=== PATIENT | male | born 1955 | race Caucasian/White ===

== ENCOUNTER 2024-04-05 09:16 | Emergency (ER) | payer MEDICARE, SELFPAY ==
[2024-04-05 09:25] VITALS: BP 134/77; PULSE 62; TEMP 36.7; O2SAT 96; BMI 25.1
[2024-04-05 09:37] VITALS: O2SAT 98
--- NOTE | 2024-04-05 10:01 | ED_ITS ---
HPI HPI - General Adult General Chief complaint: Extremity Injury, Upper Stated complaint: UPPER EXTREMITY PAIN Time Seen by Provider: 04/05/24 09:20 Source: patient and family Mode of arrival: walk-in Limitations: no limitations History of Present Illness HPI narrative: This patient is here with his for evaluation of ongoing pain in his right shoulder. This patient was seen at a different institution on Saturday. History is given by both the patient and his . Saturday morning after waking up he had an event. She says he extended both of his arms in a very stiff and strong presentation and had altered mental status and confusion. He did not have a full-blown seizure. He does not remember the event. He was taken to the hospital by ambulance. 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 He is very stoic. He is right-handed dominant and has never had any problems with the shoulder. Ever since this event he has extreme pain in his right shoulder. The evaluation at the other institution is that he probably had a seizure disorder. He has been referred to a neurologist but has not followed up yet. He has not had any further seizure events since that. He was told that x-rays of his shoulder showed arthritis. He was not given any analgesics. He has been using creams and patches and NSAIDs with no effect. The pain is over the anterior lateral aspect of his deltoid area. He says he cannot elevate his arm without extreme pain. He has no loss of feeling. He has no pain in his elbow forearm has no clumsiness or problem moving his hand on the right side. Related Data Home Medications ?Medication ?Instructions ?Recorded ?Confirmed amlodipine 5 mg tablet mg 04/05/24 carvedilol 6.25 mg tablet mg 04/05/24 olmesartan 20 tab 04/05/24 mg-hydrochlorothiazide 12.5 mg tablet Allergies Allergy/AdvReac Type Severity Reaction Status Date / Time No Known Drug Allergies Allergy Verified 04/05/24 09:29 Opioid HPI Opioid Management Most Recent Opioid Data: Last Pain Scale 10 04/05/24 09:37 Last ED Pain Assessment 04/05/24 09:37 Exam Narrative Exam Narrative: Awake alert pleasant here with his vital signs are stable. He is holding his shoulder close to his torso. We did an [facility] search and he has no narcotic use at all. Examination shows the elbow range of motion to be normal. Forearm muscle use wrist and hand muscles are all completely normal with no weakness of the hand and forearm. Biceps is strong. However any attempt to elevate his shoulder reproduces pain. The shoulder is not dislocated. Sensation to the forearm and hand is normal. Constitutional Vital Signs, click to edit/add: Last Vital Signs Temp 98.0 F 04/05/24 09:25 Pulse 62 04/05/24 09:25 Resp 18 04/05/24 09:25 BP 134/77 04/05/24 09:25 Pulse Ox 98 04/05/24 09:37 O2 Del Method Room Air 04/05/24 09:37 Course Vital Signs Vital signs: Vital Signs Temperature 98.0 F 04/05/24 09:25 Pulse Rate 62 04/05/24 09:25 Respiratory Rate 18 04/05/24 09:25 Blood Pressure 134/77 04/05/24 09:25 Pulse Oximetry 96 04/05/24 09:25 Oxygen Delivery Method Room Air 04/05/24 09:25 Temperature 98.0 F 04/05/24 09:25 Pulse Rate 62 04/05/24 09:25 Respiratory Rate 18 04/05/24 09:25 Blood Pressure 134/77 04/05/24 09:25 Pulse Oximetry 98 04/05/24 09:37 Oxygen Delivery Method Room Air 04/05/24 09:37 Medical Decision Making [facility] Narrative Medical decision making narrative: This patient presents with pain and discomfort after having an apparent seizure in his right shoulder. We will refer him to local orthopedics placed him in a sling. Will put him on a prednisone therapy as well as analgesics for nighttime pain especially. He is not at risk for narcotic abuse. Discharge Plan Discharge Stand Alone Forms: Work/School Release, Portal Instructions Chief Complaint: Extremity Injury, Upper Clinical Impression: Injury of right rotator cuff Patient Disposition: Home, Self-Care Time of Disposition Decision: 10:06 Prescriptions / Home Meds: No Action carvedilol 6.25 mg tablet amlodipine 5 mg tablet olmesartan-hydrochlorothiazide 20-12.5 mg tablet Print Language: Bahraini Additional Instructions: Wear sling for 3 or 4 days. Follow-up with orthopedics/Percocet for nighttime pain. Prednisone for 7 days Referrals: HERVE STEELE [Primary Care Provider] - 1 week
--- NOTE | 2024-04-05 10:21 | CT_ITS ---
[address] [address] Patient Name: FARHAN HUTRADO MRN: [id number] date: 1955 Sex: M Assigned Patient Location: ER Current Patient Location: [facility] Accession/Order Number: [id number] Exam Date: 04/05/2024 10:38 Report Date: 04/05/2024 16:06 At the request of: FARHAN Hernandez JONAMAN Procedure: CT shoulder RT wo con EXAM: CT shoulder RT wo con HISTORY: Trauma COMPARISON: None. TECHNIQUE: Dose reduction techniques were achieved by using automated exposure control and/or adjustment of mA and/or kV according to patient size and/or use of iterative reconstruction technique.CT of the right shoulder without contrast. FINDINGS: Posterior shoulder dislocation. Reverse Hill-Sachs lesion of the humerus. No definitive acute fracture of the glenoid. No right axillary adenopathy. Moderate glenohumeral joint effusion. Pulmonary nodule of the right minor fissure measuring 5 mm. Normal alignment of the right acromioclavicular joint. CT/CT shoulder RT wo con IMPRESSION: 1. Posterior shoulder dislocation. 2. Reverse Hill-Sachs lesion of the humerus. No definitive acute fracture of the glenoid. 3. Moderate glenohumeral joint effusion. 4. Normal alignment of the right acromioclavicular joint. Electronically authenticated by: TANIKA PACHECO Date: 04/05/2024 16:06
[2024-04-05] MEDS: OXYCODONE HCL/ACETAMINOPHEN 5MG/325MG 1 TAB PO (10:42)
== END 2024-04-05 12:05 | disposition home or self-care (01) ==
PROVIDERS: Emergency Provider Emergency Medicine Emergency Medical Services; PCP Family Medicine
DX: S46.001A Unspecified injury of muscle(s) and tendon(s) of the rotator cuff of right shoulder, initial encounter (principal); X58.XXXA Exposure to other specified factors, initial encounter
CPT/HCPCS: 73200; 99284

== ENCOUNTER 2024-05-20 13:43 | Outpatient (RCR) | payer MEDICARE, SELFPAY | END 2024-08-04 15:05 | disposition home or self-care (01) | LOC: PT 13:43 | PROVIDERS: PCP Family Medicine | DX: S43.004D Unspecified dislocation of right shoulder joint, subsequent encounter (principal) | CPT/HCPCS: 97010; 97110; 97112; 97140; 97161 ==

== ENCOUNTER 2024-06-19 11:55 | Outpatient (OUT) | payer MEDICARE, SELFPAY ==
--- NOTE | 2024-06-19 12:15 | XR_ITS ---
The [address] [address] Patient Name: FARHAN HURTADO MRN: [id number] date: 1955 Sex: M Assigned Patient Location: LAB Current Patient Location: Accession/Order Number: [id number] Exam Date: 06/19/2024 12:30 Report Date: 06/23/2024 06:05 At the request of: HERVE STEELE Procedure: XR wrist RT min 3V 3 views of the right wrist INDICATION: Pain COMPARISON: None XR/XR wrist RT min 3V IMPRESSION: No acute fracture or dislocation. Scattered mild degenerative changes. Joint alignment is intact. Scattered vascular calcifications. Electronically authenticated by: LESLIE GATES Date: 06/23/2024 06:05
--- NOTE | 2024-06-19 12:16 | XR_ITS ---
The [address] [address] Patient Name: FARHAN HURTADO MRN: [id number] date: 1955 Sex: M Assigned Patient Location: LAB Current Patient Location: LAB Accession/Order Number: [id number] Exam Date: 06/19/2024 12:30 Report Date: 06/23/2024 14:35 At the request of: HERVE STEELE Procedure: XR hand RT min 3V PROCEDURE: XR hand RT min 3V HISTORY: joint swelling, known right shoulder fracture M25.40 COMPARISON: None. FINDINGS: BONES:Multifocal mild degenerative joint disease, predominantly involving the interphalangeal joints. No fracture, dislocation, or bone lesion. Small ossification lateral to the third metacarpophalangeal joint favoring sequela of remote injury. SOFT TISSUES:No visible soft tissue swelling. EFFUSION:None visible. OTHER: Negative. XR/XR hand RT min 3V IMPRESSION: 1. No acute or specific bone abnormality to account for patient's symptoms. 2. Multifocal mild degenerative changes. Electronically authenticated by: AMAN KUMAR Date: 06/23/2024 14:35
[2024-06-19 12:49] LABS: Basophils Absolute Auto 0.1 10^3/uL (0.0-0.1); Basophils Percent Auto 0.5 % (0.2-2.0); Eosinophils Absolute Auto 0.2 10^3/uL (0.0-0.7); Eosinophils Percent Auto 2.2 % (0.9-7.0); Hematocrit 45.5 % (42.0-54.0); Hemoglobin 15.6 g/dL (14.0-18.0); Immature Granulocytes Abs Auto 0.02 10^3/uL (0.00-0.03); Immature Granulocytes Pct Auto 0.2 % (0.0-0.5); Lymphocytes Absolute Auto 1.4 10^3/uL (1.2-3.8); Lymphocytes Percent Auto 14.7 % (20.5-60.0); Mean Corpuscular HGB Conc 34.3 g/dL (29.9-35.2); Mean Corpuscular Hemoglobin 32.5 pg (25.9-34.0); Mean Corpuscular Volume 94.8 fL (80.0-94.0); Mean Platelet Volume 9.7 fL (9.5-13.5); Monocytes Absolute Auto 1.1 10^3/uL (0.3-0.8); Monocytes Percent Auto 11.8 % (1.7-12.0); Neutrophils Absolute Auto 6.5 10^3/uL (1.4-6.5); Neutrophils Percent Auto 70.6 % (43.0-75.0); Platelet Count 269 10^3/uL (150-450); Red Cell Distribution Width 13.2 % (11.0-15.0); White Blood Count 9.2 10^3/uL (4.0-11.0)
[2024-06-19 12:52] LABS: Alanine Aminotransferase 16 U/L (16-63); Albumin Globulin Ratio 1.1; Albumin Level 3.6 g/dL (3.4-5.0); Alkaline Phosphatase 116 U/L (46-116); Aspartate Amino Transferase 12 U/L (15-37); BUN Creatinine Ratio 11.3; Bilirubin Total 0.4 mg/dL (0.2-1.0); C Reactive Protein <0.50 mg/dL (<=0.50); Calcium 9.6 mg/dL (8.5-10.1); Carbon Dioxide 30.3 mmol/L (21.0-32.0); Chloride 104 mmol/L (98-107); Estimated GFR (African America >60 (>=60 mL/min/1.73m^2); Estimated GFR (Non-African Ame >60 (>=60 mL/min/1.73m^2); Globulin 3.4 g/dL; Glucose 96 mg/dL (74-106); Potassium 4.3 mmol/L (3.5-5.1); Sodium 143 mmol/L (136-145); Uric Acid 5.5 mg/dL (3.5-7.2)
[2024-06-19 12:54] LABS: Erythrocyte Sedimentation Rate 6 mm/hr (<=20)
[2024-06-20 06:10] LABS: Rheumatoid Factor (RF) <10.0 IU/mL (<14.0)
[2024-06-23 09:12] LABS: Antinuclear Antibodies, IFA Positive (.)
== END 2024-06-19 11:56 | disposition home or self-care (01) ==
LOC: LAB 11:58
PROVIDERS: PCP Family Medicine; Visit Provider Family Medicine
DX: S42.91XS Fracture of right shoulder girdle, part unspecified, sequela (principal); M25.40 Effusion, unspecified joint
CPT/HCPCS: 36415; 73110; 73130; 80053; 84550; 85025; 85652; 86038; 86140; 86431

== ENCOUNTER 2024-07-04 04:09 | Emergency (ER) | payer MEDICARE, SELFPAY ==
[2024-07-04] VITALS (10 sets, daily range): BP systolic 130–144; BP diastolic 71–83; PULSE 73–80; TEMP 36.7; O2SAT 88–94
--- OUTSIDE RECORDS SUMMARY | 2024-07-04 04:15 | XMS_ITS | CCD ---
Author Organization [facility] Care Team Providers Care 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 Machine Tender Name Role Phone LALY TALBERT Admitting Unavailable NITISH, LALY Attending Unavailable IVETTE, DR EDGAR Primary Care Unavailable NITISH, LALY Consulting Unavailable NITISH, LALY Attending Unavailable IVETTE, DR EDGAR Primary Care Unavailable MISC, DR WOODARD Admitting Unavailable NITISH, LALY Admitting Unavailable NITISH, LALY Attending Unavailable IVETTE, DR EDGAR Primary Care Unavailable MENDEZ VARGAS Consulting Unavailable NITISH, LALY Consulting Unavailable NASIR, DR GARCIA Admitting Unavailable NASIR, DR GARCIA Attending Unavailable IVETTE, DR EDGAR Primary Care Unavailable JOSÉ, DR AMAN Garcia Consulting Unavailable ARA KINNEY Consulting Unavailable Herve Steele Unavailable Wesleys, Herve Primary Care Provider DO Herve Steele Attending Provider Wesleys, DO Edgar Primary Care Provider Wesleys, DO Edgar Attending Provider MD Elvia Palacios Attending Provider Elvia Palacios Unavailable Ivette, DO Edgar Primary Care Provider MD Elvia Palacios Attending Provider Community, Outreach Attending Provider [phone] DO Herve Steele Attending Provider [phone] Kuns, Herve Primary Care Provider Ivette, DO Edgar Attending Provider [phone] MD Ludmila Merchant Attending Provider Kuns, DO Herve Primary Care Provider [phone] DO Sly Gleason Emergency Provider Kuns, Herve Eddie Primary Care Provider [phone] INDY QUICK Attending Unavailable DAMIÁN BLACKWOOD Admitting Unavailable DAMIÁN BLACKWOOD Attending Unavailable DAMIÁN BLACKWOOD Referring Unavailable KUNS, HERVE R Primary Care Unavailable Kuns, Herve Admitting Unavailable Kuns, Herve Attending Unavailable Kuns, Herve Primary Care Unavailable Kuns, Herve Admitting Unavailable Kuns, Herve Attending Unavailable Kuns, Herve Primary Care Unavailable Kuns, Herve Admitting Unavailable Kuns, Herve Attending Unavailable Kuns, Herve Primary Care Unavailable Kuns, Herve Admitting Unavailable Kuns, Herve Attending Unavailable Kuns, Herve Primary Care Unavailable Asaad, Imad Admitting Unavailable Asaad, Imad Attending Unavailable Kuns, Herve Primary Care Unavailable Sly Gleason Attending Unavailable Sly Gleason Admitting Unavailable Kuns, Herve Primary Care Unavailable Kuns, DO Herve Attending Provider [phone] Generic Provider MD, No Assigned Pcp Primary Car e Provider Unavailable Kuns DO, Herve R Primary Care Provider [phone] DAMIÁN BLACKWOOD Attending Unavailable KUNS, HERVE R Primary Care Unavailable DAMIÁN BLACKWOOD Attending Unavailable GENERIC PROVIDER, NO ASSIGNED PCP Primary Care Unavailable DAMIÁN BLACKWOOD Referring Unavailable GENERIC PROVIDER, NO ASSIGNED PCP Primary Care Unavailable BRIAN NEWSOME Attending Unavailable GENERIC PROVIDER, NO ASSIGNED PCP Primary Care Unavailable BRIAN NEWSOME Referring Unavailable GENERIC PROVIDER, NO ASSIGNED PCP Primary Care Unavailable DAMIÁN BLACKWOOD Referring Unavailable KUNS, HERVE R Primary Care Unavailable HI WOOTEN Referring Unavailable KUNS, HERVE EDDIE Primary Care Unavailable NEME MERCMANDY, AMI Referring Unavailabl e KUNS, HERVE EDDIE Primary Care Unavailable NEME JAYCEE AMI Attending Unavailabl e HO, HI Referring Unavailable KUNS, HERVE EDDIE Primary Care Unavailable MIGUELANGEL WOOTENSON Attending Unavailable FANTASMA SORIANO Referring Unavailable KUNS, HERVE EDDIE Primary Care Unavailable HO HI Referring Unavailable KUNS, HERVE EDDIE Primary Care Unavailable BO, FANTASMA Referring Unavailable FANTASMA SORIANO Attending Unavailable DANIEL ELLISON Attending Unavailable HERVE STEELE Primary Care Unavailable HI WOOTEN Referring Unavailable HERVE STEELE Primary Care Unavailable HI WOOTEN Referring Unavailable HERVE STEELE Primary Care Unavailable Allergies Allergy Classification Reported Allergen(s) Allergy Type Date of Onset Reaction(s) Facility (1 source) Unable to Assess Drug allergy (disorder) [facility] Repository (1 source) ALLERGIES NOT ON FILE; Translations: [ALLERGIES NOT ON FILE] Propensity to adverse reactions (disorder) [facility] [place] Repository Medications Current Medications Medication Drug Class(es) Dates Sig (Normalized) Sig (Original) acetaminophen 500 mg oral tablet (2 sources) Start: 04-10-2024 take 2 tablets by mouth every six hours as needed for pain acetaminophen (Tylenol) 500 mg tablet TAKE 2 TABLETS BY MOUTH EVERY 6 HOURS NEEDED FOR PAIN FOR UP TO 5 DAYS. 04/10/2024 Active amLODIPine 5 mg oral tablet (20 sources) Dihydropyridine Calcium Channel Jamaal Start: 12-26-2023 End: 12-26-2023 amLODIPine (NORVASC) 5 mg tablet once daily. 12/26/2023 Active Start: 09-12-2017 take 1 tablet by michael th every twenty-four hours amLODIPine Besylate 5 MG 1 tablet Orally Once a day Sep, Active Aspirin (20 sources) Platelet Aggregation Inhibitor, Nonsteroidal Anti-inflammatory Drug Start: 12-26-2023 take 1 tablet by mouth once daily aspirin 81 mg capsule Take 1 tablet by mouth once daily. 12/26/2023 Active Start: 12-26-2023 aspirin 81 mg cap 1 tablet. 12/26/2023 Active Start: 12-26-2023 take 1 tablet by michael th once daily Aspirin Active 1 TAB PO Daily December 26, 2023 12:00am FreeTextSi tablet Orally Once a day; Note: Source Status: Taking; Provider: Ivette Edgar ( ) take 1 tablet by michael th every twenty-four hours Aspirin 81 MG 1 tablet Orally Once a day Active betamethasone 0.5 mg/ml / clotrimazole 10 mg/ml topical cream (13 sources) Azole Antifungal, Corticosteroid Start: 01-06-2019 Clotrimazole-Betamethasone 1-0.05 % 1 application Externally Twice a day December, Active carvedilol 6.25 mg oral tablet (20 sources) alpha-Adrenergic Jamaal, beta-Adrenergic Jamaal Start: 12-26-2023 take 1 tablet by mouth twice daily carvedilol (Coreg) 6.25 mg tablet Take 1 tablet (6.25 mg) by mouth 2 times a day. 12/26/2023 Active Start: 12-26-2023 End: 12-26-2023 carvedilol (COREG) 6.25 mg t ablet once daily. 12/26/2023 Active Start: 03-19-2018 take 1 tablet by michael th every twenty-four hours Carvedilol 6.25 MG 1 tablet Orally Once a day Mar, Active diclofenac sodium 75 mg delayed release oral tablet (8 sources) Nonsteroidal Anti-inflammatory Drug Start: 04-28-2024 take 1 tablet by mouth twice daily as needed for pain diclofenac, EC, (VOLTAREN) 75 mg EC tablet Take one tablet by mouth twice a day as needed PRN for pain, with food 30 tablet 04/28/2024 Active hydroCHLOROthiazide 12.5 mg / olmesartan medoxomil 20 mg oral tablet (20 sources) Thiazide Diuretic, Angiotensin 2 Receptor Jamaal Start: 12-26-2023 Olmesartan-hydr oCHLOROthiazide 20-12.5 mg per tablet 1 tablet. 12/26/2023 Active Start: 12-26-2023 End: 12-26-2023 take 1 tablet by mouth once daily olmesartan-hydrochlorothiazide (BENIcar HCT) 20-12.5 mg tablet Take 1 tablet by mouth once daily. 12/26/2023 Active Start: 07-08-2018 take 1 tablet by michael th every twenty-four hours Olmesartan Medoxomil-HCTZ 20-12.5 MG 1 t ablet Orally Once a day Jul, Active levETIRAcetam 500 mg oral tablet (20 sources) Start: 05-27-2024 take 1 tablet by mouth twice daily levETIRAcetam (KEPPRA) 500 mg tablet Take 1 tablet by mouth two times a day. Patient should start on May 27, 2024. 180 tablet 3 05/27/2024 Active Start: 05-27-2024 take 1 tablet by michael th twice daily levETIRAcetam (KEPPRA) 500 mg tablet Take 1 tablet by mouth two times a day. Patient should start on May 27, 2024. 180 tablet 3 05/27/2024 Active Start: 05-27-2024 take 1 tablet by michael th twice daily levETIRAcetam (KEPPRA) 500 mg tablet Take 1 tablet by mouth two times a day. Patient should start on May 27, 2024. 180 tablet 3 05/27/2024 Active Start: 05-27-2024 take 1 tablet by michael th twice daily levETIRAcetam (KEPPRA) 500 mg tablet Take 1 tablet by mouth two times a day. Patient should start on May 27, 2024. 180 tablet 3 05/27/2024 Active Start: 05-27-2024 take 1 tablet by michael th twice daily levETIRAcetam (KEPPRA) 500 mg tablet Take 1 tablet by mouth two times a day. Patient should start on May 27, 2024. 180 tablet 3 05/27/2024 Active Start: 05-27-2024 take 1 tablet by michael th twice daily levETIRAcetam (KEPPRA) 500 mg tablet Take 1 tablet by mouth two times a day. Patient should start on May 27, 2024. 180 tablet 3 05/27/2024 Active Start: 05-27-2024 take 1 tablet by michael th twice daily levETIRAcetam (KEPPRA) 500 mg tablet Take 1 tablet by mouth two times a day. Patient should start on May 27, 2024. 180 tablet 3 05/27/2024 Active Start: 05-27-2024 take 1 tablet by michael th twice daily levETIRAcetam (KEPPRA) 500 mg tablet Take 1 tablet by mouth two times a day. Patient should start on May 27, 2024. 180 tablet 3 05/27/2024 Active Start: 04-27-2024 take 1 tablet by michael th twice daily levETIRAcetam (KEPPRA) 500 mg tablet Take 1 tablet by mouth two times a day. 60 tablet 04/27/2024 Active Start: 04-27-2024 take 1 tablet by michael th once daily levETIRAcetam (Keppra) 500 mg tablet Take 1 tablet (500 mg) by mouth once daily. 04/27/2024 Active mupirocin 0.02 mg/mg topical ointment (3 sources) RNA Synthetase Inhibitor Antibacterial Start: 04-30-2024 End: 05-05-2024 mupirocin (BACTROBAN) 2 % ointment Indications: Preoperative examination two times a day for 5 days. Apply 0.5 inch with cotton swab (Q-tip) to each nostril in the morning and evening for 5 days prior to and including day of surgery. 22 g 04/30/2024 05/05/2024 Active Paxlovid (300/100) 20 x 150 MG & 10 x 100MG (1 source) Start: 04-05-2022 Paxlovid (300/ 100) 20 x 150 MG & 10 x 100MG as directed Orally 04/05/22 test date GFR >60 Apr, Active Completed/Discontinued Medications Medication Drug Class(es) Dates Sig (Normalized) Sig (Original) acetaminophen 325 mg / oxyCODONE hydrochloride 5 mg oral tablet (8 sources) Opioid Agonist Start: 04-05-2024 End: 04-28-2024 take 1 tablet by mouth every six hours oxyCODONE-acetami nophen (PERCOCET) 5-325 mg tablet TAKE 1 TABLET BY MOUTH EVERY 6 HOURS FOR 4 DAYS 04/05/2024 04/28/2024 Discontinued (Course of therapy completed) Ketorolac (12 sources) Nonsteroidal Anti-inflammatory Drug, Cyclooxygenase Inhibitor Start: 06-14-2016 Toradol per 15 mg Jun, 2 cc predniSONE 20 mg oral tablet (8 sources) Start: 04-05-2024 End: 04-28-2024 take 1 tablet by mouth twice daily predniSONE (DELTASONE) 20 mg tablet TAKE 1 TABLET BY MOUTH TWICE A DAY FOR 4 DAYS TAKE 1 TABLET FOR 3 DAYS 04/05/2024 04/28/2024 Discontinued Problems Active Problems Problem Classification Problem Date Documented Da te Episodic/Chronic Administrative/social admission (12 sources) Other specified problems related to psychosocial circumstances; Translations: [Stress] Episodic Conditions associated with dizziness or vertigo (12 sources) Vertigo; Translations: [Dizziness and giddiness] Episodic Diabetes mellitus without complication (20 sources) Hyperglycemia; Translations: [Hyperglycemia, unspecified] 06-21-2024 Episodic Disorders of lipid metabolism (20 sources) Hyperlipidemia; Translations: [Hyperlipidemia, unspecified] Onset: 12-09-2023 Chronic E Codes: Cut/pierceb (1 source) Contact with other powered hand tools and household machinery, initial encounter; Translations: [CONTACT OTH POWER HT AND HH MACH INIT] Onset: 01-04-2021 Episodic E Codes: Fall (1 source) Unspecified fall, initial encounter; Translations: [UNSPECIFIED FALL INITIAL ENCOUNTER] Onset: 01-18-2021 Episodic Epilepsy; convulsions (16 sources) Seizure; Translations: [Unspecified convulsions] Onset: 04-09-2024 04-03-2024 Episodic Essential hypertension (20 sources) Essential (primary) hypertension; Translations: [Hypertensive disorder] Onset: 01-18-2021 Chronic Fracture of upper limb (3 sources) Closed fracture of upper end of humerus; Translations: [Other displaced fracture of upper end of right humerus, initial encounter for closed fracture] 04-09-2024 Episodic Joint disorders and dislocations; trauma-related (20 sources) Posterior dislocation of shoulder joint; Translations: [Posterior subluxation of right humerus, initial encounter] Onset: 04-30-2024 04-09-2024 Episodic Mycoses (12 sources) Onychomycosis; Translations: [Tinea unguium] Episodic Neoplasms of unspecified nature or uncertain behavior (4 sources) Neoplasm of uncertain behavior of skin; Translations: [Neoplasm of uncertain behavior of skin] Episodic Occlusion or stenosis of precerebral arteries (4 sources) Right carotid artery stenosis; Translations: [Occlusion and stenosis of right carotid artery] Onset: 01-02-2024 Chronic Open wounds of extremities (14 sources) Laceration of extensor muscle, fascia and tendon of unspecified finger at forearm level, subsequent encounter; Translations: [Unspecified open wound of unspecified finger without damage to nail, subsequent encounter] Onset: 12-28-2020 Episodic Other acquired deformities (1 source) Other specified acquired deformities of right upper arm; Translations: [Hill Sachs deformity, right] Onset: 04-09-2024 Episodic Other aftercare (1 source) Other technician terminal and repeater (current) drug therapy; Translations: [OTH SPEEDER FRAME TENDER CURRENT DRUG THERAPY] Onset: 01-18-2021 Episodic Other connective tissue disease (1 source) Cramp and spasm Episodic Other disorders of stomach and duodenum (12 sources) Indigestion; Translations: [Functional dyspepsia] Episodic Other fractures (9 sources) Pathological fracture of vertebra; Translations: [Collapsed vertebra, not elsewhere classified, thoracic region, initial encounter for fracture] Episodic Other fractures (1 source) Collapsed vertebra, not elsewhere classified, thoracic region, initial encounter for fracture Episodic Other fractures (6 sources) Fracture of twelfth thoracic vertebra; Translations: [Wedge compression fracture of T11-T12 vertebra, initial encounter for closed fracture] Episodic Other fractures (1 source) Wedge compression fracture of T11-T12 vertebra, initial encounter for closed fracture Episodic Other fractures (1 source) Wedge compression fracture of T11-T12 vertebra, subsequent encounter for fracture with routine healing Episodic Other injuries and conditions due to external causes (1 source) Unspecified injury of other specified muscles, fascia and tendons at wrist and hand level, left hand, initial encounter; Translations: [UNS INJ OTH SPEC M AND T W HND LT H INT] Onset: 01-04-2021 Episodic Other non-traumatic joint disorders (7 sources) Pain in right shoulder; Translations: [Pain in joint, shoulder region] Onset: 04-09-2024 04-09-2024 Episodic Other screening for suspected conditions (not mental disorders or infectious disease) (20 sources) Raised prostate specific antigen; Translations: [Elevated prostate specific antigen [PSA]] Onset: 12-09-2023 Episodic Residual codes; unclassified (2 sources) Pain, unspecified; Translations: [Pain] Onset: 04-24-2024 Episodic Residual codes; unclassified (3 sources) Pain; Translations: [Pain, unspecified] 04-22-2024 Episodic Residual codes; unclassified (1 source) Altered mental status, unspecified; Translations: [Altered mental status, unspecified] Onset: 04-03-2024 Episodic Spondylosis; intervertebral disc disorders; other back problems (12 sources) Low back pain; Translations: [Low back pain] Episodic Superficial injury; contusion (4 sources) Contusion of right shoulder; Translations: [Contusion of right shoulder, initial encounter] 04-03-2024 Episodic Unclassified (1 source) CONTACT W/AND (SUSP) EXPOS COVID-19; Translations: [CONTACT W/AND (SUSP) EXPOS COVID-19] Onset: 01-14-2021 Past or Other Problems Problem Classification Problem Date Documented Da te Episodic/Chronic Diseases of mouth; excluding dental (1 source) Diseases of lips Onset: 01-19-2022 Resolved: 01-19-2022 Episodic Unclassified (2 sources) Lumbar back pain M54.50 Unclassified (1 source) History of COVID-19 Z86.16 Viral infection (12 sources) Disease caused by 2019-nCoV; Translations: [COVID-19] Onset: 04-05-2022 Resolved: 04-05-2022 Results Test Name Value Interpretation Reference Range Facility MR Brain WO contraston 07-01 IMPRESSION: No acute intracranial abnormality. No focal structural abnormality to account for seizures. Symmetric size, signal, and maintained morphology of the bilateral hippocampi. Mild presumed chronic microvascular ischemic changes in the white matter, and generalized volume loss, as detailed. Personal Care Home Administrator: BRITTNEE Transcribe Date/Time: Jul 01 2024 10:25P Dictated by : JT MUNOZ MD This examination was interpreted and the report reviewed and electronically signed by: JT MUNOZ MD on Jul 01 2024 10:33PM [facility] * * *Final Report* * * DATE OF EXAM: Jul 01 2024 5:32PM [facility] 0294 - MRI BRAIN WO IVCON / PROCEDURE REASON: Convulsions, unspecified convulsion type (HCC) * * * * Physician Interpretation * * * * EXAMINATION: MRI BRAIN WO IVCON CLINICAL HISTORY: Convulsions, unspecified convulsion type (HCC) TECHNIQUE: Epilepsy protocol brain MRI without contrast. MQ: [id number] COMPARISON: Brain CT 04/09/2024. RESULT: Acute Change: There is no evidence of restricted diffusion to suggest an acute infarct. Hemorrhage: No evidence of prior parenchymal hemorrhage on the susceptibility weighted images. Mass Lesion/ Mass Effect: No evidence of an intracranial mass or extra-axial fluid collection. No significant mass effect. Chronic Change: Scattered patchy areas of increased T2 and FLAIR signal are present in the supratentorial white matter which is a nonspecific finding but likely represents mild chronic microvascular ischemia. Parenchyma: There is mild generalized parenchymal volume loss. The brain parenchyma is otherwise within normal limits of signal intensity and morphology. Mesial temporal structures: The bilateral hippocampi are symmetric in size and signal, and demonstrate maintained morphology bilaterally. Bilateral amygdala are symmetric in size and signal. No evidence of skull base encephalocele. Apparent slight asymmetric FLAIR hyperintensity in the left anterior temporal pole (for example coronal image 11:44 and axial image 12:43) is artifactual, related to field inhomogeneity artifacts, noting asymmetrically hyperintense appearance of the left orbit and left subcutaneous fat also on these images. Additionally, there is artifact in the anterior portions of the field of view on the axial FLAIR images, likely due to incomplete closure of the neck coil. Ventricles: Ventriculomegaly corresponds to the degree of parenchymal volume loss. Skull Base: Hypothalamic and pituitary region are grossly normal. Craniocervical junction is normal. No significant marrow replacement process. Vasculature: Major intracranial arterial structures, and dural venous sinuses show typical flow void, suggesting patency by spin echo criteria. Other: The visualized paranasal sinuses and mastoid air cells are clear. The orbits and extracranial soft tissues are unremarkable. [facility] Provider, [facility] - 07/01/2024 * * *Final Report* * * DATE OF EXAM: Jul 01 2024 5:[address] [place] [address] 0294 - MRI BRAIN WO IVCON / PROCEDURE REASON: Convulsions, unspecified convulsion type (HCC) * * * * Physician Interpretation * * * * EXAMINATION: MRI BRAIN WO IVCON CLINICAL HISTORY: Convulsions, unspecified convulsion type (HCC) TECHNIQUE: Epilepsy protocol brain MRI without contrast. MQ: [id number] COMPARISON: Brain CT 04/09/2024. RESULT: Acute Change: There is no evidence of restricted diffusion to suggest an acute infarct. Hemorrhage: No evidence of prior parenchymal hemorrhage on the susceptibility weighted images. Mass Lesion/ Mass Effect: No evidence of an intracranial mass or extra-axial fluid collection. No significant mass effect. Chronic Change: Scattered patchy areas of increased T2 and FLAIR signal are present in the supratentorial white matter which is a nonspecific finding but likely represents mild chronic microvascular ischemia. Parenchyma: There is mild generalized parenchymal volume loss. The brain parenchyma is otherwise within normal limits of signal intensity and morphology. Mesial temporal structures: The bilateral hippocampi are symmetric in size and signal, and demonstrate maintained morphology bilaterally. Bilateral amygdala are symmetric in size and signal. No evidence of skull base encephalocele. Apparent slight asymmetric FLAIR hyperintensity in the left anterior temporal pole (for example coronal image 11:44 and axial image 12:43) is artifactual, related to field inhomogeneity artifacts, noting asymmetrically hyperintense appearance of the left orbit and left subcutaneous fat also on these images. Additionally, there is artifact in the anterior portions of the field of view on the axial FLAIR images, likely due to incomplete closure of the neck coil. Ventricles: Ventriculomegaly corresponds to the degree of parenchymal volume loss. Skull Base: Hypothalamic and pituitary region are grossly normal. Craniocervical junction is normal. No significant marrow replacement process. Vasculature: Major intracranial arterial structures, and dural venous sinuses show typical flow void, suggesting patency by spin echo criteria. Other: The visualized paranasal sinuses and mastoid air cells are clear. The orbits and extracranial soft tissues are unremarkable. IMPRESSION IMPRESSION: No acute intracranial abnormality. No focal structural abnormality to account for seizures. Symmetric size, signal, and maintained morphology of the bilateral hippocampi. Mild presumed chronic microvascular ischemic changes in the white matter, and generalized volume loss, as detailed. Personal Care Home Administrator: PSCB Transcribe Date/Time: Jul 01 2024 10:25P Dictated by : JT MUNOZ MD This examination was interpreted and the report reviewed and electronically signed by: JT MUNOZ MD on Jul 01 2024 10:33PM EST [facility] Radiology Study observation (narrative) [facility] MR Brain WO contrastOrdered By: [facility] Provider on 07-01-2024 [facility] 06-22-2024 [facility] Telephone ([id number]) -- DAVIS JOHNSON ([id number]) 1955 M Date Time Provider Department 06/22/24 AMI WHITTAKER [id number] During your visit today, we recorded the following information about you: Poly Schmidt 06/22/2024 8:27 AM Signed Medication Concern Person Calling Davis Johnson Name of medication Keppra Concern with medication Patient wants to reduce Keppra due to bad taste and bad smell. Please advise. He plans to see a new doctor in [place] in two weeks due to closer to home. Patient of Promise Hernandez RN 06/22/2024 12:01 PM Signed 04/27/[address] Ramirez IMPRESSION: Patient presents with a single generalized tonic seizure upon awakening on 04/09/24. No risk factors for epilepsy. Seizure resulted on right humerus impacted on the posterior glenoid margin and dislocation requiring surgery. CT head was normal. No EEG conducted. Discussed with the patient the need of MRI dominique and EEG to further evaluate the single seizure. I explained to the patient that if the result of both studies is normal, my commendation is to start ASM given the risk of recurrent seizures and injuries. Keppra will be started , side effects discussed = PLAN: Keppra 500 mg bid EEG today Patient is cleared to have shoulder surgery Can not drive until October 2024 Follow up in 3 months = Testing Ordered Routine EEG 04/27/2024 EEG Impression: This awake and sleep EEG is within normal limits. No epileptiform discharges or EEG seizures were seen during this recording. Spoke with Aman no further seizures to report EEG completed no order in system for MRI would like to either decrease or wean off the LEV: affects taste and bad smelling urine. Does have an appointment with new neurologist locally in 2 weeks. Medical records phone and fax given. has FU with Epilepsy Fellow on 07/17/2024 for 3 month FU. EEG completed but no MRI at this time. routed for review TAPAN Pratt Ailis, PA-C 06/22/2024 12:26 PM Signed MRI Brain order placed. Would not recommend coming off of Keppra without replacing with another medication, patient already on very low dose, so cannot wean either. Two options for replacement, Lamotrigine 100 mg BID, which does have a long titration, so would have to remain on Keppra throughout, or Zonisamide 200 mg QHS, would have to confirm no history of kidney stones or sulfa allergies. Can discuss options with patient and see what his preference is, make a schedule for transitioning accordingly. Would not recommend stopping Keppra immediately. MARCK Gusman Kimberly L, RN 06/22/2024 1:59 PM Signed Spoke with Randall white the recommends appointment line given to arrange MRI/will call is needs order to do locally. will continue with the LEV at this time Promise Griffith RN Allergies As of Date: 06/22/2024 (No Known Allergies) Date Reviewed: 04/30/2024 Reviewed by: Juan C Zuleta APRN.[employer] - Fully Assessed Reason for Visit: Medication Problem [65] Cmt: Patient wants to reduce Keppra Primary Visit Diagnosis:Convulsions, unspecified convulsion type (HCC) [R56.9] Order(s):MRI BRAIN WO CARINON [[id number]] Order #: [id number] FUTURE Prescriptions as of 06/22/2024 - diclofenac, EC, (VOLTAREN) 75 mg EC tablet Take one tablet by mouth twice a day as needed PRN for pain, with food - levETIRAcetam (KEPPRA) 500 mg tablet Take 1 tablet by mouth two times a day. Patient should start on May 27, 2024. - levETIRAcetam (KEPPRA) 500 mg tablet Take 1 tablet by mouth two times a day. - Olmesartan-hydroCHLOROthia zide 20-12.5 mg per tablet 1 tablet. - carvedilol (COREG) 6.25 mg tablet once daily. - amLODIPine (NORVASC) 5 mg tablet once daily. - aspirin 81 mg cap 1 tablet. Problem List As Of Date 06/22/2024 Noted Resolved Seizure (HCC) [R56.9] 04/29/2024 Hypertension [I10] 04/29/2024 Hyperlipidemia [E78.5] 04/29/2024 Encounter Status:Closed by PROMISE GRIFFITH on 06/22/24 Normal [facility] XR SHOULDER RIGHT 2+ VIEWSon 06-17-2024 XR SHOULDER RIGHT 2+ VIEWS Interpreted By: Damon Pete, STUDY: XR SHOULDER RIGHT 2+ VIEWS; ; 06/17/2024 2:08 pm INDICATION: Signs/Symptoms:pain. ,S43.004A Unspecified dislocation of right shoulder joint, initial encounter COMPARISON: 05/18/2024 ACCESSION NUMBER(S): [id number] ORDERING CLINICIAN: DAMIÁN BLACKWOOD FINDINGS: Right shoulder, two views Total shoulder arthroplasty in place. There is no periprosthetic fracture or lucency. There is no dislocation. There is mild AC degenerative changes IMPRESSION: No hardware failure about the right total shoulder arthroplasty MACRO: None Signed by: Damon Pete 06/20/2024 6:16 AM Dictation workstation: [id number] [facility] XR SHOULDER RIGHT 2+ VIEWSon 05-18-2024 XR SHOULDER RIGHT 2+ VIEWS Interpreted By: Damián Blackwood, STUDY: XR SHOULDER RIGHT 2+ VIEWS; 05/18/2024 2:13 pm INDICATION: Signs/Symptoms:pain. ACCESSION NUMBER(S): [id number] ORDERING CLINICIAN: DAMIÁN BLACKWOOD FINDINGS: AP lateral oblique views of the right shoulder show stable alignment of the humeral hemiarthroplasty. Component appears stable and well-positioned without evidence of loosening or other obvious abnormality. Signed by: Damián Blackwood 05/18/2024 5:28 PM Dictation workstation: [id number] [facility] XR Shoulder - right 2 Viewso n 05-18-2024 Interpreted By: Damián Contreras, STUDY: XR SHOULDER RIGHT 2+ VIEWS; 05/18/2024 2:13 pm INDICATION: Signs/Symptoms:pain. ACCESSION NUMBER(S): [id number] ORDERING CLINICIAN: DAMIÁN BLACKWOOD FINDINGS: AP lateral oblique views of the right shoulder show stable alignment of the humeral hemiarthroplasty. Component appears stable and well-positioned without evidence of loosening or other obvious abnormality. Signed by: Damián Blackwood 05/18/2024 5:28 PM Dictation workstation: [id number] [facility] Damián Blackwood M D - 05/18/2024 Interpreted By: Damián Blackwood, STUDY: XR SHOULDER RIGHT 2+ VIEWS; 05/18/2024 2:13 pm INDICATION: Signs/Symptoms:pain. ACCESSION NUMBER(S): [id number] ORDERING CLINICIAN: DAMIÁN BLACKWOOD FINDINGS: AP lateral oblique views of the right shoulder show stable alignment of the humeral hemiarthroplasty. Component appears stable and well-positioned without evidence of loosening or other obvious abnormality. Signed by: Damián Blackwood 05/18/2024 5:28 PM Dictation workstation: [id number] [facility] Work Phone: Radiology Study observation (narrative) [facility] Work Phone: XR Shoulder - right 2 ViewsO rdered By: Damáin Blackwood on 05-18-2024 [facility] Work Phone: PSA Diagnostic (Total Free)o n 05-15-2024 Prostate Spec Ag, Free 1.120 ng/mL Normal T he [facility] Comment on above: Performed By: #### P SATF ####[place] [id number] [place] [id number] [facility] PSA Total (Not a Screen) 6.590 ng/mL High 0.000-4.000 [facility] Comment on above: Result Comment: Mesha knight tumor marker results determined by assays using different manufacturers or methods may not be comparable. [facility] senior technical trainer and method: EnzymeRx DXI, CHEMILUMINESCENT IMMUNOASSAY. Performed By: #### P SATF ####[place] [address] [place] [id number] [facility] PSA,FREE% 16.9 % Normal [facility] Comment on above: Result Comment: Base d on the work of Pieter et al.ALEX. 279(19):1542:47.1998 the percent free PSA may be used to determine the relative risk of prostate cancer in individual men.The percent probability of prostate cancer by patient age for men with non-suspicious ALFONSO results and total PSa between 4 and 10 ng/ml is as follows: % Free PSA 50 - 64 yrs. 65 - 75 yrs. 0 - 10 56% 55% 10 - 15 24% 35% 15 - 20 17% 23% 20 - 25 10% 20% >25 5% 9% PERFORMED BY: [facility] [address] [place] [id number] PATHOLOGIST EMAIL ADMINISTRATOR AMOR WADSWORTH M.D. Performed By: #### P SATF ####[place] [address] [place] [phone] [facility] Prostate Specific Ag Free [M ass/volume] in Serum or PlasmaOrdered By: Herve Steele on 05-15-2024 Free PSA [Mass/Vol] 1.120 ng/mL [facility] Prostate specific Ag [Mass/v olume] in Serum or PlasmaOrdered By: Herve Steele on 05-15-2024 Prostate specific Ag [Mass/Vol] 6.590 ng/mL High 0.000-4.000 [facility] Comment on above: Serial tumor marker results determined by assays using different manufacturers or methods may not be comparable.[facility] senior technical trainer and method:EnzymeRx DXI, CHEMILUMINESCENT IMMUNOASSAY. Serum or plasma free prostat e specific antigen (PSA)/total PSA ratioOrdered By: Herve Steele on 05-15-2024 Free PSA/Total PSA [Mass fraction] 16.9 % [facility] Comment on above: Based on the work of Pieter et al.ALEX. 279(19):1542:47.1998 the percent free PSA may be used to determine the relative risk of prostate cancer in individual men.The percent probability of prostate cancer by patient age for men with non-suspicious ALFONSO results and total PSa between 4 and 10 ng/ml is as follows:% Free PSA 50 - 64 yrs. 65 - 75 yrs. 0 - 10 56% 55% 10 - 15 24% 35% 15 - 20 17% 23% 20 - 25 10% 20% >25 5% 9% Partial Thromboplastin Timeo n 05-05-2024 aPTT Coag (Bld) [Time] 32.0 s Normal 24.4-36.8 [facility] Comment on above: Result Comment: Effe ctive 06/08/2020: Heparin Therapeutic Range: 64.0 ? 98.0 seconds. Performed By: #### P TT #### [facility] [address] [place] [id number] Prothrombin Timeon 4 INR Coag (PPP) [Relative time] 1.1 {INR} Normal [facility] Comment on above: Performed By: #### P T #### [facility] [address] [place] [id number] PT Coag (PPP) [Time] 14.1 s Normal 12.3-14.9 [facility] Comment on above: Performed By: #### P T #### [facility] [address] [place] [id number] Type and Screen Capture 3 sc rn cellon 05-05-2024 Type and Screen Capture 3 scrn cell PATIENT: ALEX Garcia LOC: [facility] NON BILL# : [id number] : 1955 SEX: M ORDERED BY: JAISON Ramos ORDERED : 05/05/2024 09:11 COLLECTED: 05/05/2024 09:06 ORDER : [id number] RECEIVED : 05/05/2024 09:11 TEST NAME RESULT UNITS RANGES ABN FL ST ABORH Capture O POS F Antibody 3 Cell Scrn Captu NEG F Normal [facility] Comment on above: Performed By: #### T S3C #### [facility] [address] [place] [address] Type and Screen Capture 3 scrn cell PATIENT: ALEX Garcia LOC: [facility] NON BILL# : [id number] : 1955 SEX: M ORDERED BY: JAISON Ramos ORDERED : 05/05/2024 08:13 COLLECTED: 05/05/2024 08:13 ORDER : [id number] RECEIVED : 05/05/2024 08:16 TEST NAME RESULT UNITS RANGES ABN FL ST ABORH Capture O POS F Antibody 3 Cell Scrn Michael X @05/05/24 09:13 by BODLY: SAMPLE HEMOLYZED. Normal [facility] Comment on above: Performed By: #### T S3C #### [facility] [address] [facility] [place] [id number] [phone] XR SHOULDER RIGHT (MIN 2 VIE WS)on 05-05-2024 XR SHOULDER RIGHT (MIN 2 VIEWS) EXAMINATION: THREE XRAY VIEWS OF THE RIGHT SHOULDER 05/05/2024 11:04 am COMPARISON: None. HISTORY: ORDERING SYSTEM PROVIDED HISTORY: Grashey and Y views in RR please TECHNOLOGIST PROVIDED HISTORY: Reason for exam:->Grashey and Y views in RR please What reading provider will be dictating this exam?->CRC FINDINGS: Humeral head resurfacing arthroplasty seen. Alignment is normal. IMPRESSION: Humeral head resurfacing arthroplasty. Interpreted by: Rodríguez Herrera MD Signed by: Rodríguez Herrera MD 05/05/24 Final result Normal [facility] XR SHOULDER RIGHT 2+ VIEWSon 05-04-2024 XR SHOULDER RIGHT 2+ VIEWS Interpreted By: Damián Blackwood, STUDY: XR SHOULDER RIGHT 2+ VIEWS; 05/04/2024 11:42 am INDICATION: Signs/Symptoms:pain. 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 Slight fragmentation around the posterior glenoid again present. Signed by: Damián lBackwood 05/04/2024 1:16 PM Dictation workstation: [id number] [facility] Comment on above: Order Comment: 4 vie ws Basophils Auto (Bld) [#/Vol] on 04-30-2024 Basophils (Bld) [#/Vol] 0.04 10*3/uL <0.11 [facility] Basophils/100 WBC Auto (Bld) on 04-30-2024 Basophils/100 WBC (Bld) 0.5 % [facility] Blood manual differential co mment interpretation narrativeon 04-30-2024 Manual differential comment Herve (Bld) [Interp] Auto [facility] CBC W Auto Differential pane l (Bld)on 04-30-2024 Basophils (Bld) [#/Vol] 0.04 10*3/uL Normal <0.11 [facility] Comment on above: Order Comment: Speci men Type: BLOOD SPECIMENOrdering Facility: [facility] Address: [address] [place] [address] Performed By: #### 5 7021-8 ####[facility] LABCLIA [id number] [place] [address] [place] Basophils/100 WBC (Bld) 0.5 % Normal [facility] Comment on above: Order Comment: Speci men Type: BLOOD SPECIMENOrdering Facility: [facility] Address: [address] [place] [address] Performed By: #### 5 7021-8 ####[facility] LABCLIA [id number] [place] [address] [place] Differential cell count method Nom (Bld) Auto Normal [facility] Comment on above: Order Comment: Speci men Type: BLOOD SPECIMENOrdering Facility: [facility] Address: [address] [place] [address] Performed By: #### 5 7021-8 ####[facility] LABCLIA [id number] [place] [address] [place] Eosinophils (Bld) [#/Vol] 0.23 10*3/uL Normal <0.46 [facility] Comment on above: Order Comment: Speci men Type: BLOOD SPECIMENOrdering Facility: [facility] Address: [address] [place] [address] Performed By: #### 5 7021-8 ####[facility] LABCLIA [id number] [place] [address] [place] Eosinophils/100 WBC (Bld) 2.8 % Normal [facility] Comment on above: Order Comment: Speci men Type: BLOOD SPECIMENOrdering Facility: [facility] Address: [address] [place] [address] Performed By: #### 5 7021-8 ####[facility] LABCLIA [id number] [place] [address] [place] Erythrocyte distribution width (RBC) [Ratio] 13.4 % Normal 11.5-15.0 [facility] Comment on above: Order Comment: Speci men Type: BLOOD SPECIMENOrdering Facility: [facility] Address: [address] [place] [address] Performed By: #### 5 7021-8 ####[facility] LABCLIA [id number] [place] [address] [place] Hematocrit (Bld) [Volume fraction] 43.7 % Normal 39.0-51.0 [facility] Comment on above: Order Comment: Speci men Type: BLOOD SPECIMENOrdering Facility: [facility] Address: [address] [place] [address] Performed By: #### 5 7021-8 ####[facility] LABCLIA [id number] [place] [address] [place] Hemoglobin (Bld) [Mass/Vol] 14.3 g/dL Normal 13.0-17.0 [facility] Comment on above: Order Comment: Speci men Type: BLOOD SPECIMENOrdering Facility: [facility] Address: [address] [place] [address] Performed By: #### 5 7021-8 ####[facility] LABCLIA [id number] [place] [address] [place] Immature granulocytes (Bld) [#/Vol] 10*3/uL Normal <0.10 [facility] Comment on above: Order Comment: Speci men Type: BLOOD SPECIMENOrdering Facility: [facility] Address: [address] [place] [address] Performed By: #### 5 7021-8 ####[facility] LABCLIA [id number] [place] [address] [place] Immature granulocytes/100 WBC (Bld) 0.1 % Normal [facility] Comment on above: Order Comment: Speci men Type: BLOOD SPECIMENOrdering Facility: [facility] Address: [address] [place] [address] Performed By: #### 5 7021-8 ####[facility] LABCLIA [id number] [place] [address] [place] Lymphocytes (Bld) [#/Vol] 1.26 10*3/uL Normal 1.00-4.00 [facility] Comment on above: Order Comment: Speci men Type: BLOOD SPECIMENOrdering Facility: [facility] Address: [address] [place] [address] Performed By: #### 5 7021-8 ####[facility] LABCLIA [id number] [place] [address] [place] Lymphocytes/100 WBC (Bld) 15.1 % Normal [facility] Comment on above: Order Comment: Speci men Type: BLOOD SPECIMENOrdering Facility: [facility] Address: [address] [place] [address] Performed By: #### 5 7021-8 ####[facility] LABCLIA [id number] [place] [address] [place] MCH (RBC) [Entitic mass] 31.8 pg Normal 26.0-34.0 [facility] Comment on above: Order Comment: Speci men Type: BLOOD SPECIMENOrdering Facility: [facility] Address: [address] [place] [address] Performed By: #### 5 7021-8 ####[facility] LABCLIA [id number] [place] [address] [place] MCHC (RBC) [Mass/Vol] 32.7 g/dL Normal 30.5-36.0 [facility] Comment on above: Order Comment: Speci men Type: BLOOD SPECIMENOrdering Facility: [facility] Address: [address] [place] [address] Performed By: #### 5 7021-8 ####[facility] LABCLIA [id number] [place] [address] [place] MCV (RBC) [Entitic vol] 97.3 fL Normal 80.0-100.0 [facility] Comment on above: Order Comment: Speci men Type: BLOOD SPECIMENOrdering Facility: [facility] Address: [address] [place] [address] Performed By: #### 5 7021-8 ####[facility] LABCLIA [id number] [place] [address] [place] Monocytes (Bld) [#/Vol] 1.24 10*3/uL High <0.87 [facility] Comment on above: Order Comment: Speci men Type: BLOOD SPECIMENOrdering Facility: [facility] Address: [address] [place] [address] Performed By: #### 5 7021-8 ####[facility] LABCLIA [id number] [place] [address] [place] Monocytes/100 WBC (Bld) 14.9 % Normal [facility] Comment on above: Order Comment: Speci men Type: BLOOD SPECIMENOrdering Facility: [facility] Address: [address] [place] [address] Performed By: #### 5 7021-8 ####[facility] LABCLIA [id number] [place] [address] [place] Neutrophils (Bld) [#/Vol] 5.57 10*3/uL Normal 1.45-7.50 [facility] Comment on above: Order Comment: Speci men Type: BLOOD SPECIMENOrdering Facility: [facility] Address: [address] [place] [address] Performed By: #### 5 7021-8 ####[facility] LABCLIA [id number] [place] [address] [place] Neutrophils/100 WBC (Bld) 66.6 % Normal [facility] Comment on above: Order Comment: Speci men Type: BLOOD SPECIMENOrdering Facility: [facility] Address: [address] [place] [address] Performed By: #### 5 7021-8 ####[facility] LABCLIA [id number] [place] [address] [place] Nucleated RBC (Bld) [#/Vol] 10*3/uL Normal <0.01 [facility] Comment on above: Order Comment: Speci men Type: BLOOD SPECIMENOrdering Facility: [facility] Address: [address] [place] [address] Performed By: #### 5 7021-8 ####[facility] LABCLIA [id number] [place] [address] [place] Nucleated RBC/100 WBC (Bld) [Ratio] 0.0 /100 WBC Normal [facility] Comment on above: Order Comment: Speci men Type: BLOOD SPECIMENOrdering Facility: [facility] Address: [address] [place] [address] Performed By: #### 5 7021-8 ####[facility] LABCLIA [id number] [place] [address] [place] Platelet mean volume (Bld) [Entitic vol] 10.5 fL Normal 9.0-12.7 [facility] Comment on above: Order Comment: Speci men Type: BLOOD SPECIMENOrdering Facility: [facility] Address: [address] [place] [address] Performed By: #### 5 7021-8 ####[facility] LABIA [id number] [place] [address] [place] Platelets (Bld) [#/Vol] 253 10*3/uL Normal 150-400 [facility] Comment on above: Order Comment: Speci men Type: BLOOD SPECIMENOrdering Facility: [facility] Address: [address] [place] [address] Performed By: #### 5 7021-8 ####[facility] LABIA [id number] [place] [address] [place] RBC (Bld) [#/Vol] 4.49 10*6/uL Normal 4.20-6.00 [facility] Comment on above: Order Comment: Speci men Type: BLOOD SPECIMENOrdering Facility: [facility] Address: [address] [place] [address] Performed By: #### 5 7021-8 ####[facility] LABIA [id number] [place] [address] [place] WBC (Bld) [#/Vol] 8.35 10*3/uL Normal 3.70-11.00 [facility] Comment on above: Order Comment: Speci men Type: BLOOD SPECIMENOrdering Facility: [facility] Address: [address] [place] [address] Performed By: #### 5 7021-8 ####[facility] LABIA [id number] [place] [address] [place] CONFIRM BLOOD TYPEon 024 ABO O Normal [facility] Comment on above: Order Comment: Speci men Type: BLOOD SPECIMENOrdering Facility: [facility] Address: [address] [place] [address] Performed By: #### C ONABO ####[facility] BLOOD BANKCLIA [id number] [place] [id number] [place] Rh Nom (Bld) Positive Normal [facility] Comment on above: Order Comment: Speci men Type: BLOOD SPECIMENOrdering Facility: [facility] Address: [address] [place] [address] Performed By: #### C ONABO ####[facility] BLOOD BANKIA [id number] [place] [address] [place] Comprehensive metabolic 2000 panelon 04-30-2024 Albumin [Mass/Vol] 4.1 g/dL Normal 3.9-4.9 [facility] Comment on above: Order Comment: Speci men Type: BLOOD SPECIMENOrdering Facility: [facility] Address: [address] [place] [address] Performed By: #### 2 4323-8 ####[facility] LABCLIA [id number] [place] [address] [place] ALP [Catalytic activity/Vol] 110 U/L Normal 38-113 [facility] Comment on above: Order Comment: Speci men Type: BLOOD SPECIMENOrdering Facility: [facility] Address: [address] [place] [address] Performed By: #### 2 4323-8 ####[facility] LABCLIA [id number] [place] [address] [place] ALT [Catalytic activity/Vol] 16 U/L Normal 10-54 [facility] Comment on above: Order Comment: Speci men Type: BLOOD SPECIMENOrdering Facility: [facility] Address: [address] [place] [address] Performed By: #### 2 4323-8 ####[facility] LABCLIA [id number] [place] [address] [place] Anion gap [Moles/Vol] 10 mmol/L Normal 8-15 [facility] Comment on above: Order Comment: Speci men Type: BLOOD SPECIMENOrdering Facility: [facility] Address: [address] [place] [address] Performed By: #### 2 4323-8 ####[facility] LABCLIA [id number] [place] [address] [place] AST [Catalytic activity/Vol] 18 U/L Normal 14-40 [facility] Comment on above: Order Comment: Speci men Type: BLOOD SPECIMENOrdering Facility: [facility] Address: [address] [place] [address] Performed By: #### 2 4323-8 ####[facility] LABCLIA [id number] [place] [address] [place] Bilirubin [Mass/Vol] 0.3 mg/dL Normal 0.2-1.3 [facility] Comment on above: Order Comment: Speci men Type: BLOOD SPECIMENOrdering Facility: [facility] Address: [address] [place] [address] Performed By: #### 2 4323-8 ####[facility] LABCLIA [id number] [place] [address] [place] Calcium [Mass/Vol] 9.5 mg/dL Normal 8.5-10.2 [facility] Comment on above: Order Comment: Speci men Type: BLOOD SPECIMENOrdering Facility: [facility] Address: [address] [place] [address] Performed By: #### 2 4323-8 ####[facility] LABCLIA [id number] [place] [id number] [place] Chloride [Moles/Vol] 101 mmol/L Normal 98-107 [facility] Comment on above: Order Comment: Speci men Type: BLOOD SPECIMENOrdering Facility: [facility] Address: [address] [place] [address] Performed By: #### 2 4323-8 ####[facility] LABCLIA [id number] [place] [address] [place] CO2 [Moles/Vol] 28 mmol/L Normal 22-30 [facility] Comment on above: Order Comment: Speci men Type: BLOOD SPECIMENOrdering Facility: [facility] Address: [address] [place] [address] Performed By: #### 2 4323-8 ####[facility] LABIA [id number] [place] [address] [place] Creatinine [Mass/Vol] 1.01 mg/dL Normal 0.73-1.22 [facility] Comment on above: Order Comment: Speci men Type: BLOOD SPECIMENOrdering Facility: [facility] Address: [address] [place] [address] Performed By: #### 2 4323-8 ####[facility] LABCLIA [id number] [address] OF [facility] Creatinine and Glomerular filtration rate.predicted panel (S/P/Bld) 81 mL/min/1.73m??? Normal >=60 [facility] Comment on above: Order Comment: Speci men Type: BLOOD SPECIMENOrdering Facility: [facility] Address: [address] [place] [address] Result Comment: Yesenia mated Glomerular Filtration Rate (eGFR) is calculated using the 2020 CKD-EPI creatinine equation. This equation utilizes serum creatinine, sex, and age as parameters. The creatinine assay has traceable calibration to isotope dilution-mass spectrometry. Refer to KDIGO guidelines for clinical interpretation. In patients with unstable renal function, e.g. those with acute kidney injury, the eGFR may not accurately reflect actual GFR. Performed By: #### 2 4323-8 ####[facility] LABCLIA [id number] [place] [address] [place] Glucose [Mass/Vol] 99 mg/dL Normal 74-99 [facility] Comment on above: Order Comment: Speci men Type: BLOOD SPECIMENOrdering Facility: [facility] Address: [address] [place] [address] Result Comment: The [place] Diabetes Association (ADA) provides guidance for cutoff values for fasting glucose and random glucose. The ADA defines fasting as no caloric intake for at least 8 hours. Fasting plasma glucose results between 100 to 125 mg/dL indicate increased risk for diabetes (prediabetes). Fasting plasma glucose results greater than or equal to 126 mg/dL meet the criteria for diagnosis of diabetes. In the absence of unequivocal hyperglycemia, results should be confirmed by repeat testing. In a patient with classic symptoms of hyperglycemia or hyperglycemic crisis, random plasma glucose results greater than or equal to 200 mg/dL meet the criteria for diagnosis of diabetes. Reference: Standards of Medical Care in Diabetes 2016, [place] Diabetes Association. Diabetes Care. 2016.39(Suppl 1). Performed By: #### 2 4323-8 ####[facility] LABCLIA [id number] [place] [address] [place] Potassium [Moles/Vol] 4.1 mmol/L Normal 3.7-5.1 [facility] Comment on above: Order Comment: Speci men Type: BLOOD SPECIMENOrdering Facility: [facility] Address: [address] [place] [address] Performed By: #### 2 4323-8 ####[facility] LABCLIA [id number] [place] [address] [place] Protein [Mass/Vol] 6.8 g/dL Normal 6.3-8.0 [facility] Comment on above: Order Comment: Speci men Type: BLOOD SPECIMENOrdering Facility: [facility] Address: [address] [place], [place] [address] Performed By: #### 2 4323-8 ####[facility] LABCLIA [id number] [place] [address] [place] Sodium [Moles/Vol] 139 mmol/L Normal 136-144 [facility] Comment on above: Order Comment: Speci men Type: BLOOD SPECIMENOrdering Facility: [facility] Address: [address] [place] [address] Performed By: #### 2 4323-8 ####[facility] LABCLIA [id number] [place] [id number] [place] Urea nitrogen [Mass/Vol] 12 mg/dL Normal 9-24 [facility] Comment on above: Order Comment: Speci men Type: BLOOD SPECIMENOrdering Facility: [facility] Address: [address] [place] [address] Performed By: #### 2 4323-8 ####[facility] LABIA [id number] [address] [place] [id number] 04-30-2024 ECG01 Ventricular Rate : 6 4 BPM Atrial Rate : 64 BPM P-R Interval : 164 ms QRS Duration : 94 ms Q-T Interval : 390 ms QTC Calculation(Bazett) : 402 ms Calculated P [place] : 46 degrees Calculated R [place] : 41 degrees Calculated T [place] : 54 degrees NORMAL SINUS RHYTHM NORMAL ECG Confirmed by CHIN SAMS DO ([id number]) on 05/10/2024 1:02:07 PM NAME : DAVIS JOHNSON PID : [id number] : 1955 Gender : Male Race : ORD : Procedure Date : Apr 30 2024 06:57:55 Edit Date : May 10 2024 13:02:10 Diagnosis: NORMAL SINUS RHYTHM NORMAL ECG Confirmed by CHIN SAMS DO ([id number]) on 05/10/2024 1:02:07 PM Test Reason : Location : 145 : LOCARD Overread By : CHIN SAMS DO Edited By : CHIN SAMS DO Referred By : HI WOOTEN Acquired by : VS, Yuridia [facility] Eosinophils/100 WBC Auto (Bl d)on 04-30-2024 Eosinophils/100 WBC (Bld) 2.8 % [facility] Erythrocyte distribution wid th Auto (RBC) [Ratio]on 04-30-2024 Erythrocyte distribution width (RBC) [Ratio] 13.4 % 11.5-15.0 [facility] HISTORY PHYSICALon HISTORY PHYSICAL HNO ID: [id number] Author: JUAN C ZULETA APRN.CJ Service: ? Author Type: Nurse Practitioner Type: H&P Filed: 04/30/2024 07:25 Note Text: HISTORY AND PHYSICAL EXAMINATION SERVICE DATE: 04/30/2024 SERVICE TIME: 7:01 AM PRIMARY CARE PHYSICIAN: Herve Steele DO REASON FOR VISIT: Davis Johnson is a 68 year old male who is scheduled for Right - HEMIARTHROPLASTY REPLACE JOINT PARTIAL SHOULDER at the request of Dr. Hi Wooten for consultation. My final recommendation will be communicated back to the requesting physician by way of shared medical record or letter. Assessment Seizure (HCC) Assessment: Possible seizure episode, witnessed by . No previous seizure history. Evaluated per neurology, EEG normal and medical optimization received. Started on keppra Hypertension Assessment: Stable and compliant with medications Followed by PCP Last 5 Encounter BP Readings: Date: BP: 04/30/2024 134/83 04/27/2024 121/74 04/09/2024 134/62 Hyperlipidemia Assessment: Controlled with statin. Monitored per PCP. Lester Activity Status Index: METS: Walk indoors, such as around the house (1.75 METs) Do light work around the house, such as dusting or washing dishes (2.70 METs) Take care of self; that is eating, dressing, bathing, using the toilet (2.75 METs) Climb a flight of stairs or walk up a hill (5.50 METs) DASI Score: 12.7 Patient denies any chest pain or undue shortness of breath with the above physical activity. Clinical Frailty Scale: 3. Well, with treated comorbid disease STOP-Bang Score: Has or is being treated for high blood pressure Patient over 50 years old Male patient Denies snoring loudly Denies feeling tired, fatigued, or sleepy during the daytime Has not been observed to stop breathing or choking/gasping during sleep BMI less than or equal to 35 kg/m2 Does not have a large neck STOP-Bang Score: 3 ANESTHESIA FINDINGS: Intubation History: No history of difficult intubation Significant Anesthesia Considerations: none Airway History: No history of difficult airway I - PHYSICAL EVALUATION AIRWAY Patient intubated: No. Tracheostomy tube not present Mallampati: II. TM distance: >3 FB. Neck ROM: full ROM without neurological symptoms. Mouth opening: adequate. Short neck: no. Thick neck: no Nunn present: no Lip Bite Test: II Microretrognathia/Micronag thia/Recessed Chin: No DENTAL Dental findings: teeth intact. II - ANESTHESIA PLAN Beta Jaamal Monitoring Plan Post Procedure Analgesic Plan Prepared for surgery: This patient is optimally prepared for surgery. CONSULTS: Patient does not require consults for optimization at this time. The Following Tests/Procedures Have Been Initiated: Orders Placed This Encounter Staphylococcus aureus AND MRSA Screen, PCR, Nasal Standing Status: Future Standing Expiration Date: 07/30/2024 Confirm Blood Type Standing Status: Future Standing Expiration Date: 07/29/2024 Order Specific Question: Did Blood Bank direct you to place this order: Answer: Yes mupirocin (BACTROBAN) 2 % ointment Sig: two times a day for 5 days. Apply 0.5 inch with cotton swab (Q-tip) to each nostril in the morning and evening for 5 days prior to and including day of surgery. Dispense: 22 g Refill: 0 Planned Anesthetic: Per anesthesia choice Subjective CHIEF COMPLAINT: Posterior dislocation of right shoulder joint, initial encounter [S43.021A] HPI: Patient is a 68 year old male presents with right shoulder pain that has been getting progressively worse. The patient states the pain is interfering with daily activities and sleep. Conservative measures have been ineffective. Patient has opted to proceed with above reccommended surgery and is here today for preanesthesia consultation. History reviewed. No pertinent past medical history. PAST SURGICAL HISTORY Procedure Laterality Date INGUINAL HERNIA REPAIR HX PAST SURGICAL HISTORY OF left hand tendon surgery FAMILY HISTORY Problem Relation Age of Onset Anesthesia Problems No Family History SOCIAL HISTORY: Social History Tobacco Use Smoking status: Never Passive exposure: Never Smokeless tobacco: Never Substance Use Topics Alcohol use: Never Drug use: Never Prior to Admission medications as of 04/30/24 0710 Medication Sig Last Dose Taking diclofenac, EC, (VOLTAREN) 75 mg EC tablet Take one tablet by mouth twice a day as needed PRN for pain, with food Taking Yes levETIRAcetam (KEPPRA) 500 mg tablet Take 1 tablet by mouth two times a day. Patient should start on May 27, 2024. Taking Yes levETIRAcetam (KEPPRA) 500 mg tablet Take 1 tablet by mouth two times a day. Taking Yes Olmesartan-hydroCHLOROthia zide 20-12.5 mg per tablet 1 tablet. Taking Yes carvedilol (COREG) 6.25 mg tablet once daily. Taking Yes amLODIPine (NORVASC) 5 mg tablet once daily. Taking Yes aspirin 81 mg cap 1 tablet. Taking Yes mupirocin (more content not included)... Normal [facility] Hematocrit Auto (Bld) [Volum e fraction]on 04-30-2024 Hematocrit (Bld) [Volume fraction] 43.7 % 39.0-51.0 [facility] Hemoglobin [Mass/volume] in Bloodon 04-30-2024 Hemoglobin (Bld) [Mass/Vol] 14.3 g/dL 13.0-17.0 [facility] Laboratory - Chemistry and C hemistry - challengeon 04-30-2024 Albumin [Mass/Vol] 4.1 g/dL 3.9-4.9 [facility] ALP [Catalytic activity/Vol] 110 U/L 38-113 [facility] ALT [Catalytic activity/Vol] 16 U/L 10-54 [facility] AST [Catalytic activity/Vol] 18 U/L 14-40 [facility] Bilirubin [Mass/Vol] 0.3 mg/dL 0.2-1.3 [facility] Calcium [Mass/Vol] 9.5 mg/dL 8.5-10.2 [facility] Chloride [Moles/Vol] 101 mmol/L 98-107 [facility] CO2 [Moles/Vol] 28 mmol/L 22-30 [facility] Creatinine [Mass/Vol] 1.01 mg/dL 0.73-1.22 [facility] Glucose [Mass/Vol] 99 mg/dL 74-99 [facility] Comment on above: The [place] Diabete s Association (ADA) provides guidance for cutoff values for fasting glucose and random glucose. The ADA defines fasting as no caloric intake for at least 8 hours. Fasting plasma glucose results between 100 to 125 mg/dL indicate increased risk for diabetes (prediabetes).Fasting plasma glucose results greater than or equal to 126 mg/dL meet the criteria for diagnosis of diabetes. In the absence of unequivocal hyperglycemia, results should be confirmed by repeat testing. In a patient with classic symptoms of hyperglycemia or hyperglycemic crisis, random plasma glucose results greater than or equal to 200 mg/dL meet the criteria for diagnosis of diabetes.Reference: Standards of Medical Care in Diabetes 2016, [place] Diabetes Association. Diabetes Care. 2016.39(Suppl 1). Potassium [Moles/Vol] 4.1 mmol/L 3.7-5.1 [facility] Sodium [Moles/Vol] 139 mmol/L 136-144 [facility] Urea nitrogen [Mass/Vol] 12 mg/dL 04-28 [facility] Laboratory - Hematology and Cell countson 04-30-2024 Eosinophils (Bld) [#/Vol] 0.23 10*3/uL <0.46 [facility] Immature granulocytes/100 WBC (Bld) 0.1 % [facility] Leukocytes [#/volume] correc leatha for nucleated erythrocytes in Blood by Automated counon 04-30-2024 WBC corrected for nucl RBC Auto (Bld) [#/Vol] 8.35 k/uL 3.70-11.00 [facility] Lymphocytes Auto (Bld) [#/Vo l]on 04-30-2024 Lymphocytes (Bld) [#/Vol] 1.26 10*3/uL 1.00-4.00 [facility] Lymphocytes/100 WBC Auto (Bl d)on 04-30-2024 Lymphocytes/100 WBC (Bld) 15.1 % [facility] MCH Auto (RBC) [Entitic mass ]on 04-30-2024 MCH (RBC) [Entitic mass] 31.8 pg 26.0-34.0 [facility] MCHC Auto (RBC) [Mass/Vol]on 04-30-2024 MCHC (RBC) [Mass/Vol] 32.7 g/dL 30.5-36.0 [facility] MCV Auto (RBC) [Entitic vol] on 04-30-2024 MCV (RBC) [Entitic vol] 97.3 fL 80.0-100.0 [facility] Monocytes Auto (Bld) [#/Vol] on 04-30-2024 Monocytes (Bld) [#/Vol] 1.24 10*3/uL High <0.87 [facility] Monocytes/100 WBC Auto (Bld) on 04-30-2024 Monocytes/100 WBC (Bld) 14.9 % [facility] Neutrophils Auto (Bld) [#/Vo l]on 04-30-2024 Neutrophils (Bld) [#/Vol] 5.57 10*3/uL 1.45-7.50 [facility] Neutrophils/100 WBC Auto (Bl d)on 04-30-2024 Neutrophils/100 WBC (Bld) 66.6 % [facility] No Panel Informationon 04-30 Estimated GFR (CKD-EPI) 81 mL/min/1.73m??? >=60 [facility] Comment on above: Estimated Glomerular Filtration Rate (eGFR) is calculated using the 2020 CKD-EPI creatinine equation. This equation utilizes serum creatinine, sex, and age as parameters. The creatinine assay has traceable calibration to isotope dilution-mass spectrometry. Refer to KDIGO guidelines for clinical interpretation. In patients with unstable renal function, e.g. those with acute kidney injury, the eGFR may not accurately reflect actual GFR. Immature Granulocyte # (Auto) <0.03 k/uL <0.10 [facility] Staphylococcus aureus (PCR)(LAB) Not detected Not Detected [facility] Nucleated RBC Auto (Bld) [#/ Vol]on 04-30-2024 Nucleated RBC (Bld) [#/Vol] 10*3/uL <0.01 [facility] Nucleated erythrocytes [Pres ence] in Blood by Automated counton 04-30-2024 Nucleated RBC Auto Ql (Bld) 0.0 /100{WBC} [facility] Platelet mean volume Auto (B ld) [Entitic vol]on 04-30-2024 Platelet mean volume (Bld) [Entitic vol] 10.5 fL 9.0-12.7 [facility] Platelets Auto (Bld) [#/Vol] on 04-30-2024 Platelets (Bld) [#/Vol] 253 10*3/uL 150-400 [facility] Protein [Mass/volume] in Ser um or Plasmaon 04-30-2024 Protein [Mass/Vol] 6.8 g/dL 6.3-8.0 [facility] RBC Auto (Bld) [#/Vol]on RBC (Bld) [#/Vol] 4.49 10*6/uL 4.20-6.[address] [facility] STAPHYLOCOCCUS AUREUS AND MR SA SCREEN, PCR, NASALon 04-30-2024 S. aureus and MRSA panel MEL+probe (Nose) Not detected Normal Not Detected [facility] Comment on above: Order Comment: Speci men Type: SWABOrdering Facility: [facility] Address: [address] [place] [address] Performed By: #### S APCR ####[facility] LABCLIA [id number] [place] [address] [place] Serum or plasma anion gap de terminationon 04-30-2024 Anion gap [Moles/Vol] 10 mmol/L 8-15 [facility] TYPE AND SCREEN,30 DAYon ABO O Normal [facility] Comment on above: Order Comment: Speci men Type: BLOOD SPECIMENOrdering Facility: [facility] Address: [address] [place] [address] Performed By: #### T SCR30 ####[facility] BLOOD BANKIA [id number] [place] [address] [place] HISTORICAL AB SCR STATUS Negative Normal [facility] Comment on above: Order Comment: Speci men Type: BLOOD SPECIMENOrdering Facility: [facility] Address: [address] [place] [address] Performed By: #### T SCR30 ####[facility] BLOOD BANKCLIA [id number] [place] [address] [place] Rh Nom (Bld) Positive Normal [facility] Comment on above: Order Comment: Speci men Type: BLOOD SPECIMENOrdering Facility: [facility] Address: [address] [place] [address] Performed By: #### T SCR30 ####[facility] [id number] [place] [id number] [place] [facility] XR CHEST 2V FRONTAL/LATon XR CHEST 2V FRONTAL/LAT * * *Final Report* * * DATE OF EXAM: Apr 30 2024 8:00AM [id number] - XR CHEST 2V FRONTAL/LAT / PROCEDURE REASON: multiple diagnoses * * * * Physician Interpretation * * * * EXAMINATION: CHEST RADIOGRAPH (2 VIEW FRONTAL and LATERAL) CLINICAL HISTORY: Posterior dislocation of right shoulder joint, initial encounter Pre-op testing MQ: XC2_6 EXAM DATE/TIME: 04/30/2024 8:00 AM COMPARISON: No relevant prior studies available. RESULT: Lines, tubes, and devices: None. Lungs and pleura: 9 mm calcific density projecting over the left anterior sixth rib may represent calcified granuloma or bone island. No evidence of focal consolidation. No pleural effusion. No pneumothorax. Cardiomediastinal silhouette: Normal cardiomediastinal silhouette. Bones and soft tissues: Degenerative changes are present within the thoracic spine. IMPRESSION: No acute radiographic abnormality. Personal Care Home Administrator: BRITTNEE Transcribe Date/Time: Apr 30 2024 1:11P Dictated by : GOPAL VALDEZ MD This examination was interpreted and the report reviewed and electronically signed by: GOPAL VALDEZ MD on Apr 30 2024 1:20PM EST [id number] Normal [facility] XR Chest PA and Lateralon IMPRESSION: No acute radiographic abnormality. Personal Care Home Administrator: [facility] Transcribe Date/Time: Apr 30 2024 1:11P Dictated by : GOPAL VALDEZ MD This examination was interpreted and the report reviewed and electronically signed by: GOPAL VALDEZ MD on Apr 30 2024 1:20PM EST DIVISION OF RADIOLOGY * * *Final Report* * * DATE OF EXAM: Apr 30 2024 8:00AM [id number] - XR CHEST 2V FRONTAL/LAT / PROCEDURE REASON: multiple diagnoses * * * * Physician Interpretation * * * * EXAMINATION: CHEST RADIOGRAPH (2 VIEW FRONTAL & LATERAL) CLINICAL HISTORY: Posterior dislocation of right shoulder joint, initial encounter Pre-op testing MQ: XC2_6 EXAM DATE/TIME: 04/30/2024 8:00 AM COMPARISON: No relevant prior studies available. RESULT: Lines, tubes, and devices: None. Lungs and pleura: 9 mm calcific density projecting over the left anterior sixth rib may represent calcified granuloma or bone island. No evidence of focal consolidation. No pleural effusion. No pneumothorax. Cardiomediastinal silhouette: Normal cardiomediastinal silhouette. Bones and soft tissues: Degenerative changes are present within the thoracic spine. DIVISION OF RADIOLOGY Provider, [place] Heath - 04/30/2024 * * *Final Report* * * DATE OF EXAM: Apr 30 2024 8:00AM [id number] - XR CHEST 2V FRONTAL/LAT / PROCEDURE REASON: multiple diagnoses * * * * Physician Interpretation * * * * EXAMINATION: CHEST RADIOGRAPH (2 VIEW FRONTAL & LATERAL) CLINICAL HISTORY: Posterior dislocation of right shoulder joint, initial encounter Pre-op testing MQ: XC2_6 EXAM DATE/TIME: 04/30/2024 8:00 AM COMPARISON: No relevant prior studies available. RESULT: Lines, tubes, and devices: None. Lungs and pleura: 9 mm calcific density projecting over the left anterior sixth rib may represent calcified granuloma or bone island. No evidence of focal consolidation. No pleural effusion. No pneumothorax. Cardiomediastinal silhouette: Normal cardiomediastinal silhouette. Bones and soft tissues: Degenerative changes are present within the thoracic spine. IMPRESSION IMPRESSION: No acute radiographic abnormality. Personal Care Home Administrator: BRITTNEE Transcribe Date/Time: Apr 30 2024 1:11P Dictated by : GOPAL VALDEZ MD This examination was interpreted and the report reviewed and electronically signed by: GOPAL VALDEZ MD on Apr 30 2024 1:20PM EST [facility] Radiology Study observation (narrative) [facility] XR Chest PA and LateralOrder ed By: [facility] Provider on 04-30-2024 [facility] Joseph 04-28-2024 CNPN Telephone ([facility]) -- DAVIS JOHNSON ([id number]) 1955 M Date Time Provider Department 04/28/24 YUMIKO INTERIANO [facility] During your visit today, we recorded the following information about you: Yumiko Interiano APRN.[employer] 04/28/2024 1:10 PM Signed Spoke to patient and , concerned about OR date and timing, discussed need to obtain donor bone, along with preparations for surgery, agreed we will continue to look for OR cancellations and if possible move patient forward, in the meantime have instructed patient to discontinue ibuprofen, oral Voltaren has been ordered instructed to take with food for better pain control Allergies As of Date: 04/28/2024 (No Known Allergies) Date Reviewed: 04/28/2024 Reviewed by: Yumiko Interiano APRN.[employer] - Fully Assessed Order(s):diclofenac, EC, (VOLTAREN) 75 mg EC tabletTake one tablet by mouth twice a day as needed PRN for pain, with foodDisp: 30 tabletRfl: 0 Prescriptions as of 04/28/2024 - diclofenac, EC, (VOLTAREN) 75 mg EC tablet Take one tablet by mouth twice a day as needed PRN for pain, with food - levETIRAcetam (KEPPRA) 500 mg tablet Take 1 tablet by mouth two times a day. Patient should start on May 27, 2024. - levETIRAcetam (KEPPRA) 500 mg tablet Take 1 tablet by mouth two times a day. - Olmesartan-hydroCHLOROthia zide 20-12.5 mg per tablet 1 tablet. - carvedilol (COREG) 6.25 mg tablet once daily. - amLODIPine (NORVASC) 5 mg tablet once daily. - aspirin 81 mg cap 1 tablet. Problem List As Of Date: 04/28/2024 (None) Prescriptions ordered this encounter Disp Refills Start End DICLOFENAC SODIUM 75 MG TABLET,DELAY* 30 t* 0 04/28/2024 Sig: Take one tablet by mouth twice a day as needed PRN for pain, with food Medications Discontinued During This Encounter Prescriptions - predniSONE (DELTASONE) 20 mg tablet (Discontinued) TAKE 1 TABLET BY MOUTH TWICE A DAY FOR 4 DAYS TAKE 1 TABLET FOR 3 DAYS - oxyCODONE-acetaminophen (PERCOCET) 5-325 mg tablet (Discontinued) TAKE 1 TABLET BY MOUTH EVERY 6 HOURS FOR 4 DAYS Encounter Status:Closed by YUMIKO INTERIANO on 04/28/24 Normal [facility] CNOVon 04-27-2024 CNOV Office Visit ([facility] ) -- DAVIS JOHNSON ([id number]) 1955 M Date Time Provider Department 04/27/24 8:00 AM AMI WHITTAKER [facility] During your visit today, we recorded the following information about you: Pulse Respiration Blood pressure Weight 69/minute 22/minute 121/74 72.6 kg Height 1.702 m Ami Whittaker MD 04/27/2024 9:07 AM Signed Keppra 500 mg , 1 tablet twice a day Call office if you have any question at [phone] MRI brain Follow up in 3-4 month Morro Campos Silvia, MD 04/27/2024 12:16 PM Addendum [facility] Neurological [facility] Patient Name: Davis LISA Date of : 1955 Referring Provider: Hi King [facility] [id number] INITIAL EPILEPSY CLINIC NOTE 04/27/2024 8:00 AM CHIEF COMPLAINT: New Patient HISTORY OF PRESENT ILLNESS Mr. Johnson is a 68 year old right-handed male seen in [facility] for initial consultation. At today's visit, the patient is accompanied by: Handedness: right-handed Seizure History and Evolution Apr 09, 2024 was sleeping, recalls that he woke up, turned the alarm off, then set down and arms stuck straight ou him, tonic, yelling, no clonic movements. Eyes wide open, After the event he had labored breathing, Duration was about 1 minutes. Patient amentic of the event. Confused for about 2 hours. Had tongue biting, no urine incontinence. Patient claimed of shoulder pian, xray showed large reverse Hill-Sachs deformity of the humerus impacted on the posterior glenoid margin. CT head was normal. Patient reports that he was not aware of the dislocation on 04/09, patient states that there are arthritic changes. Reports that he has bene working for 3 weeks on a [employer] job, hot weather, sleep deprived Patient reports another visit to the ED on 04/16, I do not have access to it. He reports an MRI of the shoulder, I do not have access of it. Patient is on no ASM. He needs shoulder surgery. Patient was seen by Dr Quick who recommended MRI dominique and EEG, not performed. 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 - PROMIS Sleep Disturbance T-SCORE - Have you been diagnosed with Sleep Apnea? - Seizure risk factors: Brain Tumor Unanswered ORDER ANALYST Infections Unanswered Developmental Delay Unanswered Family history of seizures Unanswered Febrile Seizure Unanswered Complications Unanswered Stroke Unanswered Traumatic Brain Injury Unanswered Previous Epilepsy Evaluations Other caregivers: Primary Care Provider: Herve Steele, DO Current Outpatient Medications Medication Sig oxyCODONE-acetaminophen (PERCOCET) 5-325 mg tablet TAKE 1 TABLET BY MOUTH EVERY 6 HOURS FOR 4 DAYS predniSONE (DELTASONE) 20 mg tablet TAKE 1 TABLET BY MOUTH TWICE A DAY FOR 4 DAYS TAKE 1 TABLET FOR 3 DAYS Olmesartan-hydroCHLOROthia zide 20-12.5 mg per tablet 1 tablet. carvedilol (COREG) 6.25 mg tablet once daily. amLODIPine (NORVASC) 5 mg tablet once daily. aspirin 81 mg cap 1 tablet. [START ON 05/27/2024] levETIRAcetam (KEPPRA) 500 mg tablet Take 1 tablet by mouth two times a day. Patient should start on May 27, 2024. levETIRAcetam (KEPPRA) 500 mg tablet Take 1 tablet by mouth two times a day. No current facility-administered medications for this visit. ALLERGIES No Known Allergies No past medical history on file. No past surgical history on file. No family history on file. SOCIAL HISTORY: -Lives in [place], [place] -Patient lives alone? No -Vocation: works in [employer], [employer] -Patient driving? Yes Review of Systems VITAL SIGNS: BP 121/74 (BP Site: Left Arm, BP Position: Sitting, BP Cuff Size: Regular Adult) Pulse 69 Resp 22 Ht 170.2 cm (5' 7 ) Wt 72.6 kg (160 lb) SpO2 100% BMI 25.06 kg/m? General Examination: General Exam N (more content not included)... Normal [facility] CNOVon 04-24-2024 CNOV Office Visit (ORMN ) -- DAVIS JOHNSON ([id number]) 1955 M Date Time Provider Department 04/24/24 9:00 AM [facility] During your visit today, we recorded the following information about you: Hi Wooten MD 04/24/2024 9:39 AM Signed SHOULDER/ELBOW INITIAL CONSULT SERVICE DATE: 04/23/2024 PCP: Herve Steele DO REFERRING PROVIDER: Fantasma Soriano [address] [place] [id number] Consult requested for an opinion regarding the evaluation and treatment of the above. My final impression and recommendations will be communicated back to the requesting physician by way of the shared medical record or letter via US mail. CHIEF COMPLAINT: Right shoulder dislocation SUBJECTIVE HISTORY OF PRESENT ILLNESS: 68 year old male, who presents for the above CC. He can't recall a time when his shoulder would've dislocated, most likely due to seizure he had. The pt thought his seizure was due to low sodium from being out in the sun for too long. Denies history of seizures previously. He endorses bruising on his right shoulder. Was in a sling for 48 hours after his appointment with Bo. He can't take any pain medications due to constipation. He saw a neurologist in an outside system for his seizure, recommended Keppra. Patient declined starting Keppra. No EEG or MRI brain completed. 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 No past medical history on file. No past surgical history on file. No family history on file. ALLERGIES No Known Allergies MEDICATIONS: oxyCODONE-acetaminophen (PERCOCET) 5-325 mg tablet TAKE 1 TABLET BY MOUTH EVERY 6 HOURS FOR 4 DAYS predniSONE (DELTASONE) 20 mg tablet TAKE 1 TABLET BY MOUTH TWICE A DAY FOR 4 DAYS TAKE 1 TABLET FOR 3 DAYS Olmesartan-hydroCHLOROthia zide 20-12.5 mg per tablet 1 tablet. carvedilol (COREG) 6.25 mg tablet once daily. amLODIPine (NORVASC) 5 mg tablet once daily. aspirin 81 mg cap 1 tablet. OBJECTIVE There were no vitals taken for this visit. PHYSICAL EXAMINATION: Alert and oriented x3, ambulates easily to exam table without assistance. Painless neck ROM in all planes. Negative Spurling's. No radiating numbness or tingling past elbows. No visibile head, eyes, ear, neck, throat deformities Axillary, Long Thoracic, CN XI, Median, Ulnar, Radial, musculocutaneous nerves intact to motor and sensation. Fingers warm and well perfused, BCR< 2sec. Radial Pulse 2+ RADIOGRAPHIC RESULTS: Imaging was personally reviewed by myself today XR Shoulder right shows posterior dislocation of shoulder reverse Hill-Sachs lesion. Outside hospital CT scan also reviewed. Approximately 25 mm diameter lesion ASSESSMENT Right posterior shoulder dislocation in the setting of a new onset seizure PLAN DIAGNOSIS: (S43.021A) Posterior dislocation of right shoulder joint, initial encounter Discussed with the patient that he will likely need an open reduction with a Sue Resurfacing. Possible modified Gan. Would consider allograft if the lesion is too big. I sent a referral into neurology today to figure out the reason behind his seizure. Will need neurology comment on seizure recurrence, risk of seizure recurrence, we will like to minimize this as much as possible to protect the repair postoperatively. Once we get information on risk of seizure recurrence and minimizing recurrence, we can get him scheduled for surgery. His other medical issues seem pretty minimal. Will need a preoperative PACC visit. All questions were answered for patient today, they should not hesitate to call the office with any issues. Medical Decision Making: Medical Decision Making Level: 1 - N/A Hi Wooten MD By signing my name below, I, Rafal Thapa, attest that this documentation has been prepared under the direction and in the presence of Dr. Wooten. Electronically signed, Keegan Soto April 24, 2024 9:12 AM I agree with the Chief Complaint, ROS, and Past Histories independently gathered by the clinical logistics support and the remaining scribed note accurately describes my personal service to the patient.Hi Wooten MD Referring Provider: FANTASMA SORIANO [[id number]] Allergies As of Date: 04/24/2024 (No Known Allergies) Date Reviewed: 04/24/2024 Reviewed by: Yane Connell MA - Fully Assessed Reason for Visit: New [[id number]] Primary Visit Diagnosis:Seizure (HCC) [R56.9] Other Visit Diagnosis:Posterior dislocation of right shoulder joint, initial encounter [S43.021A] Order(s):CONSULT TO ORTHOPAEDICS (more content not included)... Normal [facility] XR SHLDR >/=3V AP/LOUISE AP/OTH R RTon 04-24-2024 XR SHLDR >/=3V AP/LOUISE AP/OTHR RT * * *Final Report* * * DATE OF EXAM: Apr 24 2024 8:24AM AOX 5253 - XR SHLDR >/=3V AP/LOUISE AP/OTHR RT / PROCEDURE REASON: Pain * * * * Physician Interpretation * * * * HISTORY (as given from clinical provider): Pain . Additional history provided by the performing technologist (if any): --> Patient states dislocation while sleeping and put back into to place at the ED, pain throughout. TECHNIQUE: XR SHLDR >/=3V AP/LOUISE AP/OTHR RT COMPARISON: 04/09/2024 RESULT: Posterior shoulder dislocation with a large reverse Hill-Sachs deformity of the humerus impacted on the posterior glenoid margin. No clear glenoid fracture identified. No other significant abnormality. Personal Care Home Administrator: [facility] Transcribe Date/Time: Apr 24 2024 9:10A Dictated by : ALYSSIA FELIZ MD This examination was interpreted and the report reviewed and electronically signed by: ALYSSIA FELIZ MD on Apr 24 2024 9:13AM EST [id number] Normal [facility] XR Shoulder - right 3 Viewso n 04-24-2024 * * *Final Report* * * DATE OF EXAM: Apr 24 2024 8:24AM AOX 5253 - XR SHLDR >/=3V AP/LOUISE AP/OTHR RT / PROCEDURE REASON: Pain * * * * Physician Interpretation * * * * HISTORY (as given from clinical provider): Pain . Additional history provided by the performing technologist (if any): --> Patient states dislocation while sleeping and put back into to place at the ED, pain throughout. TECHNIQUE: XR SHLDR >/=3V AP/LOUISE AP/OTHR RT COMPARISON: 04/09/2024 RESULT: Posterior shoulder dislocation with a large reverse Hill-Sachs deformity of the humerus impacted on the posterior glenoid margin. No clear glenoid fracture identified. No other significant abnormality. Personal Care Home Administrator: [facility] Transcribe Date/Time: Apr 24 2024 9:10A Dictated by : ALYSSIA FELIZ MD This examination was interpreted and the report reviewed and electronically signed by: ALYSSIA FELIZ MD on Apr 24 2024 9:13AM EST DIVISION OF RADIOLOGY Provider, [place] Rothjolanta sanchez [place] - 04/24/2024 * * *Final Report* * * DATE OF EXAM: Apr 24 2024 8:24AM AOX 5253 - XR SHLDR >/=3V AP/LOUISE AP/OTHR RT / PROCEDURE REASON: Pain * * * * Physician Interpretation * * * * HISTORY (as given from clinical provider): Pain . Additional history provided by the performing technologist (if any): --> Patient states dislocation while sleeping and put back into to place at the ED, pain throughout. TECHNIQUE: XR SHLDR >/=3V AP/LOUISE AP/OTHR RT COMPARISON: 04/09/2024 RESULT: Posterior shoulder dislocation with a large reverse Hill-Sachs deformity of the humerus impacted on the posterior glenoid margin. No clear glenoid fracture identified. No other significant abnormality. Personal Care Home Administrator: [facility] Transcribe Date/Time: Apr 24 2024 9:10A Dictated by : ALYSSIA FELIZ MD This examination was interpreted and the report reviewed and electronically signed by: ALYSSIA FELIZ MD on Apr 24 2024 9:13AM EST [facility] Radiology Study observation (narrative) [facility] XR Shoulder - right 3 ViewsO rdered By: [facility] Provider on 04-24-2024 [facility] DAVIS JOHNSON ([id number]) 1955 M Date Time Provider Department 04/15/24 FANTASMA SORIANO During your visit today, we recorded the following information about you: Maty Grayson, RN 04/15/2024 3:00 PM Signed Patient's calling. The patient is unable to be seen by Dr Hi Wooten this week. They have an appointment for next Sat04/24/24. Also on the wait list He continues to be in pain, reluctant to use pain medication because it was causing constipation. Only small amount of meds ordered from anesthesia Asking for any recommendations? CALL [phone] Fantasma Soriano PA-C 04/15/2024 3:47 PM Signed Called the patient and spoke with him regarding his shoulder. Recommended he maintain the sling until he sees Dr. Wooten, then likely will be able to wean out of it. Advised him on some gentle passive shoulder motions and elbow/wrist motions. Discussed analgesia with him. All questions answered. Fantasma Soriano PA-C Allergies As of Date: 04/15/2024 (No Known Allergies) Date Reviewed: 04/09/2024 Reviewed by: Gerhard Daniel MD - Fully Assessed Reason for Visit: Appointment [186] Prescriptions as of 04/15/2024 - oxyCODONE-acetaminophen (PERCOCET) 5-325 mg tablet TAKE 1 TABLET BY MOUTH EVERY 6 HOURS FOR 4 DAYS - predniSONE (DELTASONE) 20 mg tablet TAKE 1 TABLET BY MOUTH TWICE A DAY FOR 4 DAYS TAKE 1 TABLET FOR 3 DAYS - Olmesartan-hydroCHLOROthia zide 20-12.5 mg per tablet 1 tablet. - carvedilol (COREG) 6.25 mg tablet once daily. - amLODIPine (NORVASC) 5 mg tablet once daily. - aspirin 81 mg cap 1 tablet. Problem List As Of Date: 04/15/2024 (None) Encounter Status:Closed by FANTASMA SORIANO on 04/15/24 Normal [facility] CBC W Auto Differential pane l (Bld)on 04-09-2024 Basophils (Bld) [#/Vol] 10*3/uL Normal <0.11 [facility] Comment on above: Order Comment: Speci men Type: BLOOD SPECIMENOrdering Facility: [facility] Address: [address] [place] [address] Performed By: #### 5 7021-8 ####[facility] LABCLIA [id number] [place] [address] [place] Basophils/100 WBC (Bld) 0.1 % Normal [facility] Comment on above: Order Comment: Speci men Type: BLOOD SPECIMENOrdering Facility: [facility] Address: [address] [place] [address] Performed By: #### 5 7021-8 ####[facility] LABCLIA [id number] [place] [address] [place] Differential cell count method Nom (Bld) Auto Normal [facility] Comment on above: Order Comment: Speci men Type: BLOOD SPECIMENOrdering Facility: [facility] Address: [address] [place] [address] Performed By: #### 5 7021-8 ####[facility] LABCLIA [id number] [place] [address] [place] Eosinophils (Bld) [#/Vol] 10*3/uL Normal <0.46 [facility] Comment on above: Order Comment: Speci men Type: BLOOD SPECIMENOrdering Facility: [facility] Address: [address] [place] [address] Performed By: #### 5 7021-8 ####[facility] LABCLIA [id number] [place] [address] [place] Eosinophils/100 WBC (Bld) 0.0 % Normal [facility] Comment on above: Order Comment: Speci men Type: BLOOD SPECIMENOrdering Facility: [facility] Address: [address] [place] [address] Performed By: #### 5 7021-8 ####[facility] LABCLIA [id number] [place] [address] [place] Erythrocyte distribution width (RBC) [Ratio] 13.4 % Normal 11.5-15.0 [facility] Comment on above: Order Comment: Speci men Type: BLOOD SPECIMENOrdering Facility: [facility] Address: [address] [place] [address] Performed By: #### 5 7021-8 ####[facility] LABCLIA [id number] [place] [address] [place] Hematocrit (Bld) [Volume fraction] 44.1 % Normal 39.0-51.0 [facility] Comment on above: Order Comment: Speci men Type: BLOOD SPECIMENOrdering Facility: [facility] Address: [address] [place] [address] Performed By: #### 5 7021-8 ####[facility] LABCLIA [id number] [place] [address] [place] Hemoglobin (Bld) [Mass/Vol] 15.4 g/dL Normal 13.0-17.0 [facility] Comment on above: Order Comment: Speci men Type: BLOOD SPECIMENOrdering Facility: [facility] Address: [address] [place] [address] Performed By: #### 5 7021-8 ####[facility] LABCLIA [id number] [place] [address] [place] Immature granulocytes (Bld) [#/Vol] 0.04 10*3/uL Normal <0.10 [facility] Comment on above: Order Comment: Speci men Type: BLOOD SPECIMENOrdering Facility: [facility] Address: [address] [place] [address] Performed By: #### 5 7021-8 ####[facility] LABCLIA [id number] [place] [address] [place] Immature granulocytes/100 WBC (Bld) 0.4 % Normal [facility] Comment on above: Order Comment: Speci men Type: BLOOD SPECIMENOrdering Facility: [facility] Address: [address] [place] [address] Performed By: #### 5 7021-8 ####[facility] LABCLIA [id number] [place] [address] [place] Lymphocytes (Bld) [#/Vol] 1.35 10*3/uL Normal 1.00-4.00 [facility] Comment on above: Order Comment: Speci men Type: BLOOD SPECIMENOrdering Facility: [facility] Address: [address] [place] [address] Performed By: #### 5 7021-8 ####[facility] LABIA [id number] [place] [address] [place] Lymphocytes/100 WBC (Bld) 12.8 % Normal [facility] Comment on above: Order Comment: Speci men Type: BLOOD SPECIMENOrdering Facility: [facility] Address: [address] [place] [address] Performed By: #### 5 7021-8 ####[facility] [id number] [place] [address] [place] MCH (RBC) [Entitic mass] 32.9 pg Normal 26.0-34.0 [facility] Comment on above: Order Comment: Speci men Type: BLOOD SPECIMENOrdering Facility: [facility] Address: [address] [place] [address] Performed By: #### 5 7021-8 ####[facility] LABIA [id number] [place] [address] [place] MCHC (RBC) [Mass/Vol] 34.9 g/dL Normal 30.5-36.0 [facility] Comment on above: Order Comment: Speci men Type: BLOOD SPECIMENOrdering Facility: [facility] Address: [address] [place] [address] Performed By: #### 5 7021-8 ####[facility] LABIA [id number] [place] [address] [place] MCV (RBC) [Entitic vol] 94.2 fL Normal 80.0-100.0 [facility] Comment on above: Order Comment: Speci men Type: BLOOD SPECIMENOrdering Facility: [facility] Address: [address] [place] [address] Performed By: #### 5 7021-8 ####[facility] LABCLIA [id number] [place] [address] [place] Monocytes (Bld) [#/Vol] 1.10 10*3/uL High <0.87 [facility] Comment on above: Order Comment: Speci men Type: BLOOD SPECIMENOrdering Facility: [facility] Address: [address] [place] [address] Performed By: #### 5 7021-8 ####[facility] LABCLIA [id number] [place] [address] [place] Monocytes/100 WBC (Bld) 10.4 % Normal [facility] Comment on above: Order Comment: Speci men Type: BLOOD SPECIMENOrdering Facility: [facility] Address: [address] [place] [address] Performed By: #### 5 7021-8 ####[facility] LABCLIA [id number] [place] [address] [place] Neutrophils (Bld) [#/Vol] 8.08 10*3/uL High 1.45-7.50 [facility] Comment on above: Order Comment: Speci men Type: BLOOD SPECIMENOrdering Facility: [facility] Address: [address] [place] [address] Performed By: #### 5 7021-8 ####[facility] LABCLIA [id number] [place] [address] [place] Neutrophils/100 WBC (Bld) 76.3 % Normal [facility] Comment on above: Order Comment: Speci men Type: BLOOD SPECIMENOrdering Facility: [facility] Address: [address] [place] [address] Performed By: #### 5 7021-8 ####[facility] LABCLIA [id number] [place] [address] [place] Nucleated RBC (Bld) [#/Vol] 10*3/uL Normal <0.01 [facility] Comment on above: Order Comment: Speci men Type: BLOOD SPECIMENOrdering Facility: [facility] Address: [address] [place] [address] Performed By: #### 5 7021-8 ####[facility] LABIA [id number] [place] [address] [place] Nucleated RBC/100 WBC (Bld) [Ratio] 0.0 /100 WBC Normal [facility] Comment on above: Order Comment: Speci men Type: BLOOD SPECIMENOrdering Facility: [facility] Address: [address] [place] [address] Performed By: #### 5 7021-8 ####[facility] LABIA [id number] [place] [address] [place] Platelet mean volume (Bld) [Entitic vol] 9.7 fL Normal 9.0-12.7 [facility] Comment on above: Order Comment: Speci men Type: BLOOD SPECIMENOrdering Facility: [facility] Address: [address] [place] [address] Performed By: #### 5 7021-8 ####[facility] LABIA [id number] [place] [address] [place] Platelets (Bld) [#/Vol] 277 10*3/uL Normal 150-400 [facility] Comment on above: Order Comment: Speci men Type: BLOOD SPECIMENOrdering Facility: [facility] Address: [address] [place] [address] Performed By: #### 5 7021-8 ####[facility] LABIA [id number] [place] [address] [place] RBC (Bld) [#/Vol] 4.68 10*6/uL Normal 4.20-6.00 [facility] Comment on above: Order Comment: Speci men Type: BLOOD SPECIMENOrdering Facility: [facility] Address: [address] [place] [address] Performed By: #### 5 7021-8 ####[facility] LABCLIA [id number] [place] [id number] [place] WBC (Bld) [#/Vol] 10.58 10*3/uL Normal 3.70-11.00 [facility] Comment on above: Order Comment: Speci men Type: BLOOD SPECIMENOrdering Facility: [facility] [address]: [address] [place] [id number] Performed By: #### 5 7021-8 ####[facility] LABCLIA [id number] [place] [id number] [facility] [place] CNOVon 04-09-2024 CNOV Office Visit ([facility] ) -- DAVIS JOHNSON ([id number]) 1955 M Date Time Provider Department 04/09/24 1:00 PM FANTASMA SORIANO During your visit today, we recorded the following information about you: Weight Height 72.6 kg 1.702 m Fantasma Soriano PA-C 04/09/2024 1:46 PM Signed This document has been created with the use of voice recognition technology. It may contain inaccuracies: misspellings, inaccurate syntax or word sense that escaped review. The patient is seen at the request of [facility] for evaluation and an opinion regarding treatment. A copy of this report will remain in the shared medical record CHIEF COMPLAINT: Davis Johnson is a 68 year old Right hand dominant male who presents today for new evaluation of right shoulder injury. HISTORY OF PRESENT ILLNESS: PAIN EVALUATION 04/09/2024 1252 Pain Level: 9 Pain Location: Shoulder-Right Description: Sharp Duration Amount of Time: 6 Duration Units: Days Frequency: Intermittent Intervention/Comfort measure: Medication;Reposition;Rela xation;Cold;Positioning HISTORY: Davis Johnson has complains of severe right shoulder pain and limited motion. He states 4 days ago there was suspicion that he had a seizure. His describes him waking up in the middle the night and throwing his arms forward and screaming. The patient does not remember this event. He was transported to a local [facility] ED in [place]. Images were obtained of the right shoulder just a 1 view x-ray. Subsequent CT scan of the shoulder was obtained and a CT of the brain as well. See below for these findings. 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 Denies history of seizures previously. CT scan of the brain was without intracranial pathology. Patient denies numbness of the arm. He reports extensive bruising of the upper arm. No other musculoskeletal complaints ROS: REVIEW OF SYSTEMS: Constitutional: patient denies any recent fever or significant change in weight Cardiovascular: patient denies any chest pain at rest Respiratory: patient denies any shortness of breath or cough Gastrointestinal: patient denies any current abdominal discomfort Integumentary: patient denies any recent skin changes Musculoskeletal: as noted in the HPI Neurologic: as noted in the HPI Endocrine: patient denies a current diagnosis of diabetes Hematologic/Lymphatic: patient denies any easily bleeding, any recent infection and denies any recent observable lymph node enlargement Psychologic: negative for any recent depression or anxiety issues SOCIAL HISTORY: Tobacco Use: Not on file FAMILY HISTORY: No family history on file. ALLERGIES: ALLERGIES No Known Allergies PAST MEDICAL HISTORY: No past medical history on file. SOCIAL HISTORY: Tobacco Use: Not on file EXAMINATION: GENERAL: Appears healthy, well-nourished, no deformities. ORIENTATION: Alert and oriented to person place and time HABITUS: Normal GAIT: Normal, the patient did not have trouble getting onto the exam table. right shoulder exam: skin intact; extensive ecchymosis about the upper arm extending from the shoulder to the elbow, edema present severe irritability with PROM Tenderness to palpation of globally about the shoulder joint No TTP to the elbow, wrist or hand No TTP about the clavicle, AC joint or scapular body Severe discomfort with passive forward elevation, not stressed due to nature of injury Bicep with normal course No atrophy of the scapula girdle intact sensation to light touch distally Axillary nerve, musculocutaneous, median, radial, ulnar nerves intact AIN, PIN intact good radial pulse no pain with neck ROM RADIOGRAPHS: XR Obtained today and personally reviewed by myself demonstrating posterior shoulder dislocation with large Hill-Sachs lesion which is engaged currently with the posterior rim of the glenoid, ossification in the inferior joint likely representing osteochondral fragment CT scan: Obtained during his ED visit and brought in a disc today. This was personally reviewed by myself and demonstrated at the time posterior dislocated humerus with large Hill-Sachs lesion and osteochondral loose fragment IMPRESSION: Encounter Diagnosis ICD-10-CM 1. Posterior dislocation of right shoulder joint, initial encounter S43.021A CONSULT TO ORTHOPAEDICS 2. Right shoulder pain, unspecified chronicity M25.511 XR SHOULDER ORTHO 4V AP/TRUE AP/LAT/OUTLET RIGHT 3. Closed Hill-Sachs fracture of right humerus, initial encounter S42.291A Procedures Plan: Patient presents for new evaluation of injury to the right shoulder. Based on the history, this appears to be an acute finding of a posterior shoulder dislocation possibly from a seizure event. Patient reports normal function before Saturday. Explained to them the findings on the CT scan and the x-ray. He has (more content not included)... [facility] -- DAVIS JOHNSON ([id number]) 1955 M Date Time Provider Department 04/09/24 TATYANA LOPEZ During your visit today, we recorded the following information about you: Tatyana Lopez RN 04/09/2024 2:20 PM Addendum Anjel Soriano called patient and notified him to report to [facility] ED. Answered all patient questions on phone. Message sent to Dr. Hi Wooten MD from [facility] regarding instructions on patient case today on 04/09/24. :Subject: Interesting consult Hey Dr. Wooten, This gentleman reportedly had a seizure in bed 4 days ago. His was adamant he didn't fall out of bed but once you see the X-ray you'll surmise he had to of. 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 He states there was normal function of the shoulder before Saturday. [place] of the shoulder demonstrated posterior dislocation (Initial radiographs missed it). There was no attempted reduction. He was somehow set up with me for follow up. I placed him in a sling and recommended he see you. I wasn't sure if the surgical plan would be hemiarthroplasty or allograft implantation. I figured probably a reverse wasn't a good choice because of his activity level. Thank you for seeing him. Unfortunately the CT scan doesn't have 3D recon views. There were no neurologic concerns, btw. -Anjel Message from Dr. Hi Wooten MD to [facility]: He needs to go to the ER to get closed reduced KATIE. Seizures commonly cause posterior dislocations. Falls rarely do this. If he is reducible he can be managed nonop. He needs to be reduced and FU w/ neurology for seizure workup. [place] or [facility] is probably best in our system for this unless he wants to get it done locally. That is what I recommend. Pls reach out to him and get him to an ED Allergies As of Date: 04/09/2024 (No Known Allergies) Date Reviewed: 04/09/2024 Reviewed by: Sneha Del Cid MA - Fully Assessed Reason for Visit: Patient Update [1234] Cmt: Orthopedic Verbal Instructions to go to ED [facility] Prescriptions as of 04/09/2024 - oxyCODONE-acetaminophen (PERCOCET) 5-325 mg tablet TAKE 1 TABLET BY MOUTH EVERY 6 HOURS FOR 4 DAYS - predniSONE (DELTASONE) 20 mg tablet TAKE 1 TABLET BY MOUTH TWICE A DAY FOR 4 DAYS TAKE 1 TABLET FOR 3 DAYS - Olmesartan-hydroCHLOROthia zide 20-12.5 mg per tablet 1 tablet. - carvedilol (COREG) 6.25 mg tablet once daily. - amLODIPine (NORVASC) 5 mg tablet once daily. - aspirin 81 mg cap 1 tablet. Problem List As Of Date: 04/09/2024 (None) Encounter Status:Closed by TATYANA LOPEZ on 9/5/24 Normal [facility] CONSULTon 04-09-2024 CONSULT HNO ID: [id number] Author: RIVKA ARIAS MD Service: Orthopaedic Surgery Author Type: Resident Type: Consults Filed: 04/09/2024 21:03 Note Text: ORTHOPAEDIC SURGERY INITIAL CONSULT Patient Name: Davis Johnson Admission Date: 04/09/2024 Date of Evaluation: 04/09/2024 Time of Evaluation: 5:13 PM ASSESSMENT Davis Johnson is a 68 year old male consult to Orthopaedic Surgery for RIGHT SHOULDER DISLOCATION. PLAN Closed reduced in the ED, placed in a swing and swathe No acute surgical intervention Activity: NWB RUE in a sling RICE for analgesia and swelling Analgesia per ED Disposition per ED Okay for discharge from an orthopaedic standpoint Recommend neurology workup for possible seizures Follow up with Dr. Wooten within 1 week Please await finalized recs by staff. HISTORY OF PRESENT ILLNESS The patient is a 68 year old right hand dominant male with a PMH of HTN who has had right shoulder pain since Saturday. He says that in the middle of the night, he awoke screaming with both of his arms forward and then starting making smacking noises with his mouth. They went to [place] ED and were told that it was arthritis and sent home with no medications. He was secondarily seen at [place] ED for right shoulder pain and limited motion. He went to a hospital in [place] were radiographs were obtained that demonstrated a posterior right shoulder dislocation. He as subsequently trasnferrd here for a closed reduction. The patient denies any other antecedent trauma, f/c/n/v, shortness of breath, chest pain, unintentional weight loss, or other constitutional symptoms. Denies the use of blood thinners or presence of cardiac devices. History of VTE: denies Smoker: denies Anticoagulation: denies NPO since 7AM PAST MEDICAL HISTORY HTN PAST SURGICAL HISTORY Denies past surgical history PAST FAMILY HISTORY Not contributory to consult SOCIAL HISTORY Social History Socioeconomic History Marital status: Spouse name: Not on file Number of children: Not on file Years of education: Not on file Highest education level: Not on file Occupational History Not on file Tobacco Use Smoking status: Not on file Smokeless tobacco: Not on file Substance and Sexual Activity Alcohol use: Not on file Drug use: Not on file Sexual activity: Not on file Other Topics Concerns: Not on file Social History Narrative Not on file Social Determinants of Health Financial Resource Strain: Not on file Food Insecurity: Not on file Transportation Needs: Not on file Physical Activity: Not on file Stress: Not on file Social Connections: Not on file Housing Stability: Not on file COMPLETE REVIEW OF SYSTEMS Negative except above per HPI PHYSICAL EXAM Vitals: BP 161/78 Pulse 63 Temp 36.9 ?C (98.4 ?F) (Oral) Resp 18 Wt 72.6 kg (160 lb) SpO2 97% BMI 25.06 kg/m? General: Resting comfortably, alert and oriented x3, no visible or acute distress Cardiovascular: Regular rate to peripheral pulse Respiratory: Breathing comfortably in room air Abdomen: Soft, NT, ND FOCUSED RIGHT UPPER EXTREMITY EXAM INSPECTION: +Swelling at the shoulder, + Ecchymosis diffusely about the shoulder, Erythema, Mild Effusion PALPATION: TTP to shoulder diffusely AROM: Limited by pain PROM: Limited by dislocation. Flexion: 70 Abduction: 70 VASCULAR: 2+ radial pulse, <2s capillary refill NEURO: AIN/PIN/Uln Intact; SILT to median, ulnar, musculocutaneous, radial, axillary distributions A secondary survey was completed to the fullest extent possible given the patient's clinical condition. This survey revealed no explicit pain or tenderness in the long bones and major joints of the uninjured upper and lower limbs. IMAGING STUDIES (as of 04/09/2024): XR R shoulder: Posterior shoulder dislocation XR R shoulder (post-reduction): concentric alignment of the shoulder with an osseous fragment inferior to the humeral head LAB RESULTS (as of 04/09/2024): No labs obtained Davis Radha Johnson / 68 year old male / [id number] / ED23/E12- HPI: 68 year old right hand dominant male with a medical history of HTN who has had right shoulder pain since Saturday after a posterior dislocation event. He says that in the middle of the night, he awoke screaming with both of his arms forward and then starting making smacking noises with his mouth. Patient does not recall the event. Exam: Limited active/passive range of motion. NVI. 2+ radial pulse. Labs: No new labs Imaging: XR R shoulder: Posterior shoulder dislocation; XR R shoulder (post-reduction): concentric alignment of the shoulder with an osseous fragment inferior to the humeral head A/P: 68 year old male with a posterior shoulder dislocation after concern for a seizure event on Saturday. He was closed reduced in the ED and placed in a sling and swath. He will be NWB RUE with ROM at (more content not included)... Normal [facility] CT BRAIN WO IVCONon 04-09-[address] BRAIN WO IVCON * * *Final Report* * * DATE OF EXAM: Apr 09 2024 6:42PM [facility] 0504 - CT BRAIN WO IVCON / PROCEDURE REASON: Seizure, new-onset, no history of trauma * * * * Physician Interpretation * * * * EXAMINATION: CT BRAIN WO IVCON HISTORY: Seizure, new-onset, no history of trauma TECHNIQUE: CT head without contrast. M: [id number]_3 CT Dose-Length Product (DLP): 781 mGy*cm CT Dose Reduction Employed: No dose reduction techniques were required COMPARISON: None. RESULT: Acute change: No evidence of an acute intracranial process. Hemorrhage: No evidence of acute intracranial hemorrhage. Mass Lesion / Mass Effect: No evidence of an intracranial mass, extra-axial fluid collection, or significant localized mass effect. Chronic change: Patchy nonspecific supratentorial white matter changes likely reflecting chronic microvascular ischemia. Parenchyma: Mild generalized parenchymal volume loss. Ventricles: Commensurate with volume loss. Other: Small air-fluid level in the dominant left sphenoid sinus. The calvarium, skull base, mastoids, orbits and extracranial soft tissues are unremarkable. Injection Specialist (topogram) images: No additional findings. IMPRESSION: No acute intracranial findings. Chronic changes. Personal Care Home Administrator: PSCB Transcribe Date/Time: Apr 09 2024 6:43P Dictated by : LALY TUCKER MD This examination was interpreted and the report reviewed and electronically signed by: LALY TUCKER MD on Apr 09 2024 6:46PM EST [id number] Normal [facility] Comprehensive metabolic 2000 panelon 04-09-2024 Albumin [Mass/Vol] 3.9 g/dL Normal 3.9-4.9 [facility] Comment on above: Order Comment: Speci men Type: BLOOD SPECIMENOrdering Facility: [facility] Address: [address] [id number] Performed By: #### 1 23-9, 33089-3 ####[facility] LABCLIA [id number] [place] [address] [place] ALP [Catalytic activity/Vol] 78 U/L Normal 38-113 [facility] Comment on above: Order Comment: Speci men Type: BLOOD SPECIMENOrdering Facility: [facility] Address: [address] [place] [address] Performed By: #### 1 23-9, 54244-3 ####[facility] LABCLIA [id number] [place] [address] [place] ALT [Catalytic activity/Vol] 29 U/L Normal 10-54 [facility] Comment on above: Order Comment: Speci men Type: BLOOD SPECIMENOrdering Facility: [facility] Address: [address] [place] [address] Performed By: #### 1 9, 43128-1 ####[facility] LABCLIA [id number] [place] [address] [place] Anion gap [Moles/Vol] 11 mmol/L Normal 8-15 [facility] Comment on above: Order Comment: Speci men Type: BLOOD SPECIMENOrdering Facility: [facility] Address: [address] [place], [place] [address] Performed By: #### 1 23-9, 07670-8 ####[facility] LABCLIA [id number] [place] [address] [place] AST [Catalytic activity/Vol] 19 U/L Normal 14-40 [facility] Comment on above: Order Comment: Speci men Type: BLOOD SPECIMENOrdering Facility: [facility] Address: [address] [place], [place] [address] Performed By: #### 1 23-9, 34141-9 ####[facility] LABCLIA [id number] [place] [address] [place] Bilirubin [Mass/Vol] 0.5 mg/dL Normal 0.2-1.3 [facility] Comment on above: Order Comment: Speci men Type: BLOOD SPECIMENOrdering Facility: [facility] Address: [address] [place] [address] Performed By: #### 1 9123-9, 80942-0 ####[facility] LABCLIA [id number] [place] [address] [place] Calcium [Mass/Vol] 8.8 mg/dL Normal 8.5-10.2 [facility] Comment on above: Order Comment: Speci men Type: BLOOD SPECIMENOrdering Facility: [facility] Address: [address] [place] [address] Performed By: #### 1 9123-9, 88584-0 ####[facility] LABCLIA [id number] [place] [address] [place] Chloride [Moles/Vol] 103 mmol/L Normal 98-107 [facility] Comment on above: Order Comment: Speci men Type: BLOOD SPECIMENOrdering Facility: [facility] Address: [address] [place] [address] Performed By: #### 1 9123-9, 21655-5 ####[facility] LABCLIA [id number] [place] [address] [place] CO2 [Moles/Vol] 25 mmol/L Normal 22-30 [facility] Comment on above: Order Comment: Speci men Type: BLOOD SPECIMENOrdering Facility: [facility] Address: [address] [place] [address] Performed By: #### 1 9123-9, 67740-7 ####[facility] LABCLIA [id number] [place] [address] [place] Creatinine [Mass/Vol] 0.88 mg/dL Normal 0.73-1.22 [facility] Comment on above: Order Comment: Melchor hollis Type: BLOOD SPECIMENOrdering Facility: [facility] Address: [address] [place] [address] Performed By: #### 1 9123-9, 07464-0 ####[facility] LABCLIA [id number] [place] [address] [place] Creatinine and Glomerular filtration rate.predicted panel (S/P/Bld) 94 mL/min/1.73m??? Normal >=60 [facility] Comment on above: Order Comment: Melchor hollis Type: BLOOD SPECIMENOrdering Facility: [facility] Address: [address] [place] [address] Result Comment: Yesenia mated Glomerular Filtration Rate (eGFR) is calculated using the 2020 CKD-EPI creatinine equation. This equation utilizes serum creatinine, sex, and age as parameters. The creatinine assay has traceable calibration to isotope dilution-mass spectrometry. Refer to KDIGO guidelines for clinical interpretation. In patients with unstable renal function, e.g. those with acute kidney injury, the eGFR may not accurately reflect actual GFR. Performed By: #### 1 9123-9, 99129-1 ####[facility] LABCLIA [id number] [place] [address] [place] Glucose [Mass/Vol] 102 mg/dL High 74-99 [facility] Comment on above: Order Comment: Melchor hollis Type: BLOOD SPECIMENOrdering Facility: [facility] Address: [address] [place] [address] Result Comment: The [place] Diabetes Association (ADA) provides guidance for cutoff values for fasting glucose and random glucose. The ADA defines fasting as no caloric intake for at least 8 hours. Fasting plasma glucose results between 100 to 125 mg/dL indicate increased risk for diabetes (prediabetes). Fasting plasma glucose results greater than or equal to 126 mg/dL meet the criteria for diagnosis of diabetes. In the absence of unequivocal hyperglycemia, results should be confirmed by repeat testing. In a patient with classic symptoms of hyperglycemia or hyperglycemic crisis, random plasma glucose results greater than or equal to 200 mg/dL meet the criteria for diagnosis of diabetes. Reference: Standards of Medical Care in Diabetes 2016, [place] [employer] Association. Diabetes Care. 2016.39(Suppl 1). Performed By: #### 1 9123-9, 86928-6 ####[facility] LABIA [id number] [address] [address] [place] Potassium [Moles/Vol] 3.8 mmol/L Normal 3.7-5.1 [facility] Comment on above: Order Comment: Speci men Type: BLOOD SPECIMENOrdering Facility: [facility] Address: [address] [place] [address] Performed By: #### 1 23-9, 47470-2 ####[facility] LABIA [id number] [place] [address] [place] Protein [Mass/Vol] 6.4 g/dL Normal 6.3-8.0 [facility] Comment on above: Order Comment: Speci men Type: BLOOD SPECIMENOrdering Facility: [facility] Address: [address] [place] [address] Performed By: #### 1 239, 99174-2 ####[facility] LABIA [id number] [place] [address] [place] Sodium [Moles/Vol] 139 mmol/L Normal 136-144 [facility] Comment on above: Order Comment: Speci men Type: BLOOD SPECIMENOrdering Facility: [facility] Address: [address] [place] [address] Performed By: #### 1 23-9, 90259-0 ####[facility] LABIA [id number] [place] [id number] [place] Urea nitrogen [Mass/Vol] 22 mg/dL Normal 9-24 [facility] Comment on above: Order Comment: Speci men Type: BLOOD SPECIMENOrdering Facility: [facility] Address: [address] [id number] Performed By: #### 1 239, 93973-6 ####[facility] LABCLIA [id number] [address] [facility] ED NOTEon 04-09-2024 ED NOTE HNO ID: [id number] Author: FILEMON BOLTON RN Service: Emergency Medicine Author Type: Registered Nurse Type: ED Notes Filed: 04/09/2024 22:29 Note Text: Pt discharged to home AANDOx4, resp even and unlabored. No signs of distress noted. Pt denies further questions/ concerns at this time. Discharge paperwork in hand. Normal [facility] ED NOTE HNO ID: [id number] Author: FILEMON BOLTON RN Service: Emergency Medicine Author Type: Registered Nurse Type: ED Notes Filed: 04/09/2024 22:28 Note Text: Meal tray given to pt Normal [facility] ED NOTE HNO ID: [id number] Author: FILEMON BOLTON RN Service: Emergency Medicine Author Type: Registered Nurse Type: ED Notes Filed: 04/09/2024 20:10 Note Text: Ortho reducing Right shoulder at this time Normal [facility] ED NOTE HNO ID: [id number] Author: JERMAIN STARK RN Service: ? Author Type: Registered Nurse Type: ED Notes Filed: 04/09/2024 18:08 Note Text: Bed: E12-29 Expected date: Expected time: Means of arrival: Comments: E-bed Normal [facility] ED PROV NOTEon 04-09-2024 ED PROV NOTE HNO ID: [id number] Author: DANIEL ELLISON MD Service: Emergency Medicine Author Type: Physician Type: ED Provider Notes Filed: 04/10/2024 13:30 Note Text: ED Provider Note Patient Name: Davis Johnson : 1955 SERVICE DATE: 04/09/24 History Patient presents with: Shoulder Dislocation: Sent by Shira for R shoulder dislocation. Pt came to [facility] to get shoulder back in place 68-year-old male with past medical history of hypertension presenting today for posterior dislocation of the right shoulder. Patient and about 1 week ago he had an episode while he was lying in bed where all of his limbs were outstretched, appeared to be having a seizure. Was no fall, head strike. Following that episode patient began complaining of right shoulder pain. Was additionally evaluated at a hospital in [place], no diagnosis. He was at an peak appointment in [place] today, and x-ray of the right shoulder was collected and was noted to have a posterior dislocation. Sent here for orthopedic evaluation. Patient states that he is having slight in the right shoulder, however has no radiation of the pain. Additionally states that he has full functioning of the hand. Denies any numbness, tingling, paresthesias, weakness. No additional injuries. Patient has not had any further seizure-like activity since. He has no history of seizures. No past medical history on file. No past surgical history on file. No family history on file. Social History Tobacco Use Smoking status: Not on file Smokeless tobacco: Not on file Substance and Sexual Activity Alcohol use: Not on file Drug use: Not on file Sexual activity: Not on file ALLERGIES No Known Allergies Review of Systems Physical Exam Vitals [04/09/24 1555] BP Pulse Temp Temp src Resp SpO2 Weight Height 161/78 63 36.9 ?C (98.4 ?F) Oral 18 97 % 72.6 kg (160 lb) -- Physical Exam Vitals and nursing note reviewed. Constitutional: General: He is not in acute distress. Appearance: He is not ill-appearing. HENT: Head: Normocephalic and atraumatic. Nose: Nose normal. Mouth/Throat: Mouth: Mucous membranes are moist. Eyes: Extraocular Movements: Extraocular movements intact. Conjunctiva/sclera: Conjunctivae normal. Pupils: Pupils are equal, round, and reactive to light. Cardiovascular: Rate and Rhythm: Normal rate and regular rhythm. Pulmonary: Effort: Pulmonary effort is normal. Breath sounds: Normal breath sounds. Abdominal: General: There is no distension. Palpations: Abdomen is soft. Tenderness: There is no abdominal tenderness. Musculoskeletal: Comments: Patient right shoulder tender to palpation. And sling placed at outpatient visit. Able to fully range right hand. Skin: General: Skin is warm and dry. Neurological: Mental Status: He is alert. Comments: Sensation is intact to light touch distal to injury. Diagnostic Testing ED Labs Ordered and Reviewed COMPREHENSIVE METABOLIC PANEL - Abnormal; Notable for the following components: Result Value Ref Range Glucose 102 (*) 74 - 99 mg/dL All other components within normal limits COMPLETE BLOOD COUNT AND DIFFERENTIAL - Abnormal; Notable for the following components: Abs Neut 8.08 (*) 1.45 - 7.50 k/uL Abs Throckmorton 1.10 (*) <0.87 k/uL All other components within normal limits MAGNESIUM - Normal Pre Procedural Sedation - Provider Assessment (all recorded) Pre Procedural Sedation Assessment Row Name 04/09/24 1808 Heart Exam Regular Rate and Rhythm -JM Lung Exam Lungs Clear on Auscultation -JM Other Right shoulder posterior dislocation -JM Airway Visualization of Uvula Yes -JM Mouth opening greater than 2 fingerbreadths Yes -JM Neck Full Range of Motion Yes -JM ASA Class III -JM I have examined the patient, reviewed the History and Physical. There are no changes unless noted here. No changes -JM Pre-Procedure Patient Data Reviewed Done -JM Reviewed history for anesthesia complications? Yes -JM Patient OK for Sedation Yes -JM Sedation Goal Deep -JM User Martinez (r) = Recorded By, (t) = Taken By, (c) = Cosigned By Initials Name Gerhard Daniel MD Post Procedural Sedation Note - Provider (all recorded) Post Procedural Sedation Assessment Row Name 04/09/24 2111 Post Procedural Sedation Assessment (blank or - value implies not applicable or none) Start Time 2001 - End Time 2025 -JM Total Sedation Intraservice Time 24 -JM Pre-Procedural Diagnosis posterior dislocation of the right shoulder -JM Post-Procedural Diagnosis posterior dislocation of right shoulder -JM List Proceduralist and Assistants and Tasks Dr. Daniel, Dr. Ellison, Dr. Arias, Filemon Bolton, Respiratory, Pharmacy - Type of sedation achieved Deep -JM Patient tolerated sedation and procedure Yes -JM Procedure performed if different from planned procedure with description -- Findings Successful reduction or treatment of orthopedic injury -J (more content not included)... Normal [facility] ED Triage Noteon 04-09-2024 ED Triage Note HNO ID: [id number] Author: LALY GODFREY MD Service: Emergency Medicine Author Type: Physician Type: ED Triage Notes Filed: 04/09/2024 16:01 Note Text: ED TRIAGE PROVIDER NOTE Patient Name: Davis Johnson Service Date: 04/09/24 BRIEF HPI: This is a 68 year old male who presents to the ED with: history of HTN, he has had pain since about a week ago and pain since then. Was seen in [place] and was told it was arthritis. He got a subsequent MRI, was seen by orthopedics, but MRI was concerning for a shoulder dislocation. X ray today showed a shoulder dislocation so he reports to the ED. Denies numbness / weakness. BRIEF EXAM: NAD Awake and Alert Non labored breathing R shoulder in sling, tender to shoulder joint, Neuro: motor and sensation intact to right hand INITIAL WORKUP AND DECISION MAKING: Orders Placed This Encounter NaCl 0.9% 1,000 mL iv bolus morphine 4 mg injection SIGNATURE: Laly Godfrey MD Normal [facility] Magnesium SerPl-mCncon 04-09 Magnesium [Mass/Vol] 2.2 mg/dL Normal 1.7-2.3 [facility] Comment on above: Order Comment: Speci men Type: BLOOD SPECIMENOrdering Facility: [facility] Address: [address] [place] [address] Performed By: #### 1 9123-9, 01300-1 ####[facility] LABCLIA [id number] [place] [address] [place] XR SHLDR >/=3V AP/LOUISE AP/OTH R RTon 04-09-2024 XR SHLDR >/=3V AP/LOUISE AP/OTHR RT * * *Final Report* * * DATE OF EXAM: Apr 09 2024 8:39PM EGX [id number] - XR SHLDR >/=3V AP/LOUISE AP/OTHR RT / PROCEDURE REASON: Postoperative assessment * * * * Physician Interpretation * * * * EXAMINATION / TECHNIQUE: XR SHLDR >/=3V AP/LOUISE AP/OTHR RT PATIENT/TECHNOLOGIST PROVIDED HISTORY: RT SHOULDER POST REDUCTION CLINICAL INFORMATION ( PROVIDED BY ORDERING CLINICIAN) : Postoperative assessment COMPARISON: Same day RIGHT shoulder radiographs 04/09/2024. RESULT: Interval reduction of the RIGHT posterior shoulder dislocation with redemonstrated reverse Hill-Sachs and probable reverse Bankart lesions. Small likely posttraumatic osseous fragment inferior to the humeral head. Mild degenerative changes of the AC joint. IMPRESSION: Interval reduction of the posterior RIGHT shoulder dislocation. Personal Care Home Administrator: [facility] Transcribe Date/Time: Apr 09 2024 8:42P Dictated by : ABHISHEK DELGADO DO This examination was interpreted and the report reviewed and electronically signed by: GENOVEVA GUTIERREZ MD on Apr 09 2024 8:57PM EST [id number] Normal [facility] XR SHLDR 4V AP/LOUISE/LAT/OUTLE T RTon 04-09-2024 XR SHLDR 4V AP/LOUISE/LAT/OUTLET RT * * *Final Report* * * DATE OF EXAM: Apr 09 2024 12:58PM AFR 5605 - XR SHLDR 4V AP/LOUISE/LAT/OUTLET RT / PROCEDURE REASON: Right shoulder pain, unspecified chronicity * * * * Physician Interpretation * * * * EXAMINATION / TECHNIQUE: XR SHLDR 4V AP/LOUISE/LAT/OUTLET RT HISTORY: PT HAD SIEZURE ONE WEEK AGO,RT SHOULDER PAIN AND PROXIMAL HUMERUS BRUISING Right shoulder pain, unspecified chronicity COMPARISON: None. RESULT: See impression IMPRESSION: There is posterior humeral head dislocation with a reverse Hill-Sachs lesion and a probable reverse bony Bankart lesion. Mild acromioclavicular osteoarthritis. Personal Care Home Administrator: [facility] Transcribe Date/Time: Apr 09 2024 1:10P Dictated by : SIVAN FERMIN MD This examination was interpreted and the report reviewed and electronically signed by: SIVAN FERMIN MD on Apr 09 2024 1:12PM EST [id number] Normal [facility] XR Shoulder - right 4 Viewso n 04-09-2024 IMPRESSION: There is posterior humeral head dislocation with a reverse Hill-Sachs lesion and a probable reverse bony Bankart lesion. Mild acromioclavicular osteoarthritis. Personal Care Home Administrator: [facility] Transcribe Date/Time: Apr 09 2024 1:10P Dictated by : SIVAN FERMIN MD This examination was interpreted and the report reviewed and electronically signed by: SIVAN FERMIN MD on Apr 09 2024 1:12PM EST DIVISION OF RADIOLOGY * * *Final Report* * * DATE OF EXAM: Apr 09 2024 12:58PM AFR 5605 - XR SHLDR 4V AP/LOUISE/LAT/OUTLET RT / PROCEDURE REASON: Right shoulder pain, unspecified chronicity * * * * Physician Interpretation * * * * EXAMINATION / TECHNIQUE: XR SHLDR 4V AP/LOUISE/LAT/OUTLET RT HISTORY: PT HAD SIEZURE ONE WEEK AGO,RT SHOULDER PAIN AND PROXIMAL HUMERUS BRUISING Right shoulder pain, unspecified chronicity COMPARISON: None. RESULT: See impression DIVISION OF RADIOLOGY Provider, [place] Heath - 04/09/2024 * * *Final Report* * * DATE OF EXAM: Apr 09 2024 12:58PM AFR 5605 - XR SHLDR 4V AP/LOUISE/LAT/OUTLET RT / PROCEDURE REASON: Right shoulder pain, unspecified chronicity * * * * Physician Interpretation * * * * EXAMINATION / TECHNIQUE: XR SHLDR 4V AP/LOUISE/LAT/OUTLET RT HISTORY: PT HAD SIEZURE ONE WEEK AGO,RT SHOULDER PAIN AND PROXIMAL HUMERUS BRUISING Right shoulder pain, unspecified chronicity COMPARISON: None. RESULT: See impression IMPRESSION IMPRESSION: There is posterior humeral head dislocation with a reverse Hill-Sachs lesion and a probable reverse bony Bankart lesion. Mild acromioclavicular osteoarthritis. Personal Care Home Administrator: [facility] Transcribe Date/Time: Apr 09 2024 1:10P Dictated by : SIVAN FERMIN MD This examination was interpreted and the report reviewed and electronically signed by: SIVAN FERMIN MD on Apr 09 2024 1:12PM EST [facility] Radiology Study observation (narrative) [facility] XR Shoulder - right 4 ViewsO rdered By: [facility] Provider on 04-09-2024 [facility] Activated partial thrombopla stin time (aPTT) in platelet poor plasma by coagulation aOrdered By: Sly Gleason on 04-03-2024 aPTT Coag (PPP) [Time] 23.6 s Low 25.1-36.5 [place] Comment on above: A hematocrit value g reater than 55% may lead to inaccurate results in coagulation testing. Patients having hematocrit values >55% require a special collection tube for coagulation studies. Please contact the laboratory at [phone] for redraw instructions. Alanine aminotransferase [En zymatic activity/volume] in Serum or PlasmaOrdered By: Sly Gleason on 04-03-2024 ALT [Catalytic activity/Vol] 18 U/L 7-52 [facility] Comment on above: Performed By: #### P T, CK, HS TROP, CMP, PTT, PRL, TSH3, CBC ####[address] Albumin [Mass/volume] in Ser um or Plasma by Bromocresol green (BCG) dye binding methoOrdered By: Sly Gleason on 04-03-2024 Albumin BCG dye [Mass/Vol] 3.7 g/dL 3.5-5.7 [facility] Alkaline phosphatase [Enzyma tic activity/volume] in Serum or PlasmaOrdered By: Sly Gleason on 04-03-2024 ALP [Catalytic activity/Vol] 79 U/L 34-104 [facility] Comment on above: Performed By: #### P T, CK, HS TROP, CMP, PTT, PRL, TSH3, CBC ####[address] Amphetamine Screen Ql (U)Ord ered By: Sly Gleason on 04-03-2024 Amphetamines Ql (U) Negative Negative [facility] Aspartate aminotransferase [ Enzymatic activity/volume] in Serum or PlasmaOrdered By: Sly Gleason on 04-03-2024 AST [Catalytic activity/Vol] 20 U/L 13-39 [facility] Comment on above: Performed By: #### P T, CK, HS TROP, CMP, PTT, PRL, TSH3, CBC ####[address] Automated basophil %Ordered By: Sly Gleason on 04-03-2024 Basophils/100 WBC (Bld) 0.6 % . [facility] Comment on above: Performed By: #### P T, CK, HS TROP, CMP, PTT, PRL, TSH3, CBC ####[address] Automated basophil countOrde red By: Sly Gleason on 04-03-2024 Basophils (Bld) [#/Vol] 0.0 10*3/uL 0.0-0.2 [facility] Comment on above: Result Comment: PERF ORMED BY: [facility] [address] [place] [address] PATHOLOGIST EMAIL ADMINISTRATOR AMOR WADSWORTH M.D. Performed By: #### P T, CK, HS TROP, CMP, PTT, PRL, TSH3, CBC ####[address] Automated blood monocyte cou ntOrdered By: Sly Gleason on 04-03-2024 Monocytes (Bld) [#/Vol] 0.7 10*3/uL 0.0-0.8 [facility] Comment on above: Performed By: #### P T, CK, HS TROP, CMP, PTT, PRL, TSH3, CBC ####[address] Automated eosinophil %Ordere d By: Sly Gleason on 04-03-2024 Eosinophils/100 WBC (Bld) 5.5 % . [facility] Comment on above: Performed By: #### P T, CK, HS TROP, CMP, PTT, PRL, TSH3, CBC ####[address] Automated eosinophil countOr dered By: Sly Gleason on 04-03-2024 Eosinophils (Bld) [#/Vol] 0.3 10*3/uL 0.0-0.45 [facility] Comment on above: Performed By: #### P T, CK, HS TROP, CMP, PTT, PRL, TSH3, CBC ####[address] Automated monocyte %Ordered By: Sly Gleason on 04-03-2024 Monocytes/100 WBC (Bld) 12.4 % . [facility] Comment on above: Performed By: #### P T, CK, HS TROP, CMP, PTT, PRL, TSH3, CBC ####[address] Automated neutrophil %Ordere d By: Sly Gleason on 04-03-2024 Neutrophils/100 WBC (Bld) 51.7 % . [facility] Comment on above: Performed By: #### P T, CK, HS TROP, CMP, PTT, PRL, TSH3, CBC ####[facility] [id number] Barbiturates [Presence] in U rine by Screen methodOrdered By: Sly Gleason on 04-03-2024 Barbiturates Screen Ql (U) Negative Negative [facility] Benzodiazepines Screen Ql (U )Ordered By: Sly Gleason on 04-03-2024 Benzodiazepines Ql (U) Negative Negative [place] Benzoylecgonine [Presence] i n Urine by Screen methodOrdered By: Sly Gleason on 04-03-2024 Benzoylecgonine Screen Ql (U) Negative Negative [facility] Bilirubin Test strip Ql (U)O rdered By: Sly Gleason on 04-03-2024 Bilirubin Ql (U) Negative Negative [facility] Bilirubin.total [Mass/volume ] in Serum or PlasmaOrdered By: Sly Gleason on 04-03-2024 Bilirubin [Mass/Vol] 0.3 mg/dL 0.3-1.0 [facility] Comment on above: Performed By: #### P T, CK, HS TROP, CMP, PTT, PRL, TSH3, CBC ####[facility] head/brain wo conon 04-03 CT head/brain wo con [facility] [place] [address] CT Scan Report Signed Patient: Davis Johnson MR#: [id number] : 1955 Acct:[id number] Age/Sex: 68 / M ADM Date: 04/03/24 Loc: ER Room: Type: [facility] ER Attending Dr: Copies to: Sly Gleason DO Ordering Provider: Sly Gleason DO Date of Service: 04/03/24 CT/CT head/brain wo con: altered mental status CT BRAIN WITHOUT CONTRAST: CLINICAL HISTORY: Altered mental status. COMPARISON: None TECHNIQUE: Contiguous axial unenhanced images were obtained through the brain. This CT exam was performed using one or more following dose reduction techniques: Automated exposure control, adjustment of the mA and/or kV according to patient size, or use of iterative reconstruction technique. FINDINGS: There is no evidence of midline shift, intra or extra-axial fluid collection, hemorrhage or CT evidence of stroke. Cortical atrophy with chronic microvascular ischemic changes. Posterior fossa appears unremarkable. Visualized intraorbital contents demonstrate no acute findings. Visualized paranasal sinuses are clear. The surrounding soft tissues are normal. CT/CT head/brain wo con IMPRESSION: NO ACUTE INTRACRANIAL ABNORMALITY. Impression dictated by: Ravinder Byrnes Jr., D.O.04/03/2024 9:25 AM Dictation Location: [place] [address] Transcribed By: [facility] 04/03/24924 Dictated By: Ravinder Byrnes Jr, DO 04/03/24923 Signed By: 04/03/24924 Normal [facility] Calcium [Mass/volume] in Ser um or PlasmaOrdered By: Sly Gleason on 04-03-2024 Calcium [Mass/Vol] 8.5 mg/dL Low 8.6-10.3 [facility] Comment on above: Performed By: #### P T, CK, HS TROP, CMP, PTT, PRL, TSH3, CBC ####[facility] [id number] [place] [id number] [facility] Cannabinoids [Presence] in U rine by Screen methodOrdered By: Sly Gleason on 04-03-2024 Cannabinoids Screen Ql (U) Negative Negative [facility] Comment on above: These are unconfirme d results and should not be used for legal purposes. Drug Cut-Off Concentration: AMPH 1000 ng/mL ROMAN 200 ng/mL BOZENA 200 ng/mL COCM 300 ng/mL OP 300 ng/mL PCP 25 ng/mL THC 20 ng/mL Capillary blood glucose sina urement by glucometer (mass/volume)Ordered By: Sly Gleason on 04-03-2024 Glucose [Mass/Vol] 79 mg/dL [facility] Comment on above: Random Glucose Refer ence Range is dependent on time and content of last meal. Glucose of more than 200 mg/dL in a nonstressed, ambulatory subject supports the diagnosis of Diabetes Mellitus. Result Comment: [facility] Glucose Reference Range is dependent on time and content of last meal. Glucose of more than 200 mg/dL in a nonstressed, ambulatory subject supports the diagnosis of Diabetes Mellitus. Performed By: #### G FOREIGN ####Point of Care testing, Carbon dioxide, total [Moles /volume] in Serum or PlasmaOrdered By: Sly Gleason on 04-03-2024 CO2 [Moles/Vol] 22.2 mmol/L 21.0-31.0 [facility] Comment on above: Performed By: #### P T, CK, HS TROP, CMP, PTT, PRL, TSH3, CBC ####[place] [id number] [address] Chloride [Moles/volume] in S emily or PlasmaOrdered By: Sly Gleason on 04-03-2024 Chloride [Moles/Vol] 108 mmol/L High 98-107 [facility] Comment on above: Performed By: #### P T, CK, HS TROP, CMP, PTT, PRL, TSH3, CBC ####[facility] Color of Urine by AutoOrdere d By: Sly Gleason on 04-03-2024 Color (U) Light-yellow Yellow [facility] Comment on above: Order Comment: Name Collection Type:: Clean-Voided Midstream Performed By: #### U RDS, UA #### [facility] [address] Complete Blood Count Auto Di ffon 04-03-2024 Mean Corpuscular HGB Conc 33.9 g/dL Normal 32.5-35.6 [facility] Comment on above: Performed By: #### P T, CK, HS TROP, CMP, PTT, PRL, TSH3, CBC ####[facility] [place] [address] [place] Monocytes/100 WBC (Bld) 16.48 % Normal 0.00-20.00 [facility] Comment on above: Performed By: #### P T, CK, HS TROP, CMP, PTT, PRL, TSH3, CBC ####[address] NRBC% 0.1 /100{WBC} Normal 0-0.5 [facility] Comment on above: Performed By: #### P T, CK, HS TROP, CMP, PTT, PRL, TSH3, CBC ####[address] Comprehensive Metabolic Pane wilberto 04-03-2024 Albumin [Mass/Vol] 3.7 g/dL Normal 3.5-5.7 [facility] Comment on above: Performed By: #### P T, CK, HS TROP, CMP, PTT, PRL, TSH3, CBC ####[address] Creatinine Clr Calc Pharmacy 66.77 Normal [facility] Comment on above: Performed By: #### P T, CK, HS TROP, CMP, PTT, PRL, TSH3, CBC ####[address] GFR/1.73 sq M.predicted MDRD (S/P/Bld) [Vol rate/Area] mL/min/{1.73_m2} Normal [facility] Comment on above: Performed By: #### P T, CK, HS TROP, CMP, PTT, PRL, TSH3, CBC ####[address] Creatine kinase [Enzymatic a ctivity/volume] in Serum or PlasmaOrdered By: Sly Gleason on 04-03-2024 CK [Catalytic activity/Vol] 248 U/L High [facility] Comment on above: Performed By: #### P T, CK, HS TROP, CMP, PTT, PRL, TSH3, CBC ####[address] Creatinine [Mass/volume] in Serum or PlasmaOrdered By: Sly Gleason on 04-03-2024 Creatinine [Mass/Vol] 0.99 mg/dL 0.70-1.30 [facility] Comment on above: Performed By: #### P T, CK, HS TROP, CMP, PTT, PRL, TSH3, CBC ####[facility] [id number] [place] [address] [place] Drug Screen,Urineon 04-03-20 Amphetamine Screen,Urine Negative Normal Negative [facility] Comment on above: Performed By: #### U RDS, UA #### [address] Barbiturate Screen,Urine Negative Normal Negative [facility] Comment on above: Performed By: #### U RDS, UA #### [place] [address] [place] Benzodiazepines Screen,Urine Negative Normal Negative [facility] Comment on above: Performed By: #### U RDS, UA #### [address] Cannabinoid Screen,Urine Negative Normal Negative [facility] Comment on above: Result Comment: Thes e are unconfirmed results and should not be used for legal purposes. Drug Cut-Off Concentration: AMPH 1000 ng/mL ROMAN 200 ng/mL BOZENA 200 ng/mL COCM 300 ng/mL OP 300 ng/mL PCP 25 ng/mL THC 20 ng/mL PERFORMED BY: [place] [address] PATHOLOGIST EMAIL ADMINISTRATOR AMOR WADSWORTH M.D. Performed By: #### U RDS, UA #### [place] [address] [place] Cocaine Screen,Urine Negative Normal Negative [facility] Comment on above: Performed By: #### U RDS, UA #### [place] [address] [place] Opiate Screen,Urine Positive High Negative [facility] Comment on above: Performed By: #### U RDS, UA #### [place] [address] [place] Phencyclidine Screen,Urine Negative Normal Negative [facility] Comment on above: Performed By: #### U RDS, UA #### [place] [address] [place] ECG 12 lead ECGon 04-03-2024 ECG 12 lead ECG [facility] Main [place] [address] [place] [address] Electrocardiograph Report Signed Patient: Davis Johnson MR#: [id number] 389 : 1955 Acct:[id number] Age/Sex: 68 / M ADM Date: 04/03/24 Loc: ER Room: Type: [facility] ER Attending Dr: Ordering Provider: Sly Gleason DO Date of Service: 04/03/24 ECG/ECG 12 lead ECG: Altered Mental Status Copies to: Test Reason : Blood Pressure : 157/77 mmHG Vent. Rate : 75 BPM Atrial Rate : 75 BPM P-R Int : 170 ms QRS Dur : 106 ms QT Int : 398 ms P-R-T Axes : 61 65 63 degrees QTcB Int : 444 ms Normal sinus rhythm Confirmed by Sly GLEASON DO ([id number]) on 04/03/2024 3:59:44 PM Referred By: Electronically Signed By: Sly GLEASON DO Transcribed By: MUS Signed By Sly Gleason DO 0 04/03/24 1559 Normal [facility] Erythrocyte distribution wid th [Ratio] by Automated countOrdered By: Sly Gleason on 04-03-2024 Erythrocyte distribution width (RBC) [Ratio] 14.0 % 12.0-14.8 [facility] Comment on above: Performed By: #### P T, CK, HS TROP, CMP, PTT, PRL, TSH3, CBC ####[facility] [id number] [place] [address] [place] Erythrocytes [#/volume] in B lood by Automated countOrdered By: Sly Gleason on 04-03-2024 RBC (Bld) [#/Vol] 4.57 10*6/uL 3.90-5.[address] [facility] Comment on above: Performed By: #### P T, CK, HS TROP, CMP, PTT, PRL, TSH3, CBC ####[facility] [address] [place] [address] [facility] Glucose Poct Glucometerson 0 04-03-2024 Commemt1 Glu2: Cleaned Meter Normal [facility] Comment on above: Result Comment: PERF ORMED BY: [facility] [address] [place] [id number] PATHOLOGIST EMAIL ADMINISTRATOR AMOR WADSWORTH M.D. Performed By: #### G FOREIGN ####Point of Care testing, Glucose [Mass/volume] in Ser um or PlasmaOrdered By: Sly Gleason on 04-03-2024 Glucose [Mass/Vol] 179 mg/dL High 70-100 [facility] Comment on above: ADA recommended refe rence rangeRandom Glucose Reference Range is dependent on time and content of last meal. Glucose of more than 200 mg/dL in a nonstressed, ambulatory subject supports the diagnosis of Diabetes Mellitus. Result Comment: [facility] Glucose Reference Range is dependent on time and content of last meal. Glucose of more than 200 mg/dL in a nonstressed, ambulatory subject supports the diagnosis of Diabetes Mellitus. ADA recommended reference range Performed By: #### P T, CK, HS TROP, CMP, PTT, PRL, TSH3, CBC ####[facility] [id number] [place] [id number] [facility] Glucose [Mass/volume] in Uri ne by Test stripOrdered By: Sly Gleason on 04-03-2024 Glucose Test strip (U) [Mass/Vol] Normal mg/dL Normal [facility] Hematocrit [Volume Fraction] of Blood by Automated countOrdered By: Sly Gleason on 04-03-2024 Hematocrit (Bld) [Volume fraction] 43.7 % 38.8-50.0 [facility] Comment on above: Performed By: #### P T, CK, HS TROP, CMP, PTT, PRL, TSH3, CBC ####[facility] [id number] [place] [id number] [facility] Hemoglobin Test strip Ql (U) Ordered By: Sly Gleason on 04-03-2024 Hemoglobin Ql (U) Negative Negative [facility] Hemoglobin [Mass/volume] in BloodOrdered By: Sly Gleason on 04-03-2024 Hemoglobin (Bld) [Mass/Vol] 14.8 g/dL 13.0-17.0 [facility] Comment on above: Performed By: #### P T, CK, HS TROP, CMP, PTT, PRL, TSH3, CBC ####[facility] [place] [id number] [facility] INR in Platelet poor plasma by Coagulation assayOrdered By: Sly Gleason on 04-03-2024 INR Coag (PPP) [Relative time] 1.0 {INR} [facility] Comment on above: INR Therapeutic Rang e A) Pre- and Peroperative OAT started two weeks before surgery. NOT HIP SURGERY: 1.5 - 2.5 HIP SURGERY: 2 - 3B) Primary and secondary prevention of venous THROMBOSIS: 2 - 3C) Active venous thrombosis, pulmonary embolismand prevention of recurrent venous thrombosis: 2 - 3D) Prevention of arterial thromboembolismincluding patients with mechanical heart valves: 3 - 4.5 Result Comment: INR Therapeutic Range A) Pre- and Peroperative OAT started two weeks before surgery. NOT HIP SURGERY: 1.5 - 2.5 HIP SURGERY: 2 - 3 B) Primary and secondary prevention of venous THROMBOSIS: 2 - 3 C) Active venous thrombosis, pulmonary embolism and prevention of recurrent venous thrombosis: 2 - 3 D) Prevention of arterial thromboembolism including patients with mechanical heart valves: 3 - 4.5 Performed By: #### P T, CK, HS TROP, CMP, PTT, PRL, TSH3, CBC ####[place] [address] [place] [address] [place] Ketones [Presence] in Urine by Test stripOrdered By: Sly Gleason on 04-03-2024 Ketones Ql (U) Negative Negative [facility] Comment on above: Order Comment: Name Collection Type:: Clean-Voided Midstream Performed By: #### U RDS, UA #### [facility] [address] [place] [address] [place] Leukocyte esterase [Presence ] in Urine by Test stripOrdered By: Sly Gleason on 04-03-2024 Leukocyte esterase Test strip Ql (U) Negative Negative [facility] Comment on above: Order Comment: Name Collection Type:: Clean-Voided Midstream Performed By: #### U RDS, UA #### [facility] [address] [place] [address] [place] Leukocytes [#/volume] correc leatha for nucleated erythrocytes in Blood by Automated counOrdered By: Sly Gleason on 08-30-2024 WBC corrected for nucl RBC Auto (Bld) [#/Vol] 5.4 10*3/uL 4.1-10.5 [facility] Leukocytes [#/volume] in Blo od by Automated countOrdered By: Sly Gleason on 04-03-2024 WBC (Bld) [#/Vol] 5.4 10*3/uL 4.1-10.5 [facility] Comment on above: Performed By: #### P T, CK, HS TROP, CMP, PTT, PRL, TSH3, CBC ####[address] Lymphocytes [#/volume] in Bl ood by Automated countOrdered By: Sly Gleason on 04-03-2024 Lymphocytes (Bld) [#/Vol] 1.6 10*3/uL 1.00-4.8 [facility] Comment on above: Performed By: #### P T, CK, HS TROP, CMP, PTT, PRL, TSH3, CBC ####[address] Lymphocytes/100 leukocytes i n Blood by Automated countOrdered By: Sly Gleason on 04-03-2024 Lymphocytes/100 WBC (Bld) 29.8 % . [facility] Comment on above: Performed By: #### P T, CK, HS TROP, CMP, PTT, PRL, TSH3, CBC ####[address] MCH [Entitic mass] by Automa leatha countOrdered By: Sly Gleason on 04-03-2024 MCH (RBC) [Entitic mass] 32.4 pg 27.5-35.2 [facility] Comment on above: Performed By: #### P T, CK, HS TROP, CMP, PTT, PRL, TSH3, CBC ####[address] MCHC Auto (RBC) [Mass/Vol]Or dered By: Sly Gleason on 04-03-2024 MCHC (RBC) [Mass/Vol] 33.9 g/dL 32.5-35.6 [facility] MCV [Entitic volume] by Auto mated countOrdered By: Sly Gleason on 04-03-2024 MCV (RBC) [Entitic vol] 95.7 fL 83.5-101 [facility] Comment on above: Performed By: #### P T, CK, HS TROP, CMP, PTT, PRL, TSH3, CBC ####[facility] [id number] [place] [id number] [facility] Monocyte distribution width [Entitic volume] in Blood by AutomatedOrdered By: Sly Gleason on 04-03-2024 Monocyte distribution width Auto (Bld) [Entitic vol] 16.48 % 0.00-20.00 [facility] Neutrophils [#/volume] in Bl ood by Automated countOrdered By: Sly Gleason on 04-03-2024 Neutrophils (Bld) [#/Vol] 2.8 10*3/uL 1.8-7.7 [facility] Comment on above: Performed By: #### P T, CK, HS TROP, CMP, PTT, PRL, TSH3, CBC ####[facility] [id number] Nitrite Test strip Ql (U)Ord ered By: Sly Gleason on 04-03-2024 Nitrite Ql (U) Negative Negative [facility] No Panel InformationOrdered By: Sly Gleason on 04-03-2024 Bedside Glucose Comment Glu2: cleaned meter [facility] Estimated GFR (CKD-EPI) > 60.0 mL/Min [facility] Creatinine Clearance (Chem 66.77 [facility] Nucleated erythrocytes [Pres ence] in Blood by Automated countOrdered By: Sly Gleason on 04-03-2024 Nucleated RBC Auto Ql (Bld) 0.1 /100{WBC} 0-0.5 [facility] Opiates [Presence] in Urine by Screen methodOrdered By: Sly Gleason on 04-03-2024 Opiates Screen Ql (U) Positive High Negative [facility] Partial Thromboplastin Timeo n 04-03-2024 aPTT Coag (Bld) [Time] 23.6 s Low 25.1-36.5 [facility] Comment on above: Result Comment: A he matocrit value greater than 55% may lead to inaccurate results in coagulation testing. Patients having hematocrit values >55% require a special collection tube for coagulation studies. Please contact the laboratory at [phone] for redraw instructions. PERFORMED BY: [facility] Kathy [place] [id number] PATHOLOGIST EMAIL ADMINISTRATOR AMOR WADSWORTH M.D. Performed By: #### P T, CK, HS TROP, CMP, PTT, PRL, TSH3, CBC ####[place] [id number] [place] [id number] [facility] Phencyclidine Screen Ql (U)O rdered By: Sly Gleason on 04-03-2024 Phencyclidine Ql (U) Negative Negative [facility] Platelet mean volume [Entiti c volume] in Blood by Automated countOrdered By: Sly Gleason on 04-03-2024 Platelet mean volume (Bld) [Entitic vol] 8.6 fL 6.6-10.1 [facility] Comment on above: Performed By: #### P T, CK, HS TROP, CMP, PTT, PRL, TSH3, CBC ####[place] [id number] [facility] Platelets [#/volume] in Bloo d by Automated countOrdered By: Sly Gleason on 04-03-2024 Platelets (Bld) [#/Vol] 207 10*3/uL 150-450 [facility] Comment on above: Performed By: #### P T, CK, HS TROP, CMP, PTT, PRL, TSH3, CBC ####[place] [id number] [facility] Potassium [Moles/volume] in Serum or PlasmaOrdered By: Sly Gleason on 04-03-2024 Potassium [Moles/Vol] 3.9 mmol/L 3.5-5.1 [facility] Comment on above: Performed By: #### P T, CK, HS TROP, CMP, PTT, PRL, TSH3, CBC ####[place] [id number] [facility] Prolactinon 04-03-2024 Prolactin 15.01 ng/mL High 2.64-13.13 [facility] Comment on above: Result Comment: PERF ORMED BY: [facility] [address] [place] [id number] PATHOLOGIST EMAIL ADMINISTRATOR AMOR WADSWORTH M.D. Performed By: #### P T, CK, HS TROP, CMP, PTT, PRL, TSH3, CBC ####[place] [address] [place] [id number] [facility] Prolactin [Mass/volume] in S emily or PlasmaOrdered By: Sly Gleason on 04-03-2024 Prolactin [Mass/Vol] 15.01 ng/mL High 2.64-13.13 [facility] Protein Test strip (U) [Mass /Vol]Ordered By: Sly Gleason on 04-03-2024 Protein (U) [Mass/Vol] Negative Negative [place] Protein [Mass/volume] in Ser um or PlasmaOrdered By: Sly Gleason on 04-03-2024 Protein [Mass/Vol] 6.1 g/dL Low 6.4-8.9 [facility] Comment on above: Performed By: #### P T, CK, HS TROP, CMP, PTT, PRL, TSH3, CBC ####[place] [id number] [place] [id number] [facility] Prothrombin time (PT)Ordered By: Sly Gleason on 04-03-2024 PT Coag (PPP) [Time] 11.3 s 9.0-12.9 [facility] Comment on above: A hematocrit value g reater than 55% may lead to inaccurate results in coagulation testing. Patients having hematocrit values >55% require a special collection tube for coagulation studies. Please contact the laboratory at [phone] for redraw instructions. Result Comment: A he matocrit value greater than 55% may lead to inaccurate results in coagulation testing. Patients having hematocrit values >55% require a special collection tube for coagulation studies. Please contact the laboratory at [phone] for redraw instructions. Performed By: #### P T, CK, HS TROP, CMP, PTT, PRL, TSH3, CBC ####[place] [address] [place] [phone] [facility] Serum globulin measurement b y calculation (mass/volume)Ordered By: Sly Gleason on 04-03-2024 Globulin (S) [Mass/Vol] 2.4 g/dL [facility] Comment on above: Performed By: #### P T, CK, HS TROP, CMP, PTT, PRL, TSH3, CBC ####[place] [address] Serum or plasma albumin/glob ulin mass ratioOrdered By: Sly Gleason on 04-03-2024 Albumin/Globulin [Mass ratio] 1.5 {ratio} [facility] Comment on above: Performed By: #### P T, CK, HS TROP, CMP, PTT, PRL, TSH3, CBC ####[place] [address] Serum or plasma anion gap de terminationOrdered By: Sly Gleason on 04-03-2024 Anion gap [Moles/Vol] 12.7 mmol/L 6.0-15.0 [place] Comment on above: Performed By: #### P T, CK, HS TROP, CMP, PTT, PRL, TSH3, CBC ####[address] Sodium [Moles/volume] in Ser um or PlasmaOrdered By: Sly Gleason on 04-03-2024 Sodium [Moles/Vol] 139 mmol/L 136-145 [facility] Comment on above: Performed By: #### P T, CK, HS TROP, CMP, PTT, PRL, TSH3, CBC ####[address] Specific gravity Test strip (U) [Rel density]Ordered By: Sly Gleason on 04-03-2024 Specific gravity (U) [Rel density] 1.018 1.001-1.030 [facility] Thyrotropin [Units/volume] i n Serum or PlasmaOrdered By: Sly Gleason on 04-03-2024 TSH Qn 1.93 m[IU]/L 0.45-5.33 [facility] Comment on above: Performed By: #### P T, CK, HS TROP, CMP, PTT, PRL, TSH3, CBC ####[place] [id number] [facility] Troponin I High Sensitivityo n 04-03-2024 Troponin I High Sensitivity 5.7 pg/mL Normal 0.0-20.0 [facility] Comment on above: Result Comment: PERF ORMED BY: [place] [address] PATHOLOGIST EMAIL ADMINISTRATOR AMOR WADSWORTH M.D. Performed By: #### P T, CK, HS TROP, CMP, PTT, PRL, TSH3, CBC ####[address] Troponin I.cardiac [Mass/vol ume] in Serum or Plasma by Detection limit <= 0.01 ng/Ordered By: Sly Gleason on 04-03-2024 Troponin I.cardiac DL <= 0.01 ng/mL [Mass/Vol] 5.7 pg/mL 0.0-20.0 [facility] Urea nitrogen [Mass/volume] in Serum or PlasmaOrdered By: Sly Gleason on 04-03-2024 Urea nitrogen [Mass/Vol] 14 mg/dL 02-26 [facility] Comment on above: Performed By: #### P T, CK, HS TROP, CMP, PTT, PRL, TSH3, CBC ####[address] Urinalysison 04-03-2024 Bilirubin,Urine Negative Normal Negative [facility] Comment on above: Order Comment: Name Collection Type:: Clean-Voided Midstream Performed By: #### U RDS, UA #### [address] Glucose Ql (U) Normal Normal Normal [facility] Comment on above: Order Comment: Name Collection Type:: Clean-Voided Midstream Performed By: #### U RDS, UA #### [address] Nitrite,Urine Negative Normal Negative [facility] Comment on above: Order Comment: Name Collection Type:: Clean-Voided Midstream Performed By: #### U RDS, UA #### [place] [address] [place] Occult Blood,Urine Negative Normal Negative [facility] Comment on above: Order Comment: Name Collection Type:: Clean-Voided Midstream Result Comment: PERF ORMED BY: [place] [address] PATHOLOGIST EMAIL ADMINISTRATOR AMOR WADSWORTH M.D. Performed By: #### U RDS, UA #### [place] [address] [place] Protein,Urine Negative Normal Negative [facility] Comment on above: Order Comment: Name Collection Type:: Clean-Voided Midstream Performed By: #### U RDS, UA #### [place] [address] [place] Specificy [place],Urine 1.018 Normal 1.001-1.030 [facility] Comment on above: Order Comment: Name Collection Type:: Clean-Voided Midstream Performed By: #### U RDS, UA #### [place] [address] [place] Urobilinogen,Urine Normal Normal Normal [facility] Comment on above: Order Comment: Name Collection Type:: Clean-Voided Midstream Performed By: #### U RDS, UA #### [place] [address] [place] Urine appearanceOrdered By: Sly Gleason on 04-03-2024 Appearance (U) Clear Clear [facility] Comment on above: Order Comment: Name Collection Type:: Clean-Voided Midstream Performed By: #### U RDS, UA #### [facility] [address] [place] [address] [place] Urobilinogen Test strip (U) [Mass/Vol]Ordered By: Sly Gleason on 04-03-2024 Urobilinogen (U) [Mass/Vol] Normal mg/dL Normal [facility] XR shoulder RT min 2V*on XR shoulder RT min 2V* [facility] Main [place] [address] [place] [address] XRay Report Signed Patient: Davis Johnson MR#: [id number] : 1955 Acct:[id number] Age/Sex: 68 / M ADM Date: 04/03/24 Loc: ER Room: Type: [facility] ER Attending Dr: Copies to: Sly Gleason DO Ordering Provider: Sly Gleason DO Date of Service: 04/03/24 XR/XR chest 2V*: Altered Mental Status ([id number]) XR/XR shoulder RT min 2V*: Altered Mental Status Chest 2 views right shoulder 3 views CLINICAL HISTORY: Altered mental status. Confusion. Right shoulder pain COMPARISON: None FINDINGS: Chest: Heart normal in size. Lungs are clear. No free air. Right shoulder: Mild degenerative changes of the AC and glenohumeral joints without acute bony process. XR/XR chest 2V* IMPRESSION: CHEST DEMONSTRATES NO ACUTE PROCESS. RIGHT SHOULDER DEMONSTRATES MILD DEGENERATIVE CHANGE WITHOUT ACUTE BONY PROCESS. Impression dictated by: Ravinder Byrnes Jr., D.O.04/03/2024 9:21 AM Dictation Location: [place] [address] Transcribed By: [facility] 04/03/24920 Dictated By: Ravinder Byrnes Jr, DO 04/03/24919 Signed By: 04/03/24920 Normal [facility] pH of Urine by Test stripOrd ered By: Sly Gleason on 04-03-2024 pH (U) 7.0 [pH] 5.0-9.0 [facility] Comment on above: Order Comment: Name Collection Type:: Clean-Voided Midstream Performed By: #### U RDS, UA #### [facility] [address] [place]berto 02-26-2024 L Specimen: [id number] Received: 02/26/24 Status: BERONICA Rivers Num: [id number] Spec Type: Surgical Subm Dr: Ludmila Merchant MD Tissues: A Colon Biopsy (CECUM POLYP) B Colon Biopsy (DESC POLYPS) Procedures: HE/4, Gross/Micro L4/2 Age/ Patient Sex Location Account Attending Physician Davis Johnson 68/M [id number] Ludmila Merchant MD SPEC NUM: [id number] RECD: 02/26/24 STATUS: BERONICA RIVERS NUM: [id number] JOHANA: 02/26/24- DR: Ludmila Merchant MD ENTERED: 02/26/[address] [facility] [address]: SPEC TYPE: Surgical DEPT: S ORDERED: HE/4, Gross/Micro L4/2 ORDERED: HE/4, Gross/Micro L4/2 Pathological Diagnosis A. Colon, cecal polyp (endoscopic polypectomy/biopsy: Tubular adenoma B. Colon, descending polyps (endoscopic polypectomy/biopsy): Fragments of tubular adenomas Clinical Information Screening Gross Description Received are 2 formalin filled containers each labeled with the patient's name, date of and specific specimen site. A. Further labeled cecal polyp is a 0.4 x 0.2 x 0.1 cm berry polypoid tissue fragment, entirely submitted in A1. B. Further labeled descending polyps are 3 berry polypoid tissue fragments admixed with mucus ranging from 0.6 x 0.3 x 0.1 cm to 0.3 x 0.2 x 0.1 cm, entirely submitted in B1. Specimen: [id number] Received: 02/26/24 Status: BERONICA Rivers Num: [id number] Spec Type: Surgical Subm Dr: Ludmila Merchant MD Tissues: A Colon Biopsy (CECUM POLYP) B Colon Biopsy (DESC POLYPS) Procedures: HE/4, Gross/Micro L4/2 Patient: Davis Johnson [id number] (Continued) Specimen: [id number] Received: 02/26/24 (Continued) Signed (signature on file) Joe Parsons Jr., MD 02/27/24 1458 Specimen: [id number] Received: 02/26/24 Status: BERONICA Cardozodomi Num: [id number] Spec Type: Surgical Subm Dr: Ludmila Merchant MD Tissues: A Colon Biopsy (CECUM POLYP) B Colon Biopsy (DESC POLYPS) Procedures: FRED/Rafaela, Gross/Micro L4/2 Patient: Davis Johnson [id number] (Continued) Specimen: [id number] Received: 02/26/24 (Continued) CPT Codes 54913 x 2 Specimen: [id number] Received: 02/26/24 Status: BERONICA Rivers Num: [id number] Spec Type: Surgical Subm Dr: Ludmila Merchant MD Tissues: A Colon Biopsy (CECUM POLYP) B Colon Biopsy (DESC POLYPS) Procedures: FRED/Rafaela, Gross/Micro L4/2 Patient: Davis Johnson [id number] (Continued) Signed (signature on file) Joe Parsons Jr., MD 02/27/24 1458 Normal [facility] US carotid doppler BIon 05-3 US carotid doppler BI [facility] [place] [address] Ultrasound Report Signed Patient: Davis Johnson MR#: [id number] : 1955 Acct:[id number] Age/Sex: 68 / M ADM Date: 01/02/24 Loc: Room: Type: [facility] Attending Dr: Herve Steele DO Ordering Provider: Herve Steele DO Date of Service: 01/02/24 US/US carotid doppler BI: 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 PROCEDURE: Color-flow duplex scanning is used to interrogate the extracranial carotid arterial system, as well as both vertebral arteries. The proximal right internal carotid artery shows a highest peak systolic velocity of 122 cm/s with an end-diastolic velocity of 32.9 cm/s . The mid internal carotid artery measures 114 cm/s peak systolic with an end-diastolic velocity of 36.1 cm/s . The distal segment measures 100 cm/s peak systolic with an end diastolic velocity of 33.7 cm/s . The velocities of the right common carotid artery are 117 cm/s peak systolic and 19.9 cm/s end- diastolic proximally and 108 cm/s peak systolic and 24.9 cm/s end-diastolic distally. The peak systolic velocity ratio of the internal to the common carotid artery is 1.13 . The right external carotid artery measures 140 cm/s peak systolic. The right vertebral artery is patent at 49.7 cm/s peak systolic and with antegrade flow. The proximal left internal carotid artery shows a highest peak systolic velocity of 68 cm/s with an end-diastolic velocity of 19.8 cm/s . The mid internal carotid artery measures 94.9 cm/s peak systolic with an end-diastolic velocity of 36.2 cm/s . The distal segment measures 85.6 cm/s peak systolic with an end diastolic velocity of 31.3 cm/s . The velocities of the left common carotid artery are 132 cm/s peak systolic and 27.4 cm/s end-diastolic proximally and 99.9 cm/s peak systolic and 25.2 cm/s end-diastolic distally. The peak systolic velocity ratio of the internal to the common carotid artery is 0.95 . The left external carotid artery measures 93.3 cm/s peak systolic. The left vertebral artery is patent at 58.8 cm/s peak systolic with antegrade flow. US/US carotid doppler BI IMPRESSION: NO HEMODYNAMICALLY SIGNIFICANT STENOSIS OF EITHER EXTRACRANIAL INTERNAL CAROTID ARTERY. BOTH VERTEBRAL ARTERIES ARE PATENT WITH ANTEGRADE FLOW. Impression dictated by: Laly Pitt MD01/03/2024 11:10 AM [facility] Tech: Jennifer Lind Transcribed By: AMAIRANI 01/03/24 1110 Dictated By: Llay Pitt MD 01/03/24 1110 Signed By: 01/03/24 1110 Normal [facility] HbA1c HPLC (Bld) [Mass fract ion]on 12-26-2023 HbA1c (Bld) [Mass fraction] 5.6 % [facility] PSA Diagnostic (Total Free)o n 12-26-2023 Prostate Spec Ag, Free 1.290 ng/mL Normal [facility] Comment on above: Performed By: #### P SATF #### [facility] [address] PSA Total (Not a Screen) 4.310 ng/mL High 0.000-4.000 [facility] Comment on above: Result Comment: Tesfayei al tumor marker results determined by assays using different manufacturers or methods may not be comparable. [facility] senior technical trainer and method: [employer] DXI, CHEMILUMINESCENT IMMUNOASSAY. Performed By: #### P SATF #### [facility] [address] PSA,FREE% 29.9 % Normal [facility] Comment on above: Result Comment: Base d on the work of Pieter et al.ALEX. 279(19):1542:47.1997 the percent free PSA may be used to determine the relative risk of prostate cancer in individual men.The percent probability of prostate cancer by patient age for men with non-suspicious ALFONSO results and total PSa between 4 and 10 ng/ml is as follows: % Free PSA 50 - 64 yrs. 65 - 75 yrs. 0 - 10 56% 55% 10 - 15 24% 35% 15 - 20 17% 23% 20 - 25 10% 20% >25 5% 9% PERFORMED BY: [place] [address] PATHOLOGIST EMAIL ADMINISTRATOR AMOR WADSWORTH M.D. Performed By: #### P SATF #### [address] Prostate Specific Ag Free [M ass/volume] in Serum or PlasmaOrdered By: Herve Steele on 12-26-2023 Free PSA [Mass/Vol] 1.290 ng/mL [facility] Prostate specific Ag [Mass/v olume] in Serum or PlasmaOrdered By: Herve Steele on 12-26-2023 Prostate specific Ag [Mass/Vol] 4.310 ng/mL High 0.000-4.000 [facility] Comment on above: Serial tumor marker results determined by assays using different manufacturers or methods may not be comparable.[facility] senior technical trainer and method:[employer] DXI, CHEMILUMINESCENT IMMUNOASSAY. Serum or plasma free prostat e specific antigen (PSA)/total PSA ratioOrdered By: Herve Steele on 12-26-2023 Free PSA/Total PSA [Mass fraction] 29.9 % [facility] Comment on above: Based on the work of Pieter et al.ALEX. 279(19):1542:47.1998 the percent free PSA may be used to determine the relative risk of prostate cancer in individual men.The percent probability of prostate cancer by patient age for men with non-suspicious ALFONSO results and total PSa between 4 and 10 ng/ml is as follows:% Free PSA 50 - 64 yrs. 65 - 75 yrs. 0 - 10 56% 55% 10 - 15 24% 35% 15 - 20 17% 23% 20 - 25 10% 20% >25 5% 9% Alanine aminotransferase [En zymatic activity/volume] in Serum or PlasmaOrdered By: Herve Steele on 12-09-2023 ALT [Catalytic activity/Vol] 14 U/L Normal 7-52 [facility] Comment on above: Order Comment: Reaso n for Exam Hyperlipidemia Performed By: #### C MP, LIPID, TSH3 #### [address] Albumin [Mass/volume] in Ser um or Plasma by Bromocresol green (BCG) dye binding methoOrdered By: Herve Steele on 12-09-2023 Albumin BCG dye [Mass/Vol] 4.1 g/dL 3.5-5.7 [facility] Alkaline phosphatase [Enzyma tic activity/volume] in Serum or PlasmaOrdered By: Herve Steele on 12-09-2023 ALP [Catalytic activity/Vol] 72 U/L Normal 34-104 [facility] Comment on above: Order Comment: Reaso n for Exam Hyperlipidemia Performed By: #### C MP, LIPID, TSH3 #### [place] [address] [place] Aspartate aminotransferase [ Enzymatic activity/volume] in Serum or PlasmaOrdered By: Herve Steele on 12-09-2023 AST [Catalytic activity/Vol] 16 U/L Normal 13-39 [facility] Comment on above: Order Comment: Reaso n for Exam Hyperlipidemia Performed By: #### C MP, LIPID, TSH3 #### [address] Automated basophil %Ordered By: Herve Steele on 12-09-2023 Basophils/100 WBC (Bld) 0.7 % Normal . [facility] Comment on above: Order Comment: Reaso n for Exam Hyperlipidemia Performed By: #### C BC #### [address] Automated basophil countOrde red By: Herve Steele on 12-09-2023 Basophils (Bld) [#/Vol] 0.0 10*3/uL Normal 0.0-0.2 [facility] Comment on above: Order Comment: Reaso n for Exam Hyperlipidemia Result Comment: PERF ORMED BY: [place] [address] PATHOLOGIST EMAIL ADMINISTRATOR AMOR WADSWORTH M.D. Performed By: #### C BC #### [address] Automated blood monocyte cou ntOrdered By: Herve Steele on 12-09-2023 Monocytes (Bld) [#/Vol] 0.8 10*3/uL Normal 0.0-0.8 [facility] Comment on above: Order Comment: Reaso n for Exam Hyperlipidemia Performed By: #### C BC #### [address] Automated eosinophil %Ordere d By: Herve Wesleys on 12-09-2023 Eosinophils/100 WBC (Bld) 3.7 % Normal . [facility] Comment on above: Order Comment: Reaso n for Exam Hyperlipidemia Performed By: #### C BC #### [address] Automated eosinophil countOr dered By: Herve Steele on 12-09-2023 Eosinophils (Bld) [#/Vol] 0.2 10*3/uL Normal 0.0-0.45 [facility] Comment on above: Order Comment: Reaso n for Exam Hyperlipidemia Performed By: #### C BC #### [address] Automated monocyte %Ordered By: Herve Steele on 12-09-2023 Monocytes/100 WBC (Bld) 13.6 % Normal . [facility] Comment on above: Order Comment: Reaso n for Exam Hyperlipidemia Performed By: #### C BC #### [address] Automated neutrophil %Ordere d By: Herve Wesleys on 12-09-2023 Neutrophils/100 WBC (Bld) 58.1 % Normal . [facility] Comment on above: Order Comment: Reaso n for Exam Hyperlipidemia Performed By: #### C BC #### [address] Bilirubin.total [Mass/volume ] in Serum or PlasmaOrdered By: Hervecamilo Olsons on 12-09-2023 Bilirubin [Mass/Vol] 0.6 mg/dL Normal 0.3-1.0 [facility] Comment on above: Order Comment: Reaso n for Exam Hyperlipidemia Performed By: #### C MP, LIPID, TSH3 #### [facility] [address] [place] [address] [place] Calcium [Mass/volume] in Ser um or PlasmaOrdered By: Hervecamilo Olsons on 12-09-2023 Calcium [Mass/Vol] 9.3 mg/dL Normal 8.6-10.3 [facility] Comment on above: Order Comment: Reaso n for Exam Hyperlipidemia Performed By: #### C MP, LIPID, TSH3 #### [facility] [address] [place] [address] [place] Carbon dioxide, total [Moles /volume] in Serum or PlasmaOrdered By: Hervecamilo Olsons on 12-09-2023 CO2 [Moles/Vol] 31.5 mmol/L High 21.0-31.0 [facility] Comment on above: Order Comment: Reaso n for Exam Hyperlipidemia Performed By: #### C MP, LIPID, TSH3 #### [facility] [address] [place] [address] [place] Chloride [Moles/volume] in S emily or PlasmaOrdered By: Hervecamilo Olsons on 12-09-2023 Chloride [Moles/Vol] 105 mmol/L Normal 98-107 [facility] Comment on above: Order Comment: Reaso n for Exam Hyperlipidemia Performed By: #### C MP, LIPID, TSH3 #### [facility] [address] [place] [address] [place] Cholesterol [Mass/volume] in Serum or PlasmaOrdered By: Herve Wesleys on 12-09-2023 Cholesterol [Mass/Vol] 156 mg/dL Normal 140-200 [place] Comment on above: Chol less than 200 m g/dl low riskChol 201-239 mg/dl borderline riskChol 240 mg/dl and greater high risk Order Comment: Reaso n for Exam Hyperlipidemia Result Comment: Chol less than 200 mg/dl low risk Chol 201-239 mg/dl borderline risk Chol 240 mg/dl and greater high risk Performed By: #### C MP, LIPID, TSH3 #### [facility] [address] Cholesterol in LDL Calc [Mas s/Vol]Ordered By: Herve Steele on 12-09-2023 Cholesterol in LDL [Mass/Vol] 98 mg/dL 0-100 [facility] Comment on above: LDL ATP III CLASSIFI CATIONLDL less than 100 mg/dL OptimalLDL 100-129 mg/dL Near or above optimalLDL 130-159 mg/dL Borderline highLDL 160-189 mg/dL HighLDL greater than 189 mg/dL Very high Cholesterol in VLDL Calc [Ma ss/Vol]Ordered By: Herve Steele on 12-09-2023 Cholesterol in VLDL [Mass/Vol] 22 mg/dL [facility] Complete Blood Count Auto Di ffon 12-09-2023 Mean Corpuscular HGB Conc 33.4 g/dL Normal 32.5-35.6 [facility] Comment on above: Order Comment: Reaso n for Exam Hyperlipidemia Performed By: #### C BC #### [address] NRBC% 0.2 /100{WBC} Normal 0-0.5 [facility] Comment on above: Order Comment: Reaso n for Exam Hyperlipidemia Performed By: #### C BC #### [address] Comprehensive Metabolic Pane wilberto 12-09-2023 Albumin [Mass/Vol] 4.1 g/dL Normal 3.5-5.7 [facility] Comment on above: Order Comment: Reaso n for Exam Hyperlipidemia Performed By: #### C MP, LIPID, TSH3 #### [address] GFR/1.73 sq M.predicted MDRD (S/P/Bld) [Vol rate/Area] mL/min/{1.73_m2} Normal [facility] Comment on above: Order Comment: Reaso n for Exam Hyperlipidemia Performed By: #### C MP, LIPID, TSH3 #### [address] Creatinine [Mass/volume] in Serum or PlasmaOrdered By: Herve Steele on 12-09-2023 Creatinine [Mass/Vol] 1.07 mg/dL Normal 0.70-1.30 [facility] Comment on above: Order Comment: Reaso n for Exam Hyperlipidemia Performed By: #### C MP, LIPID, TSH3 #### [facility] [address] Erythrocyte distribution wid th [Ratio] by Automated countOrdered By: Herve Steele on 12-09-2023 Erythrocyte distribution width (RBC) [Ratio] 13.3 % Normal 12.0-14.8 [facility] Comment on above: Order Comment: Reaso n for Exam Hyperlipidemia Performed By: #### C BC #### [facility] [address] Erythrocytes [#/volume] in B lood by Automated countOrdered By: Herve Steele on 12-09-2023 RBC (Bld) [#/Vol] 4.82 10*6/uL Normal 3.90-5.[address] [facility] Comment on above: Order Comment: Reaso n for Exam Hyperlipidemia Performed By: #### C BC #### [facility] [address] [place] [address] [place] Glucose [Mass/volume] in Ser um or PlasmaOrdered By: Herve Steele on 12-09-2023 Glucose [Mass/Vol] 109 mg/dL High 70-100 [facility] Comment on above: ADA recommended refe rence rangeRandom Glucose Reference Range is dependent on time and content of last meal. Glucose of more than 200 mg/dL in a nonstressed, ambulatory subject supports the diagnosis of Diabetes Mellitus. Order Comment: Reaso n for Exam Hyperlipidemia Result Comment: Agar om Glucose Reference Range is dependent on time and content of last meal. Glucose of more than 200 mg/dL in a nonstressed, ambulatory subject supports the diagnosis of Diabetes Mellitus. ADA recommended reference range Performed By: #### C MP, LIPID, TSH3 #### [facility] [address] [place] [id number] [place] Hematocrit [Volume Fraction] of Blood by Automated countOrdered By: Herve Steele on 12-09-2023 Hematocrit (Bld) [Volume fraction] 46.2 % Normal 38.8-50.0 [facility] Comment on above: Order Comment: Reaso n for Exam Hyperlipidemia Performed By: #### C BC #### [address] Hemoglobin [Mass/volume] in BloodOrdered By: Herve Steele on 12-09-2023 Hemoglobin (Bld) [Mass/Vol] 15.4 g/dL Normal 13.0-17.0 [facility] Comment on above: Order Comment: Reaso n for Exam Hyperlipidemia Performed By: #### C BC #### [facility] [address] [place] [address] Leukocytes [#/volume] correc leatha for nucleated erythrocytes in Blood by Automated counOrdered By: Herve Steele on 12-09-2023 WBC corrected for nucl RBC Auto (Bld) [#/Vol] 6.1 10*3/uL 4.1-10.5 [facility] Leukocytes [#/volume] in Blo od by Automated countOrdered By: Herve Steele on 12-09-2023 WBC (Bld) [#/Vol] 6.1 10*3/uL Normal 4.1-10.5 [facility] Comment on above: Order Comment: Reaso n for Exam Hyperlipidemia Performed By: #### C BC #### [address] Lipid Panelon 12-09-2023 LDL Cholesterol,Calculated 98 mg/dL Normal 0-100 [facility] Comment on above: Order Comment: Reaso n for Exam Hyperlipidemia Result Comment: LDL ATP III CLASSIFICATION LDL less than 100 mg/dL Optimal LDL 100-129 mg/dL Near or above optimal LDL 130-159 mg/dL Borderline high LDL 160-189 mg/dL High LDL greater than 189 mg/dL Very high Performed By: #### C MP, LIPID, TSH3 #### [address] Triglyceride w/Reflex 112 mg/dL Normal 0-149 [facility] Comment on above: Order Comment: Reaso n for Exam Hyperlipidemia Result Comment: TRIG ATP III CLASSIFICATION TRIG less than 150 mg/dL Normal TRIG 150-199 mg/dL Borderline high TRIG 200-500 mg/dL High TRIG greater than 500 mg/dL Very high Standard traceable to the Center for Disease Conrtrol and Prevention (CDC) test method. Performed By: #### C MP, LIPID, TSH3 #### [address] VLDL CHOLESTEROL 22 mg/dL Normal [facility] Comment on above: Order Comment: Reaso n for Exam Hyperlipidemia Performed By: #### C MP, LIPID, TSH3 #### [address] Lymphocytes [#/volume] in Bl ood by Automated countOrdered By: Herve Steele on 12-09-2023 Lymphocytes (Bld) [#/Vol] 1.5 10*3/uL Normal 1.00-4.8 [facility] Comment on above: Order Comment: Reaso n for Exam Hyperlipidemia Performed By: #### C BC #### [place] [address] [place] Lymphocytes/100 leukocytes i n Blood by Automated countOrdered By: Herve Steele on 12-09-2023 Lymphocytes/100 WBC (Bld) 23.9 % Normal . [facility] Comment on above: Order Comment: Reaso n for Exam Hyperlipidemia Performed By: #### C BC #### [address] MCH [Entitic mass] by Automa leatha countOrdered By: Herve Steele on 12-09-2023 MCH (RBC) [Entitic mass] 32.0 pg Normal 27.5-35.2 [facility] Comment on above: Order Comment: Reaso n for Exam Hyperlipidemia Performed By: #### C BC #### [place] [address] [place] MCHC Auto (RBC) [Mass/Vol]Or dered By: Herve Steele on 12-09-2023 MCHC (RBC) [Mass/Vol] 33.4 g/dL 32.5-35.6 [facility] MCV [Entitic volume] by Auto mated countOrdered By: Herve Steele on 12-09-2023 MCV (RBC) [Entitic vol] 95.9 fL Normal 83.5-101 [facility] Comment on above: Order Comment: Reaso n for Exam Hyperlipidemia Performed By: #### C BC #### [address] Neutrophils [#/volume] in Bl ood by Automated countOrdered By: Herve Steele on 12-09-2023 Neutrophils (Bld) [#/Vol] 3.6 10*3/uL Normal 1.8-7.7 [facility] Comment on above: Order Comment: Reaso n for Exam Hyperlipidemia Performed By: #### C BC #### [address] No Panel InformationOrdered By: Herve Steele on 12-09-2023 Estimated GFR (CKD-EPI) > 60.0 mL/Min [facility] Creatinine Clearance (Chem N/A [facility] Nucleated erythrocytes [Pres ence] in Blood by Automated countOrdered By: Herve Steele on 12-09-2023 Nucleated RBC Auto Ql (Bld) 0.2 /100{WBC} 0-0.5 [facility] PSA Screen (Yearly Only)on 0 12-09-2023 PSA Screen (Yearly Only) 4.440 ng/mL High 0.000-4.000 [facility] Comment on above: Order Comment: Reaso n for Exam Screening for prostate cancer Is patient <50 yrs? Medicare does not pay <50.: N What is the date of the last PSA Screen?: [id number] Is Medicare the insurance?: Y Did you verify eligibility (Dx Time) check TestViewGp: YES TO ALL Result Comment: Seri al tumor marker results determined by assays using different manufacturers or methods may not be comparable. [facility] senior technical trainer and method: EnzymeRx DXI, CHEMILUMINESCENT IMMUNOASSAY. PERFORMED BY: [place] [address] PATHOLOGIST EMAIL ADMINISTRATOR AMOR WADSWORTH M.D. Performed By: #### P SAS #### [address] Platelet mean volume [Entiti c volume] in Blood by Automated countOrdered By: Herve Steele on 12-09-2023 Platelet mean volume (Bld) [Entitic vol] 8.5 fL Normal 6.6-10.1 [facility] Comment on above: Order Comment: Reaso n for Exam Hyperlipidemia Performed By: #### C BC #### [address] Platelets [#/volume] in Bloo d by Automated countOrdered By: Herve Steele on 12-09-2023 Platelets (Bld) [#/Vol] 210 10*3/uL Normal 150-450 [facility] Comment on above: Order Comment: Reaso n for Exam Hyperlipidemia Performed By: #### C BC #### [address] Potassium [Moles/volume] in Serum or PlasmaOrdered By: Herve Steele on 12-09-2023 Potassium [Moles/Vol] 4.2 mmol/L Normal 3.5-5.1 [facility] Comment on above: Order Comment: Reaso n for Exam Hyperlipidemia Performed By: #### C MP, LIPID, TSH3 #### [address] Prostate specific Ag [Mass/v olume] in Serum or PlasmaOrdered By: Herve Steele on 12-09-2023 Prostate specific Ag [Mass/Vol] 4.440 ng/mL High 0.000-4.000 [facility] Comment on above: Serial tumor marker results determined by assays using different manufacturers or methods may not be comparable.[facility] senior technical trainer and method:[employer] DXI, CHEMILUMINESCENT IMMUNOASSAY. Protein [Mass/volume] in Ser um or PlasmaOrdered By: Herve Steele on 12-09-2023 Protein [Mass/Vol] 6.2 g/dL Low 6.4-8.9 [facility] Comment on above: Order Comment: Reaso n for Exam Hyperlipidemia Performed By: #### C MP, LIPID, TSH3 #### [address] Serum globulin measurement b y calculation (mass/volume)Ordered By: Herve Steele on 12-09-2023 Globulin (S) [Mass/Vol] 2.1 g/dL Normal [facility] Comment on above: Order Comment: Reaso n for Exam Hyperlipidemia Performed By: #### C MP, LIPID, TSH3 #### [facility] [address] Serum or plasma albumin/glob ulin mass ratioOrdered By: Herve Steele on 12-09-2023 Albumin/Globulin [Mass ratio] 2.0 {ratio} Normal [facility] Comment on above: Order Comment: Reaso n for Exam Hyperlipidemia Performed By: #### C MP, LIPID, TSH3 #### [facility] [address] [place] [address] Serum or plasma anion gap de terminationOrdered By: Herve Steele on 12-09-2023 Anion gap [Moles/Vol] 6.7 mmol/L Normal 6.0-15.0 [facility] Comment on above: Order Comment: Reaso n for Exam Hyperlipidemia Performed By: #### C MP, LIPID, TSH3 #### [facility] [address] [place] [address] Serum or plasma high density lipoprotein (HDL) cholesterol measurementOrdered By: Herve Steele on 12-09-2023 Cholesterol in HDL [Mass/Vol] 36 mg/dL Normal 23-92 [facility] Comment on above: HDL CHOL ATP-III CLA SSIFICATION Cardiovascular RiskHDL > or equal to 60 mg/dL LOWHDL < 40 mg/dL HIGH Order Comment: Reaso n for Exam Hyperlipidemia Result Comment: HDL CHOL ATP-III CLASSIFICATION Cardiovascular Risk HDL > or equal to 60 mg/dL LOW HDL < 40 mg/dL HIGH Performed By: #### C MP, LIPID, TSH3 #### [facility] [address] [place] [address] Serum or plasma total choles terol/high density lipoprotein (HDL) cholesterol mass ratOrdered By: Herve Steele on 12-09-2023 Cholesterol.total/Chol esterol in HDL [Mass ratio] 4.3 {ratio} Normal <5.0 [facility] Comment on above: Order Comment: Reaso n for Exam Hyperlipidemia Performed By: #### C MP, LIPID, TSH3 #### [facility] [address] [place] [address] [place] Sodium [Moles/volume] in Ser um or PlasmaOrdered By: Herve Steele on 12-09-2023 Sodium [Moles/Vol] 139 mmol/L Normal 136-145 [facility] Comment on above: Order Comment: Reaso n for Exam Hyperlipidemia Performed By: #### C MP, LIPID, TSH3 #### [facility] [address] Thyrotropin [Units/volume] i n Serum or PlasmaOrdered By: Herve Steele on 12-09-2023 TSH Qn 3.56 m[IU]/L Normal 0.45-5.33 [facility] Comment on above: Order Comment: Reaso n for Exam Hyperlipidemia Result Comment: PERF ORMED BY: [place] [address] PATHOLOGIST EMAIL ADMINISTRATOR AMOR WADSWORTH M.D. Performed By: #### C MP, LIPID, TSH3 #### [facility] [address] Triglyceride [Mass/volume] i n Serum or PlasmaOrdered By: Herve Steele on 12-09-2023 Triglyceride [Mass/Vol] 112 mg/dL 0-149 [facility] Comment on above: TRIG ATP III CLASSIF ICATIONTRIG less than 150 mg/dL NormalTRIG 150-199 mg/dL Borderline highTRIG 200-500 mg/dL High TRIG greater than 500 mg/dL Very highStandard traceable to the Center for Disease Conrtrol and Prevention (CDC) test method. Urea nitrogen [Mass/volume] in Serum or PlasmaOrdered By: Herve Steele on 12-09-2023 Urea nitrogen [Mass/Vol] 12 mg/dL Normal 7-25 [facility] Comment on above: Order Comment: Reaso n for Exam Hyperlipidemia Performed By: #### C MP, LIPID, TSH3 #### [facility] [address] Alanine aminotransferase [En zymatic activity/volume] in Serum or PlasmaOrdered By: Herve Steele on 12-07-2022 ALT [Catalytic activity/Vol] 17 U/L 7-52 [facility] Albumin [Mass/volume] in Ser um or Plasma by Bromocresol green (BCG) dye binding methoOrdered By: Herve Steele on 12-07-2022 Albumin BCG dye [Mass/Vol] 4.2 g/dL 3.5-5.7 [facility] Alkaline phosphatase [Enzyma tic activity/volume] in Serum or PlasmaOrdered By: Herve Steele on 12-07-2022 ALP [Catalytic activity/Vol] 82 U/L 34-104 [facility] Aspartate aminotransferase [ Enzymatic activity/volume] in Serum or PlasmaOrdered By: Herve Steele on 12-07-2022 AST [Catalytic activity/Vol] 19 U/L 13-39 [facility] Basophils Auto (Bld) [#/Vol] Ordered By: Herve Steele on 12-07-2022 Basophils (Bld) [#/Vol] 0.0 10*3/uL 0.0-0.2 [facility] Basophils/100 WBC Auto (Bld) Ordered By: Herve Steele on 12-07-2022 Basophils/100 WBC (Bld) 0.7 % . [facility] Bilirubin.total [Mass/volume ] in Serum or PlasmaOrdered By: Herve Steele on 12-07-2022 Bilirubin [Mass/Vol] 0.7 mg/dL 0.3-1.0 [facility] Calcium [Mass/volume] in Ser um or PlasmaOrdered By: Herve Steele on 12-07-2022 Calcium [Mass/Vol] 9.1 mg/dL 8.6-10.3 [facility] Carbon dioxide, total [Moles /volume] in Serum or PlasmaOrdered By: Herve Steele on 12-07-2022 CO2 [Moles/Vol] 28.8 mmol/L 21.0-31.0 [facility] Chloride [Moles/volume] in S emily or PlasmaOrdered By: Herve Steele on 12-07-2022 Chloride [Moles/Vol] 105 mmol/L 98-107 [facility] Cholesterol [Mass/volume] in Serum or PlasmaOrdered By: Herve Steele on 12-07-2022 Cholesterol [Mass/Vol] 177 mg/dL 140-200 [place] Comment on above: Chol less than 200 m g/dl low riskChol 201-239 mg/dl borderline riskChol 240 mg/dl and greater high risk Cholesterol in LDL Calc [Mas s/Vol]Ordered By: Herve Steele on 12-07-2022 Cholesterol in LDL [Mass/Vol] 119 mg/dL 0-100 [facility] Comment on above: LDL ATP III CLASSIFI CATIONLDL less than 100 mg/dL OptimalLDL 100-129 mg/dL Near or above optimalLDL 130-159 mg/dL Borderline highLDL 160-189 mg/dL HighLDL greater than 189 mg/dL Very high Cholesterol in VLDL Calc [Ma ss/Vol]Ordered By: Herve Steele on 12-07-2022 Cholesterol in VLDL [Mass/Vol] 17 mg/dL [facility] Creatinine [Mass/volume] in Serum or PlasmaOrdered By: Herve Steele on 12-07-2022 Creatinine [Mass/Vol] 1.03 mg/dL 0.70-1.30 [facility] Eosinophils Auto (Bld) [#/Vo l]Ordered By: Herve Steele on 12-07-2022 Eosinophils (Bld) [#/Vol] 0.3 10*3/uL 0.0-0.45 [facility] Eosinophils/100 WBC Auto (Bl d)Ordered By: Herve Steele on 12-07-2022 Eosinophils/100 WBC (Bld) 4.4 % . [facility] Erythrocyte distribution wid th Auto (RBC) [Ratio]Ordered By: Herve Steele on 12-07-2022 Erythrocyte distribution width (RBC) [Ratio] 13.6 % 12.0-14.8 [facility] Globulin Calc (S) [Mass/Vol] Ordered By: Herve Steele on 12-07-2022 Globulin (S) [Mass/Vol] 2.2 g/dL [facility] Glucose [Mass/volume] in Ser um or PlasmaOrdered By: Herve Steele on 12-07-2022 Glucose [Mass/Vol] 106 mg/dL 70-100 [facility] Comment on above: ADA recommended refe rence rangeRandom Glucose Reference Range is dependent on time and content of last meal. Glucose of more than 200 mg/dL in a nonstressed, ambulatory subject supports the diagnosis of Diabetes Mellitus. Hematocrit Auto (Bld) [Volum e fraction]Ordered By: Herve Steele on 12-07-2022 Hematocrit (Bld) [Volume fraction] 45.7 % 38.8-50.0 [facility] Hemoglobin [Mass/volume] in BloodOrdered By: Herve Steele on 12-07-2022 Hemoglobin (Bld) [Mass/Vol] 15.3 g/dL 13.0-17.0 [facility] Leukocytes [#/volume] correc leatha for nucleated erythrocytes in Blood by Automated counOrdered By: Herve Steele on 12-07-2022 WBC corrected for nucl RBC Auto (Bld) [#/Vol] 6.7 10*3/uL 4.1-10.5 [facility] Lymphocytes Auto (Bld) [#/Vo l]Ordered By: Herve Steele on 12-07-2022 Lymphocytes (Bld) [#/Vol] 1.4 10*3/uL 1.00-4.8 [facility] Lymphocytes/100 WBC Auto (Bl d)Ordered By: Herve Steele on 12-07-2022 Lymphocytes/100 WBC (Bld) 21.5 % . [facility] MCH Auto (RBC) [Entitic mass ]Ordered By: Herve Steele on 12-07-2022 MCH (RBC) [Entitic mass] 31.8 pg 27.5-35.2 [facility] MCHC Auto (RBC) [Mass/Vol]Or dered By: Herve Steele on 12-07-2022 MCHC (RBC) [Mass/Vol] 33.6 g/dL 32.5-35.6 [facility] MCV Auto (RBC) [Entitic vol] Ordered By: Herve Steele on 12-07-2022 MCV (RBC) [Entitic vol] 94.8 fL 83.5-101 [facility] Monocytes Auto (Bld) [#/Vol] Ordered By: Herve Steele on 12-07-2022 Monocytes (Bld) [#/Vol] 1.0 10*3/uL 0.0-0.8 [facility] Monocytes/100 WBC Auto (Bld) Ordered By: Herve Steele on 12-07-2022 Monocytes/100 WBC (Bld) 14.3 % . [facility] Neutrophils Auto (Bld) [#/Vo l]Ordered By: Herve Steele on 12-07-2022 Neutrophils (Bld) [#/Vol] 3.9 10*3/uL 1.8-7.7 [facility] Neutrophils/100 WBC Auto (Bl d)Ordered By: Herve Steele on 12-07-2022 Neutrophils/100 WBC (Bld) 59.1 % . [facility] No Panel InformationOrdered By: Herve Steele on 12-07-2022 Estimated GFR (CKD-EPI) > 60.0 mL/Min [facility] Creatinine Clearance (Chem N/A [facility] Nucleated erythrocytes [Pres ence] in Blood by Automated countOrdered By: Herve Steele on 12-07-2022 Nucleated RBC Auto Ql (Bld) 0.1 /100{WBC} 0-0.5 [facility] Platelet mean volume Auto (B ld) [Entitic vol]Ordered By: Herve Steele on 12-07-2022 Platelet mean volume (Bld) [Entitic vol] 8.4 fL 6.6-10.1 [facility] Platelets Auto (Bld) [#/Vol] Ordered By: Herve Steele on 12-07-2022 Platelets (Bld) [#/Vol] 218 10*3/uL 150-450 [facility] Potassium [Moles/volume] in Serum or PlasmaOrdered By: Herve Steele on 12-07-2022 Potassium [Moles/Vol] 4.3 mmol/L 3.5-5.1 [facility] Prostate specific Ag [Mass/v olume] in Serum or PlasmaOrdered By: Herve Steele on 12-07-2022 Prostate specific Ag [Mass/Vol] 2.900 ng/mL 0.000-4.000 [facility] Protein [Mass/volume] in Ser um or PlasmaOrdered By: Herve Steele on 12-07-2022 Protein [Mass/Vol] 6.4 g/dL 6.4-8.9 [facility] RBC Auto (Bld) [#/Vol]Ordere d By: Herve Steele on 12-07-2022 RBC (Bld) [#/Vol] 4.82 10*6/uL 3.90-5.[address] [facility] Serum or plasma albumin/glob ulin mass ratioOrdered By: Herve Steele on 12-07-2022 Albumin/Globulin [Mass ratio] 1.9 {ratio} [facility] Serum or plasma anion gap de terminationOrdered By: Herve Steele on 12-07-2022 Anion gap [Moles/Vol] 10.5 mmol/L 6.0-15.0 [place] Serum or plasma high density lipoprotein (HDL) cholesterol measurementOrdered By: Herve Steele on 12-07-2022 Cholesterol in HDL [Mass/Vol] 40 mg/dL 29-71 [facility] Comment on above: HDL CHOL ATP-III CLA SSIFICATION Cardiovascular RiskHDL > or equal to 60 mg/dL LOWHDL < 40 mg/dL HIGH Serum or plasma total choles terol/high density lipoprotein (HDL) cholesterol mass ratOrdered By: Herve Steele on 12-07-2022 Cholesterol.total/Chol esterol in HDL [Mass ratio] 4.4 {ratio} <5.0 [facility] Sodium [Moles/volume] in Ser um or PlasmaOrdered By: Herve Steele on 12-07-2022 Sodium [Moles/Vol] 140 mmol/L 136-145 [facility] Thyrotropin [Units/volume] i n Serum or PlasmaOrdered By: Herve Steele on 12-07-2022 TSH Qn 2.05 m[IU]/L 0.45-5.33 [facility] Triglyceride [Mass/volume] i n Serum or PlasmaOrdered By: Herve Steele on 12-07-2022 Triglyceride [Mass/Vol] 88 mg/dL 0-149 [facility] Comment on above: TRIG ATP III CLASSIF ICATIONTRIG less than 150 mg/dL NormalTRIG 150-199 mg/dL Borderline highTRIG 200-500 mg/dL High TRIG greater than 500 mg/dL Very highStandard traceable to the Center for Disease Conrtrol and Prevention (CDC) test method. Urea nitrogen [Mass/volume] in Serum or PlasmaOrdered By: Herve Steele on 12-07-2022 Urea nitrogen [Mass/Vol] 18 mg/dL 7-25 [facility] WBC Auto (Bld) [#/Vol]Ordere d By: Herve Steele on 12-07-2022 WBC (Bld) [#/Vol] 6.7 10*3/uL 4.1-10.5 [facility] Creatinine (Bld) [Mass/Vol]O rdered By: Herve Steele on 07-11-2022 Creatinine [Mass/Vol] 1.1 mg/dL 0.6-1.3 [facility] Comment on above: ER/ESD physician is notified/shown all ISTAT results.Critical values may be confirmed by laboratory testing ifdeemed necessary by ER attending doctor. No Panel InformationOrdered By: Herve Steele on 07-11-2022 POC Estimated GFR > 60 [facility] Comment on above: GFR estimated refere nce range: According to KDOQI guidelines, <60 ml/min/1.73m2 is sufficient to diagnose a patient with chronic kidney disease. POC Estimated GFR Non- Amer > 60 [facility] Covid-19 PCR (CVDTBH)on SARS-CoV-2 (COVID-19) RNA MEL+probe Ql (Unsp spec) Not detected Normal NOT DETECTED [facility] Comment on above: Result Comment: This test is not yet approved or cleared by the [place] FDA. When there are no FDA-approved or cleared tests available, and other criteria are met, FDA can make tests available under an emergency access mechanism called an Emergency Use Authorization (EUA). The EUA for this test is supported by the [place] of Health and Human Service's (HHS's) declaration that circumstances exist to justify the emergency use of in vitro diagnostics for the detection and/or diagnosis of the virus that causes COVID-19. This EUA will remain in effect (meaning this test can be used) for the duration of the COVID-19 declaration justifying emergency of IVDs, unless it is terminated or revoked by FDA (after which the test may no longer be used). When diagnostic testing is negative, the possibility of a false negative should be considered in the context of a patient's recent exposures and the presence of clinical signs and symptoms consistent with SARS-CoV-2. Performed By: #### [facility] #### [facility] [address], [place] [address] Kamla Sterling Vital Signs Date Time Vital Sign Value Performing Clinician Facility 05-26-2024 11:00-0400 Diastolic blood pressure 80 mm[Hg] DO Herve Reniac Work Phone: [facility] 05-26-2024 11:00-0400 Heart rate 61 /min DO Herve Reniac Work Phone: [facility] 05-26-2024 11:00-0400 Respiratory rate 18 /min DO Herve Reniac Work Phone: [facility] 05-26-2024 11:00-0400 SaO2% (BldA) [Mass fraction] 96 % DO Herve CAPNIAs Work Phone: [facility] 05-26-2024 11:00-0400 Systolic blood pressure 130 mm[Hg] DO Herve CAPNIAs Work Phone: [facility] 04-30-2024 06:47-0400 Body height 170.2 cm Pac 1 Work Phone: [facility] 04-30-2024 06:47-0400 Body mass index (BMI) [Ratio] 24.52 kg/m2 Pac 1 Work Phone: [facility] 04-30-2024 06:47-0400 Body temperature 98.1 [degF] Pac 1 Work Phone: [facility] 04-30-2024 06:47-0400 Body weight 71 kg Pac 1 Work Phone: [facility] 04-30-2024 06:47-0400 Diastolic blood pressure 83 mm[Hg] Pac 1 Work Phone: [facility] 09-26-2024 06:47-0400 Heart rate 69 /min Pacc 1 Work Phone: [facility] 04-30-2024 06:47-0400 Respiratory rate 16 /min Pacc 1 Work Phone: [facility] 04-30-2024 06:47-0400 SaO2% (BldA) [Mass fraction] 98 % Pacc 1 Work Phone: [facility] 04-30-2024 06:47-0400 Systolic blood pressure 134 mm[Hg] Pacc 1 Work Phone: [facility] 04-27-2024 07:45-0400 Body height 170.2 cm Ami Champion MD Work Phone: [facility] 04-27-2024 07:45-0400 Body mass index (BMI) [Ratio] 25.06 kg/m2 Ami Champion MD Work Phone: [facility] 04-27-2024 07:45-0400 Body weight 72.58 kg Ami Champion MD Work Phone: [facility] 04-27-2024 07:45-0400 Diastolic blood pressure 74 mm[Hg] Ami Champion MD Work Phone: [facility] 04-27-2024 07:45-0400 Heart rate 69 /min Ami Champion MD Work Phone: [facility] 04-27-2024 07:45-0400 Respiratory rate 22 /min Ami Champion MD Work Phone: [facility] 04-27-2024 07:45-0400 SaO2% (BldA) [Mass fraction] 100 % Ami Champion MD Work Phone: [facility] 04-27-2024 07:45-0400 Systolic blood pressure 121 mm[Hg] Ami Champion MD Work Phone: [facility] 04-09-2024 12:53-0400 Body height 170.2 cm Fantasma Bo PA-C Work Phone: [facility] 04-09-2024 12:53-0400 Body mass index (BMI) [Ratio] 25.06 kg/m2 Fantasma Soriano PA-C Work Phone: [facility] 04-09-2024 12:53-0400 Body weight 72.58 kg Fantasma Soriano PA-C Work Phone: [facility] 04-03-2024 12:52-0400 Body temperature 97.5 [degF] DO Herve Kuns Work Phone: [facility] 04-03-2024 12:52-0400 Diastolic blood pressure 72 mm[Hg] DO Herve Kuns Work Phone: [facility] 04-03-2024 12:52-0400 Heart rate 59 /min DO Herve Kuns Work Phone: [facility] 04-03-2024 12:52-0400 Respiratory rate 14 /min DO Herve Kuns Work Phone: [facility] 04-03-2024 12:52-0400 SaO2% (BldA) [Mass fraction] 94 % DO Herve Kuns Work Phone: [facility] 04-03-2024 12:52-0400 Systolic blood pressure 142 mm[Hg] DO Herve Kuns Work Phone: [facility] 04-03-2024 11:02-0400 Inhaled oxygen flow rate 3 L/min DO Herve Kuns Work Phone: [facility] 04-03-2024 08:06-0400 Body height 170.18 cm DO Herve Kuns Work Phone: [facility] 04-03-2024 08:06-0400 Body weight 76.9 kg DO Herve Kuns Work Phone: [facility] 02-26-2024 09:44-0400 Diastolic blood pressure 43 mm[Hg] DO Herve Kuns Work Phone: [facility] 02-26-2024 09:44-0400 Heart rate 68 /min DO Herve Kuns Work Phone: [facility] 02-26-2024 09:44-0400 Respiratory rate 16 /min DO Herve Kuns Work Phone: [facility] 02-26-2024 09:44-0400 SaO2% (BldA) [Mass fraction] 97 % DO Herve Kuns Work Phone: [facility] 02-26-2024 09:44-0400 Systolic blood pressure 100 mm[Hg] DO Herve Kuns Work Phone: [facility] 02-26-2024 07:36-0400 Body height 170.18 cm DO Herve Kuns Work Phone: [facility] 02-26-2024 07:36-0400 Body weight 74.38 kg DO Herve Kuns Work Phone: [facility] 01-27-2024 09:46-0400 Body height 172.72 cm DO Herve Kuns Work Phone: [facility] 01-27-2024 09:46-0400 Body mass index (BMI) [Ratio] 25.2 kg/m2 DO Herve Kuns Work Phone: [facility] 01-27-2024 09:46-0400 Body weight 75.29 kg DO Herve Kuns Work Phone: [facility] 01-27-2024 09:46-0400 Diastolic blood pressure 64 mm[Hg] DO Herve Kuns Work Phone: [facility] 01-27-2024 09:46-0400 Heart rate 61 /min DO Herve Kuns Work Phone: [facility] 01-27-2024 09:46-0400 Respiratory rate 16 /min DO Herve Kuns Work Phone: [facility] 01-27-2024 09:46-0400 SaO2% (BldA) [Mass fraction] 94 % DO Herve Kuns Work Phone: [facility] 01-27-2024 09:46-0400 Systolic blood pressure 110 mm[Hg] DO Herve Kuns Work Phone: [facility] 12-26-2023 08:16-0400 Body height 172.72 cm DO Herve Kuns Work Phone: [facility] 12-26-2023 08:16-0400 Body mass index (BMI) [Ratio] 25.2 kg/m2 DO Herve Kuns Work Phone: [facility] 12-26-2023 08:16-0400 Body weight 75.29 kg DO Herve Kuns Work Phone: [facility] 12-26-2023 08:16-0400 Diastolic blood pressure 82 mm[Hg] DO Herve Kuns Work Phone: [facility] 12-26-2023 08:16-0400 Heart rate 61 /min DO Herve Kuns Work Phone: [facility] 12-26-2023 08:16-0400 Respiratory rate 16 /min DO Herve Kuns Work Phone: [facility] 12-26-2023 08:16-0400 SaO2% (BldA) [Mass fraction] 97 % DO Herve Kuns Work Phone: [facility] 12-26-2023 08:16-0400 Systolic blood pressure 128 mm[Hg] DO Herve Kuns Work Phone: [facility] 06-25-2023 07:45-0500 Body height 172.72 cm Herve CAPNIAs Other [facility] Other 06-25-2023 07:45-0500 Body mass index (BMI) [Ratio] 25.54 kg/m2 Herve Kuns Other [facility] Other 06-25-2023 07:45-0500 Body weight 76.2 kg Herve Kuns Other [facility] Other 06-25-2023 07:45-0500 Diastolic blood pressure 82 mm[Hg] Herve Kuns Other [facility] Other 06-25-2023 07:45-0500 Respiratory rate 16 /min Herve Kuns Other [facility] Other 06-25-2023 07:45-0500 SaO2% (BldA) [Mass fraction] 92 % Herve Kuns Other [facility] Other 06-25-2023 07:45-0500 Systolic blood pressure 128 mm[Hg] Herve Kuns Other [facility] Other 05-27-2023 07:30-0400 Body height 172.72 cm Herve Kuns Other [facility] Other 05-27-2023 07:30-0400 Body mass index (BMI) [Ratio] 25.94 kg/m2 Herve Kuns Other [facility] Other 05-27-2023 07:30-0400 Body weight 77.38 kg Herve Kuns Other [facility] Other 05-27-2023 07:30-0400 Diastolic blood pressure 80 mm[Hg] Herve Kuns Other [facility] Other 05-27-2023 07:30-0400 Respiratory rate 16 /min Herve Kuns Other [facility] Other 05-27-2023 07:30-0400 SaO2% (BldA) [Mass fraction] 95 % Herve Kuns Other [facility] Other 05-27-2023 07:30-0400 Systolic blood pressure 124 mm[Hg] Herve Kuns Other [facility] Other 10-01-2022 08:30-0500 Body height 172.72 cm Elvia Blades Other [facility] Other 10-01-2022 08:30-0500 Body mass index (BMI) [Ratio] 24.63 kg/m2 Elvia Blades Other [facility] Other 10-01-2022 08:30-0500 Body weight 73.48 kg Elvia Blades Other [facility] Other 10-01-2022 08:30-0500 Respiratory rate 18 /min Elvia Blades Other [facility] Other 06-14-2022 09:00-0500 Body height 172.72 cm Herve Kuns Other [facility] Other 06-14-2022 09:00-0500 Body mass index (BMI) [Ratio] 25.3 kg/m2 Herve Kuns Other [facility] Other 06-14-2022 09:00-0500 Body weight 75.48 kg Herve Kuns Other [facility] Other 06-14-2022 09:00-0500 Diastolic blood pressure 83 mm[Hg] Herve Kuns Other [facility] Other 06-14-2022 09:00-0500 Respiratory rate 18 /min Herve Kuns Other [facility] Other 06-14-2022 09:00-0500 SaO2% (BldA) [Mass fraction] 97 % Herve Kuns Other [facility] Other 06-14-2022 09:00-0500 Systolic blood pressure 130 mm[Hg] Herve Kuns Other [facility] Other Encounters Encounter Date Encounter Type Care Provider Facility Start: 07-01-2024 End: 07-01-2024 Subsequent hospital visit by physician Cathi [facility] (Istat/3t) Work Phone: [facility] Radiology MRI Comment on above: Convulsions, unspeci fied convulsion type (HCC) [R56.9] Start: 06-22-2024 End: 06-22-2024 Telephone encounter Ami Champion MD Work Phone: Neurology Comment on above: Medication Problem ( Patient wants to reduce Keppra) Start: 06-17-2024 End: 06-17-2024 Subsequent hospital visit by physician Brii Singleton X-Ray 1 [facility] Comment on above: Dislocation of right shoulder joint, initial encounter Start: 06-17-2024 End: 06-17-2024 Postop follow up visit related to original px Damián Blackwood MD Work Phone: [facility] Comment on above: Dislocation of right shoulder joint, initial encounter Start: 06-17-2024 End: 06-17-2024 ambulatory DAMIÁN BLACKWOOD [facility] Start: 05-26-2024 End: 05-26-2024 ambulatory DO Herve Kuns Work Phone: [facility] Work Phone: Start: 05-26-2024 End: 05-26-2024 Patient encounter procedure DO Herve Kuns [facility] [place] Work Phone: Start: 05-19-2024 ambulatory DO Herve Wesleys Work Phone: [facility] Work Phone: Start: 05-19-2024 Non-patient / Non-visit DO Destinee tt Kuns [facility] Phone[facility] Work Phone: Start: 05-18-2024 End: 05-18-2024 Subsequent hospital visit by physician Brii Knight X-Ray 3 [facility] Comment on above: Right shoulder pain, unspecified chronicity Start: 05-18-2024 End: 05-18-2024 Postop follow up visit related to original px Brian Newsome PA-C Work Phone: [facility] Comment on above: Dislocation of right shoulder joint, initial encounter (Primary Dx); Right shoulder pain, unspecified chronicity Start: 05-18-2024 End: 05-18-2024 ambulatory BRIAN NEWSOME [facility] Start: 05-15-2024 End: 05-15-2024 Patient encounter procedure DO Hervecamilo Olsons Work Phone: [facility] [place] Work Phone: Start: 05-15-2024 End: 05-15-2024 ambulatory Herve Wesleys Facility:[facility] Start: 05-05-2024 End: 05-05-2024 [facility] Start: 05-04-2024 End: 05-04-2024 [facility] Start: 04-30-2024 End: 04-30-2024 Patient encounter procedure Kostas Macdonald RT(R) Radiology Start: 04-30-2024 Non-patient / Non-visit DO Destinee Steele [facility] Work Phone: Start: 04-30-2024 End: 04-30-2024 Admission to establishment [facility] [place] 1 Work Phone: Pre Anesthesia Start: 04-30-2024 End: 04-30-2024 ambulatory Kostas Macdonald RT(R) Radiology Comment on above: Radiology XR Start: 04-30-2024 End: 04-30-2024 Anesthesia consultation [facility] 1 Work Phone: Pre Anesthesia Comment on above: Pre-op evaluation (P rimary Dx); Posterior dislocation of right shoulder joint, initial encounter; Pre-op testing; Preoperative examination; Seizure (HCC); Primary hypertension; Hyperlipidemia, unspecified hyperlipidemia type Start: 04-30-2024 Encounter for other preprocedural examination HI WOOTEN [facility] Start: 04-30-2024 End: 04-30-2024 Preprocedural examination done [facility] 1 Work Phone: [facility] Work Phone: Start: 04-30-2024 End: 04-30-2024 [facility] Work Phone: [facility] Start: 04-30-2024 End: 04-30-2024 Subsequent hospital visit by physician Xr [facility] Radiology Comment on above: Posterior dislocatio n of right shoulder joint, initial encounter [S43.021A] Start: 04-28-2024 End: 04-28-2024 ambulatory Eva Cooper RN Work Phone: Orthopaedics Start: 04-28-2024 End: 04-28-2024 Patient encounter status Hi Wooten MD Work Phone: [facility] Start: 04-28-2024 End: 04-28-2024 Telephone encounter Yumiko Interiano [employer] Work Phone: Orthopaedics Comment on above: Pain (Primary Dx); Posterior dislocation of right shoulder joint, initial encounter; Pre-op testing Start: 04-27-2024 End: 04-27-2024 ambulatory AMI CHAMPION Facility:[facility] Start: 04-27-2024 End: 04-27-2024 Patient encounter procedure Ami Champion MD Work Phone: Neurology Comment on above: Posterior dislocatio n of right shoulder joint, initial encounter; Seizure (HCC) Start: 04-24-2024 End: 04-24-2024 Patient encounter procedure Hi Wooten MD Work Phone: Orthopaedics Comment on above: Seizure (HCC) (Prima ry Dx); Posterior dislocation of right shoulder joint, initial encounter Start: 04-24-2024 End: 04-24-2024 ambulatory HI WOOTEN Facility:[facility] Start: 04-24-2024 End: 04-24-2024 Subsequent hospital visit by physician [facility] Radiology Comment on above: Pain [R52] Start: 04-22-2024 End: 04-22-2024 Orders Only Hi Wooten MD Work Phone: Orthopaedics Comment on above: Pain (Primary Dx) Start: 04-15-2024 End: 04-15-2024 Telephone encounter Fantasma Soriano PA-C Work Phone: Orthopaedics Comment on above: Appointment Start: 04-09-2024 End: 04-09-2024 Emergency department patient visit DANIEL ELLISON Facility:[facility] Start: 04-09-2024 End: 04-09-2024 Telephone encounter Tatyana Lopez RN Orthopaedics Comment on above: Patient Update (Orth opedic Verbal Instructions to go to ED [facility] [place]) Start: 04-09-2024 End: 04-09-2024 Patient encounter procedure Fantasma Soriano PA-C Work Phone: Orthopaedics Comment on above: Posterior dislocatio n of right shoulder joint, initial encounter (Primary Dx); Right shoulder pain, unspecified chronicity; Closed [place]-S[place]s fracture of right humerus, initial encounter Start: 04-09-2024 End: 04-09-2024 ambulatory FANTASMA SORIANO Facility:[facility] Start: 04-09-2024 End: 04-09-2024 Subsequent hospital visit by physician Liss Ortho [facility] Work Phone: Radiology Comment on above: Right shoulder pain, unspecified chronicity [M25.511] Start: 04-03-2024 End: 04-03-2024 Emergency department patient visit DO Herve Kuns Work Phone: [facility] Work Phone: Start: 02-27-2024 Non-patient / Non-visit DO Destinee tt Kuns Work Phone: [facility] Work Phone: Start: 02-26-2024 Non-patient / Non-visit DO Destinee tt Kuns Work Phone: [facility] Work Phone: Start: 02-26-2024 End: 02-26-2024 Admission to same day surgery center DO Herve Kuns Work Phone: [facility] Work Phone: Start: 02-26-2024 End: 02-26-2024 ambulatory DO Herve Kuns Work Phone: [facility] Work Phone: Start: 01-27-2024 End: 01-27-2024 ambulatory DO Herve Kuns Work Phone: [facility] Work Phone: Start: 01-27-2024 End: 01-27-2024 Patient encounter procedure DO Herve Kuns Work Phone: [facility] [place] Work Phone: Start: 01-02-2024 End: 01-02-2024 Patient encounter procedure DO Herve Kuns Work Phone: [facility] [place] Work Phone: Start: 01-02-2024 End: 01-02-2024 ambulatory DO Herve Kuns Work Phone: [facility] Work Phone: Start: 12-26-2023 End: 12-26-2023 ambulatory DO Herve Kuns Work Phone: [facility] Work Phone: Start: 12-26-2023 End: 12-26-2023 Patient encounter procedure DO Herve Kuns Work Phone: [facility] Work [facility]: Start: 12-09-2023 End: 12-09-2023 Patient encounter procedure DO Herve Kuns Work Phone: [facility] [place] Work Phone: Start: 12-09-2023 End: 12-09-2023 ambulatory DO Herve Kuns Work Phone: [facility] Work Phone: Start: 06-25-2023 End: 06-25-2023 ambulatory Herve Kuns Other [facility] Other Start: 06-25-2023 Office outpatient vi sit 15 minutes Herve Kuns [facility] [place] Start: 05-27-2023 End: 05-27-2023 ambulatory Herve Kuns Other [place] Other Start: 05-27-2023 Office outpatient vi sit 25 minutes Herve Kuns [facility] [place] Start: 03-21-2023 End: 03-21-2023 ambulatory Herve Kuns Other [place] Other Start: 03-21-2023 Telephone encounter Herve Kuns [facility] [place] Start: 12-07-2022 End: 12-07-2022 ambulatory DO Herve Kuns Work Phone: [facility] Work Phone: Start: 12-07-2022 End: 12-07-2022 Patient encounter procedure DO Herve Kuns Work Phone: [facility] [place] Work Phone: Start: 11-17-2022 End: 11-17-2022 ambulatory DO Herve Kuns Work Phone: [facility] Work Phone: Start: 11-17-2022 End: 11-17-2022 Departed Referred DO Herve Kuns Work Phone: [facility] Work Phone: Start: 10-01-2022 End: 10-01-2022 ambulatory Elvia Blades Other [facility] Other Start: 10-01-2022 Office outpatient vi sit 15 minutes Elvia Blades [facility] Start: 09-27-2022 End: 09-27-2022 ambulatory DO Herve Kuns Work Phone: [facility] Work Phone: Start: 09-27-2022 End: 09-27-2022 Patient encounter procedure DO Herve Kuns Work Phone: [facility] Start: 09-19-2022 End: 09-19-2022 Patient encounter procedure DO Herve Kuns Work Phone: [facility] Work Phone: Start: 08-21-2022 End: 08-21-2022 ambulatory Elvia Blades Other [place] Other Start: 08-21-2022 Telephone encounter Elvia Blades [facility] Start: 07-31-2022 End: 07-31-2022 ambulatory Herve Kuns Other [facility] Other Start: 07-31-2022 Telephone encounter Herve Kuns [facility] Start: 07-13-2022 End: 07-13-2022 ambulatory Herve Kuns Other [facility] Other Start: 07-13-2022 Telephone encounter Herve Kuns [facility] Start: 07-11-2022 End: 07-11-2022 ambulatory DO Herve Kuns Work Phone: [facility] Work Phone: Start: 07-11-2022 End: 07-11-2022 Patient encounter procedure DO Herve Kuns Work Phone: [facility] Start: 07-06-2022 End: 07-06-2022 ambulatory Herve Kuns Other [facility] Other Start: 07-06-2022 Telephone encounter Herve Kuns [facility] Start: 06-19-2022 End: 06-19-2022 ambulatory Herve Kuns Other [facility] Other Start: 06-19-2022 Telephone encounter Herve Kuns [facility] Start: 06-14-2022 Office outpatient vi sit 25 minutes [facility] Start: 06-14-2022 End: 06-14-2022 ambulatory DO Herve Kuns Work Phone: [facility] Work Phone: Start: 06-14-2022 End: 06-14-2022 Patient encounter procedure DO Herve Kuns Work Phone: [facility] Start: 04-05-2022 End: 04-05-2022 ambulatory Hervecamilo Olsondeangelo Other [facility] Other Start: 04-05-2022 Telephone encounter Herve Steele [facility] Start: 01-19-2022 End: 01-19-2022 ambulatory Hervecamilo Steele Other [facility] Other Start: 01-19-2022 Telephone encounter Herve Steele [facility] Start: 01-25-2021 End: 03-09-2021 ambulatory LALY NITISH Facility:[facility] Start: 01-14-2021 Encounter for other preprocedural examination LALY TALBERT [facility] Start: 01-14-2021 Encounter for preprocedural cardiovascular examination LAYL CYRS [facility] Start: 01-14-2021 [facility] Start: 01-13-2021 End: 01-13-2021 ambulatory LALY NITISH Facility:[facility] Start: 01-09-2021 End: 01-10-2021 ambulatory LALY NITISH Facility:[facility] Start: 01-09-2021 End: 01-10-2021 Encounter for preprocedural laboratory examination LALY CARUSOYES Facility:[facility] Start: 12-28-2020 End: 12-28-[address] RADHA BEST Facility:[facility] Start: 11-28-2020 Annual wellness visit Herve perez Other [facility] Other Procedures Date Procedure Procedure Detail Performing Clinician Start: 07-01-2024 Mri brain brain stem w/o contrast material Arnaldo Kinsey PA-C Work Phone: Start: 05-18-2024 Radex shoulder compl ete minimum 2 views Damián Blackwood MD Work Phone: Start: 04-30-2024 Radiologic exam ches t 2 views Hi Wooten MD Work Phone: Start: 04-30-2024 Antibody screen HI Tubbs Comment on above: Order Comment: Speci men Type: BLOOD SPECIMENOrdering Facility: [facility] Address: [address] [place] [address] Performed By: #### T [id number] ####CC MAIN BLOOD BANKCLIA [id number] GISEL [address]CC[id number], [place] [address] [place] Start: 04-24-2024 Radex shoulder compl ete minimum 2 views Hi Wooten MD Work Phone: Start: 04-09-2024 Radex shoulder compl ete minimum 2 views Fantasma Soriano PA-C Work Phone: Start: 04-03-2024 CT of head without contrast DO Herve Kuns Work Phone: Start: 04-03-2024 Plain chest X-ray DO Br ett Kuns Work Phone: Start: 04-03-2024 Plain X-ray of right shoulder DO Herve Kuns Work Phone: Start: 02-26-2024 Screening colonoscopy D O Herve Kuns Work Phone: Start: 02-26-2024 Colonoscopy Brian malave PA-C Work Phone: Start: 01-02-2024 Doppler ultrasonogra phy of bilateral carotid arteries DO Herve Kuns Work Phone: Start: 09-27-2022 Radiography of thora cic spine DO Herve Kuns Work Phone: Start: 09-19-2022 Dual energy X-ray absorptiometry DO Herve Kuns Work Phone: Start: 07-11-2022 MRI of thoracic spin e with contrast DO Herve Kuns Work Phone: Start: 06-14-2022 X-ray of lumbar spin e, six views including bending views DO Herve Kuns Work Phone: Screening for malign ant neoplasm of colon Herve CAPNIAs Other Screening for malign ant neoplasm of prostate Herve Kuns Other Plan of Treatment Date Care Activity Detail Author Start: 02-25-2034 Screening for malignant neoplasm of colon [facility] Start: 12-28-2030 DTaP/Tdap/Td Vaccines (2 - Tdap) DTaP/Tdap/Td Vaccines (2 - Tdap) [facility] Start: 12-28-2030 Urine microalbumin profile DTaP,Tdap,Td Vaccine (2 - Tdap) [facility] Start: 2030 RSV High Risk: (Elderly (60+) or Population) (1 - 1-dose 75+ series) RSV High Risk: (Elderly (60+) or Population) (1 - 1-dose 75+ series) [facility] Start: 04-30-2027 Diabetes Screening Diabetes Screening [facility] Start: 04-09-2027 Diabetes Screening Diabetes Screening [facility] Start: 07-27-2024 End: 07-27-2024 Patient encounter procedure 07/27/2024 9:30 AM EST Office Visit [facility] [address] Cheng [address] [place] [phone] Damián Blackwood MD [address] [facility], [address] [place] [address] [facility] Start: 07-17-2024 End: 07-17-2024 Patient encounter procedure 07/17/2024 1:00 PM EST Office Visit Neurology [address] [place], [place] [id number] Eleni Vegas MD [address] [place] [address] 3 mo f/u Neurology Comment on above: 3 mo f/u Start: 07-01-2024 End: 07-01-2024 Patient encounter procedure 07/01/2024 4:40 PM EST Appointment [facility] [place] [address] [place], [place] [id number] 3T [facility] Radiology MRI Comment on above: 3T Start: 06-26-2024 End: 06-26-2024 Patient encounter procedure 06/26/2024 3:30 PM EST Office Visit Orthopaedics [address] [address] Hi Wooten MD [address] [facility] [place] [address] Hi Wooten on June 26, 2024 at 3:30 with Xray Prior Orthopaedics Comment on above: POST OP with Dr. Hi Wooten on June at 3:30 with Xray Prior Start: 06-17-2024 End: 06-17-2025 XR Shoulder - right 2 Views [facility] Service Area Work Phone: Comment on above: Expected: 06/17/2024, Expires: Once for 1 Occurrenc es starting 06/17/2024 until 06/17/2024 Start: 06-17-2024 Subsequent hospital visit by physician 06/17/2024 1:54 PM EST Hospital Encounter [facility] Building [address] [place] [address] [address] [place] [address] Dislocation of right shoulder joint, initial encounter [facility] Comment on above: Dislocation of right shoulder joint, ini tial encounter Start: 06-17-2024 End: 06-17-2024 Patient encounter procedure 06/17/2024 1:45 PM EST Office Visit [facility] [address] [place] [address] Damián Blackwood MD [address] [facility], [address] [place] [address] [facility] Start: 05-29-2024 End: 05-29-2024 Patient encounter procedure Radiology Comment on above: XR SHOULDER GENERAL 3V OR MORE AP/TRUE A P/OTHER RIGHT POST OP with Yumiko valerio CNP on May 29, 2024 at 1230 with Xray Prior Start: 05-26-2024 Patient referral [facility] Work Phone: Start: 05-19-2024 Patient referral [facility] Work Phone: Start: 05-18-2024 End: 05-18-2025 XR Shoulder - right 2 Views [facility] Service Area Work Phone: Comment on above: Expected: 05/18/2024, Expires: Start: 05-13-2024 End: 05-13-2024 Admission to same day surgery center 05/13/2024 12:08 PM EDT - 05/13/2024 3:58 PM EDT Surgery Admitting [address] [place] [address] Hi Wooten MD [address] [place] [address] HEMIARTHROPLASTY REPLACE JOINT PARTIAL SHOULDER Admitting Comment on above: HEMIARTHROPLASTY REPLACE JOINT PARTIAL S GENNA Start: 05-13-2024 End: 05-13-2024 Arthroplasty glenohumrl jt hemiarthroplasty HEMIARTHROPLASTY REPLACE JOINT PARTIAL SHOULDER Posterior dislocation of right shoulder joint, initial encounter 05/13/2024 12:08 PM EDT [facility] Start: 05-13-2024 Subsequent hospital visit by physician Admitting Comment on above: Posterior dislocation of right shoulder joint, initial encounter [S43.021A] Start: 05-05-2024 End: 05-05-2024 Patient encounter procedure 05/05/2024 1:00 PM EDT Office Visit Orthopaedics [address] [place] [address] Hi Wooten MD [address] [place] [address] Right shoulder pain Orthopaedics Comment on above: Right shoulder pain Start: 04-30-2024 End: 07-30-2024 STAPHYLOCOCCUS AUREUS & MRSA SCREEN, PCR, NASAL [facility] Comment on above: Expected: 04/30/2024, Expires: Start: 04-29-2024 End: 07-29-2024 CONFIRM BLOOD TYPE CONFIRM BLOOD TYPE Blood Bank Routine Pre-op evaluation Expected: 04/29/2024, Expires: 07/29/2024 [facility] Work Phone: Comment on above: Expected: 04/29/2024, Expires: Start: 04-28-2024 End: 07-28-2024 CBC W Auto Differential panel - Blood COMPLETE BLOOD COUNT AND DIFFERENTIAL Lab Routine Posterior dislocation of right shoulder joint, initial encounter Pre-op testing Expected: 04/28/2024 (Approximate), Expires: 07/28/2024 [facility] Comment on above: Expected: 04/28/2024 (Approximate), Expi res: 07/28/2024 Start: 04-28-2024 End: 07-28-2024 Comprehensive metabolic 2000 panel - Serum or Plasma COMPREHENSIVE METABOLIC PANEL Lab Routine Posterior dislocation of right shoulder joint, initial encounter Pre-op testing Expected: 04/28/2024 (Approximate), Expires: 07/28/2024 [facility] Comment on above: Expected: 04/28/2024 (Approximate), Expi res: 07/28/2024 Start: 04-28-2024 End: 07-28-2024 TYPE AND SCREEN,30 DAY TYPE AND SCREEN,30 DAY Blood Bank Routine Posterior dislocation of right shoulder joint, initial encounter Pre-op testing Expected: 04/28/2024, Expires: 07/28/2024 [facility] Comment on above: Expected: 04/28/2024, Expires: Start: 04-27-2024 End: 04-27-2024 Patient encounter procedure 04/27/2024 8:00 AM EDT Office Visit Neurology [address] [id number] Ami Whittaker MD [address] [place] [address] new consult Neurology Comment on above: new consult Start: 04-24-2024 End: 04-24-2024 Patient encounter procedure Orthopaedics Comment on above: Right Shoulder Posterior Dislocation on 04/03/2024, reduced on 04/09/2024 right shoulder Start: 04-05-2024 Covid-19 Vaccine () Covid-19 Vaccine () [facility] Start: 04-05-2024 Covid-19 Vaccine ( season) Covid-19 Vaccine ( season) [facility] Start: 04-05-2024 Influenza vaccination Influenza Vaccine (#1) [facility] Start: 02-26-2024 [facility] Start: 01-02-2024 Doppler ultrasonography of bilateral carotid arteries US carotid doppler BI [facility] Start: 01-02-2024 US.doppler Carotid arteries - bilateral [facility] Start: 12-26-2023 Patient referral [facility] Work Phone: Start: 12-26-2023 [facility] Start: 08-05-2023 Advance Directive Discussion Advance Directive Discussion [facility] Start: 07-11-2022 MRI of thoracic spine with contrast [facility] Start: 2020 Pneumococcal Vaccine: 65+ (1 of 1 - PCV) Pneumococcal Vaccine: 65+ (1 of 1 - PCV) [facility] Start: 2020 Pneumococcal Vaccine: 65+ Years (1 of 1 - PCV) Pneumococcal Vaccine: 65+ Years (1 of 1 - PCV) [facility] Start: 2015 RSV patients and/or patients aged 60+ years (1 - 1-dose 60+ series) RSV patients and/or patients aged 60+ years (1 - 1-dose 60+ series) [facility] Start: 2015 RSV Vaccine (1 - 1-dose 60+ series) RSV Vaccine (1 - 1-dose 60+ series) [facility] Start: 2015 RSV Vaccine (1 - Risk 60-74 years 1-dose series) RSV Vaccine (1 - Risk 60-74 years 1-dose series) [facility] Start: 2010 Prostate specific antigen measurement Prostate Cancer Screening Discussion [facility] Start: 2005 Shingrix Vaccine (1 of 2) Shingrix Vaccine (1 of 2) [facility] Start: 2005 Zoster Vaccines (1 of 2) Zoster Vaccines (1 of 2) [facility] Start: 2000 Screening for malignant neoplasm of colon [facility] Start: 1990 Lipid panel Lipid Screening [facility] Start: 1973 Annual PCP Team Chronic Disease Visit Annual PCP Team Chronic Disease Visit [facility] Start: 1973 Anxiety Screening Anxiety Screening [facility] Start: 1973 BP Controlled (<130/80) BP Controlled (<130/80) [facility] in Start: 1973 Depression Screening Depression Screening [facility] Start: 1973 Hepatitis C screening Hepatitis C Screening [facility] Start: 1955 Annual wellness visit Medicare Initial Physical (IPPE) [facility] Start: 1955 Lipid panel Lipid Panel [facility] Start: 1955 Medicare Annual Wellness Visit Medicare Annual Wellness Visit (AWV) [facility] Start: 1955 Screening for malignant neoplasm of colon [facility] Arthroplasty glenohu mrl jt hemiarthroplasty HEMIARTHROPLASTY REPLACE JOINT PARTIAL SHOULDER Posterior dislocation of right shoulder joint, initial encounter [facility] CONFIRM BLOOD TYPE CONFIRM BLOOD TYPE Blood Bank Routine Pre-op evaluation 04/30/2024 7:40 AM EDT [facility] End: 04-28-2025 ECG COMPLETE ECG COMPLETE ECG Routine Posterior dislocation of right shoulder joint, initial encounter Pre-op testing 1 Occurrences starting 04/28/2024 until 04/28/2025 [facility] Comment on above: 1 Occurrences starting 04/28/2024 until 04/28/2025 EPIL EEG ROUTINE EPIL EEG ROUTIN E NEUROLOGY Routine Seizure (HCC) 04/27/2024 [facility] Work Phone: End: 07-22-2025 MR Brain WO contrast MRI BRAIN WO IVCON Radiology Routine Convulsions, unspecified convulsion type (HCC) 1 Occurrences starting 06/22/2024 until 07/22/2025 [facility] Work Phone: Comment on above: 1 Occurrences starting 06/22/2024 until 07/22/2025 Patient Education [facility] Work Phone: Patient referral [facility] Work Phone: US.doppler Carotid arteries - bilateral [facility] End: 05-28-2025 XR Chest PA and Lateral XR CHEST 2V FRONTAL/LAT Radiology Routine Posterior dislocation of right shoulder joint, initial encounter Pre-op testing 1 Occurrences starting 04/28/2024 until 05/28/2025 [facility] Comment on above: 1 Occurrences starting 04/28/2024 until 05/28/2025 End: 05-22-2025 XR Shoulder - right 3 Views XR SHOULDER GENERAL 3V OR MORE AP/TRUE AP/OTHER RIGHT Radiology Routine Pain 1 Occurrences starting 04/22/2024 until 05/22/2025 [facility] Work Phone: Comment on above: 1 Occurrences starting 04/22/2024 until 05/22/2025 End: 05-28-2025 XR Shoulder - right 3 Views XR SHOULDER GENERAL 3V OR MORE AP/TRUE AP/OTHER RIGHT Radiology Routine Posterior dislocation of right shoulder joint, initial encounter 1 Occurrences starting 04/28/2024 until 05/28/2025 [facility] Work Phone: Comment on above: 1 Occurrences starting 04/28/2024 until 05/28/2025 [facility] Immunizations Immunization Date Immunization Notes Care Provider Fa cility 12-28-2020 diphtheria, tetanus toxoids and pertussis vaccine Herve Steele Other [facility] NEGATED: Highlighted row has not occurred!07-09-2019 influenza, seasonal, injectable Patient Objection Herve Steele Other [facility] Payers Date Payer Category Payer Self-pay [id number] 2023 Dual Eligibility Medicare/Medicaid Organization [facility] DUAL COMPLETE [id number] 2023 Medicare [facility] PPO [id number] 2023-Present [phone] [address] [address] [place] [address] PPO [id number] 2023 Private Health Insurance [facility] DUAL COMPLETE [facility] DUAL [facility] [id number] 2023-Present [address] [address] [place] [address] [id number] 2023 Private Health Insurance [id number] 1959 Medicare [id number] 1959 Unknown [id number] 1959 Unknown [id number] 1955 Unknown [id number] 2.16.840.1.580632.3.579.2 .593 1955 Unknown [id number] 2.16.840.1.001653.3.579.2 .593 1955 Unknown [id number] 2..840.1.722907.3.579.2 .593 1955 Unknown [id number] 2.16.840.1.287426.3.579.2 .593 1955 Unknown [id number] 2.16.840.1.840246.3.579.2 .1259 1955 Unknown [id number] 2.16.840.1.065625.3.579.2 .182 1955 Unknown [id number] 2.16.840.1.216506.3.579.2 .1244 1955 Unknown [id number] 2.16.840.1.751145.3.579.2 .1246 1955 Unknown [id number] 2.16.840.1.978681.3.579.2 .1246 1955 Unknown [id number] 2.16.840.1.098630.3.579.2 .1246 1955 Unknown [id number] 2.16840.1.484812.3.579.2 .124 1955 Unknown [id number] 2.16840.1.631126.3.579.2 .1246 Medicare [id number] 2.840.1.853860.19 Medicare [id number] .[id number] Medicare Medicare [id number] Unknown Vignesh BC/ [id number] Unknown [id number] 2.16840.1.938372.3.579.2 .531 Unknown [id number] 2.16840.1.467362.3.579.2 .531 Unknown [id number] 2.840.1.053417.3.579.2 .531 Unknown [id number] 2.16840.1.268419.3.579.2 .531 Unknown [id number] 2.16840.1.451640.3.579.2 .531 Unknown [id number] 2.840.1.127605.3.579.2 .531 Social History Date Type Detail Facility Unknown if ever smoked [facility] Start: 04-10-2024 End: 04-30-2024 Sex Assigned At [facility] Start: 1955 Sex Assigned At Male [facility] Start: 07-08-2018 End: 04-27-2024 Tobacco smoking status IDIS Never smoked tobacco (finding) [facility] Tobacco smoking status [facility] Tobacco smoking consumption unknown [facility] Start: 1955 Sex assigned at Not on file [facility] Start: 04-10-2024 End: 04-30-2024 History of Social function [facility] National Score (1-100), lower number is lower risk 53 [facility] Start: 04-27-2024 End: 06-17-2024 Tobacco use and exposure Smokeless tobacco non-user [facility] Start: 04-27-2024 End: 04-30-2024 Alcoholic beverage intake Lifetime non-drinker (finding) [facility] Start: 04-28-2024 Gender identity Identifies as male gender (finding) [facility] Start: 05-08-2024 End: 05-18-2024 Exposure to SARS-CoV-2 (event) Not sure [facility] NEGATED: Highlighted rowStart: DEVENDRA History of tobacco use Passive smoker [facility] Goals Date Patient Goal Desired Activity /State Clinical Notes 03-05-2009 to 07-01-2024 [facility] Shell[facility] - 07/01/2024 4:40 PM ESTTelephone Encounter - Promise Griffith RN - 06/22/2024 1:57 PM EST Note Date & Type Note Facility 07-01-2024 Miscellaneous Notes Radiology Service Progress Note PATIENT NAME: Davis Johnson DATE OF SERVICE: July 01, 2024 TIME: 5:07 PM PATIENT IDENTITY VERIFICATION COMPLETED USING TWO (2) IDENTIFIERS: Name and Date of confirmed by patient verbally and Name and Date of confirmed by identification band. FALL SCREENING: Has the patient had 2 falls in the last year or 1 fall with injury or currently using an Ambulatory Assistive Device (Walker, Cane, Wheelchair, Crutches, etc.)? Yes, Patient High Risk for Falls What interventions were put in place to prevent falls during this visit? Yellow Falls Risk Wristband Applied PATIENT GENDER DATA: Male PATIENT RELEVANT IMPLANT DATA REVIEWED: Not Applicable PATIENT PRESENTS WITH AN IMPLANTABLE OR ATTACHED SALES AND MARKETING ASSOCIATE: No RADIOLOGY DEPARTMENT: MR; Exam(s) Completed: Head: Seizure PERIPHERAL IV DATA: Not applicable SIGNED BY: Melquiades Alanis July 01, 2024 5:07 PM documented in this encounter [facility] 07-01-2024 Progress note Formatting of t his note might be different from the original. Radiology Service Progress Note PATIENT NAME: Davis Johnson DATE OF SERVICE: July 01, 2024 TIME: 5:07 PM PATIENT IDENTITY VERIFICATION COMPLETED USING TWO (2) IDENTIFIERS: Name and Date of confirmed by patient verbally and Name and Date of confirmed by identification band. FALL SCREENING: Has the patient had 2 falls in the last year or 1 fall with injury or currently using an Ambulatory Assistive Device (Walker, Cane, Wheelchair, Crutches, etc.)? Yes, Patient High Risk for Falls What interventions were put in place to prevent falls during this visit? Yellow Falls Risk Wristband Applied PATIENT GENDER DATA: Male PATIENT RELEVANT IMPLANT DATA REVIEWED: Not Applicable PATIENT PRESENTS WITH AN IMPLANTABLE OR ATTACHED SALES AND MARKETING ASSOCIATE: No RADIOLOGY DEPARTMENT: MR; Exam(s) Completed: Head: Seizure PERIPHERAL IV DATA: Not applicable SIGNED BY: Melquiades Alanis July 01, 2024 5:07 PM [facility] 06-22-2024 Telephone encounter Note Spoke with Randall reviewed the recommends appointment line given to arrange MRI/will call is needs order to do locally. will continue with the LEV at this time Promise Griffith RN [facility] 06-22-2024 Miscellaneous Notes Spoke with Randall reviewed the recommends appointment line given to arrange MRI/will call is needs order to do locally. will continue with the LEV at this time Promise Griffith RN MRI Brain order placed. Would not recommend coming off of Keppra without replacing with another medication, patient already on very low dose, so cannot wean either. Two options for replacement, Lamotrigine 100 mg BID, which does have a long titration, so would have to remain on Keppra throughout, or Zonisamide 200 mg QHS, would have to confirm no history of kidney stones or sulfa allergies. Can discuss options with patient and see what his preference is, make a schedule for transitioning accordingly. Would not recommend stopping Keppra immediately. Arnaldo Kinsey PA-C 04/27/[address] Ramirez IMPRESSION: Patient presents with a single generalized tonic seizure upon awakening on 04/09/24. No risk factors for epilepsy. Seizure resulted on right humerus impacted on the posterior glenoid margin and dislocation requiring surgery. CT head was normal. No EEG conducted. Discussed with the patient the need of MRI dominique and EEG to further evaluate the single seizure. I explained to the patient that if the result of both studies is normal, my commendation is to start ASM given the risk of recurrent seizures and injuries. Keppra will be started , side effects discussed = PLAN: Keppra 500 mg bid EEG today Patient is cleared to have shoulder surgery Can not drive until October 2024 Follow up in 3 months = Testing Ordered Routine EEG 04/27/2024 EEG Impression: This awake and sleep EEG is within normal limits. No epileptiform discharges or EEG seizures were seen during this recording. Spoke with Aman no further seizures to report EEG completed no order in system for MRI would like to either decrease or wean off the LEV: affects taste and bad smelling urine. Does have an appointment with new neurologist locally in 2 weeks. Medical records phone and fax given. has FU with Epilepsy Fellow on 07/17/2024 for 3 month FU. EEG completed but no MRI at this time. routed for review Promise Griffith RN Medication Concern Person Calling Davis Johnson Name of medication Keppra Concern with medication Patient wants to reduce Keppra due to bad taste and bad smell. Please advise. He plans to see a new doctor in [place] in two weeks due to closer to home. Patient of Dr. Ramirez documented in this encounter [facility] 06-22-2024 Telephone encounter Note MRI Brain order placed. Would not recommend coming off of Keppra without replacing with another medication, patient already on very low dose, so cannot wean either. Two options for replacement, Lamotrigine 100 mg BID, which does have a long titration, so would have to remain on Keppra throughout, or Zonisamide 200 mg QHS, would have to confirm no history of kidney stones or sulfa allergies. Can discuss options with patient and see what his preference is, make a schedule for transitioning accordingly. Would not recommend stopping Keppra immediately. Arnaldo Kinsey PA-C [facility] 06-22-2024 Telephone encounter Note 04/27/[address] Ramirez IMPRESSION: Patient presents with a single generalized tonic seizure upon awakening on 04/09/24. No risk factors for epilepsy. Seizure resulted on right humerus impacted on the posterior glenoid margin and dislocation requiring surgery. CT head was normal. No EEG conducted. Discussed with the patient the need of MRI dominique and EEG to further evaluate the single seizure. I explained to the patient that if the result of both studies is normal, my commendation is to start ASM given the risk of recurrent seizures and injuries. Keppra will be started , side effects discussed = PLAN: Keppra 500 mg bid EEG today Patient is cleared to have shoulder surgery Can not drive until October 2024 Follow up in 3 months = Testing Ordered Routine EEG 04/27/2024 EEG Impression: This awake and sleep EEG is within normal limits. No epileptiform discharges or EEG seizures were seen during this recording. Spoke with Aman no further seizures to report EEG completed no order in system for MRI would like to either decrease or wean off the LEV: affects taste and bad smelling urine. Does have an appointment with new neurologist locally in 2 weeks. Medical records phone and fax given. has FU with Epilepsy Fellow on 07/17/2024 for 3 month FU. EEG completed but no MRI at this time. routed for review Promise Griffith RN [facility] 06-22-2024 Telephone encounter Note Medication Concern Person Calling Davis Johnson Name of medication Keppra Concern with medication Patient wants to reduce Keppra due to bad taste and bad smell. Please advise. He plans to see a new doctor in [place] in two weeks due to closer to home. Patient of Dr. Ramirez [facility] 06-17-2024 History of Presen t illness Narrative Images from the original note were not included. History: Davis Johnson is here today for a post-op visit. He is 6 weeks out from a right shoulder sue arthroplasty for a locked posterior shoulder dislocation and large reverse Hill-Sachs lesion. He has been working with therapy. He still has some complaints of pain in his shoulder. He is wearing his sling today. Physical Exam: He has some tightness with external rotation past 10 degrees. We can abduct him to 80 degrees with significant scapular elevation. Elbow and hand showed mild swelling as well. No numbness however. Radiographs: AP lateral view show X alignment of his shoulder hemiarthroplasty in all planes. Assessment: Stable right shoulder hemiarthroplasty for locked posterior dislocation, 6 weeks out. Plan: His shoulder is doing well and healing. We removed the pillow from his sling today. He can begin to wean from the sling slowly over the next 3 weeks. He can put the sling back on for any pain or increased soreness. His therapy order was updated today. He can do full passive and active range of motion with no weight greater than 1-2 pounds. We discussed the importance of avoiding any lifting more than 1 pound. He will follow-up in 6 weeks for two-view x-rays. All questions were answered with the patient. Scribe Attestation By signing my name below, Norma White Keegan attest that this documentation has been prepared under the direction and in the presence of Damián Blackwood MD. documented in this encounter [facility] Work Phone: 05-19-2024 Hospital Discharg e instructions Ambulatory OrdersReferral to Neurology Time Frame: 05/19/24, Location: [facility] Work Phone: 05-18-2024 History of Presen t illness Narrative Images from the original note were not included. History: Davis Johnson is here today for his first post-op visit. He is two weeks out from a right shoulder Sue arthroplasty. He is having normal post-operative pain. He comes in today not wearing his pillow. Physical Exam: The wound is healing nicely. There is no redness, irritation, or drainage. He has appropriate passive ROM at the side. Swelling and ecchymosis are normal for this stage of healing. He is neurovascularly intact throughout the extremity. Radiographs: AP and lateral views of the right shoulder show excellent alignment of the hemiarthroplasty with no acute abnormality. Assessment: Stable right shoulder hemiarthroplasty, 2 weeks out. Plan: He is going to begin physical therapy. The order was given today. He will continue to wear the sling at all times except for hygiene purposes. We discussed putting the pillow back on as soon as he gets home and the importance of this. He will continue to ice several times throughout the day. He will continue to wean down off narcotics. He will follow up in 3-4 weeks for a follow up with 2 view shoulder x-rays. All questions were answered with the patient. documented in this encounter [facility] Work Phone: 04-30-2024 Note HNO ID: [id number] Author: KOSTAS MACDONALD RT(R) Service: ? Author Type: Technologist Type: Progress Notes Filed: 04/30/2024 07:56 Note Text: Radiology Service Progress Note PATIENT NAME: Davis Johnson DATE OF SERVICE: April 30, 2024 TIME: 7:56 AM PATIENT IDENTITY VERIFICATION COMPLETED USING TWO (2) IDENTIFIERS: Name and Date of confirmed by patient verbally. FALL SCREENING: Has the patient had 2 falls in the last year or 1 fall with injury or currently using an Ambulatory Assistive Device (Walker, Cane, Wheelchair, Crutches, etc.)? No PATIENT GENDER DATA: Male PATIENT RELEVANT IMPLANT DATA REVIEWED: Not Applicable PATIENT PRESENTS WITH AN IMPLANTABLE OR ATTACHED SALES AND MARKETING ASSOCIATE: No RADIOLOGY DEPARTMENT: General X-ray: Exam(s) Completed: Chest X-Ray PERIPHERAL IV DATA: Not applicable SIGNED BY: RT Delicia(Radha) April 30, 2024 7:56 AM [facility] 04-30-2024 History of Presen t illness Narrative Radiology Service Progress Note PATIENT NAME: Davis Johnson DATE OF SERVICE: April 30, 2024 TIME: 7:56 AM PATIENT IDENTITY VERIFICATION COMPLETED USING TWO (2) IDENTIFIERS: Name and Date of confirmed by patient verbally. FALL SCREENING: Has the patient had 2 falls in the last year or 1 fall with injury or currently using an Ambulatory Assistive Device (Walker, Cane, Wheelchair, Crutches, etc.)? No PATIENT GENDER DATA: Male PATIENT RELEVANT IMPLANT DATA REVIEWED: Not Applicable PATIENT PRESENTS WITH AN IMPLANTABLE OR ATTACHED SALES AND MARKETING ASSOCIATE: No RADIOLOGY DEPARTMENT: General X-ray: Exam(s) Completed: Chest X-Ray PERIPHERAL IV DATA: Not applicable SIGNED BY: RT Delicia(Radha) April 30, 2024 7:56 AM documented in this encounter [facility] 04-30-2024 Instructions Juan C Zuleta APRN.MOLD YARD WORKER - 04/30/2024 7:10 AM EDT Images from the original note were not included. [facility] PATIENT PREOPERATIVE INSTRUCTIONS Hi Wooten MD has scheduled you for your procedure at this surgery center: [facility] Scheduling Office: [phone] --[address] [place] [address] [place] [address]. -Use mupirocin nasal ointment ( swab in each nostril) twice daily starting 5 days prior to surgery. Arrival Time for Surgery: - To obtain your arrival time for surgery, call your physician's office the day before your surgery. - If your surgery is scheduled for Saturday, call the Saturday before. Your surgeon s butter fat tester will tell you what time to call the office. - If you have not reached the departmental butter fat tester by 5 P.M., call [phone] after 5 P.M. the day before your surgery. Please be aware that emergency situations arise, which may delay or change your surgical time. If this happens, we will notify you as soon as possible and regret any inconvenience. Please read below carefully for your personalized instructions. Dietary Restrictions: - No solid food after midnight. - You may have 12 ounces of clear liquids (water, clear juices such as apple juice or gatorade, carbonated beverages, clear tea, black coffee, jello) until 2 hours before scheduled arrival at facility. - Do not drink any alcohol after midnight the night before your surgery. - No Milk/Dairy - No Pulp Juices Medications: - If you are prescribed inhalers for breathing, continue using them. Unless instructed differently below, stay on all of your medications until your surgery. Approved medications to take the morning of surgery with a sip of water: levetiracetam (KEPPRA), Amlodipine (Norvasc), Carvedilol (Coreg) If you take any medications for erectile dysfunction-Cialis (Tadalafil), Levitra, Staxyn (Vardenafil) Viagra (Sildenenafil please do not take these for 48 hours before surgery. If you start any new medications after today's visit, please contact the surgeon's office. Blood Thinning Medications: - Stop NSAIDS (Ibuprofen, Advil, Aleve, Motrin, Celebrex, Mobic, etc.) 7 days before surgery, as directed by your surgeon. - Stop Aspirin 7 days before surgery, as directed by your surgeon. - Stop Vitamin E, ALL multi-vitamins, herbals and dietary supplements 14 days before surgery. - You may take Tylenol (Acetaminophen) or any of your pain medications that do not contain aspirin or NSAIDS as needed. Important Reminders: - If you use CPAP/BIPAP, and will be staying over night, bring the machine with you to the surgery center. - Candy, mints, and tobacco products are NOT permitted the morning of surgery. - Hearing aids and glasses may be worn the morning of surgery. - NO jewelry, body piercings, makeup, hairpins or contacts are to be worn the day of surgery. - You may wear your partials/dentures, but you may be asked to remove them prior to you're procedure If you develop symptoms such as a fever, cold, or flu, or have other changes to your health within TWO DAYS of scheduled surgery or the morning of surgery, please contact the surgery center above. Personal Belongings: -Please have photo ID and insurance cards. -If you do not have a copy of advance directives on file with us, please bring a copy with you on the day of surgery. - Leave ALL valuables and money at home or with family members. For Outpatient Procedures: - YOU MUST HAVE A RESPONSIBLE PLANT OPERATOR/SHIFT SUPERVISOR TAKE YOU HOME. A PECAN GATHERER OR GEOLOGICAL SCOUT CANNOT BE MADE A RESPONSIBLE PLANT OPERATOR/SHIFT SUPERVISOR. - We recommend that a responsible person stays with you overnight to take care of you. - You cannot stay in a hotel alone after outpatient surgery. You will not be permitted to have your surgery, if you do not have someone to take care of you. If you already have an Advance Directive, please fax a copy to [phone] or email to for it to be added to your chart. If you do not have an Advance Directive, you can find the appropriate form and more information at [email or web address]. We recommend that you complete the Advance Directive form found on the website and bring it with you the day of your surgery. It can be witnessed and scanned into your chart that day. Juan C Zuleta APRN.CJ documented in this encounter [facility] 04-30-2024 History and physical note HISTORY AND PHYSICAL EXAMINATION SERVICE DATE: 04/30/2024 SERVICE TIME: 7:01 AM PRIMARY CARE PHYSICIAN: Herve Steele DO REASON FOR VISIT: Davis Johnson is a 68 year old male who is scheduled for Right - HEMIARTHROPLASTY REPLACE JOINT PARTIAL SHOULDER at the request of Dr. Hi Wooten for consultation. My final recommendation will be communicated back to the requesting physician by way of shared medical record or letter. Assessment Seizure (HCC) Assessment: Possible seizure episode, witnessed by . No previous seizure history. Evaluated per neurology, EEG normal and medical optimization received. Started on keppra Hypertension Assessment: Stable and compliant with medications Followed by PCP Last 5 Encounter BP Readings: Date: BP: 04/30/2024 134/83 04/27/2024 121/74 04/09/2024 134/62 Hyperlipidemia Assessment: Controlled with statin. Monitored per PCP. Lester Activity Status Index: METS: Walk indoors, such as around the house (1.75 METs) Do light work around the house, such as dusting or washing dishes (2.70 METs) Take care of self; that is eating, dressing, bathing, using the toilet (2.75 METs) Climb a flight of stairs or walk up a hill (5.50 METs) DASI Score: 12.7 Patient denies any chest pain or undue shortness of breath with the above physical activity. Clinical Frailty Scale: 3. Well, with treated comorbid disease STOP-Bang Score: Has or is being treated for high blood pressure Patient over 50 years old Male patient Denies snoring loudly Denies feeling tired, fatigued, or sleepy during the daytime Has not been observed to stop breathing or choking/gasping during sleep BMI less than or equal to 35 kg/m^2 Does not have a large neck STOP-Bang Score: 3 ANESTHESIA FINDINGS: Intubation History: No history of difficult intubation Significant Anesthesia Considerations: none Airway History: No history of difficult airway I - PHYSICAL EVALUATION AIRWAY Patient intubated: No. Tracheostomy tube not present Mallampati: II. TM distance: >3 FB. Neck ROM: full ROM without neurological symptoms. Mouth opening: adequate. Short neck: no. Thick neck: no Nunn present: no Lip Bite Test: II Microretrognathia/Micronagthia/ Recessed Chin: No DENTAL Dental findings: teeth intact. II - ANESTHESIA PLAN Beta Jamaal Monitoring Plan Post Procedure Analgesic Plan Prepared for surgery: This patient is optimally prepared for surgery. CONSULTS: Patient does not require consults for optimization at this time. The Following Tests/Procedures Have Been Initiated: Orders Placed This Encounter Staphylococcus aureus & MRSA Screen, PCR, Nasal Standing Status: Future Standing Expiration Date: 07/30/2024 Confirm Blood Type Standing Status: Future Standing Expiration Date: 07/29/2024 Order Specific Question: Did Blood Bank direct you to place this order: Answer: Yes mupirocin (BACTROBAN) 2 % ointment Sig: two times a day for 5 days. Apply 0.5 inch with cotton swab (Q-tip) to each nostril in the morning and evening for 5 days prior to and including day of surgery. Dispense: 22 g Refill: 0 Planned Anesthetic: Per anesthesia choice Subjective CHIEF COMPLAINT: Posterior dislocation of right shoulder joint, initial encounter [S43.021A] HPI: Patient is a 68 year old male presents with right shoulder pain that has been getting progressively worse. The patient states the pain is interfering with daily activities and sleep. Conservative measures have been ineffective. Patient has opted to proceed with above reccommended surgery and is here today for preanesthesia consultation. History reviewed. No pertinent past medical history. PAST SURGICAL HISTORY Procedure Laterality Date INGUINAL HERNIA REPAIR HX PAST SURGICAL HISTORY OF left hand tendon surgery FAMILY HISTORY Problem Relation Age of Onset Anesthesia Problems No Family History SOCIAL HISTORY: Social History Tobacco Use Smoking status: Never Passive exposure: Never Smokeless tobacco: Never Substance Use Topics Alcohol use: Never Drug use: Never Prior to Admission medications as of 04/30/24 0710 Medication Sig Last Dose Taking diclofenac, EC, (VOLTAREN) 75 mg EC tablet Take one tablet by mouth twice a day as needed PRN for pain, with food Taking Yes levETIRAcetam (KEPPRA) 500 mg tablet Take 1 tablet by mouth two times a day. Patient should start on May 27, 2024. Taking Yes levETIRAcetam (KEPPRA) 500 mg tablet Take 1 tablet by mouth two times a day. Taking Yes Olmesartan-hydroCHLOROthiazide 20-12.5 mg per tablet 1 tablet. Taking Yes carvedilol (COREG) 6.25 mg tablet once daily. Taking Yes amLODIPine (NORVASC) 5 mg tablet once daily. Taking Yes aspirin 81 mg cap 1 tablet. Taking Yes mupirocin (BACTROBAN) 2 % ointment two times a day for 5 days. Apply 0.5 inch with cotton swab (Q-tip) to each nostril in the morning and evening for 5 days prior to and including day of surgery. No medication comments found. ALLERGIES No Known Allergies Covid Immunization Dates Overdue - Covid-19 Vaccine () Never done No completion, postpone, frequency change, or communication history exists for this topic. REVIEW OF SYSTEMS: PAIN ASSESSMENT: Pain Pain Level: 7 Pain Location: Shoulder-Right Description: Aching Duration Units: Months Frequency: Continuous General: No weight loss, malaise or fevers. Neuro: Negative for Headaches Stroke-residual deficit Stroke-No residual deficit Tumor involving ORDER ANALYST Parkinson's Disease Multiple Sclerosis + Seizure Respiratory: No history of current cough or dyspnea, or pneumonia in the past 6 weeks. No history of respiratory/pulmonary symptoms or problems. Cardiovascular: Negative for Recent NC, Angina, Arrhythmia, CAD, Chest Pain, CHF, PVD, Valvular Heart Disease, DVT/PE + HTN + HLD GI: No history of GI symptoms or problems. No history of esophageal varices, recent ascites, or ETOH greater than 2 drinks per day. : No history of dysuria, frequency or incontinence,, stones or chronic kidney disease Endocrine: No history of diabetes. Has not taken steroids within the past 30 days. No history of endocrinological symptoms or problems. Hematology: Chronic anti-coagulation / platelet meds (Aspirin) Oncology: No history of CA metastasis, chemo within 30 days, or radiotherapy within 90 days. Has not lost 10% of body wt in 6 months. No history of oncological symptoms or problems. Psych: No history of psychiatric symptoms or problems. Musculoskeletal: See HPI Skin: Negative for lesions, rash and itching. Objective PHYSICAL EXAM: VITALS: BP 134/83 Pulse 69 Temp 98.1 Resp 16 Ht 5' 7 (1.70m) Wt 156 lb 8.4 oz (71.0kg) SpO2 98% BMI 24.51 kg/(m^2). General: Alert and oriented, No acute distress Skin: Normal color, no rash, no lesions. HEENT: EOM, pupils equal, round and reactive. Cardiovascular: Normal S1 & S2, no rubs, murmurs or gallops. No JVD. Pulse regular. Lungs: Normal breath sounds, no wheezes or crackles. Abdomen: Soft, non-tender, no rigidity. Extremities: Joint tenderness left shoulder Neurological: Normal cognition and motor skills. Pulses: Carotid and radial pulses normal +2. Diagnostic tests reviewed for today's visit: Lab Value Units Date High Low HB 15.4 g/dL 04/09/2024 17.0 13.0 HCT 44.1 % 04/09/2024 51.0 39.0 WBC 10.58 k/uL 04/09/2024 11.00 3.70 PLT 277 k/uL 04/09/2024 400 150 NA 139 mmol/L 04/09/2024 144 136 K 3.8 mmol/L 04/09/2024 5.1 3.7 GLUC 102 mg/dL 04/09/2024 99 74 BUN 22 mg/dL 04/09/2024 24 9 CREAT 0.88 mg/dL 04/09/2024 1.22 0.73 PTSEC No results within date range. INR No results within date range. APTT No results within date range. ALT 29 U/L 04/09/2024 54 10 AST 19 U/L 04/09/2024 40 14 TBILI 0.5 mg/dL 04/09/2024 1.3 0.2 TSH No results within date range. EKG 04/30/24: EEG 04/27/24: Impression: This awake and sleep EEG is within normal limits. No epileptiform discharges or EEG seizures were seen during this recording. Diagnosis: Primary: R56.9 Seizure (HCC) Interpreted and electronically signed by Kristopher Ibarra M.D. Date of signin04/27/2024 15:23 Instructions Given to Patient: Instructions located in the after visit summary. Patient given verbal and written preop instructions and voices comprehension and compliance. SIGNATURE: Juan C Zuleta APRN.CNP PATIENT NAME: Davis Johnson DATE: 04/30/2024 TIME: 7:04 AM [facility] 04-30-2024 History and physical note HISTORY AND PHYSICAL EXAMINATION SERVICE DATE: 04/30/2024 SERVICE TIME: 7:01 AM PRIMARY CARE PHYSICIAN: Herve Steele DO REASON FOR VISIT: Davis Johnson is a 68 year old male who is scheduled for Right - HEMIARTHROPLASTY REPLACE JOINT PARTIAL SHOULDER at the request of Dr. Hi Wooten for consultation. My final recommendation will be communicated back to the requesting physician by way of shared medical record or letter. Assessment Seizure (HCC) Assessment: Possible seizure episode, witnessed by . No previous seizure history. Evaluated per neurology, EEG normal and medical optimization received. Started on keppra Hypertension Assessment: Stable and compliant with medications Followed by PCP Last 5 Encounter BP Readings: Date: BP: 04/30/2024 134/83 04/27/2024 121/74 04/09/2024 134/62 Hyperlipidemia Assessment: Controlled with statin. Monitored per PCP. Lester Activity Status Index: METS: Walk indoors, such as around the house (1.75 METs) Do light work around the house, such as dusting or washing dishes (2.70 METs) Take care of self; that is eating, dressing, bathing, using the toilet (2.75 METs) Climb a flight of stairs or walk up a hill (5.50 METs) DASI Score: 12.7 Patient denies any chest pain or undue shortness of breath with the above physical activity. Clinical Frailty Scale: 3. Well, with treated comorbid disease STOP-Bang Score: Has or is being treated for high blood pressure Patient over 50 years old Male patient Denies snoring loudly Denies feeling tired, fatigued, or sleepy during the daytime Has not been observed to stop breathing or choking/gasping during sleep BMI less than or equal to 35 kg/m^2 Does not have a large neck STOP-Bang Score: 3 ANESTHESIA FINDINGS: Intubation History: No history of difficult intubation Significant Anesthesia Considerations: none Airway History: No history of difficult airway I - PHYSICAL EVALUATION AIRWAY Patient intubated: No. Tracheostomy tube not present Mallampati: II. TM distance: >3 FB. Neck ROM: full ROM without neurological symptoms. Mouth opening: adequate. Short neck: no. Thick neck: no Nunn present: no Lip Bite Test: II Microretrognathia/Micronagthia/ Recessed Chin: No DENTAL Dental findings: teeth intact. II - ANESTHESIA PLAN Beta Jamaal Monitoring Plan Post Procedure Analgesic Plan Prepared for surgery: This patient is optimally prepared for surgery. CONSULTS: Patient does not require consults for optimization at this time. The Following Tests/Procedures Have Been Initiated: Orders Placed This Encounter Staphylococcus aureus & MRSA Screen, PCR, Nasal Standing Status: Future Standing Expiration Date: 07/30/2024 Confirm Blood Type Standing Status: Future Standing Expiration Date: 07/29/2024 Order Specific Question: Did Blood Bank direct you to place this order: Answer: Yes mupirocin (BACTROBAN) 2 % ointment Sig: two times a day for 5 days. Apply 0.5 inch with cotton swab (Q-tip) to each nostril in the morning and evening for 5 days prior to and including day of surgery. Dispense: 22 g Refill: 0 Planned Anesthetic: Per anesthesia choice Subjective CHIEF COMPLAINT: Posterior dislocation of right shoulder joint, initial encounter [S43.021A] HPI: Patient is a 68 year old male presents with right shoulder pain that has been getting progressively worse. The patient states the pain is interfering with daily activities and sleep. Conservative measures have been ineffective. Patient has opted to proceed with above reccommended surgery and is here today for preanesthesia consultation. History reviewed. No pertinent past medical history. PAST SURGICAL HISTORY Procedure Laterality Date INGUINAL HERNIA REPAIR HX PAST SURGICAL HISTORY OF left hand tendon surgery FAMILY HISTORY Problem Relation Age of Onset Anesthesia Problems No Family History SOCIAL HISTORY: Social History Tobacco Use Smoking status: Never Passive exposure: Never Smokeless tobacco: Never Substance Use Topics Alcohol use: Never Drug use: Never Prior to Admission medications as of 04/30/24 0710 Medication Sig Last Dose Taking diclofenac, EC, (VOLTAREN) 75 mg EC tablet Take one tablet by mouth twice a day as needed PRN for pain, with food Taking Yes levETIRAcetam (KEPPRA) 500 mg tablet Take 1 tablet by mouth two times a day. Patient should start on May 27, 2024. Taking Yes levETIRAcetam (KEPPRA) 500 mg tablet Take 1 tablet by mouth two times a day. Taking Yes Olmesartan-hydroCHLOROthiazide 20-12.5 mg per tablet 1 tablet. Taking Yes carvedilol (COREG) 6.25 mg tablet once daily. Taking Yes amLODIPine (NORVASC) 5 mg tablet once daily. Taking Yes aspirin 81 mg cap 1 tablet. Taking Yes mupirocin (BACTROBAN) 2 % ointment two times a day for 5 days. Apply 0.5 inch with cotton swab (Q-tip) to each nostril in the morning and evening for 5 days prior to and including day of surgery. No medication comments found. ALLERGIES No Known Allergies Covid Immunization Dates Overdue - Covid-19 Vaccine () Never done No completion, postpone, frequency change, or communication history exists for this topic. REVIEW OF SYSTEMS: PAIN ASSESSMENT: Pain Pain Level: 7 Pain Location: Shoulder-Right Description: Aching Duration Units: Months Frequency: Continuous General: No weight loss, malaise or fevers. Neuro: Negative for Headaches Stroke-residual deficit Stroke-No residual deficit Tumor involving ORDER ANALYST Parkinson's Disease Multiple Sclerosis + Seizure Respiratory: No history of current cough or dyspnea, or pneumonia in the past 6 weeks. No history of respiratory/pulmonary symptoms or problems. Cardiovascular: Negative for Recent NC, Angina, Arrhythmia, CAD, Chest Pain, CHF, PVD, Valvular Heart Disease, DVT/PE + HTN + HLD GI: No history of GI symptoms or problems. No history of esophageal varices, recent ascites, or ETOH greater than 2 drinks per day. : No history of dysuria, frequency or incontinence,, stones or chronic kidney disease Endocrine: No history of diabetes. Has not taken steroids within the past 30 days. No history of endocrinological symptoms or problems. Hematology: Chronic anti-coagulation / platelet meds (Aspirin) Oncology: No history of CA metastasis, chemo within 30 days, or radiotherapy within 90 days. Has not lost 10% of body wt in 6 months. No history of oncological symptoms or problems. Psych: No history of psychiatric symptoms or problems. Musculoskeletal: See HPI Skin: Negative for lesions, rash and itching. Objective PHYSICAL EXAM: VITALS: BP 134/83 Pulse 69 Temp 98.1 Resp 16 Ht 5' 7 (1.70m) Wt 156 lb 8.4 oz (71.0kg) SpO2 98% BMI 24.51 kg/(m^2). General: Alert and oriented, No acute distress Skin: Normal color, no rash, no lesions. HEENT: EOM, pupils equal, round and reactive. Cardiovascular: Normal S1 & S2, no rubs, murmurs or gallops. No JVD. Pulse regular. Lungs: Normal breath sounds, no wheezes or crackles. Abdomen: Soft, non-tender, no rigidity. Extremities: Joint tenderness left shoulder Neurological: Normal cognition and motor skills. Pulses: Carotid and radial pulses normal +2. Diagnostic tests reviewed for today's visit: Lab Value Units Date High Low HB 15.4 g/dL 04/09/2024 17.0 13.0 HCT 44.1 % 04/09/2024 51.0 39.0 WBC 10.58 k/uL 04/09/2024 11.00 3.70 PLT 277 k/uL 04/09/2024 400 150 NA 139 mmol/L 04/09/2024 144 136 K 3.8 mmol/L 04/09/2024 5.1 3.7 GLUC 102 mg/dL 04/09/2024 99 74 BUN 22 mg/dL 04/09/2024 24 9 CREAT 0.88 mg/dL 04/09/2024 1.22 0.73 PTSEC No results within date range. INR No results within date range. APTT No results within date range. ALT 29 U/L 04/09/2024 54 10 AST 19 U/L 04/09/2024 40 14 TBILI 0.5 mg/dL 04/09/2024 1.3 0.2 TSH No results within date range. EKG 04/30/24: EEG 04/27/24: Impression: This awake and sleep EEG is within normal limits. No epileptiform discharges or EEG seizures were seen during this recording. Diagnosis: Primary: R56.9 Seizure (HCC) Interpreted and electronically signed by Kristopher Ibarra M.D. Date of signin04/27/2024 15:23 Instructions Given to Patient: Instructions located in the after visit summary. Patient given verbal and written preop instructions and voices comprehension and compliance. SIGNATURE: Juan C Zuleta APRN.CNP PATIENT NAME: Dvais Johnson DATE: 04/30/2024 TIME: 7:04 AM documented in this encounter [facility] 04-28-2024 Telephone encounter Note Spoke to patient and , concerned about OR date and timing, discussed need to obtain donor bone, along with preparations for surgery, agreed we will continue to look for OR cancellations and if possible move patient forward, in the meantime have instructed patient to discontinue ibuprofen, oral Voltaren has been ordered instructed to take with food for better pain control [facility] 04-28-2024 Miscellaneous Notes Spoke to patient and , concerned about OR date and timing, discussed need to obtain donor bone, along with preparations for surgery, agreed we will continue to look for OR cancellations and if possible move patient forward, in the meantime have instructed patient to discontinue ibuprofen, oral Voltaren has been ordered instructed to take with food for better pain control documented in this encounter [facility] 04-27-2024 Note HNO ID: [id number] Author: AMI WHITTAKER MD Service: ? Author Type: Physician Type: Progress Notes Filed: 04/27/2024 12:16 Note Text: [facility] Patient Name: Davis LISA Date of : 1955 Referring Provider: Hi Knig [facility] [id number] INITIAL EPILEPSY CLINIC NOTE 04/27/2024 8:00 AM CHIEF COMPLAINT: New Patient HISTORY OF PRESENT ILLNESS Mr. Johnson is a 68 year old right-handed male seen in [facility] for initial consultation. At today's visit, the patient is accompanied by: Handedness: right-handed Seizure History and Evolution Apr 09, 2024 was sleeping, recalls that he woke up, turned the alarm off, then set down and arms stuck straight ou him, tonic, yelling, no clonic movements. Eyes wide open, After the event he had labored breathing, Duration was about 1 minutes. Patient amentic of the event. Confused for about 2 hours. Had tongue biting, no urine incontinence. Patient claimed of shoulder pian, xray showed large reverse Hill-Sachs deformity of the humerus impacted on the posterior glenoid margin. CT head was normal. Patient reports that he was not aware of the dislocation on 04/09, patient states that there are arthritic changes. Reports that he has bene working for 3 weeks on a [employer] job, hot weather, sleep deprived Patient reports another visit to the ED on 04/16, I do not have access to it. He reports an MRI of the shoulder, I do not have access of it. Patient is on no ASM. He needs shoulder surgery. Patient was seen by Dr Quick who recommended MRI dominique and EEG, not performed. 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 - PROMIS Sleep Disturbance T-SCORE - Have you been diagnosed with Sleep Apnea? - Seizure risk factors: Brain Tumor Unanswered ORDER ANALYST Infections Unanswered Developmental Delay Unanswered Family history of seizures Unanswered Febrile Seizure Unanswered Complications Unanswered Stroke Unanswered Traumatic Brain Injury Unanswered Previous Epilepsy Evaluations Other caregivers: Primary Care Provider: Herve Steele, DO Current Outpatient Medications Medication Sig oxyCODONE-acetaminophen (PERCOCET) 5-325 mg tablet TAKE 1 TABLET BY MOUTH EVERY 6 HOURS FOR 4 DAYS predniSONE (DELTASONE) 20 mg tablet TAKE 1 TABLET BY MOUTH TWICE A DAY FOR 4 DAYS TAKE 1 TABLET FOR 3 DAYS Olmesartan-hydroCHLOROthiazide 20-12.5 mg per tablet 1 tablet. carvedilol (COREG) 6.25 mg tablet once daily. amLODIPine (NORVASC) 5 mg tablet once daily. aspirin 81 mg cap 1 tablet. [START ON 05/27/2024] levETIRAcetam (KEPPRA) 500 mg tablet Take 1 tablet by mouth two times a day. Patient should start on May 27, 2024. levETIRAcetam (KEPPRA) 500 mg tablet Take 1 tablet by mouth two times a day. No current facility-administered medications for this visit. ALLERGIES No Known Allergies No past medical history on file. No past surgical history on file. No family history on file. SOCIAL HISTORY: -Lives in [place], [place] -Patient lives alone? 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 Yes Review of Systems VITAL SIGNS: BP 121/74 (BP Site: Left Arm, BP Position: Sitting, BP Cuff Size: Regular Adult) Pulse 69 Resp 22 Ht 170.2 cm (5' 7 ) Wt 72.6 kg (160 lb) SpO2 100% BMI 25.06 kg/m? General Examination: General Exam Neurological Exam IMPRESSION: Patient presents with a single generalized tonic seizure upon awakening on 04/09/24. No risk factors for epilepsy. Seizure resulted on right humerus impacted on the posterior glenoid margin and dislocation requiring surgery. CT head was normal. No EEG conducted. Discussed with the patient the need of MRI dominique and EEG to further evaluate the single seizure. I explained to the patient that if the result of both studies is normal, my commendation is to start ASM given (more content not included)... [facility] 04-27-2024 History of Presen t illness Narrative [facility] Patient Name: Davis LISA Date of : 1955 Referring Provider: Hi King [facility] [id number] INITIAL EPILEPSY CLINIC NOTE 04/27/2024 8:00 AM CHIEF COMPLAINT: New Patient HISTORY OF PRESENT ILLNESS Mr. Johnson is a 68 year old right-handed male seen in [facility] for initial consultation. At today's visit, the patient is accompanied by: Handedness: right-handed Seizure History and Evolution Apr 09, 2024 was sleeping, recalls that he woke up, turned the alarm off, then set down and arms stuck straight ou him, tonic, yelling, no clonic movements. Eyes wide open, After the event he had labored breathing, Duration was about 1 minutes. Patient amentic of the event. Confused for about 2 hours. Had tongue biting, no urine incontinence. Patient claimed of shoulder pian, xray showed large reverse Hill-Sachs deformity of the humerus impacted on the posterior glenoid margin. CT head was normal. Patient reports that he was not aware of the dislocation on 04/09, patient states that there are arthritic changes. Reports that he has bene working for 3 weeks on a [employer] job, hot weather, sleep deprived Patient reports another visit to the ED on 04/16, I do not have access to it. He reports an MRI of the shoulder, I do not have access of it. Patient is on no ASM. He needs shoulder surgery. Patient was seen by Dr Quick who recommended MRI dominique and EEG, not performed. 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 - PROMIS Sleep Disturbance T-SCORE - Have you been diagnosed with Sleep Apnea? - Seizure risk factors: Brain Tumor Unanswered ORDER ANALYST Infections Unanswered Developmental Delay Unanswered Family history of seizures Unanswered Febrile Seizure Unanswered Complications Unanswered Stroke Unanswered Traumatic Brain Injury Unanswered Previous Epilepsy Evaluations Other caregivers: Primary Care Provider: Herve Steele, DO Current Outpatient Medications Medication Sig oxyCODONE-acetaminophen (PERCOCET) 5-325 mg tablet TAKE 1 TABLET BY MOUTH EVERY 6 HOURS FOR 4 DAYS predniSONE (DELTASONE) 20 mg tablet TAKE 1 TABLET BY MOUTH TWICE A DAY FOR 4 DAYS TAKE 1 TABLET FOR 3 DAYS Olmesartan-hydroCHLOROthiazide 20-12.5 mg per tablet 1 tablet. carvedilol (COREG) 6.25 mg tablet once daily. amLODIPine (NORVASC) 5 mg tablet once daily. aspirin 81 mg cap 1 tablet. [START ON 05/27/2024] levETIRAcetam (KEPPRA) 500 mg tablet Take 1 tablet by mouth two times a day. Patient should start on May 27, 2024. levETIRAcetam (KEPPRA) 500 mg tablet Take 1 tablet by mouth two times a day. No current facility-administered medications for this visit. ALLERGIES No Known Allergies No past medical history on file. No past surgical history on file. No family history on file. SOCIAL HISTORY: -Lives in [place], [place] -Patient lives alone? 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 Yes Review of Systems VITAL SIGNS: BP 121/74 (BP Site: Left Arm, BP Position: Sitting, BP Cuff Size: Regular Adult) Pulse 69 Resp 22 Ht 170.2 cm (5' 7 ) Wt 72.6 kg (160 lb) SpO2 100% BMI 25.06 kg/m General Examination: General Exam Neurological Exam IMPRESSION: Patient presents with a single generalized tonic seizure upon awakening on 04/09/24. No risk factors for epilepsy. Seizure resulted on right humerus impacted on the posterior glenoid margin and dislocation requiring surgery. CT head was normal. No EEG conducted. Discussed with the patient the need of MRI dominique and EEG to further evaluate the single seizure. I explained to the patient that if the result of both studies is normal, my commendation is to start ASM given the risk of recurrent seizures and injuries. Keppra will be started , side effects discussed PLAN: Keppra 500 mg bid EEG today Patient is cleared to have shoulder surgery Can not drive until October 2024 Follow up in 3 months Testing Ordered Routine EEG I discussed the risks, benefits and alternatives of the medical plan with the patient. Questions were answered. The patient agreed with the plan as discussed. Ami Boston M.D 12.15 pm EEG today showed no epileptiform discharges. Patient was notified Ami Boston M.D documented in this encounter [facility] 04-27-2024 Instructions Ami Whittaker MD - 04/27/2024 9:07 AM EDT Keppra 500 mg , 1 tablet twice a day Call office if you have any question at [phone] MRI brain Follow up in 3-4 month Ami Boston M.D documented in this encounter [facility] 04-24-2024 History of Presen t illness Narrative SHOULDER/ELBOW INITIAL CONSULT SERVICE DATE: 04/23/2024 PCP: Herve Steele DO REFERRING PROVIDER: Fantasma Soriano [address] [facility] [place] [id number] Consult requested for an opinion regarding the evaluation and treatment of the above. My final impression and recommendations will be communicated back to the requesting physician by way of the shared medical record or letter via [place] mail. CHIEF COMPLAINT: Right shoulder dislocation SUBJECTIVE HISTORY OF PRESENT ILLNESS: 68 year old male, who presents for the above CC. He can't recall a time when his shoulder would've dislocated, most likely due to seizure he had. The pt thought his seizure was due to low sodium from being out in the sun for too long. Denies history of seizures previously. He endorses bruising on his right shoulder. Was in a sling for 48 hours after his appointment with Bo. He can't take any pain medications due to constipation. He saw a neurologist in an outside system for his seizure, recommended Keppra. Patient declined starting Keppra. No EEG or MRI brain completed. 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 No past medical history on file. No past surgical history on file. No family history on file. ALLERGIES No Known Allergies MEDICATIONS: oxyCODONE-acetaminophen (PERCOCET) 5-325 mg tablet TAKE 1 TABLET BY MOUTH EVERY 6 HOURS FOR 4 DAYS predniSONE (DELTASONE) 20 mg tablet TAKE 1 TABLET BY MOUTH TWICE A DAY FOR 4 DAYS TAKE 1 TABLET FOR 3 DAYS Olmesartan-hydroCHLOROthiazide 20-12.5 mg per tablet 1 tablet. carvedilol (COREG) 6.25 mg tablet once daily. amLODIPine (NORVASC) 5 mg tablet once daily. aspirin 81 mg cap 1 tablet. OBJECTIVE There were no vitals taken for this visit. PHYSICAL EXAMINATION: Alert and oriented x3, ambulates easily to exam table without assistance. Painless neck ROM in all planes. Negative Spurling's. No radiating numbness or tingling past elbows. No visibile head, eyes, ear, neck, throat deformities Axillary, Long Thoracic, CN XI, Median, Ulnar, Radial, musculocutaneous nerves intact to motor and sensation. Fingers warm and well perfused, BCR< 2sec. Radial Pulse 2+ RADIOGRAPHIC RESULTS: Imaging was personally reviewed by myself today XR Shoulder right shows posterior dislocation of shoulder reverse Hill-Sachs lesion. Outside hospital CT scan also reviewed. Approximately 25 mm diameter lesion ASSESSMENT Right posterior shoulder dislocation in the setting of a new onset seizure PLAN DIAGNOSIS: (S43.021A) Posterior dislocation of right shoulder joint, initial encounter Discussed with the patient that he will likely need an open reduction with a Sue Resurfacing. Possible modified Elvia. Would consider allograft if the lesion is too big. I sent a referral into neurology today to figure out the reason behind his seizure. Will need neurology comment on seizure recurrence, risk of seizure recurrence, we will like to minimize this as much as possible to protect the repair postoperatively. Once we get information on risk of seizure recurrence and minimizing recurrence, we can get him scheduled for surgery. His other medical issues seem pretty minimal. Will need a preoperative PACC visit. All questions were answered for patient today, they should not hesitate to call the office with any issues. Medical Decision Making: Medical Decision Making Level: 1 - N/A Hi Wooten MD By signing my name below, I, Rafal Joseuma, attest that this documentation has been prepared under the direction and in the presence of Dr. Wooten. Electronically signed, Rakesh Sotoibe April 24, 2024 9:12 AM I agree with the Chief Complaint, ROS, and Past Histories independently gathered by the clinical logistics support and the remaining scribed note accurately describes my personal service to the patient.Hi Wooten MD documented in this encounter [facility] 04-24-2024 Note HNO ID: [id number] Author: HI WOOTEN MD Service: ? Author Type: Physician Type: Progress Notes Filed: 04/24/2024 09:39 Note Text: SHOULDER/ELBOW INITIAL CONSULT SERVICE DATE: 04/23/2024 PCP: Herve Steele DO REFERRING PROVIDER: Fantasma Soriano [id number] [facility] [id number] Consult requested for an opinion regarding the evaluation and treatment of the above. My final impression and recommendations will be communicated back to the requesting physician by way of the shared medical record or letter via [place] mail. CHIEF COMPLAINT: Right shoulder dislocation SUBJECTIVE HISTORY OF PRESENT ILLNESS: 68 year old male, who presents for the above CC. He can't recall a time when his shoulder would've dislocated, most likely due to seizure he had. The pt thought his seizure was due to low sodium from being out in the sun for too long. Denies history of seizures previously. He endorses bruising on his right shoulder. Was in a sling for 48 hours after his appointment with Bo. He can't take any pain medications due to constipation. He saw a neurologist in an outside system for his seizure, recommended Keppra. Patient declined starting Keppra. No EEG or MRI brain completed. 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 No past medical history on file. No past surgical history on file. No family history on file. ALLERGIES No Known Allergies MEDICATIONS: oxyCODONE-acetaminophen (PERCOCET) 5-325 mg tablet TAKE 1 TABLET BY MOUTH EVERY 6 HOURS FOR 4 DAYS predniSONE (DELTASONE) 20 mg tablet TAKE 1 TABLET BY MOUTH TWICE A DAY FOR 4 DAYS TAKE 1 TABLET FOR 3 DAYS Olmesartan-hydroCHLOROthiazide 20-12.5 mg per tablet 1 tablet. carvedilol (COREG) 6.25 mg tablet once daily. amLODIPine (NORVASC) 5 mg tablet once daily. aspirin 81 mg cap 1 tablet. OBJECTIVE There were no vitals taken for this visit. PHYSICAL EXAMINATION: Alert and oriented x3, ambulates easily to exam table without assistance. Painless neck ROM in all planes. Negative Spurling's. No radiating numbness or tingling past elbows. No visibile head, eyes, ear, neck, throat deformities Axillary, Long Thoracic, CN XI, Median, Ulnar, Radial, musculocutaneous nerves intact to motor and sensation. Fingers warm and well perfused, BCR< 2sec. Radial Pulse 2+ RADIOGRAPHIC RESULTS: Imaging was personally reviewed by myself today XR Shoulder right shows posterior dislocation of shoulder reverse Hill-Sachs lesion. Outside hospital CT scan also reviewed. Approximately 25 mm diameter lesion ASSESSMENT Right posterior shoulder dislocation in the setting of a new onset seizure PLAN DIAGNOSIS: (S43.021A) Posterior dislocation of right shoulder joint, initial encounter Discussed with the patient that he will likely need an open reduction with a Sue Resurfacing. Possible modified Gan. Would consider allograft if the lesion is too big. I sent a referral into neurology today to figure out the reason behind his seizure. Will need neurology comment on seizure recurrence, risk of seizure recurrence, we will like to minimize this as much as possible to protect the repair postoperatively. Once we get information on risk of seizure recurrence and minimizing recurrence, we can get him scheduled for surgery. His other medical issues seem pretty minimal. Will need a preoperative PACC visit. All questions were answered for patient today, they should not hesitate to call the office with any issues. Medical Decision Making: Medical Decision Making Level: 1 - N/A Hi Wooten MD By signing my name below, I, Rafal Thapa, attest that this documentation has been prepared under the direction and in the presence of Dr. Wooten. Electronically signed, Keegan Soto April 24, 2024 9:12 AM I agree with the Chief Complaint, ROS, and Past Histories independently gathered by the clinical logistics support and the remaining scribed note accurately describes my personal service to the patient.Hi Wooten MD [facility] 04-24-2024 History of Presen t illness Narrative Radiology Service Progress Note PATIENT NAME: Davis Johnson DATE OF SERVICE: April 24, 2024 TIME: 8:25 AM PATIENT IDENTITY VERIFICATION COMPLETED USING TWO (2) IDENTIFIERS: Name and Date of confirmed by patient verbally. FALL SCREENING: Has the patient had 2 falls in the last year or 1 fall with injury or currently using an Ambulatory Assistive Device (Walker, Cane, Wheelchair, Crutches, etc.)? No PATIENT GENDER DATA: Male PATIENT RELEVANT IMPLANT DATA REVIEWED: Not Applicable PATIENT PRESENTS WITH AN IMPLANTABLE OR ATTACHED SALES AND MARKETING ASSOCIATE: No RADIOLOGY DEPARTMENT: General X-ray: Exam(s) Completed: Upper Extremity X-Ray(s): Shoulder, AP / TRUE AP / AXILLARY right PERIPHERAL IV DATA: Not applicable SIGNED BY: RT Hao(Radha) April 24, 2024 8:25 AM documented in this encounter [facility] 04-24-2024 Note HNO ID: [id number] Author: MYESHA SHRESTHA RT(Radha) Service: ? Author Type: Technologist Type: Progress Notes Filed: 04/24/2024 08:25 Note Text: Radiology Service Progress Note PATIENT NAME: Davis Johnson DATE OF SERVICE: April 24, 2024 TIME: 8:25 AM PATIENT IDENTITY VERIFICATION COMPLETED USING TWO (2) IDENTIFIERS: Name and Date of confirmed by patient verbally. FALL SCREENING: Has the patient had 2 falls in the last year or 1 fall with injury or currently using an Ambulatory Assistive Device (Walker, Cane, Wheelchair, Crutches, etc.)? No PATIENT GENDER DATA: Male PATIENT RELEVANT IMPLANT DATA REVIEWED: Not Applicable PATIENT PRESENTS WITH AN IMPLANTABLE OR ATTACHED SALES AND MARKETING ASSOCIATE: No RADIOLOGY DEPARTMENT: General X-ray: Exam(s) Completed: Upper Extremity X-Ray(s): Shoulder, AP / TRUE AP / AXILLARY right PERIPHERAL IV DATA: Not applicable SIGNED BY: Myesha Shrestha RT(R) April 24, 2024 8:25 AM [facility] 04-15-2024 Telephone encounter Note Called the patient and spoke with him regarding his shoulder. Recommended he maintain the sling until he sees Dr. Wooten, then likely will be able to wean out of it. Advised him on some gentle passive shoulder motions and elbow/wrist motions. Discussed analgesia with him. All questions answered. Fantasma Soriano PA-C [facility] 04-15-2024 Miscellaneous Notes Called the patient and spoke with him regarding his shoulder. Recommended he maintain the sling until he sees Dr. Wooten, then likely will be able to wean out of it. Advised him on some gentle passive shoulder motions and elbow/wrist motions. Discussed analgesia with him. All questions answered. Fantasma Soriano PA-C Patient's calling. The patient is unable to be seen by Dr Hi Wooten this week. They have an appointment for next Sat04/24/24. Also on the wait list He continues to be in pain, reluctant to use pain medication because it was causing constipation. Only small amount of meds ordered from anesthesia Asking for any recommendations? CALL [phone] documented in this encounter [facility] 04-15-2024 Telephone encounter Note Patient's calling. The patient is unable to be seen by Dr Hi Wooten this week. They have an appointment for next Sat04/24/24. Also on the wait list He continues to be in pain, reluctant to use pain medication because it was causing constipation. Only small amount of meds ordered from anesthesia Asking for any recommendations? CALL [phone] [facility] 04-09-2024 Note HNO ID: [id number] Author: GERRY CASILLAS RT(R) Service: ? Author Type: Video Control Operator Type: Progress Notes Filed: 04/09/2024 18:39 Note Text: Radiology Service Progress Note PATIENT NAME: Davis Johnson DATE OF SERVICE: April 09, 2024 TIME: 6:39 PM PATIENT IDENTITY VERIFICATION COMPLETED USING TWO (2) IDENTIFIERS: Name and Date of confirmed by patient verbally and Name and Date of confirmed by identification band. FALL SCREENING: Has the patient had 2 falls in the last year or 1 fall with injury or currently using an Ambulatory Assistive Device (Walker, Cane, Wheelchair, Crutches, etc.)? Emergency Room Patient: Screened in ED PATIENT GENDER DATA: Male PATIENT RELEVANT IMPLANT DATA REVIEWED: Yes PATIENT PRESENTS WITH AN IMPLANTABLE OR ATTACHED SALES AND MARKETING ASSOCIATE: No RADIOLOGY DEPARTMENT: CT; Exam(s) Completed: Brain PERIPHERAL IV DATA: Not applicable SIGNED BY: RT Patti(R) April 09, 2024 6:39 PM [facility] 04-09-2024 Miscellaneous Notes Anjel Soriano called patient and notified him to report to [facility] ED. Answered all patient questions on phone. Message sent to Dr. Hi Wooten MD from [facility] regarding instructions on patient case today on 04/09/24. :Subject: Interesting consult Hey Dr. Wooten, This gentleman reportedly had a seizure in bed 4 days ago. His was adamant he didn't fall out of bed but once you see the X-ray you'll surmise he had to of. 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 He states there was normal function of the shoulder before Saturday. [place] of the shoulder demonstrated posterior dislocation (Initial radiographs missed it). There was no attempted reduction. He was somehow set up with me for follow up. I placed him in a sling and recommended he see you. I wasn't sure if the surgical plan would be hemiarthroplasty or allograft implantation. I figured probably a reverse wasn't a good choice because of his activity level. Thank you for seeing him. Unfortunately the CT scan doesn't have 3D recon views. There were no neurologic concerns, btw. -Anjel Message from Dr. Hi Wooten MD to [facility] Welch: He needs to go to the ER to get closed reduced KATIE. Seizures commonly cause posterior dislocations. Falls rarely do this. If he is reducible he can be managed nonop. He needs to be reduced and FU w/ neurology for seizure workup. [facility] is probably best in our system for this unless he wants to get it done locally. That is what I recommend. Pls reach out to him and get him to an ED documented in this encounter [facility] 04-09-2024 Telephone encounter Note Anjel Soriano called patient and notified him to report to [facility] ED. Answered all patient questions on phone. Message sent to Dr. Hi Wooten MD from [facility] regarding instructions on patient case today on 04/09/24. :Subject: Interesting consult Hey Dr. Wooten, This gentleman reportedly had a seizure in bed 4 days ago. His was adamant he didn't fall out of bed but once you see the X-ray you'll surmise he had to of. 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 He states there was normal function of the shoulder before Saturday. [place] and [place] of the shoulder demonstrated posterior dislocation (Initial radiographs missed it). There was no attempted reduction. He was somehow set up with me for follow up. I placed him in a sling and recommended he see you. I wasn't sure if the surgical plan would be hemiarthroplasty or allograft implantation. I figured probably a reverse wasn't a good choice because of his activity level. Thank you for seeing him. Unfortunately the CT scan doesn't have 3D recon views. There were no neurologic concerns, btw. -Anjel Message from Dr. Hi Wooten MD to [facility]: He needs to go to the ER to get closed reduced KATIE. Seizures commonly cause posterior dislocations. Falls rarely do this. If he is reducible he can be managed nonop. He needs to be reduced and FU w/ neurology for seizure workup. [facility] is probably best in our system for this unless he wants to get it done locally. That is what I recommend. Pls reach out to him and get him to an ED [facility] 04-09-2024 Note HNO ID: [id number] Author: FANTASMA SORIANO PA-C Service: ? Author Type: Physician Reconciliation Machine Operator Type: Progress Notes Filed: 04/09/2024 13:46 Note Text: This document has been created with the use of voice recognition technology. It may contain inaccuracies: misspellings, inaccurate syntax or word sense that escaped review. The patient is seen at the request of [facility] for evaluation and an opinion regarding treatment. A copy of this report will remain in the shared medical record CHIEF COMPLAINT: Davis Johnson is a 68 year old Right hand dominant male who presents today for new evaluation of right shoulder injury. HISTORY OF PRESENT ILLNESS: PAIN EVALUATION 04/09/2024 1252 Pain Level: 9 Pain Location: Shoulder-Right Description: Sharp Duration Amount of Time: 6 Duration Units: Days Frequency: Intermittent Intervention/Comfort measure: Medication;Reposition;Relaxatio n;Cold;Positioning HISTORY: Davis Johnson has complains of severe right shoulder pain and limited motion. He states 4 days ago there was suspicion that he had a seizure. His describes him waking up in the middle the night and throwing his arms forward and screaming. The patient does not remember this event. He was transported to a local rural ED in [place]. Images were obtained of the right shoulder just a 1 view x-ray. Subsequent CT scan of the shoulder was obtained and a CT of the brain as well. See below for these findings. 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 Denies history of seizures previously. CT scan of the brain was without intracranial pathology. Patient denies numbness of the arm. He reports extensive bruising of the upper arm. No other musculoskeletal complaints ROS: REVIEW OF SYSTEMS: Constitutional: patient denies any recent fever or significant change in weight Cardiovascular: patient denies any chest pain at rest Respiratory: patient denies any shortness of breath or cough Gastrointestinal: patient denies any current abdominal discomfort Integumentary: patient denies any recent skin changes Musculoskeletal: as noted in the HPI Neurologic: as noted in the HPI Endocrine: patient denies a current diagnosis of diabetes Hematologic/Lymphatic: patient denies any easily bleeding, any recent infection and denies any recent observable lymph node enlargement Psychologic: negative for any recent depression or anxiety issues SOCIAL HISTORY: Tobacco Use: Not on file FAMILY HISTORY: No family history on file. ALLERGIES: ALLERGIES No Known Allergies PAST MEDICAL HISTORY: No past medical history on file. SOCIAL HISTORY: Tobacco Use: Not on file EXAMINATION: GENERAL: Appears healthy, well-nourished, no deformities. ORIENTATION: Alert and oriented to person place and time HABITUS: Normal GAIT: Normal, the patient did not have trouble getting onto the exam table. right shoulder exam: skin intact; extensive ecchymosis about the upper arm extending from the shoulder to the elbow, edema present severe irritability with PROM Tenderness to palpation of globally about the shoulder joint No TTP to the elbow, wrist or hand No TTP about the clavicle, AC joint or scapular body Severe discomfort with passive forward elevation, not stressed due to nature of injury Bicep with normal course No atrophy of the scapula girdle intact sensation to light touch distally Axillary nerve, musculocutaneous, median, radial, ulnar nerves intact AIN, PIN intact good radial pulse no pain with neck ROM RADIOGRAPHS: XR Obtained today and personally reviewed by myself demonstrating posterior shoulder dislocation with large Hill-Sachs lesion which is engaged currently with the posterior rim of the glenoid, ossification in the inferior joint likely representing osteochondral fragment CT scan: Obtained during his ED visit and brought in a disc today. This was personally reviewed by myself and demonstrated at the time posterior dislocated humerus with large Hill-Sachs lesion and osteochondral loose fragment IMPRESSION: Encounter Diagnosis ICD-10-CM 1. Posterior dislocation of right shoulder joint, initial encounter S43.021A CONSULT TO ORTHOPAEDICS 2. Right shoulder pain, unspecified chronicity M25.511 XR SHOULDER ORTHO 4V AP/TRUE AP/LAT/OUTLET RIGHT 3. Closed Hill-Sachs fracture of right humerus, initial encounter S42.291A Procedures Plan: Patient presents for new evaluation of injury to the right shoulder. Based on the history, this appears to be an acute finding of a posterior shoulder dislocation possibly from a seizure event. Patient reports normal function before Saturday. Explained to them the findings on the CT scan and the x-ray. 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 I told him he will have to take some time off work and he will need to remain in a sling at all times except for hygiene purposes. Ther (more content not included)... [facility] 04-09-2024 History of Presen t illness Narrative This document has been created with the use of voice recognition technology. It may contain inaccuracies: misspellings, inaccurate syntax or word sense that escaped review. The patient is seen at the request of [facility] for evaluation and an opinion regarding treatment. A copy of this report will remain in the shared medical record CHIEF COMPLAINT: Davis Johnson is a 68 year old Right hand dominant male who presents today for new evaluation of right shoulder injury. HISTORY OF PRESENT ILLNESS: PAIN EVALUATION 04/09/2024 1252 Pain Level: 9 Pain Location: Shoulder-Right Description: Sharp Duration Amount of Time: 6 Duration Units: Days Frequency: Intermittent Intervention/Comfort measure: Medication;Reposition;Relaxatio n;Cold;Positioning HISTORY: Davis Johnson has complains of severe right shoulder pain and limited motion. He states 4 days ago there was suspicion that he had a seizure. His describes him waking up in the middle the night and throwing his arms forward and screaming. The patient does not remember this event. He was transported to a local rural ED in [place]. Images were obtained of the right shoulder just a 1 view x-ray. Subsequent CT scan of the shoulder was obtained and a CT of the brain as well. See below for these findings. 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 Denies history of seizures previously. CT scan of the brain was without intracranial pathology. Patient denies numbness of the arm. He reports extensive bruising of the upper arm. No other musculoskeletal complaints ROS: REVIEW OF SYSTEMS: Constitutional: patient denies any recent fever or significant change in weight Cardiovascular: patient denies any chest pain at rest Respiratory: patient denies any shortness of breath or cough Gastrointestinal: patient denies any current abdominal discomfort Integumentary: patient denies any recent skin changes Musculoskeletal: as noted in the HPI Neurologic: as noted in the HPI Endocrine: patient denies a current diagnosis of diabetes Hematologic/Lymphatic: patient denies any easily bleeding, any recent infection and denies any recent observable lymph node enlargement Psychologic: negative for any recent depression or anxiety issues SOCIAL HISTORY: Tobacco Use: Not on file FAMILY HISTORY: No family history on file. ALLERGIES: ALLERGIES No Known Allergies PAST MEDICAL HISTORY: No past medical history on file. SOCIAL HISTORY: Tobacco Use: Not on file EXAMINATION: GENERAL: Appears healthy, well-nourished, no deformities. ORIENTATION: Alert and oriented to person place and time HABITUS: Normal GAIT: Normal, the patient did not have trouble getting onto the exam table. right shoulder exam: skin intact; extensive ecchymosis about the upper arm extending from the shoulder to the elbow, edema present severe irritability with PROM Tenderness to palpation of globally about the shoulder joint No TTP to the elbow, wrist or hand No TTP about the clavicle, AC joint or scapular body Severe discomfort with passive forward elevation, not stressed due to nature of injury Bicep with normal course No atrophy of the scapula girdle intact sensation to light touch distally Axillary nerve, musculocutaneous, median, radial, ulnar nerves intact AIN, PIN intact good radial pulse no pain with neck ROM RADIOGRAPHS: XR Obtained today and personally reviewed by myself demonstrating posterior shoulder dislocation with large Hill-Sachs lesion which is engaged currently with the posterior rim of the glenoid, ossification in the inferior joint likely representing osteochondral fragment CT scan: Obtained during his ED visit and brought in a disc today. This was personally reviewed by myself and demonstrated at the time posterior dislocated humerus with large Hill-Sachs lesion and osteochondral loose fragment IMPRESSION: Encounter Diagnosis ICD-10-CM 1. Posterior dislocation of right shoulder joint, initial encounter S43.021A CONSULT TO ORTHOPAEDICS 2. Right shoulder pain, unspecified chronicity M25.511 XR SHOULDER ORTHO 4V AP/TRUE AP/LAT/OUTLET RIGHT 3. Closed Hill-Sachs fracture of right humerus, initial encounter S42.291A Procedures Plan: Patient presents for new evaluation of injury to the right shoulder. Based on the history, this appears to be an acute finding of a posterior shoulder dislocation possibly from a seizure event. Patient reports normal function before Saturday. Explained to them the findings on the CT scan and the x-ray. 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 I told him he will have to take some time off work and he will need to remain in a sling at all times except for hygiene purposes. There were no neurologic concerns about the upper extremity today. Placed a consult with Hi Wooten for surgical consultation and will speak with him directly for expeditious treatment. Fantasma Soriano PA-C documented in this encounter [facility] 04-09-2024 History of Presen t illness Narrative Radiology Service Progress Note PATIENT NAME: Davis Johnson DATE OF SERVICE: April 09, 2024 TIME: 12:39 PM PATIENT IDENTITY VERIFICATION COMPLETED USING TWO (2) IDENTIFIERS: Name and Date of confirmed by patient verbally. FALL SCREENING: Has the patient had 2 falls in the last year or 1 fall with injury or currently using an Ambulatory Assistive Device (Walker, Cane, Wheelchair, Crutches, etc.)? No PATIENT GENDER DATA: Male PATIENT RELEVANT IMPLANT DATA REVIEWED: Not Applicable PATIENT PRESENTS WITH AN IMPLANTABLE OR ATTACHED SALES AND MARKETING ASSOCIATE: No RADIOLOGY DEPARTMENT: General X-ray: Exam(s) Completed: Upper Extremity X-Ray(s): Shoulder, AP / TRUE AP / AXILLARY / SUPRA OUTLET right PERIPHERAL IV DATA: Not applicable SIGNED BY: RT Perico(Radha) April 09, 2024 12:39 PM documented in this encounter [facility] 04-09-2024 Note HNO ID: [id number] Author: ZBIGNIEW BELLE RT(Radha) Service: Radiology Author Type: Technologist Type: Progress Notes Filed: 04/09/2024 12:51 Note Text: Radiology Service Progress Note PATIENT NAME: Davis Johnson DATE OF SERVICE: April 09, 2024 TIME: 12:39 PM PATIENT IDENTITY VERIFICATION COMPLETED USING TWO (2) IDENTIFIERS: Name and Date of confirmed by patient verbally. FALL SCREENING: Has the patient had 2 falls in the last year or 1 fall with injury or currently using an Ambulatory Assistive Device (Walker, Cane, Wheelchair, Crutches, etc.)? No PATIENT GENDER DATA: Male PATIENT RELEVANT IMPLANT DATA REVIEWED: Not Applicable PATIENT PRESENTS WITH AN IMPLANTABLE OR ATTACHED SALES AND MARKETING ASSOCIATE: No RADIOLOGY DEPARTMENT: General X-ray: Exam(s) Completed: Upper Extremity X-Ray(s): Shoulder, AP / TRUE AP / AXILLARY / SUPRA OUTLET right PERIPHERAL IV DATA: Not applicable SIGNED BY: Zibgniew Belle RT(R) April 09, 2024 12:39 PM [facility] 02-26-2024 Procedure note [facility] 01-27-2024 Evaluation note Authored January 27, 2024 9:46 am The above note written by Alisia Ohara LPN, acting as human recorder, note dictated by Dr. Herve Steele. Author [facility] Authored December 26, 2023 8:34a m The above note written by Julián BIGGS acting as human recorder, note dictated by Dr. Herve Steele. [facility] Work Phone: 1(527) 656-691006-24-2024 Evaluation note* Author [facility] Authored January 27, 2024 9:46 am The above note written by Alisia Ohara LPN, acting as human recorder, note dictated by Dr. Herve Steele. [facility] Work Phone: 1(445) 527-289105-23-2024 Evaluation note* Author [facility] Authored December 26, 2023 8:34a m The above note written by Julián BIGGS acting as human recorder, note dictated by Dr. Herve Steele. [facility] Work Phone: 1(885) 307-174605-23-2024 Evaluation note* Author [facility] Authored January 27, 2024 9:46 am The above note written by Alisia Ohara LPN, acting as human recorder, note dictated by Dr. Herve Steele. Author Faye [facility] Authored December 26, 2023 8:34a m The above note written by Julián BIGGS acting as human recorder, note dictated by Dr. Herve Steele. [facility] Work Phone: 1(843) 165-138111-21-2023 Evaluation note* Encounter Date Diagnosis Assessment Notes Treatment Notes Treatment Clinical Notes Jun, Hypertension (ICD-10 - I10) Blood pressure appears to be well controlled in the office today with similar home findings reported by the patient. Muscle cramping has resolved since we discontinued Olmesartan - HCTZ. Pt is to continue with the above medication regimen, continue checking his blood pressure at home on occasion, and we will continue to monitor. Jun, Hyperlipidemia (ICD-10 - E78.5) Blood work ordered to be completed prior to his next office visit. Jun, Screening for prostate cancer (ICD-10 - Z12.5) [facility] 10-23-2023 Evaluation note* Encounter Date Diagnosis Assessment Notes Treatment Notes Treatment Clinical Notes May, Hypertension (ICD-10 - I10) Pt's blood pressure has been well controlled. He is to stop the Olmesartan-HCTZ, as I do feel it is contributing to his cramping. He is to continue with his other medications, and continue monitoring his blood pressure at home. May, Leg cramping (ICD-10 - R25.2) I did review pt's vascular studies from November, which were normal. Olmesartan-HCTZ was stopped, as this depletes potassium. I do feel this should help the pt. Pt states his cramps are worse when he had spent the day somewhere with a lot of steps. I did recommend he use a muscle relaxer as needed as well. He does have some at home. May, Neoplasm of uncertain behavior of skin (ICD-10 - D48.5) Pt c/o a lump on his left index finger that he cuts off with nail clippers, that keeps returning. He has seen [facility] in the past, therefore I did provide him with a referral for this be be evaluated in their office. [facility] Other 02-27-2023 Evaluation note* Encounter Date Diagnosis Assessment Notes Treatment Notes Treatment Clinical Notes Sep, Compression fracture of T12 vertebra with routine healing, subsequent encounter (ICD-10 - S22.080D) [facility] 12-27-2022 Evaluation note* Encounter Date Diagnosis Assessment Notes Treatment Notes Treatment Clinical Notes Jul, Compression fracture of T12 vertebra, initial encounter (ICD-10 - S22.080A) [facility] 11-15-2022 Evaluation note* Encounter Date Diagnosis Assessment Notes Treatment Notes Treatment Clinical Notes Jun, Compression fracture of T12 vertebra (ICD-10 - M48.54XA) Jun, Intractable pain (ICD-10 - R52) Jun, Lumbar pain (ICD-10 - M54.50) [facility] 11-10-2022 Evaluation note* Encounter Date Diagnosis Assessment Notes Treatment Notes Treatment Clinical Notes Jun, Hypertension (ICD-10 - I10) Blood pressure findings appear to be within normal range. Pt is to continue with the above medication and we will continue to monitor. 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 Upon examination the patient denies radiculopathy.Dis cussion was has stenosis is generally progressive due to arthrtis . I suggest x-ray imaging to update status , an order was provided. I recommend two tablets of OTC Aleve with one extra strength Tylenol with food up to twice a day. We will continue to monitor. Jun, History of COVID-19 (ICD-10 - Z86.16) Positive COVID-19 on 04/05/22, treated headache symptoms with two days of Paxlovid. Jun, Hyperlipidemia (ICD-10 - E78.5) Pt is to continue with the above medication and continue watching their diet and increase their exercise regimen. Jun, Screening for prostate cancer (ICD-10 - Z12.5) [facility] 09-01-2022 Evaluation note* Encounter Date Diagnosis Assessment Notes Treatment Notes Treatment Clinical Notes Apr, COVID-19 (ICD-10 - U07.1) [facility] 06-17-2022 Evaluation note* Encounter Date Diagnosis Assessment Notes Treatment Notes Treatment Clinical Notes Jan, Lip lesion (ICD-10 - K13.0) [facility] Other 06-11-2021 NoteOPERATIVE NOTE OPERATION DATE: 01-13-21 ANESTHETIC:General. PREOPERATIVE DIAGNOSIS: Zone 5 extensor tendon laceration to the left long finger. POSTOPERATIVE DIAGNOSIS:Same. PROCEDURE NAME:Extensor tendon repair of zone 5 left long finger. ESTIMATED BLOOD LOSS: Minimal. SPECIMENS:None. COMPLICATIONS: None. INDICATIONS: This is a 65 year-old male who sustained a fall injury to the left long finger at the level of zone 5 over the MCP joint. He presented to the office approximately 10 days after the injury with inability to extend his finger. He was consented for a extensor tendon laceration repair. PROCEDURE: Once informed consent was obtained, the operative site was marked, preoperative antibiotics given, the patient was brought back to the OR and placed in the supine position on the OR table. General endotracheal anesthesia was then induced. Tourniquet was placed over the left upper arm, the left upper extremity was then prepped and draped in a standard surgical fashion. Appropriate timeout was completed before starting the case. He had a semi-lunar laceration centered over the radial aspect of the MCP joint at the level of zone 5. I extended the laceration proximally and distally and created thick flaps. I dissected down through the scar and subcutaneous tissue protecting all neurovascular structures. I identified the distal tendon segment and continued to dissect proximally until I identified the proximal segment. Tendon edges were cleaned up and debrided. After freeing up all adhesions, I appropriately mobilized the proximal segment. I used a 4-0 Ethilon suture in a ocwmee-pw-tfxky fashion and placed a total of 4 hwycbz-qk-vrmki sutures through the extensor tendon. It appeared that he possibly had an injury to the sagittal band also on the radial aspect. I placed 2 Ethibond horizontal mattress sutures into the sagittal band on the radial aspect as well. There as some debris from the injury and I copiously irrigated and removed all debris. The tourniquet was deflated. Hemostasis is controlled with bipolar cautery. I used 4-0 Nylon for a horizontal mattress sutures to approximate the skin incision. I then injected 10 mL of 1% Lidocaine with epinephrine for pain control. The wounds are cleansed and dried. Sterile dressings are placed. Xeroform, 4x4's and then a volar wrist splint with the wrist extended in approximately 20 degrees with the splint extending out to the DIP joints with all the second through fifth fingers. The patient was then extubated and taken to the Recovery Room in stable condition. All needle, sponge, and instrument counts are correct. [facility] Signed and Approved by: LALY TALBERT 01/19/2021 10:36:00[facility]05-26-2021 NotePROCEDURE: XR HAND LT MIN 3V HISTORY: Laceration of left hand COMPARISON: None. FINDINGS: BONES:No fracture, acute abnormality, or significant arthropathy. SOFT TISSUES:Mild dorsal soft tissue swelling with several punctate radiopacities on the skin surface or within the laceration posterior to the radial carpal heads on the lateral view. EFFUSION:None visible. OTHER: Negative. IMPRESSION: 1. No acute bone involvement. 2. Tiny radiopaque foreign bodies suspected to be within the laceration over the dorsum of the hand. Electronically authenticated by: AMAN KUMAR Date: 2020-12-28 17:17[facility]08-01-2009 History general Narrative - Reported* Type Description Date Medical History HTN Medical History COLONOSCOPY 2004 Medical History STRESS TEST 2006 NO Medical History NON-SMOKER Medical History EYE EXAM MARCH 2009 Medical History LAB WORK 04-16-2008 Medical History LAST PSA 04-16-2008 1.490 Medical History FX LEFT ARM Medical History Bloodwork 08-08-; li pid panel, cmp, cbc, t4, tsh, hgb a1c (5.5) Medical History 08/29/2011 psa level 1.700, A1c 5 .5 Medical History 10/09/13-colonoscopy by Dr. Renuka lilly - negative Medical History 06/2016 Carotid US Medical History PSA (2.67) 05/2016 Medical History 05/2017 Carotid US- [facility] Medical History PSA (3.07) 05/2017 Medical History 05/2018 carotid [facility] Medical History 05/24/21 [facility] vascular and blood work PSA 2.[address] SURGERY DR ANN Surgical History extensor tendon repair left wilberto g finger 01/13/21 Hospitalization History SEE ABOVE Hospitalization History FX LEFT ARM 1965 [facility] Other 08-01-2009 History general Narrative - Reported* Type Description Date Medical History HTN Medical History COLONOSCOPY 2004 Medical History STRESS TEST 2006 [facility] Medical History NON-SMOKER Medical History EYE EXAM MARCH 2009 Medical History LAB WORK 04-16-2008 Medical History LAST PSA 04-16-2008 1.490 Medical History FX LEFT ARM Medical History Bloodwork 08-08-10; [facility] pid panel, cmp, cbc, t4, tsh, hgb a1c (5.5) Medical History 08/29/2011 psa level 1.700, A1c 5 .5 Medical History 10/09/13-colonoscopy by Dr. Renuka lilly - negative Medical History 06/2016 Carotid US Medical History PSA (2.67) 05/2016 Medical History 05/2017 Carotid US- Community [facility] Medical History PSA (3.07) 05/2017 Medical History 05/2018 carotid us-community out reach Medical History 05/24/21 formerly [facility] vascular and blood work PSA 2.9 Medical History Dexa scan 09/2022-osteopenia Medical History 11/2022 Community outreach vascu lar screening Surgical History HERNIA SURGERY DR ANN Surgical History extensor tendon repair left wilberto g finger 01/13/21 Hospitalization History SEE ABOVE Hospitalization History FX LEFT ARM 1965 [place] Other Evaluation noteNo assessment information available [facility] Work Phone: Evaluation noteNo InformationNort [employer], [employer] Other Evaluation note* Author Faye Najera [facility] Authored December 26, 2023 8:34a m The above note written by Julián BIGGS acting as human recorder, note dictated by Dr. Herve Steele. [facility] Work Phone: Evaluation note* Diagnosis Posterior dislocation of right shoulder joint, initial encounter- Primary Right shoulder pain, unspecified chronicity Closed Hill-Sachs fracture of right humerus, initial encounter Right shoulder pain, unspecified chronicity [facility] Diagnosis Right shoulder pain, unspecified chronicity [facility] Diagnosis Pain- Primary Generalized pain [facility]* Diagnosis Seizure (HCC)- Primary Other convulsions Posterior dislocation of right shoulder joint, initial encounter [facility] Diagnosis Pain Generalized pain [facility] Diagnosis Posterior dislocation of right shoulder joint, initial encounter Seizure (HCC) Other convulsions [facility]* Diagnosis Posterior dislocation of right shoulder joint, initial encounter- Primary [facility] Diagnosis Pain- Primary Generalized pain Posterior dislocation of right shoulder joint, initial encounter Pre-op testing Preoperative examination, unspecified [facility]* Diagnosis Pre-op evaluation- Primary Preoperative examination, unspecified Posterior dislocation of right shoulder joint, initial encounter Pre-op testing Preoperative examination, unspecified Preoperative examination Preoperative examination, unspecified Seizure (HCC) Other convulsions Primary hypertension Unspecified essential hypertension Hyperlipidemia, unspecified hyperlipidemia type Posterior dislocation of right shoulder joint, initial encounter * Assessment & Plan Note - Juan C Zuleta APRN.CNP - 04/30/2024 7:25 AM EDT Associated Problem(s): Hyperlipidemia Assessment: Controlled with statin. Monitored per PCP. * Assessment & Plan Note - Juan C Zuleta APRN.CNP - 04/30/2024 7:25 AM EDT Associated Problem(s): Hypertension Assessment: Stable and compliant with medications Followed by PCP Last 5 Encounter BP Readings: Date: BP: 04/30/2024 134/83 04/27/2024 121/74 04/09/2024 134/62 * Assessment & Plan Note - Juan C Zuleta APRN.CNP - 04/30/2024 7:25 AM EDT Associated Problem(s): Seizure (HCC) Assessment: Possible seizure episode, witnessed by . No previous seizure history. Evaluated perneurology, EEG normal and medical optimization received. Started on keppra documented [facility]* Diagnosis Pre-op evaluation- Primary Preoperative examination, unspecified Posterior dislocation of right shoulder joint, initial encounter Pre-op testing Preoperative examination, unspecified Preoperative examination Preoperative examination, unspecified Seizure (HCC) Other convulsions Primary hypertension Unspecified essential hypertension Hyperlipidemia, unspecified hyperlipidemia type Posterior dislocation of right shoulder joint, initial encounter Pre-op testing Preoperative examination, unspecified Posterior dislocation of right shoulder joint, initial encounter [facility] Diagnosis Dislocation of right shoulder joint, initial encounter- Primary Right shoulder pain, unspecified chronicity documented in this encounter [facility] Work Phone: Evaluation note* Diagnosis Right shoulder pain, unspecified chronicity documented in this encounter [facility] Work Phone: Evaluation note* Diagnosis Onset Date Resolution Status Elevated PSA acute Shoulder fracture, right acu [facility] Work Phone: Evaluation note* Diagnosis Dislocation of right shoulder joint, initial encounter Dislocation of right shoulder joint, initial encounter documented in this encounter [facility] Work Phone: Evaluation note* Diagnosis Dislocation of right shoulder joint, initial encounter documented in this encounter [facility] Work Phone: Evaluation note* Diagnosis Pre-op evaluation- Primary Preoperative examination, unspecified Posterior dislocation of right shoulder joint, initial encounter Pre-op testing Preoperative examination, unspecified Preoperative examination Preoperative examination, unspecified Seizure (HCC) Other convulsions Primary hypertension Unspecified essential hypertension Hyperlipidemia, unspecified hyperlipidemia type Convulsions, unspecified convulsion type (HCC)- Primary documented in [facility] note* Diagnosis Pre-op evaluation- Primary Preoperative examination, unspecified Posterior dislocation of right shoulder joint, initial encounter Pre-op testing Preoperative examination, unspecified Preoperative examination Preoperative examination, unspecified Seizure (HCC) Other convulsions Primary hypertension Unspecified essential hypertension Hyperlipidemia, unspecified hyperlipidemia type Convulsions, unspecified convulsion type (HCC) [facility] Author Ludmila Merchant [facility] February 26, 2024 9:13am Note Date/Time February 26, 2024 9:13 am [facility] [address] [place] [address] Gastroenterology H&P Signed Patient: Davis Johnson MR#: [id number] : 1955 Acct:[id number] Age/Sex: 68 / M Adm Date: 4 Loc: Room: Type: [facility] Attending Dr: Ludmila Merchant MD Copies to: Herve Steele,DO Ludmila Merchant MD~ Date of Service: 02/26/2024 HISTORY & PHYSICAL: Patient's history with special attention to the cardiovascular, pulmonary systems and the current problem was reviewed with the patient immediately prior to the procedure. Present medications and doses reviewed in the EMR. Allergies and pertinent laboratory tests were also reviewedat this time in the EMR. The physical examination, as below, was then performed. Indication, assessment and HPI: 68-year-old man with history of colonic polyps here for surveillance colonoscopy Family history of GI malignancy? No PHYSICAL EXAMINATION General appearance: NAD Skin: No jaundice Head: NC/AT Eyes: Anicteric Neck: Supple Lungs: Normal respiratory effort, no use of accessory muscles Abdomen: nondistended Neuro: Ox3. REVIEW OF SYSTEMS Constitutional: Denies malaise, fevers Cardiovascular: Denies chest pain, palpitations Respiratory: Denies shortness of breath, wheezing Gastrointestinal: As per HPI Genitourinary: Denies dysuria, polyuria Musculoskeletal: Denies joint swelling, joint stiffness Neurological: Denies confusion, numbness, tingling Endocrine: Denies fatigue Written informed consent obtained from the patient. Risks (including but not limited to perforation, infection, bloating, bleeding, need for emergent surgeryand loss of life), benefits and alternatives explained and questions answered. The patient verbalized understanding. Based on history patient is an appropriate candidate for the procedure. Ludmila Merchant M.D. Documented By: Ludmila Merchant MD 02/26/24911 Signed By: <Electronically signed by Ludmila Merchant MD> 02/26/24912 [facility] Work Phone: Hospital Discharge instructions Additional Instructions DISCHARGE INSTRUCTIONS FOR COLONOSCOPY WHAT TO EXPECT: - You may feel full, gassy or cramping after your procedure. In some cases, this may be from a few hours to a day. Walking may help relieve the discomfort. - If you have polyp(s) removed you may note some minor bloody discharge after your first bowel movements. - You should begin to recover from anesthesia within 1 hour of the procedure, however may feel groggy for the next 24 hours. DO's AND DON'Ts: - Call your doctor right away if you have a hard abdomen, severe pain, are passing lots of bright red blood or clots. - Call your doctor if you develop any rashes, hives or difficulty breathing. - Let your doctor know if you have not had a bowel movement by 3 days after your procedure. - If you take 81 mg aspirin for your heart it is safe to resume this medication. - If you take other blood thinner medications your doctor will instruct you when these can safely be resumed. - Do NOT drive for 24 hours. - Do NOT operate machinery such as power tools, lawn mowers, snow blowers, sewing machines, etc. for 24 hours. - Avoid alcoholic beverages and drugs for allergies, nerves, or sleep. - Do NOT stay alone. Do NOT leave your child unattended. - Do NOT make important personal or business decisions or sign any legal documents. - Eat solid foods and drink liquids in smaller amounts than usual until normal appetite returns. If you should experience an upset stomach, liquids high in sugar content (soda, René-Aid, non-acid juices) are recommended. - You can resume normal activities tomorrow. FOLLOW UP & RECOMMENDATIONS: -Notify the doctor if you have any problems. -Repeat colonoscopy in3 years. -Follow up with PCP. -Office number [phone]. [facility] Work Phone: Hospital Discharge instructions Additional Instructions If your symptoms return/worsen or you develop any further concerns or symptoms please see your doctor or return to the emergency department immediately.[facility] Work Phone: Hospital Discharge instructionsAmbulatory Orders* Referral to Urology Time Frame: 05/26/24, Location: None Selected [facility] Work Phone: Reason for referral (narrative)* Reason *FU 01/26 Patient is needing evaluation and treatment of non-healing lip lesion. Please call patient with appt date and time. Thanks Diagnosis 1 Lip lesion (K13.0) Referral Organization [facility] [place] Referring Provider First Name Herve Referring Provider Last Name Ivette Referring Provider Specialty Family Prac valeria Referred Organization [facility] Referred Address [address] [facility] [address] [facility],[place], [place],[address] Referred Provider Specialty Dermatology Referral Priority Routine General Notes Fore, Sara M 022 11:07:03 AM >Received today. [facility] request us to fill out their form and fax to them. They will review the referral and call patient to schedule them. Referral was fax [place] Other Reason for referral (narrative)* Diagnostic Procedure Only (Routine) - Closed Specialty Diagnoses / Procedures Referred By Boby la Referred To Contact XR IMAGING Diagnoses Right shoulder pain, unspecified chronicity Procedures XR SHOULDER ORTHO 4V AP/TRUE AP/LAT/OUTLET RIGHT RADEX SHOULDER COMPLETE MINIMUM 2 VIEWS Fantasma Soriano PA-C [address] [place] [address] [place] [id number] Referral ID Status Reason Start Date Expiration Date V isits Requested Visits Authorized [id number] Closed Auto-Generate d Referral 04/09/2024 05/09/2025 1 1 [facility] for referral (narrative)* Diagnostic Procedure Only (Routine) - Authorized Specialty Diagnoses / Procedures Referred By Boby t Referred To Contact XR IMAGING Diagnoses Pain Procedures XR SHOULDER GENERAL 3V OR MORE AP/TRUE AP/OTHER RIGHT RADEX SHOULDER COMPLETE MINIMUM 2 VIEWS Hi Wooten MD [address] [place] [address] [place] [address] Referral ID Status Reason Start Date Expiration Date Visits Requested Visits Authorized [id number] Authorized Auto-Generat ed Referral 04/22/2024 05/22/2025 1 1 [facility] for referral (narrative)* Diagnostic Procedure Only (Routine) - Closed Specialty Diagnoses / Procedures Referred By Contac t Referred To Contact XR IMAGING Diagnoses Pain Procedures XR SHOULDER GENERAL 3V OR MORE AP/TRUE AP/OTHER RIGHT RADEX SHOULDER COMPLETE MINIMUM 2 VIEWS Hi Wooten MD [address] [place] [id number] Xr Imaging [id number] Referral ID Status Reason Start Date Expiration Date V isits Requested Visits Authorized [id number] Closed Auto-Generate d Referral 04/22/2024 05/22/2025 1 1 [facility] for referral (narrative)* Outpatient Procedure (Routine) - Closed Specialty Diagnoses / Procedures Referred By Contac t Referred To Contact [facility] Diagnoses Seizure (HCC) Procedures EPIL EEG ROUTINE ELECTROENCEPHALOGRAM REC COMA/SLEEP ONLY Ami Whittaker MD [address] [phone] [place] [address] Referral ID Status Reason Start Date Expiration Date V isits Requested Visits Authorized [id number] Closed Auto-Generate d Referral 04/27/2024 04/27/2025 1 1 [facility] for referral (narrative)* Diagnostic Procedure Only (Routine) - New Request Specialty Diagnoses / Procedures Referred By Contac t Referred To Contact XR IMAGING Diagnoses Posterior dislocation of right shoulder joint, initial encounter Procedures XR SHOULDER GENERAL 3V OR MORE AP/TRUE AP/OTHER RIGHT RADEX SHOULDER COMPLETE MINIMUM 2 VIEWS Hi Wooten MD [address] [phone] Xr Imaging [facility] Referral ID Status Reason Start Date Expiration Date Visits Requested Visits Authorized [id number] New Request Auto-Generat ed Referral 04/28/2024 05/28/2025 1 1 * Consult, Test, Treat (Routine) - Authorized Specialty Diagnoses / Procedures Referred By Contac t Referred To Contact Diagnoses Posterior dislocation of right shoulder joint, initial encounter Pre-op testing Procedures REFER TO [facility] - PREOPERATIVE OPTIMIZATION OFFICE/OUTPATIENT NEW HIGH MDM 60 MINUTES Hi Wooten MD [address] [place] [id number] Referral ID Status Reason Start Date Expiration Date Visits Requested Visits Authorized [id number] Authorized PCP Requested Referral 04/28/2024 04/28/2025 1 1 * Outpatient Procedure (Routine) - New Request Specialty Diagnoses / Procedures Referred By Contac t Referred To Contact [facility] Diagnoses Posterior dislocation of right shoulder joint, initial encounter Pre-op testing Procedures ECG COMPLETE ECG ROUTINE ECG W/LEAST 12 LDS W/I&R Hi Wooten MD [address] [facility] [place] [address] [facility] [place] [id number] [facility] [place] [id number] Referral ID Status Reason Start Date Expiration Date Visits Requested Visits Authorized [id number] New Request Auto-Generat ed Referral 04/28/2024 04/28/2025 1 1 * Diagnostic Procedure Only (Routine) - New Request Specialty Diagnoses / Procedures Referred By Contac t Referred To Contact XR IMAGING Diagnoses Posterior dislocation of right shoulder joint, initial encounter Procedures XR SHOULDER GENERAL 3V OR MORE AP/TRUE AP/OTHER RIGHT RADEX SHOULDER COMPLETE MINIMUM 2 VIEWS Hi Wooten MD [address] [place] [address] Xr Imaging [facility] Referral ID Status Reason Start Date Expiration Date Visits Requested Visits Authorized [id number] New Request Auto-Generat ed Referral 04/28/2024 05/28/2025 1 1 [facility] for referral (narrative)* Consultation (Routine) - Pending Review Specialty Diagnoses / Procedures Referred By Contac t Referred To Contact Physical Therapy Diagnoses Dislocation of right shoulder joint, initial encounter Brian Newsome PA-C [address] [address] Referral ID Status Reason Start Date Expiration Date Visits Requested Visits Authorized [id number] Pending Review Specialty Services Required 4 05/18/2025 1 1 * Imaging (Routine) - Authorized Specialty Diagnoses / Procedures Referred By Contac t Referred To Contact Radiology Diagnoses Right shoulder pain, unspecified chronicity Procedures XR shoulder right 2+ views Brian Newsome PA-C [address] [address] Referral ID Status Reason Start Date Expiration Date Visits Requested Visits Authorized [id number] Authorized Perform Procedure 4 05/18/2025 1 1 [facility] Work Phone: Reason for visit Narrative* Imaging (Routine) - Authorized Specialty Diagnoses / Procedures Referred By Contac t Referred To Contact Radiology Diagnoses Dislocation of right shoulder joint, initial encounter Procedures XR shoulder right 2+ views Damián Blackwood MD [address] [address] Phone: tel: fax: Referral ID Status Reason Start Date Expiration Date Visits Requested Visits Authorized [id number] Authorized Perform Procedure 4 06/17/2025 1 1 [facility] Work Phone: Summary Purpose Family History Relationship Condition Age at Onset Recorded Date/T tommy father Unknown Relationship Condition Age at Onset Recorded Date/T tommy father Unknown mother Heart disease Unknown brother Status post three ve ssel coronary artery bypass Unknown Advance Directives Advance Directive Response Recorded Date/ Time Advance Directives No May 25, 2017 7:20am Advance Directive Response Recorded Date/ Time Advance Directives No May 25, 2017 8:20am Advance Directive Response Recorded Date/ Time Advance Directives No September 02, 2023 5:37pm Chief Complaint and Reason for Visit Chief Complaint M54.50 Chief Complaint M54.50 M48.54XA R52 M54.50 Chief Complaint M48.54XA R52 M54.50 m85.88 s22.080d s22.080d Chief Complaint m85.88 s22.080d s22.080d Screening Chief Complaint e78.5 z12.5 Chief Complaint e78.5 z12.5 SUBSEQUENT MEDICARE WELLNESS Chief Complaint e78.5 z12.5 SUBSEQUENT MEDICARE WELLNESS R97.20 - Elevated prostate specific antigen [PSA] I65.21 Chief Complaint e78.5 z12.5 SUBSEQUENT MEDICARE WELLNESS R97.20 - Elevated prostate specific antigen [PSA] I65.21 1 month follow up Reason for Visit Medicare annual well ness visit, subsequent Screening for colon cancer Hyperglycemia Hyperlipidemia HTN (hypertension) Abnormal PSA Elevated PSA Neoplasm of uncertain behavior of skin Chief Complaint e78.5 z12.5 SUBSEQUENT MEDICARE WELLNESS R97.20 - Elevated prostate specific antigen [PSA] I65.21 1 month follow up Screening Screening Reason for Visit Medicare annual well ness visit, subsequent Screening for colon cancer Hyperglycemia Hyperlipidemia HTN (hypertension) Abnormal PSA Elevated PSA Neoplasm of uncertain behavior of skin Chief Complaint 1 month follow up Screening Screening Amb Documentation AMS Reason for Visit Elevated PSA Neoplasm of uncertain behavior of skin Chief Complaint Screening Screening Amb Documentation AMS r97.20 Chief Complaint Screening Screening Amb Documentation AMS r97.20 Amb Documentation Shave and Lab Review Reason for Visit Elevated PSA Shoulder fracture, right Reason for Referral Specialty Diagnoses / Procedures Referred By Boby t Referred To Contact MR IMAGING Diagnoses Convulsions, unspecified convulsion type (HCC) Procedures MRI BRAIN WO IVCON MRI BRAIN BRAIN STEM W/O CONTRAST MATERIAL Arnaldo Kinsey PA-C [address] [place] [phone] Mr Imaging [facility] Referral ID Status Reason Start Date Expiration Date Visits Requested Visits Authorized [id number] Authorized Auto-Generat ed Referral 4 07/22/2025 1 1 Specialty Diagnoses / Procedures Referred By Contac t Referred To Contact Radiology Diagnoses Right shoulder pain, unspecified chronicity Procedures XR shoulder right 2+ views Brian Newsome PA-C [address] [facility], [address] [place] [id number] Referral ID Status Reason Start Date Expiration Date Visits Requested Visits Authorized [id number] Authorized Perform Procedure 4 05/18/2025 1 1 Specialty Diagnoses / Procedures Referred By Contac t Referred To Contact Neurology Diagnoses Posterior dislocation of right shoulder joint, initial encounter Seizure (HCC) Procedures CONSULT TO NEUROLOGY OFFICE/OUTPATIENT [facility] 60 MINUTES Hi Wooten MD [address] [place] [address] Referral ID Status Reason Start Date Expiration Date Visits Requested Visits Authorized [id number] Authorized PCP Requested Referral 04/24/2024 04/24/2025 1 1 Specialty Diagnoses / Procedures Referred By Contac t Referred To Contact Orthopedics Diagnoses Posterior dislocation of right shoulder joint, initial encounter Procedures CONSULT TO ORTHOPAEDICS OFFICE/OUTPATIENT [facility] 60 MINUTES Fantasma Soriano PA-C [address] [place] [address] Referral ID Status Reason Start Date Expiration Date Visits Requested Visits Authorized [id number] Authorized PCP Requested Referral 04/09/2024 04/09/2025 1 1 Specialty Diagnoses / Procedures Referred By Contac t Referred To Contact XR IMAGING Diagnoses Right shoulder pain, unspecified chronicity Procedures XR SHOULDER ORTHO 4V AP/TRUE AP/LAT/OUTLET RIGHT RADEX SHOULDER COMPLETE MINIMUM 2 VIEWS Fantasma Soriano PA-C [address] [place] [address] Xr Imaging [facility] Referral ID Status Reason Start Date Expiration Date V isits Requested Visits Authorized [id number] Closed Auto-Generate d Referral 04/09/2024 05/09/2025 1 1 Reason *FU 06/03 [facility] Please- Evaluate and Treat Diagnosis 1 Neoplasm of uncertai n behavior of skin (D48.5) Referral Organization [facility] [place] Referring Provider First Name Herve Referring Provider Last Name Wesleydeangelo Referring Provider Specialty Family Prac valeria Referred Organization [facility] Referred Address [address],[place], [place],[address] Referred Provider Specialty Dermatology Referral Priority Routine General Notes Sara Olivares 023 08:42:36 AM >Received today. [facility] request us to fill out their form and fax to them. They will review the referral and call patient to schedule them. Referral was fax Clinical Notes Office [phone] option 1 Reason 08/20/22 @ 1:40pm consult and treat Diagnosis 1 Compression fracture of T12 vertebra, initial encounter (S22.080A) Referral Organization [facility] [employer] [place] Referring Provider First Name Herve Referring Provider Last Name Wesleydeangelo Referring Provider Specialty Family Prac valeria Referred Organization [facility] Referred Provider Elvia Palacios Referred Address [address] ,[place], [place],[address] Referred Provider Specialty Neurological Surgery Referral Priority Routine Referral Appointment Date 2022-08-20 General Notes Sara Olivares 022 09:10:06 AM >Received today and sent P2P Sara Olivares 08/20/2022 11:31:17 AM >[facility] 07:36:01 AM >Sent telephone encounter to referring physician to let them know that the consult letter is ready for their review Additional Source Comments (unrecognized sect ion and content) No Status Records FoundNo Status Records FoundNo Status Records FoundNo Status Records FoundNo Status Records FoundNo Status Records FoundNo Status Records Found INFORMATION SOURCE (unrecogn ized section and content) DATE CREATED AUTHOR 03/11/2021 [facility] DATE CREATED AUTHOR AUTHOR'S ORGANIZ ATION 04/24/2024 [facility] [facility] EPIC DATE CREATED AUTHOR AUTHOR'S ORGANIZ ATION 05/06/2024 [facility] DATE CREATED AUTHOR AUTHOR'S ORGANIZ ATION 05/17/2024 [facility] DATE CREATED AUTHOR AUTHOR'S ORGANIZ ATION 06/19/2024 [facility] DATE CREATED AUTHOR AUTHOR'S ORGANIZ ATION 06/22/2024 [facility] DATE CREATED AUTHOR AUTHOR'S ORGANIZ ATION 06/24/2024 [facility] REASON FOR VISIT (unrecogniz ed section and content) Reason Comments New Reason Comments Patient Update Orthopedic Verbal In structions to go to ED [facility] [place] Reason Comments Radiology XR Specialty Diagnoses / Procedures Referred By Contac t Referred To Contact XR IMAGING Diagnoses Right shoulder pain, unspecified chronicity Procedures XR SHOULDER ORTHO 4V AP/TRUE AP/LAT/OUTLET RIGHT RADEX SHOULDER COMPLETE MINIMUM 2 VIEWS Fantasma Soriano PA-C [address] [place] [address] [place] [address] Referral ID Status Reason Start Date Expiration Date V isits Requested Visits Authorized [id number] Closed Auto-Generate d Referral 04/09/2024 05/09/2025 1 1 Reason Comments Appointment Reason Comments New Specialty Diagnoses / Procedures Referred By Contac t Referred To Contact Orthopedics Diagnoses Posterior dislocation of right shoulder joint, initial encounter Procedures CONSULT TO ORTHOPAEDICS OFFICE/OUTPATIENT NEW HIGH MDM 60 MINUTES Fantasma Soriano PA-C [address] [place] [address] Referral ID Status Reason Start Date Expiration Date V isits Requested Visits Authorized [id number] Closed PCP Requested Referral 04/09/2024 04/09/2025 1 1 Reason Comments Radio Gen A21 Specialty Diagnoses / Procedures Referred By Contac t Referred To Contact XR IMAGING Diagnoses Pain Procedures XR SHOULDER GENERAL 3V OR MORE AP/TRUE AP/OTHER RIGHT RADEX SHOULDER COMPLETE MINIMUM 2 VIEWS Hi Wooten MD [address] [place] [address] [place] [address] Referral ID Status Reason Start Date Expiration Date V isits Requested Visits Authorized [id number] Closed Auto-Generate d Referral 04/22/2024 05/22/2025 1 1 Reason Comments New Patient Specialty Diagnoses / Procedures Referred By Contac t Referred To Contact Neurology Diagnoses Posterior dislocation of right shoulder joint, initial encounter Seizure (HCC) Procedures CONSULT TO NEUROLOGY OFFICE/OUTPATIENT [facility] 60 MINUTES Hi Wooten MD [address] [place] [id number] Referral ID Status Reason Start Date Expiration Date V isits Requested Visits Authorized [id number] Closed PCP Requested Referral 04/24/2024 04/24/2025 1 1 Reason Comments Pre-Op Visit Specialty Diagnoses / Procedures Referred By Contac t Referred To Contact Diagnoses Posterior dislocation of right shoulder joint, initial encounter Pre-op testing Procedures REFER TO [facility] PRE[facility]ATIVE OPTIM[facility]ATION OFFICE/OUTPATIENT [facility] 60 MINUTES Hi Wooten MD [address] [facility] [place] [id number] Referral ID Status Reason Start Date Expiration Date V isits Requested Visits Authorized [id number] Closed PCP Requested Referral 04/28/2024 04/28/2025 1 1 Reason Comments Radiology XR Reason Comments Post-op SUE/RCR/biceps teno desis 05/05/24Xrays today Specialty Diagnoses / Procedures Referred By Contac t Referred To Contact Radiology Diagnoses Right shoulder pain, unspecified chronicity Procedures XR shoulder right 2+ views Brian Newsome PA-C [address] [facility], [address] [place] [address] Referral ID Status Reason Start Date Expiration Date Visits Requested Visits Authorized [id number] Authorized Perform Procedure 05/18/2025 1 1 Reason Comments Follow-up HEMIDOS: 05/05/24Xray s today Reason Comments Medication Problem Patient wants to red uce Keppra Specialty Diagnoses / Procedures Referred By Contac t Referred To Contact MR IMAGING Diagnoses Convulsions, unspecified convulsion type (HCC) Procedures MRI BRAIN WO IVCON MRI BRAIN BRAIN STEM W/O CONTRAST MATERIAL Arnaldo Kinsey PA-C [address] [place] [address] [place] [id number] Referral ID Status Reason Start Date Expiration Date V isits Requested Visits Authorized [id number] Closed Auto-Generate d Referral 06/22/2024 07/22/2025 1 1 Care Teams (unrecognized sec tion and content) Team Status: Inactive Member Role Status Cristo Steele , DO Primary Care Provider, Attending Provi conchita Active Team Status: Active Member Role Status Cristo Steele , DO Primary Care Provider Active Team Status: Inactive Member Role Status Cristo Steele DO Primary Care Provider Active Elvia Palacios MD Attending Provider Active Team Status: Inactive Member Role Status Cristo Steele DO Primary Care Provider Active Outreach [facility] Attending Provider Active Team Status: Inactive Member Role Status Cristo Steele DO Primary Care Provide r, Attending Provider Active Start: December 09, 2023 End: December 09, 2023 Team Status: Inactive Member Role Status Cristo Steele DO Primary Care Provide r, Attending Provider Active Start: December 26, 2023 End: December 26, 2023 Team Status: Active Member Role Status Cristo Steele DO Primary Care Provide r, Attending Provider Active Start: December 26, 2023 Team Status: Inactive Member Role Status Cristo Steele DO Primary Care Provide r, Attending Provider Active Start: January 02, 2024 End: January 02, 2024 Team Status: Inactive Member Role Status Cristo Steele DO Primary Care Provide r, Attending Provider Active Start: January 27, 2024 End: January 27, 2024 Team Status: Inactive Member Role Status Cristo Steele DO Primary Care Provider Active Sta rt: February 26, 2024 End: February 26, 2024 uLdmila Merchant MD Attending Provider Active Start: February 26, 2024 End: February 26, 2024 Team Status: Active Member Role Status Cristo Steele DO Primary Care Provider Active Sta rt: February 26, 2024 Ludmila Merchant MD Attending Provider, Other Provider Act quirino Start: February 26, 2024 Team Status: Active Member Role Status Cristo Steele DO Primary Care Provider Active Sta rt: February 27, 2024 Miesha Baptiste Attending Provider Active Start: 2023 Team Status: Inactive Member Role Status Cristo Steele DO Primary Care Provider Active Sta rt: April 03, 2024 End: April 03, 2024 Sly Gleason DO Emergency Provider Active Start: April 03, 2024 End: April 03, 2024 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 Tender Relationship Specialty Start Date End Date Herve Steele [address] [place] [address] PCP - General Family Medicine 04/09/24 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 Machine Tender Relationship Specialty Start Date End Date Herve Steele [address] [place] [phone] PCP - General Family Medicine 04/09/24 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 Machine Tender Relationship Specialty Start Date End Date Herve Steele [address] [place], [place] [phone] PCP - General Family Medicine 04/09/24 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 Machine Tender Relationship Specialty Start Date End Date Herve Steele [address] [place] [address] PCP - General Family Medicine 04/09/24 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 Machine Tender Relationship Specialty Start Date End Date Herve Steele [address] [place] [address] PCP - General Family Medicine 04/09/24 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 Machine Tender Relationship Specialty Start Date End Date Herve Steele [address] [place] [address] PCP - General Family Medicine 04/09/24 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 Machine Tender Relationship Specialty Start Date End Date Herve Steele [address] [place] [phone] PCP - General Family Medicine 04/09/24 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 Machine Tender Relationship Specialty Start Date End Date Herve Steele [address] [place] [phone] PCP - General Family Medicine 04/09/24 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 Machine Tender Relationship Specialty Start Date End Date Herve Steele [address] [place], [place] [phone] PCP - General Family Medicine 04/09/24 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 Machine Tender Relationship Specialty Start Date End Date Herve Steele [address] [place] [phone] PCP - General Family Medicine 04/09/24 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 Machine Tender Relationship Specialty Start Date End Date Herve Steele [address] [place], [place] [phone] PCP - General Family Medicine 04/09/24 Team Status: Active Member Role Status Dates Herve Steele DO Primary Care Provider Active Sta rt: April 30, 2024 Hi Wooten MD Attending Provider Active Start: April 30, 2024 Team Status: Inactive Member Role Status Dates Herve Steele DO Primary Care Provide r, Attending Provider Active Start: May 15, 2024 End: May 15, 2024 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 Machine Tender Relationship Specialty Start Date End Date Generic Provider, No Ass[place] [address] PCP - General Identifier Horse 05/04/24 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 Machine Tender Relationship Specialty Start Date End Date Generic Provider, [place] [address] PCP - General Identifier Horse 05/04/24 Team Status: Active Member Role Status Dates Herve Steele DO Primary Care Provide r, Attending Provider Active Start: May 19, 2024 Team Status: Active Member Role Status Dates Herve Steele DO Primary Care Provider Active Sta rt: May 19, 2024 Jennifer Irving LPN Attending Provider Active Sta rt: May 19, 2024 Team Status: Inactive Member Role Status Dates Herve Steele DO Primary Care Provide r, Attending Provider Active Start: May 26, 2024 End: May 26, 2024 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 Machine Tender Relationship Specialty Start Date End Date Herve Steele DO [address] [place] [address] PCP - General Family Medicine 06/17/24 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 Machine Tender Relationship Specialty Start Date End Date Herve Steele DO [address] [place] [address] PCP - General Family Medicine 06/17/24 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 Machine Tender Relationship Specialty Start Date End Date Herve Steele [address] [place] [phone] PCP - General Family Medicine 04/09/24 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 Machine Tender Relationship Specialty Start Date End Date Herve Steele [address] [place] [phone] PCP - General Family Medicine 04/09/24 Goals (unrecognized section and content) Goals may be documented in a n alternate section Source Comments (unrecognize d section and content) In the event this informatio n is protected by the Federal Confidentiality of Alcohol and Drug Abuse Patient Records regulations: The Federal rules restrict any use of the information to criminally investigate or prosecute any alcohol or drug abuse patient.[facility] the event this information is protected by the Federal Confidentiality of Alcohol and Drug Abuse Patient Records regulations: The Federal rules restrict any use of the information to criminally investigate or prosecute any alcohol or drug abuse patient.[facility] the event this information is protected by the Federal Confidentiality of Alcohol and Drug Abuse Patient Records regulations: The Federal rules restrict any use of the information to criminally investigate or prosecute any alcohol or drug abuse patient.[facility] the event this information is protected by the Federal Confidentiality of Alcohol and Drug Abuse Patient Records regulations: The Federal rules restrict any use of the information to criminally investigate or prosecute any alcohol or drug abuse patient.[facility] HospitalIn the event this information is protected by the Federal Confidentiality of Alcohol and Drug Abuse Patient Records regulations: The Federal rules restrict any use of the information to criminally investigate or prosecute any alcohol or drug abuse patient.[facility] HospitalIn the event this information is protected by the Federal Confidentiality of Alcohol and Drug Abuse Patient Records regulations: The Federal rules restrict any use of the information to criminally investigate or prosecute any alcohol or drug abuse patient.[facility] HospitalIn the event this information is protected by the Federal Confidentiality of Alcohol and Drug Abuse Patient Records regulations: The Federal rules restrict any use of the information to criminally investigate or prosecute any alcohol or drug abuse patient.[facility] HospitalIn the event this information is protected by the Federal Confidentiality of Alcohol and Drug Abuse Patient Records regulations: The Federal rules restrict any use of the information to criminally investigate or prosecute any alcohol or drug abuse patient.[facility] Hospital[facility] the event this information is protected by the Federal Confidentiality of Alcohol and Drug Abuse Patient Records regulations: The Federal rules restrict any use of the information to criminally investigate or prosecute any alcohol or drug abuse patient.[facility] Hospital[facility] the event this information is protected by the Federal Confidentiality of Alcohol and Drug Abuse Patient Records regulations: The Federal rules restrict any use of the information to criminally investigate or prosecute any alcohol or drug abuse patient.[facility] HospitalIn the event this information is protected by the Federal Confidentiality of Alcohol and Drug Abuse Patient Records regulations: The Federal rules restrict any use of the information to criminally investigate or prosecute any alcohol or drug abuse patient.[facility] HospitalIn the event this information is protected by the Federal Confidentiality of Alcohol and Drug Abuse Patient Records regulations: The Federal rules restrict any use of the information to criminally investigate or prosecute any alcohol or drug abuse patient.[facility] HospitalIn the event this information is protected by the Federal Confidentiality of Alcohol and Drug Abuse Patient Records regulations: The Federal rules restrict any use of the information to criminally investigate or prosecute any alcohol or drug abuse patient.[facility] HospitalIn the event this information is protected by the Federal Confidentiality of Alcohol and Drug Abuse Patient Records regulations: The Federal rules restrict any use of the information to criminally investigate or prosecute any alcohol or drug abuse patient.[facility] HospitalIn the event this information is protected by the Federal Confidentiality of Alcohol and Drug Abuse Patient Records regulations: The Federal rules restrict any use of the information to criminally investigate or prosecute any alcohol or drug abuse patient.[facility] HospitalIn the event this information is protected by the Federal Confidentiality of Alcohol and Drug Abuse Patient Records regulations: The Federal rules restrict any use of the information to criminally investigate or prosecute any alcohol or drug abuse patient.[facility] FOR RECORDS PERTAINING TO PATIENTS WHO ARE OR HAVE BEEN ENROLLED IN A CHEMICAL DEPENDENCY/SUBSTANCEABUSE PROGRAM, SOME INFORMATION MAY BE OMITTED. This clinical summary was aggregated from multiple sources. Caution should be exercised in using it in the provision of clinical care. This summary normalizes information from multiple sources, and as a consequence, information in this document may materially change the coding, format and clinical context of patient data. In addition, data may be omitted in some cases. CLINICAL DECISIONS SHOULD BE BASED ON THE PRIMARY CLINICAL RECORDS. [facility]. provides no warranty or guarantee of the accuracy or completeness of information in this document.
--- NOTE | 2024-07-04 04:23 | ECG_ITS ---
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
--- NOTE | 2024-07-04 04:32 | ED_ITS ---
HPI - Seizure General Chief Complaint: Seizure Stated Complaint: SEIZURE Time Seen by Provider: 07/04/24 04:18 Source: patient Mode of arrival: ambulance History of Present Illness HPI Narrative: Pt brought in by EMS after the witnessed him having a generalized seizure in bed tonight. She woke to find him making a loud scream-like moan, arms outstretched and shaking all over . He had his first seizure in February. He had extensive workup and they cannot find the cause of the seizure - he sees a neurologist in [facility] through [facility]. he just recently had an unremarkable MRI of the brain - she showed me the report = no mass or bleed with white matter changes noted. The patient is post-ictal and gives limited history The said that the patient has been taking his Keppra as prescribed - 500mg twice daily - and that he has been eating and drinking well, avoiding alcohol and getting plenty of rest each night. No recent illness. Seizure History: Yes (3 MONTH) Place: home Related Data Home Medications ?Medication ?Instructions ?Recorded ?Confirmed amlodipine 5 mg tablet 5 mg PO DAILY 04/05/24 07/04/24 carvedilol 6.25 mg tablet 6.25 mg PO DAILY 04/05/24 07/04/24 olmesartan 20 1 tab PO DAILY 04/05/24 07/04/24 mg-hydrochlorothiazide 12.5 mg tablet levetiracetam 500 mg tablet 500 mg PO Q12H 07/04/24 07/04/24 Allergies Allergy/AdvReac Type Severity Reaction Status Date / Time No Known Drug Allergies Allergy Verified 07/04/24 04:13 Exam Narrative Exam Narrative: Nurses notes and vital signs reviewed and patient is not hypoxic on arrival. afebrile General: Well-appearing and in no apparent distress. Skin: Warm, dry, no pallor noted. No rash. Head: Normocephalic, atraumatic. Neck: Supple, non-tender. No meningismus. Eye: Pupils are equal, round and EOMI. No scleral icterus. Ears, Nose, Mouth, and Throat: TM are clear, no posterior oropharynx erythema or nasal mucosal hypertrophy, uvula is mid-line Oral mucosa is moist Cardiovascular: Regular Rate and Rhythm without murmur, gallop or rub. Respiratory: No accessory muscle use or respiratory distress. Lungs are clear to auscultation, no wheezing, rales or rhonchi Chest Wall: no tenderness Back: No midline thoracic or lumbar vertebral tenderness. No CVA tenderness Musculoskeletal: normal ROM, no calf or popliteal tenderness, no lower extremity edema/swelling GI: Abdomen is soft, non-distended. Normal bowel sounds. No masses appreciated. No tenderness to palpation. No rebound, guarding, or rigidity noted. Neurological: A&O x4. No cranial nerve dysfunction observed. No truncal ataxia. Moves all extremities. Sensation intact. Psychiatric: Cooperative and interactive. Normal mood and affect. Constitutional Vital Signs, click to edit/add: Last Vital Signs Temp 98.0 F 07/04/24 04:08 Pulse 76 07/04/24 04:55 Resp 13 07/04/24 04:55 BP 134/73 07/04/24 04:55 Pulse Ox 94 L 07/04/24 04:55 O2 Del Method Room Air 07/04/24 04:42 O2 Flow Rate 2 07/04/24 04:42 Course Vital Signs Vital signs: Vital Signs Temperature 98.0 F 07/04/24 04:08 Pulse Rate 80 07/04/24 04:08 Respiratory Rate 18 07/04/24 04:08 Blood Pressure 144/83 H 07/04/24 04:08 Pulse Oximetry 91 L 07/04/24 04:08 Oxygen Delivery Method Room Air 07/04/24 04:08 Temperature 98.0 F 07/04/24 04:08 Pulse Rate 76 07/04/24 04:55 Respiratory Rate 13 07/04/24 04:55 Blood Pressure 134/73 07/04/24 04:55 Pulse Oximetry 94 L 07/04/24 04:55 Oxygen Delivery Method Room Air 07/04/24 04:42 Oxygen Delivery Flow Rate 2 07/04/24 04:42 MDM - Seizure MDM Narrative Medical decision making narrative: Patient was placed on compliance monitor and EKG obtained. Blood drawn and sent for evaluation, including send out for Keppra level. His oxygenation decreased to 91% on room air and therefore I asked that nurse to apply a nasal cannula to the patient and provide oxygen at 2 L/min. I reviewed the patient's recent MRI. I do not see a benefit to getting a CT scan of the brain at this time as the recent MRI was negative for acute pathology. The patient was given 500 mg Keppra IV and seizure precautions initiated. Lab results were unremarkable and did not reveal a reason for his seizure. Patient returned to baseline mentation. Long talk with patient and about seizure disorder, breakthrough seizures, importance of avoiding triggers and importance of following up with neurologist - he is scheduled to be seen by neurology Jul 17. Lab Data Attestation: I reviewed the patient's lab results. Labs: Lab Results 07/04/24 Range/Units 04:15 WBC 6.3 (4.0-11.0) 10^3/uL RBC 4.66 L (4.70-6.10) 10^6/uL Hgb 14.7 (14.0-18.0) g/dL Hct 44.1 (42.0-54.0) % MCV 94.6 H (80.0-94.0) fL MCH 31.5 (25.9-34.0) pg MCHC 33.3 (29.9-35.2) g/dL RDW 12.9 (11.0-15.0) % Plt Count 257 (150-450) 10^3/uL MPV 9.7 (9.5-13.5) fL Neut % (Auto) 45.4 (43.0-75.0) % Lymph % (Auto) 34.9 (20.5-60.0) % [place] % (Auto) 13.6 H (1.7-12.0) % Eos % (Auto) 4.8 (0.9-7.0) % Baso % (Auto) 0.8 (0.2-2.0) % Neut # (Auto) 2.9 (1.4-6.5) 10^3/uL Lymph # (Auto) 2.2 (1.2-3.8) 10^3/uL [place] # (Auto) 0.9 H (0.3-0.8) 10^3/uL Eos # (Auto) 0.3 (0.0-0.7) 10^3/uL Baso # (Auto) 0.1 (0.0-0.1) 10^3/uL Abs Immat Gran (auto) 0.03 (0.00-0.03) 10^3/uL Imm/Tot Granulo (auto) 0.5 (0.0-0.5) % Sodium 140 (136-145) mmol/L Potassium 3.7 (3.5-5.1) mmol/L Chloride 105 (98-107) mmol/L Carbon Dioxide 23.4 (21.0-32.0) mmol/L Anion Gap 15.3 BUN 13.0 (7.0-18.0) mg/dL Creatinine 1.30 (0.70-1.30) mg/dL Est GFR ( Amer) >60 (>=60 mL/min/1.73m^2) Est GFR (Non-Af Amer) 55 L (>=60 mL/min/1.73m^2) BUN/Creatinine Ratio 10.0 Glucose 117 H (74-106) mg/dL Calcium 8.9 (8.5-10.1) mg/dL Total Bilirubin 0.2 (0.2-1.0) mg/dL AST 13 L (15-37) U/L ALT 19 (16-63) U/L Alkaline Phosphatase 115 (46-116) U/L Total Protein 6.3 L (6.4-8.2) g/dL Albumin 3.3 L (3.4-5.0) g/dL Globulin 3.0 g/dL Albumin/Globulin Ratio 1.1 Discharge Plan Discharge Chief Complaint: Seizure Clinical Impression: Epileptic seizure Patient Disposition: Home, Self-Care Time of Disposition Decision: 05:21 Prescriptions / Home Meds: No Action carvedilol 6.25 mg tablet 6.25 mg PO DAILY amlodipine 5 mg tablet 5 mg PO DAILY olmesartan-hydrochlorothiazide 20-12.5 mg tablet 1 tab PO DAILY levetiracetam 500 mg tablet 500 mg PO Q12H Print Language: [place] Instructions: Recurrent Seizures in Adults (ED) Referrals: HERVE STEELE [Primary Care Provider] - 1 week
[2024-07-04] MEDS: LEVETIRACETAM 500 MG in 0.9 % SODIUM CHLORIDE 100 ML IV (04:38)
[2024-07-04 04:50] LABS: Basophils Absolute Auto 0.1 10^3/uL (0.0-0.1); Basophils Percent Auto 0.8 % (0.2-2.0); Eosinophils Absolute Auto 0.3 10^3/uL (0.0-0.7); Eosinophils Percent Auto 4.8 % (0.9-7.0); Hematocrit 44.1 % (42.0-54.0); Hemoglobin 14.7 g/dL (14.0-18.0); Immature Granulocytes Abs Auto 0.03 10^3/uL (0.00-0.03); Immature Granulocytes Pct Auto 0.5 % (0.0-0.5); Lymphocytes Absolute Auto 2.2 10^3/uL (1.2-3.8); Lymphocytes Percent Auto 34.9 % (20.5-60.0); Mean Corpuscular HGB Conc 33.3 g/dL (29.9-35.2); Mean Corpuscular Hemoglobin 31.5 pg (25.9-34.0); Mean Corpuscular Volume 94.6 fL (80.0-94.0); Mean Platelet Volume 9.7 fL (9.5-13.5); Monocytes Absolute Auto 0.9 10^3/uL (0.3-0.8); Monocytes Percent Auto 13.6 % (1.7-12.0); Neutrophils Absolute Auto 2.9 10^3/uL (1.4-6.5); Neutrophils Percent Auto 45.4 % (43.0-75.0); Platelet Count 257 10^3/uL (150-450); Red Blood Count 4.66 10^6/uL (4.70-6.10); Red Cell Distribution Width 12.9 % (11.0-15.0); White Blood Count 6.3 10^3/uL (4.0-11.0)
[2024-07-04 05:04] LABS: Alanine Aminotransferase 19 U/L (16-63); Albumin Globulin Ratio 1.1; Albumin Level 3.3 g/dL (3.4-5.0); Alkaline Phosphatase 115 U/L (46-116); Anion Gap 15.3; Aspartate Amino Transferase 13 U/L (15-37); Bilirubin Total 0.2 mg/dL (0.2-1.0); Calcium 8.9 mg/dL (8.5-10.1); Carbon Dioxide 23.4 mmol/L (21.0-32.0); Chloride 105 mmol/L (98-107); Estimated GFR (African America >60 (>=60 mL/min/1.73m^2); Estimated GFR (Non-African Ame 55 (>=60 mL/min/1.73m^2); Glucose 117 mg/dL (74-106); Potassium 3.7 mmol/L (3.5-5.1); Sodium 140 mmol/L (136-145); Total Protein 6.3 g/dL (6.4-8.2)
== END 2024-07-04 05:42 | disposition home or self-care (01) ==
PROVIDERS: Emergency Provider Emergency Medicine; PCP Family Medicine
DX: G40.909 Epilepsy, unspecified, not intractable, without status epilepticus (principal)
CPT/HCPCS: 36415; 80053; 80177; 85025; 93005; 96374; 99285; J1953

== ENCOUNTER 2024-08-05 09:53 | Outpatient (RCR) | payer MEDICARE, SELFPAY | END 2024-09-18 09:24 | disposition home or self-care (01) | LOC: PT 09:53 | PROVIDERS: PCP Family Medicine | DX: S43.004D Unspecified dislocation of right shoulder joint, subsequent encounter (principal); M25.511 Pain in right shoulder | CPT/HCPCS: 97110; 97112; 97140 ==

== ENCOUNTER 2024-08-06 07:27 | Outpatient (RCR) | payer MEDICARE, SELFPAY | END 2024-09-04 08:19 | disposition home or self-care (01) | LOC: OT 07:27 | PROVIDERS: PCP Family Medicine; Visit Provider Orthopaedic Surgery | DX: I89.0 Lymphedema, not elsewhere classified (principal); M79.601 Pain in right arm | CPT/HCPCS: 97022; 97140; 97167; 97530 ==

== ENCOUNTER 2025-06-08 15:01 | Emergency (ER) | payer MEDICARE, SELFPAY ==
--- OUTSIDE RECORDS SUMMARY | 2025-06-03 03:45 | XMS_ITS | Continuity of Care Document ---
Author Organization [facility] Address [address] [place] [address] Phone Care Team Providers Care Manager Flight Name Role Phone Antione Vogt DO Primary Care Provider Antione Vogt DO Attending Provider Care Teams Patient Care Team Team Status: Active Member Role/Relationship Status Dates Antione Vogt DO Primary Care Provider Active Visit Care Team Team Status: Inactive Member Role/Relationship Status Dates Antione Vogt DO Primary Care Provider Active Sta rt: May 31, 2025 End: May 31kell Vogt DOAttmilly ProviderActiveStart: May 31, 2025 End: May 31, 2025 Patient Care Team Team Status: Inactive Member Role/Relationship Status Dates Antione Vogt DO Primary Care Provider Active Sta rt: June 03, 2025 End: June 03Isaac Banerjee ProviderActiveStart: June 03, 2025 End: June 03, 2025 Chief Complaint and Reason for Visit Chief Complaint Admit Date medicare wellness June 03, 2025 7 :48am Reason for Visit Admit Date BPH with elevated PSA June 03, 2025 7:48am Hyperglycemia June 03, 2025 7 :48am Hyperlipidemia June 03, 2025 7 :48am Hypertension June 03, 2025 7 :48am Medicare annual wellness visit, subseque nt June 03, 2025 7:48am Dizziness June 03, 2025 7 :48am Allergies, Adverse Reactions, Alerts Allergen Type Severity Reaction Last Updated Verified Status No Known Allergies Allergy Unknown June 03, 2025 8:17amYesActive Social History Smoking Status Status Start Date End Date Date of Observa tion Never smoked tobacco (finding) June 03, 2025 8:33am Observation Status Observation Response Date of Response Legal Sex Male (finding) Sex [facility] 1954 Family History Relationship Condition Age at Onset Recorded Date/T tommy father Unknown motherHeart diseaseUnknownbrotherStatus post three vessel coronary artery bypass Unknown Problems Active Problems Problem Diagnosis/Recorded Date Onset Date Stat us Elevated PSA January 24, 2024 8:41am Unknown Activ e Medicare annual wellness vis it, subsequent June 03, 2025 8:04am Unknown Active BPH with elevated PSA November 30, 2024 9:18am Unknown Active Hyperglycemia January 24, 2024 8:42am Unknown Acti ve Hyperlipidemia January 24, 2024 8:42am Unknown Act quirino Seizure disorder August 11, 2024 12:28pm Unknown Active Joint swelling June 19, 2024 12:40pm Unknown Active Carotid stenosis, right January 24, 2024 8:41am Unknown Active Shoulder fracture, right May 26, 2024 11:56am Un known Active Hypertension January 24, 2024 8:42am Unknown Activ e Macular degeneration August 11, 2024 12:33pm Unknown Active Injury of right hand August 11, 2024 12:35pm Unknown Active Inactive/Resolved Problems Problem Diagnosis/Recorded Date Onset Date Stat us Seizure April 03, 2024 12:32pm Unknown Re solved Contusion of right shoulder April 03, 2024 12:32pm Unknown Resolved Medications Medication Status Dose Units Route Directions Qty Days Refills S tart Date Stop Date End Date Reason(s) Instructions Adherence Amlodipine 5 mg tablet Active 5 MG PO Daily 9 0 2024 9:38amComplies with drug therapyCarvedilol 6.25 mg tablet Active6.85QMDAEvjtc472Qqilev 4th, 2025 9:38amComplies with drug therapy Olmesartan-Hydrochlorothiazide 20-12.5 mg zgnwqwHcqpmv2OPRBBStanb253Zlbyyb 4th, 2025 9:38amComplies with drug therapyLevetiracetam (Keppra) 500 mg tablet Jwwilmcpnjzr001CWVDGsmwo dailyOct2023 12:00amDecember 2023 11:32amCarvedilol 6.25 mg sjqgibSmkdsgwskwzr3PUFJSGjlubRyt 2023 12:00amMay 2023 9:08amFreeTextSi tablet Orally Once a day; Note: Source Status: Continue; Provider: Torie Talbot RAmlodipine 5 mg gpvmgpYfrkhrxbuhiq0LZHPZMdqlqXms 2023 12:00amMay 2023 9:08amFreeTextSi tablet Orally Once a day; Note: Source Status: Continue; Provider: Torie Talbot RAspirin 81 mg tablet,oczziqddXtunuq0GELNWSxrzpXzo 2023 12:00amFreeTextSi tablet Orally Once a day; Note: Source Status: Taking; Provider: Torie Talbot (NPI: [id number])Complies with drug therapyOlmesartan-Hydrochlorothiazide 20-12.5 mg hyldjlBplzzymymoir2NIMPHGkuijXpk 2023 12:00amMay 2023 9:08am Olmesartan-Hydrochlorothiazide 20-12.5 mg wwbejhFguekjwvoosx2MJYXJHreqw857Dww 2023 9:05amAugust 2024 9:38amCarvedilol 6.25 mg tabletDiscontinued 6.24YNNGKublm651Mtw 2023 9:07amAugust 2024 9:38amAmlodipine 5 mg huhkruJnnwcffzibps3XMDCKrsvd959Tve 2023 9:08amAugust 2024 9:38am Levetiracetam 750 mg memxvbWmgmwx841KPNWXrkzw dailyDecember 2023 1:00am Complies with drug therapy Immunizations Immunization Event Date Not Given Reason Dose Number Manager Area Lot Number Reason(s) Given Vaccine Information Statement (VIS) Detail Administration Location diphtheria, TT and pertussis vaccine December 28 021 Trivalent Influenza VaccineDece2018Patient Refused Relevant Diagnostic Tests and/or Laboratory Data Laboratory Results Test Collection Date/Time Result Date/Time Result Interpretation Reference Range Result Comment Performing Site Corrected White Blood Count May 31, 2025 8:00am May 31, 2025 1:50pm 6.1 10*3/uL 4.1-10.5[facility] [id number] [address] [facility] 05883Xzlxrnrmqop WBC CountOctober 2024 8:00amOctober 2024 1:50pm6.1 10*3/uL4.1-10.5FBl[facility] [id number] [address] [facility] [address]Tnd Blood CountOctober 2024 8:00amOct2024 1:50pm4.52 10*6/uL3.90-5.60[facility] [id number] [address] [facility] [address]TjpfalhpazFoccmpc 27th, 2025 8:00amOct2024 1:50pm 14.8 g/dL13.0-17.0[facility] [id number] [address] [place] [address] 31635VbwlwwnxrpRsxjxes 2024 8:00amOct2024 1:50pm 43.6 %38.8-50.0[facility] [id number] [address] [place] [address] 28557Khcb Corpuscular VolumeOct2024 8:00amMay 31, 2025 1:50pm96.4 fL83.5-101[facility] [id number] [address] [place] [address] 95619Rkmz Corpuscular HemoglobinOctober 2024 8:00amOctober 2024 1:50pm32.7 pg27.5-35.2FBl[facility] [id number] [address] [place] [address] 90456Kyyw Corpuscular Hemoglobin ConcentOctober 2024 8:00am May 31, 2025 1:50pm33.9 g/dL32.5-35.6FBl[facility] [id number] [address] [facility] [address]Uya Cell Distribution WidthOctober 2024 8:00amOct2024 1:50pm14.3 %12.0-14.8[facility] [id number] [address] [facility] 100[address]Iqkdxesg CountOctober 2024 8:00amOctober 2024 1:32bj118 10*3/lW374-131UfuejtrkiHol[facility] [id number] [address] [facility] 77967Zzvg Platelet VolumeOctober 2024 8:00amOctober 2024 1:50pm8.5 fL6.6-10.1FBl[facility] [id number] [address] [facility] [address]Rpmdaiqevsw (%) (Auto)May 31, 2025 8:00amOctober 2024 1:50pm53.8 %.[facility] [id number] [address] [facility] 78553Jqsmezglcvh (%) (Auto)May 31, 2025 8:00amOctober 2024 1:50pm27.7 %.[facility] [id number] [address] [facility] 29885Edzfjhqfd (%) (Auto)May 31, 2025 8:00amOctober 2024 1:50pm13.2 %.[facility] [id number] [address] [facility] [address]Ylwncvkvyya (%) (Auto)May 31, 2025 8:00amOctober 2024 1:50pm4.3 %.[facility] [id number] [address] [facility] [address]11[address]Oetobsfnk (%) (Auto)May 31, 2025 8:00amOctober 2024 1:50pm1.0 %.[facility] [id number] [address] [facility] 00819Mtnezjynr RBC Relative Count (auto)May 31, 2025 8:00am May 31, 2025 1:50pm0.1 /100{WBC}0-0.5FBl[facility] [id number] [address] [facility] 280[address]Dcazclnktgk # (Auto)May 31, 2025 8:00amOctober 2024 1:50pm3.3 10*3/uL1.8-7.7FBl[facility] [id number] [address] [facility] 845[address]Zneddsrtrng # (Auto)May 31, 2025 8:00amOctober 2024 1:50pm1.7 10*3/uL1.00-4.8[facility] [id number] [address] [facility] 799[address]Tustciaap # (Auto)May 31, 2025 8:00amOctober 2024 1:50pm0.8 10*3/uL0.0-0.8[facility] [id number] [address] [facility] 11310Juwwchxpemr # (Auto)May 31, 2025 8:00amOctober 2024 1:50pm0.3 10*3/uL0.0-0.45[facility] [id number] [address] 9442070Basophils # (Auto)May 31, 2025 8:00amOctober 2024 1:50pm0.1 10*3/uL0.0-0.2FBl[facility] [id number] [address] [place] [address] 65183Zuwxqpo LevelOctober 2024 8:00amOctober 2024 3:50pm 107 mg/dLAbove high tyftgs19-335XDB recommended reference rangeRandom Glucose Reference Range is dependent on time and content of last meal. Glucose of more than 200 mg/dL in a nonstressed, ambulatory subject supports the diagnosisof Diabetes Mellitus.[facility] [id number] [address] [facility] 36649Ioyec Urea NitrogenOctober 2024 8:00amOctober 2024 3:50pm15 mg/dL7-25[facility] [id number] [address] [place], [place] [address]CreatinineOctober 2024 8:00amOctober 2024 3:50pm 1.14 mg/dL0.70-1.30[facility] [id number] [address] [place] [address] [place] [address]Sxhncxjlr GFR (CKD-EPI)May 31, 2025 8:00amOctober 2024 3:50pm> 60.0 mL/MinHolzer Health System Ctr [id number] [address] [facility] 70006Qdbjyn LevelOctober 2024 8:00amOctober 2024 3:50pm 139 mmol/S647-166ZzunxzdejHolzer Health System Ctr [id number] [address] [facility] 95[address]Tofroagng LevelOctober 2024 8:00amOctober 2024 3:50pm4.1 mmol/L3.5-5.1FBl[facility] [id number] [address] [facility] 61812Xtsqgbwu LevelOctober 2024 8:00amOctober 2024 3:69jk820 mmol/Y61-994OuirxfzlfHolzer Health System [facility] [id number] [address] [facility] 49605Wsucpl Dioxide LevelOctober 2024 8:00amOctober 2024 3:50pm29.2 mmol/L21.0-31.0[facility] [id number] [address] [facility] 51001Fevdf GapOctober 2024 8:00amOctober 2024 3:50pm9.9 mEq/L6.0-15.0[facility] [id number] [address] [facility] 31939Xduesta LevelOctober 2024 8:00amOctober 2024 3:50pm 9.0 mg/dL8.6-10.3FBl[facility] [id number] [address] [facility] 499[address]Sdvpp ProteinOctober 2024 8:00amOctober 2024 3:50pm 6.6 g/dL6.4-8.9[facility] [id number] [address] [facility] 66381YegmvmzDtdcaku 2024 8:00amOctober 2024 3:50pm3.9 g/dL3.5-5.7FBl[facility] [id number] [address] [facility] 441[address]NbajstgzGeneayx 27th, 2025 8:00amOctober 2024 3:50pm2.7 g/dLHolzer Health System [facility] [id number] [address] [facility] 55179Zrcetyc/Globulin RatioOctober 2024 8:00amOctober 2024 3:50pm1.4FBlanchard [facility] [id number] [address] [facility] 78632Fqdza BilirubinOctober 2024 8:00amOctober 2024 3:50pm0.6 mg/dL0.3-1.0[facility] [id number] [address] [facility] 05440Qrkkxrafq Amino Transf (AST/SGOT)May 31, 2025 8:00am May 31, 2025 3:50pm15 U/N14-42XewlubpzlHolzer Health System Ctr [id number] [address] [place] [address] 19507Lnhhatm Aminotransferase (ALT/SGPT)May 31, 2025 8:00am May 31, 2025 3:50pm12 U/L7-52[facility] [id number] [address] [place] [address] 03319Knwezmlx PhosphataseOct2024 8:00amOctober 2024 3:50pm78 U/Y02-993MqrqprrlpHolzer Health System C[facility] [id number] [address] [facility] 66959Utyslliwnec LevelOct2024 8:00amOctober 2024 3:78jy133 mg/bN240-521Wili less than 200 mg/dl low riskChol 201-239 mg/dl borderline riskChol 240 mg/dl and greater high riskHolzer Health System Ctr [id number] [address] [facility] 59118YKT CholesterolOct2024 8:00amOctober 2024 3:50pm33 mg/mP07-98VWW CHOL ATP-III CLASSIFICATION Cardiovascular RiskHDL > or equal to 60 mg/dL LOWHDL < 40 mg/dL [facility] [id number] [address] [facility] 17206Wwssenazhaewp LevelOctober 2024 8:00amOctober 2024 3:17ly845 mg/dLAbove high normal0-149TRIG ATP III CLASSIFICATIONTRIG less than 150 mg/dL NormalTRIG 150-199 mg/dL Borderline highTRIG 200-500 mg/dL High TRIG greater than 500 mg/dL Very highStandard traceable to the Center for Disease C onrtrol and Prevention (CDC) test method.[facility] [id number] [address] [facility] 393[address]NAQ Cholesterol, CalculatedOctober 2024 8:00amOctober 2024 3:94gh534 mg/dLAbove high normal0-100LDL ATP III CLASSIFICATIONLDL less than 100 mg/dL OptimalLDL 100-129 mg/dL Near or above arpbtvsZEC523-263 mg/dL Borderline highLDL 160-189 mg/dL HighLDL greater than 189 mg/dL Very high [facility] [id number] [address] [facility] 11979WGQS CholesterolOctober 2024 8:00amOctober 2024 3:50pm32 mg/dLHolzer Health System [facility] [id number] [address] [facility] 37955Ltsvhxttovh/HDL RatioOctober 2024 8:00amOctober 2024 3:50pm5.4<5.0[facility] [id number] [address] [facility] 91885Eykxnng Stimulating Hormone 3rd GenOctober 2024 8:00am May 31, 2025 3:57pm2.72 u[iU]/mL0.45-5.33[facility] [id number] [address] [facility] 27728Uumhpljl Creatinine Clearance (ChemOctober 2024 8:00am May 31, 2025 3:50pmN/AFBlanchard [facility] [id number] [address] [facility] 19647Nymudjhwjf X9mDupnqsr 2024 8:00amOctober 2024 9:33am5.7 %Above high normal4.3-5.6Increased risk for diabetes: 5.7 - 6.4diabetes: >6.4glycemic control for adults with diabetes: <7.0[facility] [id number] [address] [facility] 947[address]Oqkmgwugu Average GlucoseOctl[facility] hospital 2024 8:00amOctl[facility] hospital 2024 9:16fq374 mg/dLHolzer Health System [facility] [id number] [address] [facility] [address] Vital Signs Vital Reading Result Reference Range Collection Date/Time Height 67 [in_i] June 03, 2025 8:06tjUhilnz67.01 kgOctlourdes hospital 2024 8:20amHeart Rate71 /ott22-688Csblzyi 2024 8:20amRespiratory rate16 /wvs42-75[facility]crey 2024 8:20amOxygen saturation by Pulse uymwtdgq99 %95-100[facility] 2024 8:20amBP Zauycvyo291 mm[Hg]100-140Octl[facility] 2024 8:20amBP Vsfpvesxl87 mm[Hg] 60-100Octl[facility] 2024 8:20amBMI (Body Mass Index)26.9 kg/v9Uyywhtq 2024 8:20am Advance Directives Advance Directive Response Recorded Date/ Time Advance Directives No May 25, 2017 8:20am Insurance Providers Guarantor Davis Johnson Address [address] [phone] Info.Home Phone: Payer Group Member ID Coverage Type Subscriber Relationship to Subscriber Effective Date Expiration Date Vignesh GRAHAM [id number] R Meyer Id: [id number] [address] [facility] [address] Home Phone: SelfMedicare [facility] Id: [id number] R Meyer Id: [id number] [address] [facility] [address] Home Phone: Self Encounters Encounter Location(s) Arrival/Admit Date Discharge/Departure Date Discharge/Departure Disposition Provider(s) Departed Clinical -[facility] May 31, 2025 7:58am May 31, 2025 7:59am Discharged to home care or self care (routine discharge) Antione Vogt DO Departed Physician/ Provider Office Visit -[facility] Family Medicine [facility] June 03, 2025 7:48am June 03, 2025 8:44am Discharged to home care or self care (routine discharge) Antione Vogt DO Recent Diagnosis Onset Date Admit Date BPH with elevated PSA Unknown June 032024 7:48am Hyperglycemia Unknown June 03 7:48am Hyperlipidemia Unknown June 03 7:48am Hypertension Unknown June 03 7:48am Medicare annual wellness visit, subsequent Unkno wn June 03, 2025 7:48am Dizziness Unknown June 03 7:48am Assessments Diagnosis Onset Date Resolution Status Admit Date BPH with elevated PSA acuteOct2024 7:48amHyperglycemiaacuteOctober 2024 7:48am HyperlipidemiaacuteOct2024 7:48amHypertensionacuteOctober 2024 7:48amMedicare annual wellness visit, subsequentacuteOct2024 7:48am DizzinessnoneactiveOctober 2024 7:48am Plan of Treatment Author Supriya Corral [facility]AuthoredOct2024 8:36amPersonalized health advice was given to the beneficiary to health education of preventative counseling services or programs aimed at reducing identified risk factors and improving self-management or community-based lifestyle interventions to reduce health risks and promote self-management and wellness, including physical activity and nutrition. A written plan for screenings was discussed, flu vaccination, routine lab studies, eye exams, as well as risk factors for other medical problems. All preventative health recommendations to include immunizations have been reviewed. Future Tests Future scheduled test information is unavailable Pending Tests Test Name Ordered Date Scheduled Date US carotid doppler BI June 03, 2025 8:39am Comprehensive Metabolic PanelOct2024 8:40am6 Months Future Visits Future appointment information is unavailable Future Procedures Procedure Name Ordered Date Scheduled Date A1C with Estimated Average Glu June 03 8:40am 6 Months Complete Blood Count Auto Diff June 03 8:40am 6 Months Lipid Panel June 03, 2025 8:40am 6 Marcelo hs Thyroid Stimulating Hormone June 03, 2025 8 :40am 6 Months Future Medications Future medication information is unavailable Patient Instructions Patient instructions are unavailable
[2025-06-08 15:08] VITALS: BP 135/80; PULSE 80; TEMP 36.6; O2SAT 94; BMI 25.8
--- NOTE | 2025-06-08 15:30 | ED.GENADUL1 ---
HPI HPI - General Adult General Chief complaint: Extremity Injury, Lower Stated complaint: LEFT KNEE POPPED WHEN STEPPING OUT OF TRAILER Time Seen by Provider: 06/08/25 15:19 Source: patient Mode of arrival: walk-in Limitations: no limitations History of Present Illness HPI narrative: Patient is a 70-year-old male that presents with complaints of left knee pain that started approximately a few hours prior to arrival when he was stepping off of a trailer about 30 inches off the ground and felt a pop in the back of his left knee. He states that this knee has been somewhat bothering him for a few weeks and worsened when he stepped off the trailer today. He denies any prior injury or surgeries. He did take 2 Aleve without relief of his pain. This is causing him to ambulate with a limp. He had made an appointment with Ortho a month ago but ended up canceling it because his knee was getting better. Related Data Home Medications ?Medication ?Instructions ?Recorded ?Confirmed amlodipine 5 mg tablet 5 mg PO DAILY 04/05/24 07/04/24 carvedilol 6.25 mg tablet 6.25 mg PO DAILY 04/05/24 07/04/24 olmesartan 20 1 tab PO DAILY 04/05/24 07/04/24 mg-hydrochlorothiazide 12.5 mg tablet levetiracetam 500 mg tablet 500 mg PO Q12H 07/04/24 07/04/24 Allergies Allergy/AdvReac Type Severity Reaction Status Date / Time No Known Drug Allergies Allergy Verified 06/08/25 15:08 Opioid HPI Opioid Management Most Recent Opioid Data: Last Pain Scale 7 Today, 16:53 Last MAR Pain Assessment Today, 16:53 Review of Systems ROS Status of ROS 10 or more systems reviewed and unremarkable except as noted in history and below PFSH PFSH Social History Little interest or pleasure in doing things: not at all Feeling down, depressed, or hopeless: not at all Exam Narrative Exam Narrative: General: No distress, age-appropriate, patient ambulates with antalgic gait. Skin: Warm, dry, no pallor. No rash. Head: Normocephalic, atraumatic. Neck: Supple, non-tender. Eye: Pupils are equal, round and EOMI. No scleral icterus. Ears, Nose, Mouth, and Throat: No nasal mucosal hypertrophy. Oral mucosa is moist, no posterior oropharynx erythema, uvula is mid-line Cardiovascular: Regular Rate and Rhythm without murmur, gallop or rub. Respiratory: No accessory muscle use or respiratory distress. Musculoskeletal: Full ROM of all extremities, no calf or popliteal tenderness. No apparent swelling to the left knee, posterior lateral joint line tenderness with palpation. Negative Williams. Negative posterior drawer. No ecchymosis. Neurological: A&O x4. No cranial nerve dysfunction observed. No truncal ataxia. Moves all extremities. Sensation intact. Psychiatric: Cooperative and interactive. Normal mood and affect. Constitutional Vital Signs, click to edit/add: Last Vital Signs Temp 97.9 F 06/08/25 15:08 Pulse 80 06/08/25 15:08 Resp 14 06/08/25 15:08 BP 135/80 06/08/25 15:08 Pulse Ox 94 L 06/08/25 15:08 O2 Del Method Room Air 06/08/25 15:08 Course Vital Signs Vital signs: Vital Signs Temperature 97.9 F 06/08/25 15:08 Pulse Rate 80 06/08/25 15:08 Respiratory Rate 14 06/08/25 15:08 Blood Pressure 135/80 06/08/25 15:08 Pulse Oximetry 94 L 06/08/25 15:08 Oxygen Delivery Method Room Air 06/08/25 15:08 Temperature 97.9 F 06/08/25 15:08 Pulse Rate 80 06/08/25 15:08 Respiratory Rate 14 06/08/25 15:08 Blood Pressure 135/80 06/08/25 15:08 Pulse Oximetry 94 L 06/08/25 15:08 Oxygen Delivery Method Room Air 06/08/25 15:08 Medical Decision Making [facility] Narrative Medical decision making narrative: This is a 70-year-old male that presents with complaints of left knee pain that increased when he stepped off a 30 inch trailer and he felt a pop in the back of his knee. He denies previous surgery or injury. The knee has been bothering him for a few weeks prior to this. On exam patient is in no distress, laying on ED cart. Vitals are hemodynamically stable. No deformity noted to left knee. Tenderness to the lateral posterior joint line. 30 mg IM Toradol ordered. X-ray left knee ordered to rule out fracture. X-ray reviewed and reveals no acute findings. Chondrocalcinosis of menisci. No fracture noted, likely diagnosis is meniscus tear on top of knee osteoarthritis. I discussed results with patient and on reevaluation he states the Toradol did not really help. I did give him a [place] 5 mg here. Plan will be for rest, I recommended cane or walker to help offload some weight from the knee, ice, compression, and elevation. Recommended follow-up with Dr. Mckinney with Ortho as previously scheduled. Return to ED precautions discussed such as uncontrolled pain, or any new or worsening symptoms. Recommended NSAIDs at home for pain. He does have some Percocet at home as well, which I cautioned to take sparingly if he has any breakthrough pain. Patient was discharged in stable condition, pain control, with plan for follow-up with orthopedics. Differential Diagnosis Differential Diagnosis: Knee OA flareup, meniscus tear, fracture Imaging Data Left knee x-ray: Attestation: I have reviewed the pertinent imaging results. Radiologist's impression: ITS Impressions Knee X-Ray 06/08/25 15:58 IMPRESSION: No acute findings. Chondrocalcinosis of menisci. Impression dictated by: Jack Bar M.D. 06/08/2025 4:12 PM Dictation Location: [facility] SYSTEMFunCaptcha Electronically authenticated by: [id number] Y Date: 06/08/2025 16:12 Discharge Plan Discharge Chief Complaint: Extremity Injury, Lower Clinical Impression: Acute knee pain Patient Disposition: Home, Self-Care Time of Disposition Decision: 16:45 Condition: Good Mode of Transportation: Private Vehicle Prescriptions / Home Meds: No Action carvedilol 6.25 mg tablet 6.25 mg PO DAILY amlodipine 5 mg tablet 5 mg PO DAILY olmesartan-hydrochlorothiazide 20-12.5 mg tablet 1 tab PO DAILY levetiracetam 500 mg tablet 500 mg PO Q12H Print Language: Micronesian Instructions: Knee Pain (ED) Referrals: HERVE STEELE [Primary Care Provider, Family Practice] - 1 week Dimitri Mckinney DO [Physician, Orthopedics] - 1 week Discharge Date/Time: 06/08/25 16:57
--- OUTSIDE RECORDS SUMMARY | 2025-06-08 15:36 | XMS_ITS | Clinical Summary ---
Author Organization [facility] Address [address] [place] [address] Phone Care Team Providers Care International Affairs Vice President Name Role Phone WesleyAntione bright Primary Care Provider [phone] Allergies Active AllergyReactionsCriticalityNoted NqhpYwkxabidDvdulpyijrsFhbqs17/17/2025 siezure Medications MedicationSigDispense QuantityRefillsLast FilledStart DateEnd DateStatus acetaminophen (Tylenol) 500 mg tablet TAKE 2 TABLETS BY MOUTH EVERY 6 HOURS NEEDED FOR PAIN FOR UP TO 5 DAYS. 04/10/2024ctive amLODIPine (Norvasc) 5 mg tablet Take 1 tablet (5 mg) by mouth once daily.12/26/2023ctive aspirin 81 mg capsule Take 1 tablet by mouth once daily.12/26/2023ctive carvedilol (Coreg) 6.25 mg tablet Take 1 tablet (6.25 mg) by mouth 2 times a day.12/26/2023ctive levETIRAcetam (Keppra) 500 mg tablet Take 1 tablet (500 mg) by mouth once daily.04/27/2024ctive olmesartan-hydrochlorothiazide (BENIcar HCT) 20-12.5 mg tablet Take 1 tablet by mouth once daily.12/26/2023ctive Active Problems No known active problems Social History Tobacco UseTypesPacks/DayYears UsedDateSmoking Tobacco: NeverSmokeless Tobacco: Never Tobacco Cessation:Counseling Given: No Sex and Gender InformationValueDate RecordedSex Assigned at BirthNot on file Legal OjxApas03/25/2022 11:45 PM ESTGender IdentityNot on fileSexual Orientation Not on file Plan of Treatment Health MaintenanceDue DateLast DoneCommentsCT Pjzfcarxemxg1955FIT-DNA (Cologuard)1955FIT1955Lipid Panel1955Medicare Annual Wellness Visit (AWV)1955 9427Axxezvlqgotlu1955MMR Vaccines (1 of 1 - Standard series)1956Hepatitis C Pexlcuaya75/28/1973Pneumococcal Vaccine (1 of 1 - PCV)2005Zoster Vaccines (1 of 2)2005Influenza Vaccine (#1)2025 COVID-19 Vaccine (1 - season)2025RSV High Risk: (Elderly (60+) or Population) (1 - 1-dose 75+ series)2030DTaP/Tdap/Td Vaccines (2 - Tdap)/9954Fjovniwnxdq944Colorectal Cancer Rvnctrzxh54/24/2034HIB VaccinesAged OutNo longer eligible based on patient's age to complete this topicHPV VaccinesAged OutNo longer eligible based on patient's age to complete this topicHepatitis A VaccinesAged OutNo longer eligible based on patient's age to complete this topicHepatitis B VaccinesAged OutNo longer eligible based on patient's age to complete this topicIPV VaccinesAged OutNo longer eligible based on patient's age to complete this topicMeningococcal VaccineAged OutNo longer eligible based on patient's age to complete this topic Rotavirus VaccinesAged OutNo longer eligible based on patient's age to complete this topic Insurance Care Teams Team MemberRelationshipSpecialtyStart DateEnd Date Antione Vogt DO [address] [place] [address] PCP - GeneralFamily Rshboqgm67/13/24
--- OUTSIDE RECORDS SUMMARY | 2025-06-08 15:36 | XMS_ITS | Clinical Summary ---
Author Organization [facility] Address [address], [address] [place] [address] Care Team Providers Care Economics Department Chair Name Role Phone Antione Vogt Radha CHAVEZ Primary Care Provider Allergies No known active allergies Medications MedicationSigDispense QuantityRefillsLast FilledStart DateEnd DateStatus olmesartan-hydroCHLOROthiazide (BENICAR HCT) 20-12.5 MG per tablet Take 1 tablet by mouth dailyActive amLODIPine (NORVASC) 5 MG tablet Take 1 tablet by mouth dailyActive aspirin 81 MG EC tablet Take 1 tablet by mouth dailyActive levETIRAcetam (KEPPRA) 500 MG tablet Take 1 tablet by mouth 2 times dailyActive carvedilol (COREG) 6.25 MG tablet Take 1 tablet by mouth DailyActive Active Problems No known active problems Social History Tobacco UseTypesPacks/DayYears UsedDateSmoking Tobacco: NeverSmokeless Tobacco: Never Tobacco Cessation:Counseling Given: Not Answered Alcohol UseStandard Drinks/WeekCommentsYes0 (1 standard drink = 0.6 oz pure alcohol)rareSex and Gender InformationValueDate RecordedSex Assigned at BirthNot on fileLegal QlgJurf8005/04/2024 1:29 PM EDTGender IdentityNot on fileSexual OrientationNot on file Last Filed Vital Signs Vital SignReadingTime TakenCommentsBlood Xwvucgrv046/6910 12:30 PM EDT Aqwqe5857 12:30 PM AZFSmklyhbqnod86.1 ??C (97 ??F)05/05/2024 11:40 AM EDTRespiratory Syby3099 12:30 PM EDTOxygen Svpiqqjcga01%05/05/2024 12:30 PM EDTInhaled Oxygen Concentration--Xjpybm89.1 kg (148 lb)05/04/2024 4:27 PM EDT Avbjum560.2 cm (5' 7 )05/04/2024 4:27 PM EDTBody Mass Index23.18005/04/2024 4:27 PM EDT Plan of Treatment Health MaintenanceDue DateLast DoneCommentsDepression Pwbswt2206/01/1967Hepatitis C nmtahh1506/01/19736050Zlitwl63/28/3109Pryvtiwqnib52/28/2000Colorectal Cancer Screen 2000FIT/FOBT: Average risk2000Fecal-DNA (Cologuard): Average risk 2000Sigmoidoscopy/CT hseyjpgzplgs03/28/2000Pneumococcal 50+ years Vaccine (1 of 1 - PCV)2005Shingles vaccine (1 of 2)2005Annual Wellness Visit (Medicare Advantage)08/05/2024Flu vaccine (#1)5COVID-19 Vaccine ( - season)2025Respiratory Syncytial Virus (RSV) or age 60 yrs+ (1 - 1-dose 75+ series)2030DTaP/Tdap/Td vaccine (2 - Tdap)12/28/2030 12/28/2020Hepatitis A vaccineAged OutNo longer eligible based on patient's age to complete this topicHepatitis B vaccineAged OutNo longer eligible based on patient's age to complete this topicHib vaccineAged OutNo longer eligible based on patient's age to complete this topicMeningococcal (ACWY) vaccineAged OutNo longer eligible based on patient's age to complete this topicMeningococcal B vaccineAged OutNo longer eligible based on patient's age to complete this topic Polio vaccineAged OutNo longer eligible based on patient's age to complete this topic Medical Devices ImplantedTypeAreaManufacturerDevice IdentifierShelf Expiration DateModel / Serial / LotHumeral Lincoln Uncementedm - [id number] Implanted:Qty: 1 on 05/05/2024 by Damián Ahmadi MD at [facility]: [employer]IM[employer]-[id number] / / [id number] Head 48-20 - [id number] Implanted:Qty: 1 on 05/05/2024 by Damián Ahmadi MD at [facility]: [employer]-[id number]/ [id number] / / [id number] Shouldr Impl Capped S2 Total Adv Anatomic L5lzcmfjqsocix - [id number] Implanted:Qty: 1 on 05/05/2024 by Damián Ahmadi MD at [facility]: [employer] [id number] / / Description:[facility] S2 1ExplantedTypeAreaManufacturerDevice [facility] Milwaukeehelf Expiration DateModel / Serial / LotCentral Pin 3.2mm - [id number] Explanted:Qty: 1 on 05/05/2024 by Damián Ahmadi MD at [facility] [employer]-[id number] / / Insurance Care Teams Team MemberRelationshipSpecialtyStart DateEnd Date Antione Vogt, [address] [facility] [address] [id number] PCP - [facility]05/05/24
--- OUTSIDE RECORDS SUMMARY | 2025-06-08 15:36 | XMS_ITS | Clinical Summary ---
Author Organization [facility] Address [address] [place] [address] Care Team Providers Care Mental Health Nurse Practitioner Name Role Phone Antione Vogt Kevin Primary Care Provider [phone] Allergies Active AllergyReactionsCriticalityNoted DateCommentsBevacizumabOther: See Cmikixkd49/17/2025 siezure Medications MedicationSigDispense QuantityRefillsLast FilledStart DateEnd DateStatus Olmesartan-hydroCHLOROthiazide 20-12.5 mg per tablet 1 tablet.12/26/2023ctive carvedilol (COREG) 6.25 mg tablet once daily.12/26/2023ctive amLODIPine (NORVASC) 5 mg tablet once daily.12/26/2023ctive aspirin 81 mg cap 1 tablet.12/26/2023ctive diclofenac, EC, (VOLTAREN) 75 mg EC tablet Take one tablet by mouth twice a day as needed PRN for pain, with food 30 tablet 04/28/2024ctive levETIRAcetam (KEPPRA) 750 mg tablet Take 1 tablet by mouth two times a day. 180 tablet 07/06/2024ctive midazolam (NAYZILAM) 5 mg/spray (0.1 mL) nasal spray Indications:Nonintractable epilepsy without status epilepticus, unspecified epilepsy type (HCC)Use 1 [place] in the nose as needed for up to 90 days. May repeat dose in alternate nostril after 10 minutes based on response and tolerability with seizures longer than 5 minutes 2 Each ctive levETIRAcetam (KEPPRA) 750 mg tablet Take 1 tablet by mouth two times a day. 180 tablet 303/27/302248/27/2026Active Active Problems ProblemNoted DateDiagnosed PuchEstifsy63/25/2024 Assessment & Plan (04/30/2024 7:25 AM EDT): Assessment: Possible seizure episode, witnessed by . No previous seizure history. Evaluated perneurology, EEG normal and medical optimization received. Started on keppra Bzirzkmntmjv88/25/2024 Assessment & Plan (04/30/2024 7:25 AM EDT): Assessment: Stable and compliant with medications Followed by PCP Last 5 Encounter BP Readings: Date: BP: 04/30/2024 134/83 04/27/2024 121/74 04/09/2024 134/62 Qgwlckptvqbuwi43/25/2024 Assessment & Plan (04/30/2024 7:25 AM EDT): Assessment: Controlled with statin. Monitored per PCP. 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) (Primary Dx)04/30/2025Travelfrom Last 3 Months Family History Medical HistoryRelationCommentsNo Ocular DiseaseOtherAnesthesia ProblemsNo Family HistoryRelationStatusCommentsOther Social History Tobacco UseTypesPacks/DayYears UsedDateSmoking Tobacco: NeverPassive Smoke Exposure: NeverSmokeless Tobacco: Never Tobacco Cessation:Counseling Given: No Alcohol UseStandard Drinks/WeekCommentsNever0 (1 standard drink = 0.6 oz pure alcohol)PHQ-2AnswerDate RecordedPHQ-2 adqct6915Area Deprivation Index AnswerDate RecordedNational Score (1-100), lower number is lower risk53 04/10/2024State Score (1-10), lower number is lower kskh7884Data from: https://www.neighborhoodatlas.medicine.[facility].edu/. Last address used for igyfyuazcwv[address]/06/2024Sex and Gender InformationValueDate RecordedSex Assigned at FkyooUsjq48/24/2024 7:48 PM EDTLegal CuqFzvv6204/08/2024 1:25 PM EDT Gender FyugfkksRqqq85/24/2024 7:48 PM EDTSexual OrientationNot on file Last Filed Vital Signs Vital SignReadingTime TakenCommentsBlood Rmozhphy044/76010/29/2024 9:43 AM EDT Ohtoo9768 9:43 AM IKXOiaganmclio39.7 ??C (98.1 ??F)04/30/2024 6:47 AM EDTRespiratory Uveh322610/29/2024 9:43 AM EDTOxygen Xaroqpdzdl54%10/29/2024 9:43 AM EDTInhaled Oxygen Concentration--Lvuztd47.5 kg (162 lb)10/29/2024 9:43 AM EDT Cmeodn474.2 cm (5' 7 )10/29/2024 9:43 AM EDTBody Mass Index25.37010/29/2024 9:43 AM EDT Plan of Treatment DateTypeDepartmentCare Team (Latest Contact Info)Kcnbceautty06/25/2025 9:45 AM ESTOffice Visit OPHT Ophthalmology [address] [place] [address] [place] [address] [place] [address] Diagnostics, [facility] And [address] [address] *8 W, DFE/OCT, EYLEA HD OU07/12/2025 10:30 AM ESTOffice Visit Neurology [address] [place] [address] Recurrent seizures (HCC) [G40.909]07/12/2025 1:00 PM ESTOffice Visit Neurology [address] [place] [address] Ami Whittaker MD [address] [place], [place] [id number] 8mo f/uHealth MaintenanceDue DateLast DoneCommentsAnnual PCP Team Chronic Disease Visit1973Anxiety Yorrxqupr10/28/1973Depression Okbonutef27/28/1973 Hepatitis C Xzwwbhcky89/28/1973Lipid Smoarxgug36/28/1990CT Colonography 2000Cologuard (FIT-DNA)06/01/20005910Luxdemxjvtg95/28/2000Colorectal Cancer Kdxkcoiwn86/28/2000Fecal Occult Blood06/01/20003336Dpcfdpuskbfnn76/28/2000 Pneumococcal Vaccine: 50+ (1 of 1 - PCV)2005Shingrix Vaccine (1 of 2) 2005Advance Directive Adbpxtdbvm39/01/2025Medicare Advantage Annual Wellness Visit08/05/2024ovid-19 Vaccine (1 - season)2025Influenza Vaccine (#1)2025Diabetes Unhcxxvgu92/26/88252604/30/2024, 04/09/2024SV Vaccine (1 - 1-dose 75+ series)2030DTaP,Tdap,Td Vaccine (2 - Tdap) Procedures Procedure NamePriorityDate/TimeAssociated DiagnosisCommentsOCT MACULA CIRRUS OU (BOTH EYES)Vevnxmm6004/30/2025 8:45 AM EDT 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 eyes with active choroidal neovascularization (HCC) EYLEA HD (AFLIBERCEPT) 8MG INTRAVITREAL INJECTION OS (LEFT EYE)Nljxwsl9104/30/2025 8:21 AM EDT 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 eyes with active choroidal neovascularization (HCC) EYLEA HD (AFLIBERCEPT) 8MG INTRAVITREAL INJECTION OD (RIGHT EYE)Routine 04/30/2025 8:21 AM EDT 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 eyes with active choroidal neovascularization (HCC) COMPREHENSIVE METABOLIC EGJSKIfejqha03/26/2024 7:29 AM EDT Posterior dislocation of right shoulder joint, initial encounter Pre-op testing from Last 3 Months or Most Recently Relevant to Health Maintenance Results * OCT MACULA CIRRUS OU (BOTH EYES) (04/30/2025 8:45 AM EDT)Anatomical Region LateralityModalityOther Narrative 04/30/2025 9:08 AM EDT Date of Procedure 04/30/2025. Leadership Program Intern Information Hydrotherapist: [place]. OCT Macula Interpretation Right Eye Findings include Intraretinal fluid, Drusen, RPE Irregularity. Left Eye Findings include Drusen; Negative for Intraretinal fluid, Subretinal fluid. Interval Change Right Eye Stable. Left Eye Stable. Authorizing ProviderResult TypeResult StatusAmy Jaci ESPINOSAOPHTHALMOLOGYFinal Result * EYLEA HD (AFLIBERCEPT) 8MG INTRAVITREAL INJECTION OS (LEFT EYE) (04/30/2025 8:21 AM EDT) Narrative Charlette Beatty MD - 04/30/2025 9:08 AM EDT Date of Procedure 04/30/2025 [place] Protocol Safety Checklist A moment of CARE was completed Sign In Sign in communication not applicable due to emergent procedure. Personnel directly involved with the procedure wore the appropriate PEE. Special Equipment: yes. Patient/surrogate stated/verified patient name, date of , relevant allergies, intended procedure. Provider Confirms: Relevant labs, photos, and/or imaging studies have been reviewed. Intended patient and procedure match the source document(s) (e.g. consent, associated studies [imaging, pathology]). Consent obtained and matches the intended procedure. Correct side/site marked and visible. Medications required for procedure verified. Fire risk assessed and interventions discussed. Correct implant(s) confirmed including size and side: N/A. Sign Out All specimens are correctly labeled and sent: N/A. All instruments, equipment, possible retained foreign bodies accounted for. Post-procedure POC communicated to patient or surrogate. Post-procedure POC communicated to patient's multidisciplinary team. Anesthesia 1-2 drops Topical 0.5% Proparacaine, 0.5 mL subconjunctival injection of 2% Lidocaine. Prep 5% Betadine. Injection Administration Medication: 8 mg aflibercept ophthalmic intravitreal 8 mg/0.07 mL ??Route: INTRAVITREAL, Site: Left Balance Wasted Residual medication less than 1 unit was discarded. Anterior Chamber Paracentesis No. Post Injection Evaluation Patient has at least hand motion vision. Post Procedure Medications 5% Betadine. Home Going Prescription None. Authorizing ProviderResult TypeResult StatusAmy Jaci ESPINOSAOPHTHALMOLOGYFinal Result * NISSA HD (AFLIBERCEPT) 8MG INTRAVITREAL INJECTION OD (RIGHT EYE) (04/30/2025 8:21 AM EDT) Charlette Caputo MD - 04/30/2025 9:08 AM EDT Date of Procedure 04/30/2025 [place] Protocol Safety Checklist A moment of CARE was completed Sign In Sign in communication not applicable due to emergent procedure. Personnel directly involved with the procedure wore the appropriate PEE. Special Equipment: yes. Patient/surrogate stated/verified patient name, date of , relevant allergies, intended procedure. Provider Confirms: Relevant labs, photos, and/or imaging studies have been reviewed. Intended patient and procedure match the source document(s) (e.g. consent, associated studies [imaging, pathology]). Consent obtained and matches the intended procedure. Correct side/site marked and visible. Medications required for procedure verified. Fire risk assessed and interventions discussed. Correct implant(s) confirmed including size and side: N/A. Sign Out All specimens are correctly labeled and sent: N/A. All instruments, equipment, possible retained foreign bodies accounted for. Post-procedure POC communicated to patient or surrogate. Post-procedure POC communicated to patient's multidisciplinary team. Anesthesia 1-2 drops Topical 0.5% Proparacaine, 0.5 mL subconjunctival injection of 2% Lidocaine. Prep 5% Betadine. Injection Administration Medication: 8 mg aflibercept ophthalmic intravitreal 8 mg/0.07 mL ??Route: INTRAVITREAL, Site: Right Balance Wasted Residual medication less than 1 unit was discarded. Anterior Chamber Paracentesis Yes. Post Injection Evaluation Patient has at least hand motion vision. Post Procedure Medications 5% Betadine. Home Going Prescription None. Authorizing ProviderResult TypeResult StatusAmy Jaci ESPINOSAOPHTHALMOLOGYFinal Result * COMPREHENSIVE METABOLIC PANEL (04/30/2024 7:29 AM EDT)ComponentValueRef Range Test MethodAnalysis TimePerformed AtPathologist SignatureProtein, Total6.86.3 - 8.0 g/dL04/30/2024 4:50 PM [facility] LABAlbumin4.13.9 - 4.9 g/dL04/30/2024 4:50 PM [facility] LABCalcium, Total 9.58.5 - 10.2 mg/dL04/30/2024 4:50 PM [facility] Bilirubin, Total0.30.2 - 1.3 mg/dL04/30/2024 4:50 PM [facility] LABAlkaline Uhqaplbpkws49050 - 113 U/L04/30/2024 4:50 PM [facility] BAMCZQ8373 - 40 U/L04/30/2024 4:50 PM [facility] JQWFTN4523 - 54 U/L04/30/2024 4:50 PM [facility] YGWTfiuzav0400 - 99 mg/dL04/30/2024 4:50 PM [facility] LABComment: The [place] Diabetes Association (ADA) provides guidance for cutoff values for fasting glucose andrandom glucose. The ADA defines fasting as no [...] Standards of Medical Care in Diabetes 2016, [place] Diabetes Association. Diabetes Care. 2016.39(Suppl 1). WPW866 - 24 mg/dL04/30/2024 4:50 PM [facility] Creatinine1.010.73 - 1.22 mg/dL04/30/2024 4:50 PM [facility] SFXTdqxht511666 - 144 mmol/L04/30/2024 4:50 PM [facility] LABPotassium4.13.7 - 5.1 mmol/L04/30/2024 4:50 PM [facility] JSVKpxdelun23939 - 107 mmol/L04/30/2024 4:50 PM [facility] IOMIW48589 - 30 mmol/L04/30/2024 4:50 PM [facility] LABAnion Cmf354 - 15 mmol/L04/30/2024 4:50 PM [facility] LABEstimated Glomerular Filtration Rate81>=60 mL/min/1.73m 04/30/2024 4:50 PM [facility] LABComment:Estimated Glomerular Filtration Rate (eGFR) is calculated using the 2020 CKD-EPI creatinine equation. This equation utilizes serum creatinine, sex, and age as parameters. The creatinine assay has traceable calibration to isotope dilution- mass spectrometry. Refer to KDIGO guidelines for clinical interpretation. In patients with unstable renal function, e.g. those with acute kidney injury, the eGFRmay not accurately reflect actual GFR.Specimen (Source)Anatomical Location / LateralityCollection Method / VolumeCollection TimeReceived TimeBloodBLOOD SPECIMEN / UnknownVenipuncture / Wneiyhh3004/30/2024 7:29 AM EDT04/30/2024 7:29 AM EDT Narrative Authorizing ProviderResult TypeResult StatusHi Wooten MDLABORATORYFinal Result Performing OrganizationAddressCity/State/ZIP CodePhone Number [facility] [place] [address], from Last 3 Months or Most Recently Relevant to Health Maintenance Insurance Care Teams Team MemberRelationshipSpecialtyStart DateEnd Date Antione Vogt [address] [place] [phone] PCP - GeneralFaakly Medicine04/09/24
--- OUTSIDE RECORDS SUMMARY | 2025-06-08 15:36 | XMS_ITS | Clinical Summary ---
Author Organization [facility] Address [address] [place] [address] Care Team Providers Care Solar Project Coordination Specialist Name Role Phone Antione Vogt Primary Care Provider [phone] Allergies No known active allergies Medications MedicationSigDispense QuantityRefillsLast FilledStart DateEnd DateStatus amLODIPine (Norvasc) 5 MG tablet Take 5 mg by mouth Daily12/26/2023ctive olmesartan-hydroCHLOROthiazide (BENIcar HCT) 20-12.5 MG tablet Take 1 tablet by mouth Daily12/26/2023ctive carvedilol (Coreg) 6.25 MG tablet Take 6.25 mg by mouth in the morning and 6.25 mg in the evening. Take with meals.12/26/2023ctive acetaminophen (Tylenol) 500 MG tablet TAKE 2 TABLETS BY MOUTH EVERY 6 HOURS NEEDED FOR PAIN FOR UP TO 5 DAYS. 04/10/2024ctive levETIRAcetam (Keppra) 500 MG tablet Take 500 mg by mouth in the morning.04/27/2024ctive Active Problems No known active problems Social History Tobacco UseTypesPacks/DayYears UsedDateSmoking Tobacco: NeverSmokeless Tobacco: Never Tobacco Cessation:Counseling Given: Not Answered Sex and Gender InformationValueDate RecordedSex Assigned at BirthNot on file Legal GnkBxvw8910/17/2022 6:57 PM EDTGender IdentityNot on fileSexual Orientation Not on file Last Filed Vital Signs Vital SignReadingTime TakenCommentsBlood Hotgkkgq495/8409 8:58 AM EDT Avvby2796 8:58 AM EDTTemperature--Respiratory Rate--Oxygen Bhubdurpla20% 04/22/2024 8:58 AM EDTInhaled Oxygen Concentration--Pbvwoq52.6 kg (160 lb) 07/16/2024 10:19 AM AJSDbginj198.2 cm (5' 7 )07/16/2024 10:19 AM ESTBody Mass Index25.0607/16/2024 10:19 AM EST Plan of Treatment Not on file Insurance Care Teams Team MemberRelationshipSpecialtyStart DateEnd Date Antione Vogt DO PCP - GeneralFamily Medicine04/22/24
--- OUTSIDE RECORDS SUMMARY | 2025-06-08 15:36 | XMS_ITS | Patient Health Record ---
Author Organization [facility] in [place] Address [address] [place] [address] Care Team Providers Care Land Development Manager Name Role Phone None, Unknown or Primary Care Provider Unavailab Cem Smith Unavailable [phone] Allergies No Known Allergies Results Component Value Reference Range Notes PSA, TOTAL (Not yet reviewed by provider) Interpretation: Performing Lab: Notes/Report: Reason For Referral No Information Medications Medication SIG (Take, Route, Frequency, Duration) Notes Start Date End Date Status hydroCHLOROthiazide ActiveCarvedilol 6.25 MGOral; Duration: 90 DaysActiveAspirin 81 MG1 tablet Orally Once a day; Duration: 30 day(s)4ActiveamLODIPine Besylate 5 MG Oral; Duration: 90 DaysActivelevETIRAcetam 500 MGOral; Duration: 90 Days Not-TakingOlmesartan Medoxomil-HCTZ 20-12.5 MGOral; Duration: 90 DaysActive levETIRAcetam 750 MGOral; Duration: 90 DaysActive Social History Tobacco Use: Social History Observation Description Date Details (start date - stop date) Never Smoker NA - NA Tobacco Control (Standard) Question Answer Notes Tobacco use: Nonsmoker AUDIT-C (Standard) Question Answer Notes Did you have a drink containing alcohol in the p ast year? No Dplply1NeizwtcusqlkgdFbnfrygm Problems Problem Type SNOMED Code ICD Code Onset Dates Problem Status W/U Status Risk Notes Problem Benign prostatic hyp erplasia (373792141) BPH (benign prostatic hyperplasia) (N40.0) Activeconfirmed Vital Signs Height 67 in 01/21/2025 Jxwlyc389.6 lbs5BMI26.72 kg/m201/21/2025 Encounters Encounter Location Date Provider Diagnosis [facility] [address] [place] [address] 07/21/2024 Cem Mendenhall Elevated prostate specific antigen (PSA) R97.20 Urology [facility] [address] [facility] [place] [address] 09/22/2024 Cem Mendenhall Elevated prostate specific antigen (PSA) R97.20 and BPH (benign prostatic hyperplasia) N40.0 Urology [facility] [address] [place] [address] 01/21/2025 Cem Mendenhall Elevated prostate specific antigen (PSA) R97.20 and BPH (benign prostatic hyperplasia) N40.0 Urology [facility] [address] [place] [address] 08/27/2024 Cem Mendenhall Urology [facility] [id number] [place] [id number]/[facility] Assessments Encounter Date Diagnosis (ICD Code) Assessment Notes Treatment Notes Treatment Clinical Notes Section Notes 07/21/2024 Elevated prostate specific antig en (PSA) (ICD-10 - R97.20) 09/22/2024PH (benign prostatic hyperplasia) (ICD-10 - N40.0)09/22/2024Elevated prostate specific antigen (PSA) (ICD-10 - R97.20)01/21/2025Elevated prostate specific antigen (PSA) (ICD-10 - R97.20)5BPH (benign prostatic hyperplasia) (ICD-10 - N40.0)07/21/2024OtherDiscuss options including biopsy. Will check MRI first and see back.09/22/2024Other Negative MRI Discussed biopsy and false negative rates Will recheck PSA in 4 months and see back. 01/21/2025Other PSA much better. PSAD is 0.09, normal. Negative MRI See back in 1 year w PSA Plan Of Treatment Pending Test Test Name Order Date MRI PROSTATE W/ + W/O CONTRAST 4 Future Test Test Name Order Date PSA, TOTAL 01/20/2025 Insurance Providers Payer Name Payer Address Payer Phone Subscriber Number Group Number Insured Name Patient Relationship to Insured Coverage Start Date Coverage End Date [facility] [employer] [address] [address] [place] [id number] [id number] Davis Johnson Self - patient is the insured [place] [id number] Davis JohnsonSelf - patient is the insured Medical (General) History Medical History History ICD Code hypertension seizureselevated PSAElevated prostate specific antigen (PSA)R97.20Surgical History Surgery Date(Month/Year) Broken arm broken collarbonehernia repairtendon left handright shoulder partial replacement
[2025-06-08] MEDS: KETOROLAC TROMETHAMINE 30 MG/ML VIAL IM (15:37)
--- OUTSIDE RECORDS SUMMARY | 2025-06-08 15:42 | XMS_ITS | CCD ---
Author Organization [facility] Care Team Providers Care Jail Keeper Name Role Phone LALY TALBERT Admitting Unavailable [...] Garcia Consulting Unavailable ARA KINNEY Consulting Unavailable Destinee Steelett Unavailable [place], Herve Primary Care Provider [phone] DO Herve Steele Attending Provider Kuns, Herve Primary Care Provider [place], DO Edgar Attending Provider MD Elvia Palacios Attending Provider Elvia Palacios Unavailable Kuns, DO Herve Primary Care Provider MD Elvia Palacios Attending Provider [phone] Community, Outreach Attending Provider [phone] DO Herve Steele Attending Provider Kuns, DO Herve Primary Care Provider [place], Herve Attending Provider [phone] MD Ludmila Merchant Attending Provider Kuns, DO Edgar Primary Care Provider DO Gris Sly Odom Emergency Provider Herve Steele Primary Care Provider [phone] DAMIÁN BLACKWOOD Admitting Unavailable DAMIÁN BLACKWOOD Attending Unavailable DAMIÁN BLACKWOOD Referring Unavailable KUNS, HERVE R Primary Care Unavailable DO Herve Steele Attending Provider [phone] Generic Provider , No Assigned Pcp Primary Car e Provider Unavailable Ivette CHAVEZ, Herve R Primary Care Provider ARNALDO KINSEY Referring Unavailable HERVE STEELE Primary Care Unavailable Unavailable Primary Care Provider Unavailabl e Herve Steele DO R Primary Care Provider INDY QUICK Attending Unavailable RUBA SIDDIQUI Attending Unavailable RUBA SIDDIQUI Referring Unavailable Herve Steele DO Primary Care Provider Herve Steele DO Attending Provider Herve Steele DO Primary Care Provider [phone] Cem Mendenhall MD Attending Provider Herve Steele DO R Primary Care Provider DAMIÁN BLACKWOOD Attending Unavailable GENERIC PROVIDER, NO ASSIGNED PCP Primary Care Unavailable DAMIÁN BLACKWOOD Referring Unavailable GENERIC PROVIDER, NO ASSIGNED PCP Primary Care Unavailable BRIAN NEWSOME Attending Unavailable GENERIC PROVIDER, NO ASSIGNED PCP Primary Care Unavailable BRIAN NEWSOME Referring Unavailable GENERIC PROVIDER, NO ASSIGNED PCP Primary Care Unavailable DAMIÁN BLACKWOOD Referring Unavailable KUNS, HERVE R Primary Care Unavailable DAMIÁN BLACKWOOD Referring Unavailable KUNS, HERVE R Primary Care Unavailable DAMIÁN BLACKWOOD Referring Unavailable KUNS, HERVE R Primary Care Unavailable DAMIÁN BLACKWOOD Referring Unavailable KUNS, HERVE R Primary Care Unavailable DAMIÁN BLACKWOOD Referring Unavailable KUNS, HERVE R Primary Care Unavailable DAMIÁN BLACKWOOD Attending Unavailable KUNS, HERVE R Primary Care Unavailable DAMIÁN BLACKWOOD Attending Unavailable KUNS, HERVE R Primary Care Unavailable DAMIÁN BLACKWOOD Attending Unavailable KUNS, HERVE R Primary Care Unavailable DAMIÁN BLACKWOOD Attending Unavailable KUNS, HERVE R Primary Care Unavailable Kuns Herve CHAVEZ Primary Care Provider [place] Herve CHAVEZ Attending Provider AMI WHITTAKER Attending Unavailabl e KUNS, HERVE EDDIE Primary Care Unavailable KUNS, HERVE EDDIE Primary Care Unavailable BABIUCH, CHARLETTE Attending Unavailable BABIUCH, CHARLETTE Referring Unavailable KUNS, HERVE EDDIE Primary Care Unavailable BABIUCH, CHARLETTE Attending Unavailable BABIUCH, CHARLETTE Referring Unavailable BABIUCH, CHARLETTE Referring Unavailable BABIUCH, CHARLETTE Attending Unavailable KUNS, HERVE EDDIE Primary Care Unavailable KUNS, HERVE EDDIE Primary Care Unavailable BABIUCH, CHARLETTE Attending Unavailable BABIUCH, CHARLETTE Referring Unavailable KUNS, HERVE EDDIE Primary Care Unavailable KUNS, EHRVE EDDIE Primary Care Unavailable SELF Referring Unavailable KUNS, HERVE EDDIE Primary Care Unavailable BABIUCH, CHARLETTE Attending Unavailable BABIUCH, CHARLETTE Referring Unavailable BABIUCH, CHARLETTE Attending Unavailable KUNS, HERVE EDDIE Primary Care Unavailable BABIUCH, CHARLETTE Referring Unavailable BABIUCH, CHARLETTE Attending Unavailable KUNS, HERVE EDDIE Primary Care Unavailable Kuns DO, Herve Primary Care Provider Kuns Herve CHAVEZ Attending Provider Cem Mendenhall Admitting Unavailable Cem Mendenhall Attending Unavailable Kuns, Herve Primary Care Unavailable Kuns, Herve Admitting Unavailable Kuns, Herve Attending Unavailable Kuns, Herve Primary Care Unavailable Kuns, Herve Admitting Unavailable Kuns, Herve Attending Unavailable Kuns, Herve Primary Care Unavailable Kuns, Herve Admitting Unavailable Kuns, Herve Attending Unavailable Kuns, Herve Primary Care Unavailable Allergies Allergy ClassificationReported Allergen(s)Allergy TypeDate of OnsetReaction(s) Facility (14 sources)bevacizumab; Translations: [BEVACIZUMAB]Drug Tqvmxqf16-54-8940Ngswn: See Comments, [facility] [place] [facility] ([facility] source)ALLERGIES NOT ON FILE; Translations: [ALLERGIES NOT ON FILE]Propensity to adverse reactions (disorder)[facility] Rep[facility] Medications Current Medications MedicationDrug Class(es)DatesSig (Normalized)Sig (Original)acetaminophen 500 mg oral tablet (9 sources)Start: 60-84-9831yxnm 2 tablets by mouth every six hours as needed for painacetaminophen (Tylenol) 500 mg tablet TAKE 2 TABLETS BY MOUTH EVERY 6 HOURS NEEDED FOR PAIN FOR UP TO 5 DAYS. 04/10/2024 ActiveAspirin (20 sources)Platelet Aggregation Inhibitor, Nonsteroidal Anti-inflammatory Drug Start: 01-92-5470yjzd 1 tablet by mouth once dailyaspirin 81 mg capsule Take 1 tablet by mouth once daily. 12/26/2023 ActiveStart: 70-86-4075ordtunz 81 mg cap 1 tablet. 12/26/2023 ActiveStart: 79-17-8303gizv 1 tablet by mouth once daily Aspirin 81 mg tablet,chewable Active 1 TAB PO Daily December 26, 2023 12:00am FreeTextSi tablet Orally Once a day; Note: Source Status: Taking; Provider: Ivette Edgar ( ) Complies with drug therapytake 1 tablet by mouth every twenty-four hoursAspirin 81 MG 1 tablet Orally Once a day Activebenoxinate hydrochloride 4 mg/ml / fluorescein sodium 3 mg/ml ophthalmic solution (5 sources)Diagnostic DyeStart: 02-26-2025 End: 36-17-7655dgpsvmojqht-benoxinate 0.3-0.4 % 1 drop (FLURESS)Start: 01-01-2025 End: 46-87-2853kymcvdbfaeb-benoxinate 0.3-0.4 % 1 drop (FLURESS)Start: 01-01-2025 End: drop, BOTH EYES, DIRECTED, Starting on Sat01/01/25 at 0900, Until Sat01/01/25 at 2058, Administer for applanation tonometry. In the event of a Fluress shortage, administer [place]-Fluor 1 drop intoboth eyes as directed for applanation tonometryStart: 10-20-2024 End: 34-13-7643vgfszqocnwy-benoxinate 0.3-0.4 % 1 Drop (FLURESS)Start: 08-21-2024 End: 63-51-0228jepywsqkakw-benoxinate 0.3-0.4 % 1 Drop (FLURESS)betamethasone 0.5 mg/ml / clotrimazole 10 mg/ml topical cream (13 sources)Azole Antifungal, CorticosteroidStart: 46-14-1557Jkfmuckpxsty- Betamethasone 1-0.05 % 1 application Externally Twice a day December, Active carvedilol 6.25 mg oral tablet (20 sources)alpha-Adrenergic Jamaal, beta-Adrenergic BlockerStart: 12-26-2023 take 1 tablet by mouth twice dailycarvedilol (Coreg) 6.25 mg tablet Take 1 tablet (6.25 mg) by mouth 2 times a day. 12/26/2023 ActiveStart: 12-26-2023 End: 67-03-2311sggm 1 tablet by mouth once dailyCarvedilol 6.25 mg tablet Discontinued 6.25 MG PO Daily 90 December 26, 2023 9:07am March 0859:38am Start: 54-17-7716qhkf 1 tablet by mouth every twenty-four hoursCarvedilol 6.25 MG 1 tablet Orally Once a day Mar, Activediclofenac sodium 75 mg delayed release oral tablet (18 sources)Nonsteroidal Anti-inflammatory DrugStart: 87-43-2234ieya 1 tablet by mouth twice daily as needed for paindiclofenac, EC, (VOLTAREN) 75 mg EC tablet Take one tablet by mouth twice a day as needed PRN for pain, with food 30 tablet 04/28/2024 ActivehydroCHLOROthiazide 12.5 mg / olmesartan medoxomil 20 mg oral tablet (20 sources)Thiazide Diuretic, Angiotensin 2 Receptor BlockerStart: 12-26-2023 Olmesartan-hydroCHLOROthiazide 20-12.5 mg per tablet 1 tablet. 12/26/2023 Active Start: 12-26-2023 End: 24-22-8637oovq 1 tablet by mouth once dailyOlmesartan-Hydrochlorothiazide 20-12.5 mg tablet Discontinued 1 TAB PO Daily 90 December 26, 2023 9:05am March 08, 2025 9:38amStart: 14-49-9276nhsh 1 tablet by mouth every twenty-four hours Olmesartan Medoxomil-HCTZ 20-12.5 MG 1 tablet Orally Once a day Jul, ActivelevETIRAcetam 750 mg oral tablet (20 sources)Start: 07-06-2024 End: 97-00-6285arnq 1 tablet by mouth twice dailyLevetiracetam 750 mg tablet Active 750 MG PO Twice daily July 31, 2024 1:00am Complies with drug therapyStart: 05-27-2024 End: 65-09-6946sjdv 1 tablet by mouth twice dailylevETIRAcetam (KEPPRA) 500 mg tablet Take 1 tablet by mouth two times a day. Patient should start on May 27, 2024. 180 tablet 3 05/27/2024 07/06/2024 DiscontinuedStart: 40-37-9203rjeh 1 tablet by mouth twice dailylevETIRAcetam (KEPPRA) 500 mg tablet Take 1 tablet by mouth two times a day. Patient should start on May 27, 2024. 180 tablet 3 05/27/2024 ActiveStart: 96-02-1380ftfh 1 tablet by mouth twice daily levETIRAcetam (KEPPRA) 500 mg tablet Take 1 tablet by mouth two times a day. Patient should start on May 27, 2024. 180 tablet 3 05/27/2024 ActiveStart: 40-48-8158pawl 1 tablet by mouth twice dailylevETIRAcetam (KEPPRA) 500 mg tablet Take 1 tablet by mouth two times a day. Patient should start on May 27, 2024. 180 tablet 3 05/27/2024 ActiveStart: 61-75-9056gtvk 1 tablet by mouth twice dailylevETIRAcetam (KEPPRA) 500 mg tablet Take 1 tablet by mouth two times a day. Patient should start on May 27, 2024. 180 tablet 3 05/27/2024 Active Start: 13-32-4918dgtu 1 tablet by mouth twice dailylevETIRAcetam (KEPPRA) 500 mg tablet Take 1 tablet by mouth two times a day. Patient should start on May 27, 2024. 180 tablet 3 05/27/2024 ActiveStart: 47-83-8857mqoi 1 tablet by mouth twice dailylevETIRAcetam (KEPPRA) 500 mg tablet Take 1 tablet by mouth two times a day. Patient should start on May 27, 2024. 180 tablet 3 05/27/2024 Active Start: 75-78-4844qtpr 1 tablet by mouth twice dailylevETIRAcetam (KEPPRA) 500 mg tablet Take 1 tablet by mouth two times a day. Patient should start on May 27, 2024. 180 tablet 3 05/27/2024 ActiveStart: 04-27-2024 End: 88-87-6675jcqh 1 tablet by mouth twice dailyLevetiracetam (Keppra) 500 mg tablet Discontinued 500 MG PO Twice daily May 19, 2024 12:00am July 31, 2024 11:32amStart: 20-86-9838fjpo 1 tablet by mouth once daily levETIRAcetam (Keppra) 500 mg tablet Take 1 tablet (500 mg) by mouth once daily. 04/27/2024 Activemidazolam 50 mg/ml nasal spray (9 sources)BenzodiazepineStart: 07-17-2024 End: 38-84-0892pkzdbotbj (NAYZILAM) 5 mg/spray (0.1 mL) nasal spray Indications: Nonintractable epilepsy without status epilepticus, unspecified epilepsy type (HCC) Use 1 [place] in the nose as needed for up to 90 days. May repeat dose in alternate nostril after 10 minutes based on response and tolerability with sei zures longer than 5 minutes 2 Each 2 07/17/2024 Activemupirocin 0.02 mg/mg topical ointment (3 sources)RNA Synthetase Inhibitor AntibacterialStart: 04-30-2024 End: 63-93-6377lmfmrytba (BACTROBAN) 2 % ointment Indications: Preoperative examination two times a day for 5 days. Apply 0.5 inch with cotton swab (Q-tip) to each nostril in the morning and evening for 5 days prior to and including day of surgery. 22 g 04/30/2024 05/05/2024 ActivePaxlovid (300/100) 20 x 150 MG & 10 x 100MG (1 source)Start: 00-36-5938Bclqzfbl (300/100) 20 x 150 MG & 10 x 100MG as directed Orally 04/05/22 test date GFR >60 2021 Activephenylephrine hydrochloride 25 mg/ml ophthalmic solution (3 sources)alpha-1 Adrenergic AgonistStart: 01-01-2025 End: 60-98-8161BZOBPGtxsbzsr 2.5 % 1 drop (AK-DILATE, SOURAV-SYNEPHRINE)Start: 01-01-2025 End: drop, BOTH EYES, DIRECTED, Starting on Sat01/01/25 at 0900, Until Sat01/01/25 at 2058, Administer for dilation PROTECT FROM LIGHTStart: 08-21-2024 End: 74-32-1821WDEQURhvvhmri 2.5 % 1 Drop (AK-DILATE, SOURAV-SYNEPHRINE) proparacaine hydrochloride 5 mg/ml ophthalmic solution (3 sources)Local AnestheticStart: 02-26-2025 End: 40-85-8440yucsjgbeianb 0.5 % 1 drop (ALCAINE)Start: 10-20-2024 End: 60-80-9672kvwvkqirkstu 0.5 % 1 Drop (ALCAINE)Start: 08-21-2024 End: 75-35-0504zsyncxfijyya 0.5 % 1 Drop (ALCAINE)tropicamide 10 mg/ml ophthalmic solution (3 sources)AnticholinergicStart: 01-01-2025 End: 94-77-5696rdzhdxewdrb 1 % 1 drop (MYDRIACYL)Start: 01-01-2025 End: drop, BOTH EYES, DIRECTED, Starting on Sat01/01/25 at 0900, Until Sat01/01/25 at 2058, Administer for dilationStart: 08-21-2024 End: 95-40-3355ucjmzjqpuze 1 % 1 Drop (MYDRIACYL) Completed/Discontinued Medications MedicationDrug Class(es)DatesSig (Normalized)Sig (Original)acetaminophen 325 mg / oxyCODONE hydrochloride 5 mg oral tablet (8 sources)Opioid AgonistStart: 04-05-2024 End: 89-69-8762qwfg 1 tablet by mouth every six hoursoxyCODONE-acetaminophen (PERCOCET) 5-325 mg tablet TAKE 1 TABLET BY MOUTH EVERY 6 HOURS FOR 4 DAYS 0 04/05/2024 04/28/2024 Discontinued (Course of therapy completed)aflibercept intravitreal injection 2 mg/0.05 mL (EYLEA) (12 sources)Start: 01-01-2025 End: 05-84-1299rsrmzkqubqm intravitreal injection 2 mg/0.05 mL (EYLEA)Start: 01-01-2025 End: mg, ONCE, 1 dose, Starting on Sat01/01/25 at 0944, Until Sat01/01/25 at 0944Start: 01-01-2025 End: 69-98-0995ihvszovhuiu intravitreal injection 2 mg/0.05 mL (EYLEA)Start: 01-01-2025 End: 52 mg, ONCE, 1 dose, Starting on Sat01/01/25 at 0943, Until Sat01/01/25 at 0943Start: 12-04-2024 End: 18-53-6484hhkckyflrsa intravitreal injection 2 mg/0.05 mL (EYLEA)Start: 12-04-2024 End: 52 mg, ONCE, 1 dose, Starting on Sat12/04/24 at 0909, Until Sat12/04/24 at 0909Start: 10-20-2024 End: 86-49-6267onsjpsgvopm intravitreal injection 2 mg/0.05 mL (EYLEA)Start: 10-20-2024 End: 52 mg, ONCE, 1 dose, Starting on Sat10/20/24 at 0850, Until Sat10/20/24 at 0850Start: 10-20-2024 End: 03-12-7457hpnsjqefcgv intravitreal injection 2 mg/0.05 mL (EYLEA)Start: 10-20-2024 End: 52 mg, ONCE, 1 dose, Starting on Sat10/20/24 at 0847, Until Sat10/20/24 at 0847Start: 09-04-2024 End: 57-00-3877hbcpedtqsef intravitreal injection 2 mg/0.05 mL (EYLEA)Start: 09-04-2024 End: 52 mg, ONCE, 1 dose, Starting on Sat09/04/24 at 1015, Until Sat09/04/24 at 1015aflibercept ophthalmic intravitreal 8 mg/0.07 mL 8 mg injection (EYLEA HD) (4 sources)Start: 02-26-2025 End: 28-40-7334zlzathttrbd ophthalmic intravitreal 8 mg/0.07 mL 8 mg injection (EYLEA HD)Start: 02-26-2025 End: mg, ONCE, 1 dose, Starting on Sat02/26/25 at 0830, Until Sat02/26/25 at 0830amLODIPine 5 mg oral tablet (20 sources)Dihydropyridine Calcium Channel BlockerStart: 12-26-2023 End: 86-44-6408acet 1 tablet by mouth once dailyAmlodipine 5 mg tablet Discontinued 5 MG PO Daily 90 3 December 26, 2023 9:08am March 08, 2025 9:38am Start: 01-95-0359pabb 1 tablet by mouth every twenty-four hoursamLODIPine Besylate 5 MG 1 tablet Orally Once a day Sep, ActiveKetorolac (12 sources)Nonsteroidal Anti-inflammatory Drug, Cyclooxygenase InhibitorStart: 69-74-7524Nkhqbyt per 15 mg Jun, 2 ccpredniSONE 20 mg oral tablet (8 sources)Start: 04-05-2024 End: 73-29-6468whtc 1 tablet by mouth twice dailypredniSONE (DELTASONE) 20 mg tablet TAKE 1 TABLET BY MOUTH TWICE A DAY FOR 4 DAYS TAKE 1 TABLET FOR3 DAYS 04/05/2024 04/28/2024 Discontinued Problems Active Problems Problem ClassificationProblemDateDocumented DateEpisodic/Chronic Administrative/social admission (12 sources)Other specified problems related to psychosocial circumstances; Translations: [Stress]EpisodicCataract (3 sources)Nuclear sclerotic cataract; Translations: [Age-related nuclear cataract, bilateral]Onset: 730303-39-3965UjxwpvnYkyatuzbny associated with dizziness or vertigo (13 sources)Vertigo; Translations: [Dizziness and giddiness]76-77-1243Ubcvimxo Diabetes mellitus without complication (20 sources)Hyperglycemia; Translations: [Hyperglycemia, unspecified]Onset: 450811-29-1726MmzqkgccZkutnmwsa of lipid metabolism (20 sources)Hyperlipidemia; Translations: [Hyperlipidemia, unspecified]Onset: 38-37-1075GrlwplzR Codes: Cut/pierceb (1 source)Contact with other powered hand tools and household machinery, initial encounter; Translations: [CONTACT OTH POWER HT AND MACH INIT]Onset: 43-99-1809CqrjpmqmP Codes: Fall (1 source)Unspecified fall, initial encounter; Translations: [UNSPECIFIED FALL INITIAL ENCOUNTER]Onset: 10-14-2290PygcgfhwCrqbcjse; convulsions (12 sources)Epilepsy; Translations: [Epilepsy, unspecified, not intractable, without status epilepticus]Onset: 497309-50-4159CmdeiuhRlmxezgz; convulsions (20 sources)Seizure; Translations: [Unspecified convulsions]Onset: 04-29-2024 31-60-8478EcljdcxwXgnwofjkl hypertension (20 sources)Essential (primary) hypertension; Translations: [Hypertensive disorder]Onset: 41-90-9167WtvgodbJokjblrx of upper limb (12 sources)Closed fracture of upper end of humerus; Translations: [Other displaced fracture of upper end of right humerus, initial encounter for closed fracture]28-21-3410ZsdboiomBhqxaaxwrvy of prostate (8 sources)Benign prostatic hyperplasia; Translations: [Benign prostatic hyperplasia without lower urinary tract symptoms]Onset: ChronicJoint disorders and dislocations; trauma-related (2 sources)Posterior dislocation of shoulder joint; Translations: [Posterior subluxation of left humerus, sequela]02-69-4078AttdzepzElqogql (12 sources)Onychomycosis; Translations: [Tinea unguium]EpisodicOcclusion or stenosis of precerebral arteries (4 sources)Right carotid artery stenosis; Translations: [Occlusion and stenosis of right carotid artery]97-87-0387NhtcmhvZpqf wounds of extremities (14 sources)Laceration of extensor muscle, fascia and tendon of unspecified finger at forearm level, subsequentencounter; Translations: [Unspecified open wound of unspecified finger without damage to nail, subsequent encounter]Onset: 19-66-4358OmhoumvmUzmvu aftercare (1 source)Other fpc (current) drug therapy; Translations: [OTH [facility] CURRENT DRUG THERAPY]Onset: 88-80-9873XezvgldqUryto connective tissue disease (4 sources)History of right shoulder arthroplasty; Translations: [Presence of right artificial shoulder joint]54-97-9951CaeaxfiVzcjb connective tissue disease (4 sources)Presence of right artificial shoulder joint; Translations: [Presence of right artificial shoulder joint]Onset: 41-06-8386LfnjlleMcctv connective tissue disease (1 source)Cramp and spasmEpisodicOther connective tissue disease (2 sources)Pain in right hand; Translations: [Pain in right hand]07-16-2024 EpisodicOther diseases of veins and lymphatics (4 sources)Lymphedema of right upper limb; Translations: [Lymphedema, not elsewhere classified]93-97-4263AsuthplRfybo disorders of stomach and duodenum (12 sources)Indigestion; Translations: [Functional dyspepsia]EpisodicOther fractures (9 sources)Pathological fracture of vertebra; Translations: [Collapsed vertebra, not elsewhere classified, thoracic region, initial encounter for fracture] EpisodicOther fractures (1 source)Collapsed vertebra, not elsewhere classified, thoracic region, initial encounter for fractureEpisodicOther fractures (6 sources)Fracture of twelfth thoracic vertebra; Translations: [Wedge compression fracture of T11-T12 vertebra, initial encounter for closed fracture] EpisodicOther fractures (1 source)Wedge compression fracture of T11-T12 vertebra, initial encounter for closed fractureEpisodicOther fractures (1 source)Wedge compression fracture of T11-T12 vertebra, subsequent encounter for fracture with routine healingEpisodicOther injuries and conditions due to external causes (1 source)Unspecified injury of other specified muscles, fascia and tendons at wrist and hand level, left hand, initial encounter; Translations: [UNS INJ OTH SPEC M AND T W HND LT H INT]Onset: 06-24-1543YonpqgpbZrsvr injuries and conditions due to external causes (6 sources)Injury of right hand; Translations: [Unspecified injury of right wrist, hand and finger(s), initialencounter]00-79-2499UgwsqukjUqqlk injuries and conditions due to external causes (2 sources)Unspecified injury of right wrist, hand and finger(s), initial encounter; Translations: [Hand, except finger injury]31-86-2149XicyqtlnXfpog non-traumatic joint disorders (6 sources)Joint swelling; Translations: [Effusion, unspecified joint]06-19-2024 EpisodicResidual codes; unclassified (3 sources)Pain, unspecified; Translations: [Generalized pain]EpisodicResidual codes; unclassified (3 sources)Pain; Translations: [Pain, unspecified]15-73-6707BlkjtibaVirofgc detachments; defects; vascular occlusion; and retinopathy (15 sources)Degenerative disorder of macula ; Translations: [Unspecified macular degeneration]Onset: 284376-71-3275KcbgbhiGqzpippydxp; intervertebral disc disorders; other back problems (12 sources)Low back pain; Translations: [Low back pain]EpisodicSuperficial injury; contusion (10 sources)Contusion of right shoulder; Translations: [Contusion of right shoulder, initial encounter]86-79-1377DbjfgxhmLzdnssiwwkju (1 source)CONTACT W/AND (SUSP) EXPOS COVID-19; Translations: [CONTACT W/AND (SUSP) EXPOS COVID-19]Onset: 10-56-8200Clxwodjfaeuy (6 sources)Right shoulder pain, unspecified rpisgppzqv68-53-8903Yljbzcemnjuv (2 sources)Left shoulder pain, unspecified cnfgdjyzbz28-03-3522Pzjfzmhwonit (5 sources)History of right shoulder tbxqgrhtsgih67-25-0886 Past or Other Problems Problem ClassificationProblemDateDocumented DateEpisodic/ChronicDiseases of mouth; excluding dental (1 source)Diseases of lipsOnset: 01-19-2022 Resolved: 74-24-2759CnawbmxwOxbbp disorders and dislocations; trauma-related (20 sources)Posterior dislocation of shoulder joint; Translations: [Posterior subluxation of right humerus, initial encounter]Onset: 313381-56-6514 EpisodicNeoplasms of unspecified nature or uncertain behavior (7 sources)Neoplasm of uncertain behavior of skin; Translations: [Neoplasm of uncertain behavior of skin]Onset: 86-41-4574BdhclgflGtlps non-traumatic joint disorders (15 sources)Pain in right shoulder; Translations: [Pain in joint, shoulder region]Onset: 249603-75-6369KdbnjqivYxetc non-traumatic joint disorders (5 sources)Pain in left shoulder; Translations: [Pain in joint, shoulder region] Onset: 913586-18-5851QotarpxcEhfep screening for suspected conditions (not mental disorders or infectious disease) (20 sources)Raised prostate specific antigen; Translations: [Elevated prostate specific antigen [PSA]]Onset: 28-15-9532LwynckxhVjdyqszgqtah (2 sources)Lumbar back pain M54.50Unclassified (1 source)History of COVID-19 Z86.16Viral infection (12 sources)Disease caused by 2019-nCoV; Translations: [COVID-19]Onset: 04-05-2022 Resolved: 04-05-2022 Results Test NameValueInterpretationReference WwswsGzgcijqrO4R with Estimated Average Gluon 22-46-9031Hswgnys [Mass/Vol]117 mg/dLNoCritical access hospital Physician Group Comment on above:Result Comment: PERFORMED BY: [place] [address] PATHOLOGIST SENIOR AUDIT MANAGER DELILAH HOLGUIN M.D.Performed By: #### TSH3, A1C WTH eA, CMP, LIPID, CBC #### [place] [address] USAAlanine aminotransferase [Enzymatic activity/volume] in Serum or PlasmaOrdered By: Herve Steele on 31-98-4256JYU [Catalytic activity/Vol] 12 U/LNormal7-52[facility] HospitalComment on above:Performed By: #### TSH3, A1C WTH eA, CMP, LIPID, CBC #### [place] [address] USAAlbumin [Mass/volume] in Serum or Plasma by Bromocresol green (BCG) dye binding methoOrdered By: Herve Steele on 27-51-3686Bbiuuru BCG dye [Mass/Vol]3.9 g/dL3.5-5.7FSouthwest General Health CenterAlkaline phosphatase [Enzymatic activity/volume] in Serum or PlasmaOrdered By: Herve Steele on 18-12-2541JFP [Catalytic activity/Vol]78 U/UXmjrgg62-295ZzhdlpqmkDetwiler Memorial HospitalComment on above:Performed By: #### TSH3, A1C WTH eA, CMP, LIPID, CBC #### [place] [address] USAAspartate aminotransferase [Enzymatic activity/volume] in Serum or PlasmaOrdered By: Herve Steele on 76-79-7334JVF [Catalytic activity/Vol] 15 U/BFhibwv96-17YguhekvtjDetwiler Memorial HospitalComment on above:Performed By: #### TSH3, A1C WTH eA, CMP, LIPID, CBC #### [facility] [address] [place] [address] USABasophils [#/volume] in Blood by Automated countOrdered By: Herve Steele on 47-13-6186Bsnpmuhwb (Bld) [#/Vol]0.1 10*3/uLNormal0.0-0.2 [facility] HospitalComment on above:Result Comment: PERFORMED BY: [place] [address] PATHOLOGIST SENIOR AUDIT MANAGER DELILAH HOLGUIN M.D.Performed By: #### TSH3, A1C WTH eA, CMP, LIPID, CBC #### [facility] [address] [place] [address] USABasophils/100 leukocytes in Blood by Automated count Ordered By: Herve Steele on 02-82-1686Dgpevxdkm/100 WBC (Bld)1.0 %Normal.[facility] HospitalComment on above:Performed By: #### TSH3, A1C WTH eA, CMP, LIPID, CBC #### [facility] [address] [place] [address] USABilirubin.total [Mass/volume] in Serum or PlasmaOrdered By: Herve Steele on 02-71-8447Smsuxozmj [Mass/Vol]0.6 mg/dLNormal0.3-1.0[facility] HospitalComment on above:Performed By: #### TSH3, A1C WTH eA, CMP, LIPID, CBC #### [facility] [address] [place] [address] USABlood estimated average glucose determination by estimation from glycated hemoglobinOrdered By: Herve Steele on 23-03-4207Wjogwsh glucose Estimated from glycated hemoglobin (Bld) [Mass/Vol]117 mg/dLDetwiler Memorial HospitalCalcium [Mass/volume] in Serum or PlasmaOrdered By: Herve Steele on 22-17-3132Dgbpbhc [Mass/Vol]9.0 mg/dLNormal8.6-10.3FSouthwest General Health CenterComment on above:Performed By: #### TSH3, A1C WT eA, CMP, LIPID, CBC #### [facility] [address] [place] [address] USACarbon dioxide, total [Moles/volume] in Serum or Plasma Ordered By: Herve Steele on 04-45-7714VU1 [Moles/Vol]29.2 mmol/FYtenal42.0-31.0 [facility] HospitalComment on above:Performed By: #### TSH3, A1C WT eA, CMP, LIPID, CBC #### [facility] [address] [place] [address] USAChloride [Moles/volume] in Serum or PlasmaOrdered By: Herve Steele on 05-37-0794Fewkyplq [Moles/Vol]104 mmol/YWigylc80-745PlchouwmdDetwiler Memorial HospitalComment on above:Performed By: #### TSH3, A1C WT eA, CMP, LIPID, CBC #### [facility] [address] [place] [address] USACholesterol [Mass/volume] in Serum or PlasmaOrdered By: Herve Steele on 64-49-4735Vmnlupxnley [Mass/Vol]179 mg/iKGhibti874-585HjevpzheaDetwiler Memorial HospitalComment on above:Chol less than 200 mg/dl low riskChol 201-239 mg/dl borderline riskChol 240 mg/dl and greater high riskResult Comment: Chol less than 200 mg/dl low risk Chol 201-239 mg/dl borderline risk Chol 240 mg/dl and greater high riskPerformed By: #### TSH3, A1C WTH eA, CMP, LIPID, CBC #### [facility] [address] [place] [address] USACholesterol in HDL [Mass/volume] in Serum or PlasmaOrdered By: Herve Steele on 50-08-1583Ewgyugagmkh in HDL [Mass/Vol]33 mg/lFAjjsrz11-47 [facility] HospitalComment on above:HDL CHOL ATP-III CLASSIFICATION Cardiovascular RiskHDL > or equal to 60 mg/dL LOWHDL < 40 mg/dL HIGHResult Comment: HDL CHOL ATP-III CLASSIFICATION Cardiovascular Risk HDL > or equal to 60 mg/dL LOW HDL < 40 mg/dL HIGHPerformed By: #### TSH3, A1C WTH eA, CMP, LIPID, CBC #### [facility] [address] [place] [address] USACholesterol in LDL Calc [Mass/Vol]Ordered By: Herve Steele on 06-97-2477Mgozmtvelsj in LDL [Mass/Vol]114 mg/dLHigh0-100[facility] HospitalComment on above:LDL ATP III CLASSIFICATIONLDL less than 100 mg/dL OptimalLDL 100-129 mg/dL Near or above xupdhebZOQ748-203 mg/dL Borderline highLDL 160-189 mg/dL HighLDL greater than 189 mg/dL Very highCholesterol in VLDL Calc [Mass/Vol]Ordered By: Herve Steele on 43-63-3491Yrrcbfqxrgw in VLDL [Mass/Vol]32 mg/dLDetwiler Memorial HospitalComplete Blood Count Auto Diffon 25-71-3247Irwk Corpuscular HGB Conc33.9 g/nGPudgni10.5-35.6The [facility] Physician GroupComment on above:Performed By: #### TSH3, A1C WTH eA, CMP, LIPID, CBC #### [facility] [address] [place] [address] USANRBC%0.1 /100{WBC}Normal0-0.5The [facility] Comment on above:Performed By: #### TSH3, A1C WTH eA, CMP, LIPID, CBC #### [facility] [address] [place] [address] USAWhite Blood Count6.1 [CFU]/mLNormal4.1-10.5The [facility] Physician GroupComment on above:Performed By: #### TSH3, A1C WTH eA, CMP, LIPID, CBC #### [facility] [address] [place] [address] USAComprehensive Metabolic Panelon 72-17-1346Uvmqkcy [Mass/Vol]3.9 g/dLNormal3.5-5.7The [facility] Physician GroupComment on above: Performed By: #### TSH3, A1C WTH eA, CMP, LIPID, CBC #### [facility] [address] [place] [address] USAGFR/1.73 sq M.predicted MDRD (S/P/Bld) [Vol rate/Area] mL/min/{1.73_m2}NormalThe [facility] Physician GroupComment on above:Performed By: #### TSH3, A1C WTH eA, CMP, LIPID, CBC #### [facility] [address] [place] [address] USACreatinine [Mass/volume] in Serum or PlasmaOrdered By: Herve Steele on 14-27-5773Jrjdujizci [Mass/Vol]1.14 mg/dLNormal0.70-1.30[facility] HospitalComment on above:Performed By: #### TSH3, A1C WTH eA, CMP, LIPID, CBC #### [facility] [address] [place] [address] USAEosinophils [#/volume] in Blood by Automated countOrdered By: Herve Steele on 61-30-8674Zsjrierqvjc (Bld) [#/Vol]0.3 10*3/uLNormal0.0-0.45 [facility] HospitalComment on above:Performed By: #### TSH3, A1C WTH eA, CMP, LIPID, CBC #### [facility] [address] [place] [address] USAEosinophils/100 leukocytes in Blood by Automated count Ordered By: Herve Steele on 41-29-7347Oomkyalxrzk/100 WBC (Bld)4.3 %Normal. [facility] HospitalComment on above:Performed By: #### TSH3, A1C WTH eA, CMP, LIPID, CBC #### [facility] [address] [place] [address] USAErythrocyte distribution width [Ratio] by Automated count Ordered By: Herve Steele on 91-11-5010Gjrmtcimbyp distribution width (RBC) [Ratio] 14.3 %Bzraro27.0-14.8Det[facility] HospitalComment on above:Performed By: #### TSH3, A1C WTH eA, CMP, LIPID, CBC #### [facility] [address] [place] [address] USAErythrocytes [#/volume] in Blood by Automated countOrdered By: Herve Steele on 98-03-8087XDY (Bld) [#/Vol]4.52 10*6/uLNormal3.90-5.60 [facility] HospitalComment on above:Performed By: #### TSH3, A1C WTH eA, CMP, LIPID, CBC #### [facility] [address] [place] [address] USAGlomerular filtration rate [Volume Rate/Area] in Serum, Plasma or Blood by CreatinineOrdered By: Herve Steele on 35-80-7745Xtmvyhcxef filtration rate [Volume Rate/Area] in Serum, Plasma or Blood by Creatinine> 60.0 mL/MinDetwiler Memorial HospitalGlucose [Mass/volume] in Serum or Plasma Ordered By: Herve Steele on 64-11-1018Forqjcu [Mass/Vol]107 mg/gYYntb76-342 [facility] HospitalComment on above:ADA recommended reference rangeRandom Glucose Reference Range is dependent on time and content of last meal. Glucose of more than 200 mg/dL in a nonstressed, ambulatory subject supports the diagnosisof Diabetes Mellitus.Result Comment: Random Glucose Reference Range is dependent on time and content of last meal. Glucose of more than 200 mg/dL in a nonstressed, ambulatory subject supports the diagnosis of Diabetes Mellitus. ADA recommended reference rangePerformed By: #### TSH3, A1C WTH eA, CMP, LIPID, CBC #### [facility] [address] [place] [address] USAHematocrit [Volume Fraction] of Blood by Automated count Ordered By: Herve Steele on 43-75-3817Welddlktjl (Bld) [Volume fraction]43.6 % Rjsgre85.8-50.0[facility] HospitalComment on above:Performed By: #### TSH3, A1C WTH eA, CMP, LIPID, CBC #### [facility] [address] [place] [address] USAHemoglobin A1c/Hemoglobin.total in BloodOrdered By: Herve Steele on 08-77-4477MnG1z (Bld) [Mass fraction]5.7 %High4.3-5.6FSouthwest General Health CenterComment on above:Increased risk for diabetes: 5.7 - 6.4diabetes: >6.4glycemic control for adults with diabetes: <7.0Result Comment: Increased risk for diabetes: 5.7 - 6.4 diabetes: >6.4 glycemic control for adults with diabetes: <7.0Performed By: #### TSH3, A1C WTH eA, CMP, LIPID, CBC #### [facility] [address] [place] [address] USAHemoglobin [Mass/volume] in BloodOrdered By: Herve Steele on 13-90-2364Pascgrfcul (Bld) [Mass/Vol]14.8 g/wBNeykdu01.0-17.0[facility] HospitalComment on above:Performed By: #### TSH3, A1C WTH eA, CMP, LIPID, CBC #### [facility] [address] [place] [address] USALeukocytes [#/volume] corrected for nucleated erythrocytes in Blood by Automated counOrdered By: Herve Steele on 95-10-5249ZBB corrected for nucl RBC Auto (Bld) [#/Vol]6.1 10*3/uL4.1-10.5FSouthwest General Health Center Leukocytes [#/volume] in Blood by Automated countOrdered By: Herve Steele on 98-26-8849AWT (Bld) [#/Vol]6.1 10*3/uLNormal4.1-10.5FSouthwest General Health CenterComment on above:Performed By: #### TSH3, A1C WTH eA, CMP, LIPID, CBC #### [facility] [address] [place] [address] USALipid Panelon 72-88-0369PIX Cholesterol,Iiepscasyd043 mg/dLHigh0-100The [facility] Physician GroupComment on above:Result Comment: LDL ATP III CLASSIFICATION LDL less than 100 mg/dL Optimal LDL 100-129 mg/dL Near or above optimal LDL 130-159 mg/dL Borderline high LDL 160-189 mg/dL High LDL greater than 189 mg/dL Very highPerformed By: #### TSH3, A1C WTH eA, CMP, LIPID, CBC #### [facility] [address] [place] [address] USATriglyceride w/Wqtcku808 mg/dLHigh0-149The [facility] Physician GroupComment on above:Result Comment: TRIG ATP III CLASSIFICATION TRIG less than 150 mg/dL Normal TRIG 150-199 mg/dL Borderline high TRIG 200-500 mg/dL High TRIG greater than 500 mg/dL Very high Standard traceable to the Center for Disease Conrtrol and Prevention (CDC) test method.Performed By: #### TSH3, A1C WTH eA, CMP, LIPID, CBC #### [facility] [address] [place] [address] USAVLDL TWOZQTIUIOA44 mg/dLNormalThe [facility] Physician GroupComment on above:Performed By: #### TSH3, A1C WTH eA, CMP, LIPID, CBC #### [facility] [address] [place] [address] USALymphocytes [#/volume] in Blood by Automated countOrdered By: Herve Steele on 01-26-7614Wjeenuhgdun (Bld) [#/Vol]1.7 10*3/uLNormal1.00-4.8 [facility] HospitalComment on above:Performed By: #### TSH3, A1C WTH eA, CMP, LIPID, CBC #### [facility] [address] [place], [place] [address] USALymphocytes/100 leukocytes in Blood by Automated count Ordered By: Herve Steele on 71-58-6963Qbqzdcdlrlk/100 WBC (Bld)27.7 %Normal. [facility] HospitalComment on above:Performed By: #### TSH3, A1C WTH eA, CMP, LIPID, CBC #### [facility] [address] [place] [id number] USAMCH [Entitic mass] by Automated countOrdered By: Herve Steele on 51-56-5853SLB (RBC) [Entitic mass]32.7 rzPqnuos96.5-35.2FSouthwest General Health CenterComment on above:Performed By: #### TSH3, A1C WTH eA, CMP, LIPID, CBC #### [facility] [address] [place] [address] USAHC Auto (RBC) [Mass/Vol]Ordered By: Herve Steele on 12-90-2355MHRE (RBC) [Mass/Vol]33.9 g/dL32.5-35.6FSouthwest General Health CenterMCV [Entitic volume] by Automated countOrdered By: Herve Steele on 79-62-7431YDD (RBC) [Entitic vol]96.4 kFWmthvm49.5-101Det[facility] HospitalComment on above:Performed By: #### TSH3, A1C WTH eA, CMP, LIPID, CBC #### [facility] [address] [place] [address] USAMonocytes [#/volume] in Blood by Automated countOrdered By: Herve Steele on 56-20-3801Onzvbjjuq (Bld) [#/Vol]0.8 10*3/uLNormal0.0-0.8 [facility] HospitalComment on above:Performed By: #### TSH3, A1C WTH eA, CMP, LIPID, CBC #### [facility] [address] [place] [address] USAMonocytes/100 leukocytes in Blood by Automated count Ordered By: Herve Steele on 83-73-1738Vubrxcfyw/100 WBC (Bld)13.2 %Normal. [facility] HospitalComment on above:Performed By: #### TSH3, A1C WTH eA, CMP, LIPID, CBC #### [facility] [address] [place] [address] USANeutrophils [#/volume] in Blood by Automated countOrdered By: Herve Steele on 45-25-2415Mgxzwltvjen (Bld) [#/Vol]3.3 10*3/uLNormal1.8-7.7 [facility] HospitalComment on above:Performed By: #### TSH3, A1C WTH eA, CMP, LIPID, CBC #### [facility] [address] [place] [address] USANeutrophils/100 leukocytes in Blood by Automated count Ordered By: Herve Steele on 34-08-4233Zagfyjerfrj/100 WBC (Bld)53.8 %Normal. [facility] HospitalComment on above:Performed By: #### TSH3, A1C WTH eA, CMP, LIPID, CBC #### [facility] [address] [place] [address] USANo Panel InformationOrdered By: Herve Steele on 05-31-2025 Pharmacy Creatinine Clearance (ChemN/AFSouthwest General Health CenterNucleated erythrocytes [Presence] in Blood by Automated countOrdered By: Herve Steele on 39-18-0577Ivpuykqcb RBC Auto Ql (Bld)0.1 /100{WBC}0-0.5FSouthwest General Health CenterPlatelet mean volume [Entitic volume] in Blood by Automated count Ordered By: Herve Steele on 17-60-8952Utwixhie mean volume (Bld) [Entitic vol]8.5 fLNormal6.6-10.1FSouthwest General Health CenterComment on above:Performed By: #### TSH3, A1C WTH eA, CMP, LIPID, CBC #### [facility] [address] [place] [address] USAPlatelets [#/volume] in Blood by Automated countOrdered By: Herve Steele on 37-24-0765Vjzdsxxtq (Bld) [#/Vol]189 10*3/bBRunjxr438-993 [facility] HospitalComment on above:Performed By: #### TSH3, A1C WTH eA, CMP, LIPID, CBC #### [facility] [address] [place] [address] USAPotassium [Moles/volume] in Serum or PlasmaOrdered By: Herve Steele on 92-20-0443Qjdcplcdy [Moles/Vol]4.1 mmol/LNormal3.5-5.1FSouthwest General Health CenterComment on above:Performed By: #### TSH3, A1C WTH eA, CMP, LIPID, CBC #### [facility] [address] [place] [address] USAProtein [Mass/volume] in Serum or PlasmaOrdered By: Herve Steele on 46-94-5314Rvohxdf [Mass/Vol]6.6 g/dLNormal6.4-8.9[facility] HospitalComment on above:Performed By: #### TSH3, A1C WTH eA, CMP, LIPID, CBC #### [facility] [address] [place] [address] USASerum globulin measurement by calculation (mass/volume) Ordered By: Herve Steele on 07-82-7717Ffpfuxev (S) [Mass/Vol]2.7 g/dLNormal [facility] HospitalComment on above:Performed By: #### TSH3, A1C WTH eA, CMP, LIPID, CBC #### [facility] [address] [place] [id number] USASerum or plasma albumin/globulin mass ratioOrdered By: Herve Steele on 43-66-9066Tcscpil/Globulin [Mass ratio]1.4 {ratio}NormalDetwiler Memorial HospitalComment on above:Performed By: #### TSH3, A1C WTH eA, CMP, LIPID, CBC #### [facility] [address] [place] [id number] USASerum or plasma anion gap determinationOrdered By: Herve Steele on 53-50-5741Oaxlp gap [Moles/Vol]9.9 mmol/LNormal6.0-15.0[facility] HospitalComment on above:Performed By: #### TSH3, A1C WTH eA, CMP, LIPID, CBC #### [facility] [address] [place] [id number] USASerum or plasma total cholesterol/high density lipoprotein (HDL) cholesterol mass ratOrdered By: Herve Steele on 05-31-2025 Cholesterol.total/Cholesterol in HDL [Mass ratio]5.4 {ratio}Normal<5.0Det[facility]iler Memorial HospitalComment on above:Performed By: #### TSH3, A1C WTH eA, CMP, LIPID, CBC #### [facility] [address] [place] [address] USASodium [Moles/volume] in Serum or PlasmaOrdered By: Herve Steele on 90-20-8739Tavcjg [Moles/Vol]139 mmol/FQbvhei557-681SrmqnxevpDetwiler Memorial HospitalComment on above:Performed By: #### TSH3, A1C WT eA, CMP, LIPID, CBC #### [facility] [address] [place] [address] USAThyrotropin [Units/volume] in Serum or PlasmaOrdered By: Herve Steele on 19-53-3755UYX Qn2.72 m[IU]/LNormal0.45-5.33[facility] HospitalComment on above:Result Comment: PERFORMED BY: [facility] [address] [place] [address] PATHOLOGIST SENIOR AUDIT MANAGER DELILAH HOLGUIN M.D.Performed By: #### TSH3, A1C WT eA, CMP, LIPID, CBC #### [facility] [address] [place] [address] USATriglyceride [Mass/volume] in Serum or PlasmaOrdered By: Herve Steele on 85-79-3934Dvwgdbplndab [Mass/Vol]161 mg/dLHigh0-149Det[facility] HospitalComment on above:TRIG ATP III CLASSIFICATIONTRIG less than 150 mg/dL NormalTRIG 150-199 mg/dL Borderline highTRIG 200-500 mg/dL High TRIG greater than 500 mg/dL Very highStandard traceable to the Center for Disease Conrtrol and Prevention (CDC) test method.Urea nitrogen [Mass/volume] in Serum or PlasmaOrdered By: Herve Steele on 25-36-8097Caul nitrogen [Mass/Vol]15 mg/dLNormal7-25Det[facility] Memorial HospitalComment on above:Performed By: #### TSH3, A1C WTH eA, CMP, LIPID, CBC #### [facility] [address] [place] [address] USAEYLEA HD (AFLIBERCEPT) 8MG INTRAVITREAL INJECTION OD (RIGHT EYE)on 22-00-6762Qesxamrba ClinicEYLEA HD (AFLIBERCEPT) 8MG INTRAVITREAL INJECTION OS (LEFT EYE)on 53-00-3431Dbxhypaeh ClinicOCT MACULA CIRRUS OU (BOTH EYES)on 72-63-4052Ftotbqhxb ClinicRadiology Study observation (narrative) [facility] Diagnostic (Total Free)on 29-52-0443Dozojyuq Spec Ag, Free 1.700 ng/mLNormalThe [facility] Physician GroupComment on above:Order Comment: Comment copies to urologist Dr.Bradley MendenhallPerformed By: #### PSATF #### [place] [address] USAPSA Total (Not a Screen)4.970 ng/mLHigh0.000-4.000The [facility] Physician GroupComment on above:Order Comment: Comment copies to urologist Dr.Bradley Black Comment: Serial tumor marker results determined by assays using different manufacturers or methods may not be comparable. [facility] utility person and method: [employer] (Inspect Manager) DXI, CHEMILUMINESCENT IMMUNOASSAY.Performed By: #### PSATF #### [place] [address] USAPSA,FREE%34.2 %NormalThe Kindred Hospital - [facility] Physician GroupComment on above:Order Comment: Comment copies to urologist Dr.Bradley Black Comment: Based on the work of Pieter et [...] 10% 20% >25 5% 9% PERFORMED BY: [place] [id number] PATHOLOGIST SENIOR AUDIT MANAGER DELILAH HOLGUIN M.D.Performed By: #### PSATF #### [place] [id number] USAConsultation/Specialist Noteon 01-04-2025 Consultation/Specialist Note [id number]#1.00OTGTOhio[facility] Consultation/Specialist Note [id number]#1.00[facility] HospitalRad - MRI Reporton 90-13-7769Ikp - MRI Report [id number]#1.00[facility] EYLEA (AFLIBERCEPT) 2MG INTRAVITREAL INJECTION OD (RIGHT EYE)on 01-01-2025 [facility]) 2MG INTRAVITREAL INJECTION OS (LEFT EYE)on 22-60-6848Bxjokoxdx ClinicOCT MACULA CIRRUS OU (BOTH EYES)on 21-20-4742Cavlfvneq ClinicRadiology Study observation (narrative)[facility] MACULA CIRRUS OU (BOTH EYES)Ordered By: Masha Leal on 90-34-1929Ctklxpdrt Clinic Work Phone: EYLEA (AFLIBERCEPT) 2MG INTRAVITREAL INJECTION OD (RIGHT EYE)on 04-77-3463Reluzcmhe ClinicOCT MACULA CIRRUS OU (BOTH EYES)on 35-90-9293Cvepbrvlw ClinicRadavita [facility] Study observation (narrative)[facility] 11-30-2024L Specimen: [id number] Received: 11/30/24 Status: BERONICA Rivers Num: [id number] Spec Type: Surgical Subm Dr: Herve Steele DO Tissues: A Skin-Other than Cyst, tag, debridement or plastic repair (L AXILLARY 1 CM) Procedures: FRED, Gross/Florencio L4 Age/ Patient Sex Location Account Attending Physician Davis Johnson/Cayden [id number] Herve Steele DO SPEC NUM: [id number] RECD: 11/30/24 STATUS: BERONICA RIVERS NUM: [id number] JOHANA: 11/30/[address] [facility] DR: Herve Steele DO ENTERED: 11/30/24 AZUL BROWNING: MARCIE TYPE: Surgical DEPT: S ENTERED BY: [id number] RECV BY: [id number] ORDERED: HE, Gross/Micro L4 ORDERED: HE, Gross/Micro L4 Pathological Diagnosis L axillary 1 cm, biopsy: Seborrheic keratosis. Clinical Information Neoplasm of uncertain behavior pain Gross Description Part A is received in formalin labeled with the patients name, date of , and L axillary 1 cm is a berry-brown, finely granular polypoid portion of skin, 0.6 x 0.5 x 0.3 cm. The specimen is inked black at the apparent point of attachment, longitudinally bisected, and entirely submitted in a single cassette. Fixation Time: Time specimen extracted: 835 Time specimen placed in formalin: 835 Cold ischemic time: Less than 1 minute Total fixation time: 9 hours (1, ana, B79-1640 A) ANTHONY Specimen: Received: 11/30/24 Status: BERONICA Rivers Num: [id number] Spec Type: Surgical Subm Dr: Herve Steele DO Tissues: A Skin-Other than Cyst, tag, debridement or plastic repair (L AXILLARY 1 CM) Procedures: Rita IBARRA/Florencio L4 Patient: Davis Johnson [id number] (Continued) Specimen: Received: 11/30/24 (Continued) Signed (signature on file) Heidi Mcgill MD 12/01/24 1523 Specimen: Received: 11/30/24 Status: BERONICA Rivers Num: [id number] Spec Type: Surgical Subm Dr: Herve Steele DO Tissues: A Skin-Other than Cyst, tag, debridement or plastic repair (L AXILLARY 1 CM) Procedures: FRED, Gross/Micro L4 Patient: Davis Johnson [id number] (Continued) Specimen: Received: 11/30/24 (Continued) Microscopic Description Dr Bass reviewed the case and agreed with the above diagnosis. CPT Codes 91015 Specimen: [id number] Received: 11/30/24 Status: BERONICA Rivers Num: [id number] Spec Type: Surgical Subm Dr: Herve Steele,DO Tissues: A Skin-Other than Cyst, tag, debridement or plastic repair (L AXILLARY 1 CM) Procedures: Rita IBARRA/Florencio L4 Patient: Davis Johnson [id number] (Continued) Signed (signature on file) Deepak Mcgill MD 12/01/[address] [place] [address] Physician GroupC[facility] 78-20-3754ONZCKhkrvi Visit (NE50MN) DAVIS JOHNSON ([id number]) 1955 M Date Time Provider Department 10/29/24 10:00 AM AMI WHITTAKER NE50MN During your visit today, we recorded the following information about you: Pulse Respiration Blood pressure Weight 75/minute 18/minute 150/76 73.5 kg Height 1.702 m Ami Whittaker MD 12/15/2024 1:04 PM Signed [facility] Patient Name: Davis Johnsno Date of : 1955 ESTABLISHED EPILEPSY CLINIC NOTE 10/29/2024 10:00 AM Reason for Visit: Seizures Clinical Summary: Mr. Johnson is a 69 year old right-handed male seen in [facility] [facility]. At today's visit, the patient is accompanied by: HISTORY OF PRESENT ILLNESS Handedness: right-handed Seizure History and Evolution Apr 03, 2024 was sleeping, recalls that he woke up, turned the alarm off, then set down and arms stuck straight in a tonic position, yelling, no clonic movements. Eyes wide open, After the event he had labored breathing, Duration was about 1 minutes. Patient amentic of the event. Confused for about 2 hours. Had tongue biting, no urine incontinence. 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 CT head was normal. Patient reports that he was not aware of the dislocation on 04/09, patient states that there are arthritic changes. Reports that he has been working for 3 weeks on a [employer] job, hot weather, sleep deprived Interval Seizure History Patient is seizure free on Keppra 750 mg bid No side effects Last seizure was in Jul 04, 2024, broke shoulder with first seizure Patient received avantin intravitreal on 03/20 and sz happened on 04/03 Patient received Eylea on and sz happened on 07/04. Unclear if szs were due to these drugs. Total # of Current Anti-seizure Medications: 1 Side Effects to Current Anti-seizure Medications: none Number of seizure types: 1 Hx of generalized tonic-clonic seizures: Yes Tongue bite: Yes Urine or Bowel Incontinence: No Seizure-related driving accidents: No Driving: Yes Lives Alone: No ED Visits in Last 3 Months: No Hospitalizations in Last 3 Months: No CURRENT OUTPATIENT ANTISEIZURE MEDICATIONS (as of the start of the encounter) midazolam (NAYZILAM) 5 mg/spray (0.1 mL) nasal spray Use 1 [place] in the nose as needed for up to 90 days. May repeat dose in alternate nostril after 10 minutes based on response and tolerability with seizures longer than 5 minutes levETIRAcetam (KEPPRA) 750 mg tablet Take 1 tablet by mouth two times a day. levETIRAcetam (KEPPRA) 750 mg tablet Take 1 tablet by mouth two times a day. Prior Anti-seizure Therapies: Trial Adequacy: Max Daily Dose Achieved: Side Effects: Effectiveness: Comments: Levetiracetam Comorbidities: None Episode Description: SEIZURE TYPE 1: Type1 Onset: 04/03/2024 Aura: no Description: He doesn't have any warning, his describe that he screams and his arms will be stuck in front of him and he becomes stiff. It also involves his legs as well. He doesn't respond during this time and his eyes are wide open. No clonic movement or shaking. Loss of awareness: Duration: Frequency: Last occurred: yes 1 to 5 minutes Patient Entered Data: EPILEPSY SCORE 10/23/2024 12:10 AM 10/23/2024 12:10 AM 10/23/2024 12:09 AM First answer obtained - 07/11/2024 4:18 PM PHQ-9 SCORE - - 2 [None-Minimal Depression] - NAOMY 2 SCORE 0 [Negative Anxiety Screen] - - - NAOMY 7 SCORE - - - - QOLIE-10 SCORE (0=worst; 100=best QoL - higher scores represent better function) - - - - LSSS SCORE (0- no seizures 100- most severe possible seizures) - - - - C-SSRS SCREEN - - - - On average, how many hours of sleep do you get in a 24-hour period? - - - - PROMIS Sleep Disturbance T-SCORE - - - 54 [within normal limits] Have you been diagnosed with Sleep Apnea? 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 No focal structural abnormality to account for seizures. Symmetric size, signal, and maintained morphology of the bilateral hippocampi. Mild presumed chronic microvascular ischemic changes in the white matter, and generalized volume loss, as detailed. EEG [facility] - 04/27/2024 Normal Other caregivers: Primary Care Provider: Herve Steele, DO Current Outpatient Medications Medication Sig Olmesartan-hydroCHLOROthiazide 20-12.5 mg per tablet 1 tablet. carvedilol (COREG) 6.25 mg tablet once daily. amLODIPine (NORVASC) 5 mg tablet once daily. aspirin 81 mg cap 1 (more content not included)...NormalSt. [facility] ClevelandEYLEA (AFLIBERCEPT) 2MG INTRAVITREAL INJECTION OD (RIGHT EYE)on 86-70-9476Yeceobsov ClinicEYLEA (AFLIBERCEPT) 2MG INTRAVITREAL INJECTION OS (LEFT EYE)on 94-32-5578Jooszaagp ClinicOCT MACULA CIRRUS OU (BOTH EYES)on 91-55-1484Lfzqysmqh ClinicRadiology Study observation (narrative)[facility] CampusXR Shoulder - right 2 Viewson . Right shoulder hemiarthroplasty without hardware complication. MACRO: None. Signed by: Sunni Josue 10/15/2024 9:01 PM Dictation workstation: [id number] By: Sunni Josue, STUDY: Right shoulder, two views INDICATION: Signs/Symptoms:pain. COMPARISON: 08/26/2024 ACCESSION NUMBER(S): [id number] ORDERING CLINICIAN: DAMIÁN BLACKWOOD FINDINGS: No acute fracture or malalignment. Status post right shoulder hemiarthroplasty with humeral component. Hardware is intact without perihardware fractures or lucencies. Soft tissues are unremarkable. MMODALSunni Josue MD - 10/15/2024 Interpreted By: Sunni Josue, STUDY: Right shoulder, two views INDICATION: Signs/Symptoms:pain. COMPARISON: 08/26/2024 ACCESSION NUMBER(S): [id number] ORDERING CLINICIAN: DAMIÁN BLACKWOOD FINDINGS: No acute fracture or malalignment. Status post right shoulder hemiarthroplasty with humeral component. Hardware is intact without perihardware fractures or lucencies. Soft tissues are unremarkable. IMPRESSION: 1. Right shoulder hemiarthroplasty without hardware complication. MACRO: None. Signed by: Sunni Josue 10/15/2024 9:01 PM Dictation workstation: [id number] [facility] Work Phone: XR Shoulder - right 2 ViewsOrdered By: Sunni Josue on 19-44-4151LzfquubufyPremier Health Miami [facility] Hospital [facility] Work Phone: XR SHOULDER RIGHT 2+ VIEWSon 30-09-4649FD SHOULDER RIGHT 2+ VIEWSInterpreted By: Sunni Josue, STUDY: Right shoulder, two views INDICATION: Signs/Symptoms:pain. COMPARISON: 08/26/2024 ACCESSION NUMBER(S): [id number] ORDERING CLINICIAN: DAMIÁN BLACKWOOD FINDINGS: No acute fracture or malalignment. Status post right shoulder hemiarthroplasty with humeral component. Hardware is intact without perihardware fractures or lucencies. Soft tissues are unremarkable. IMPRESSION: 1. Right shoulder hemiarthroplasty without hardware complication. MACRO: None. Signed by: Sunni Josue 10/15/2024 9:01 PM Dictation workstation: [id number] Health Akron CampusComment on above:Order Comment: 2 viewXR Shoulder - right 2 Viewson [id number] Study observation (narrative)[facility] Work Phone: EYLEA (AFLIBERCEPT) 2MG INTRAVITREAL INJECTION OD (RIGHT EYE)on 26-13-9200Scvlkhacb ClinicOCT MACULA CIRRUS OU (BOTH EYES)on 53-04-9500Pbbvtnauy ClinicRadiology Study observation (narrative)[facility] CampusCreatinine (Bld) [Mass/Vol]Ordered By: Cem Mendenhall on 08-27-2024 Creatinine [Mass/Vol]Whole blood creatinine measurement0.6-1.3FSouthwest General Health CenterComment on above:ER/ESD physician is notified/shown all ISTAT results.Critical values may be confirmed by laboratorytesting ifdeemed necessary by ER attending doctor.ISTAT XRay CREon 34-59-1075Edbntviyne [Mass/Vol]1.0 mg/dLNormal0.6-1.3The [facility] Physician GroupComment on above:Result Comment: ER/ESD physician is notified/shown all ISTAT results. Critical values may be confirmed by laboratory testing if deemed necessary by ER attending doctor.Performed By: #### ISCRE #### [place] [address] USAISTAT GFR>60.0NormShorePoint Health Punta Gorda Physician GroupComment on above:Result Comment: PERFORMED BY: [place] [address] PATHOLOGIST SENIOR AUDIT MANAGER MARYAM CONKLIN M.D.Performed By: #### ISCRE #### [place] [id number] [facility]OSPITALMR prostate wo/w conon 09-62-6585IS prostate wo/w con [facility] [address] [place] [address] [place], [place] [id number] MRI Report Signed Patient: Davis Johnson MR#: [id number] : 1955 Acct:[id number] Age/Sex: 69 / M ADM Date: 08/27/24 Loc: Room: Type: [facility] Attending Dr: Cem Mendenhall MD Copies to: Cem Mendenhall MD Ordering Provider: Cem Mendenhall MD Date of Service: 08/27/24 MR/MR prostate wo/w con: R97.20 EXAMINATION: MR prostate wo/w con HISTORY: Elevated PSA COMPARISON: NONE TECHNIQUE: Multiparametric imaging of the prostate gland was performed with IV contrast. FINDINGS: Prostate Dimensions: 5.3 x 3.6 x 5.3 cm Prostate Volume: 53 mL. Peripheral Zone: Heterogenous inT2 signal suggestive of prior prostatitis. No suspicious T2 or ADC map abnormality is identified to suggest prostate malignancy. Central/Transitional Zone: BPH changes. Seminal Vesicles: Unremarkable Neurovascular bundles: Unremarkable. Lymphadenopathy: No evidence of lymphadenopathy. Bladder: No focal lesion. Bowel: The visualized bowel is without acute abnormality. Peritoneal Cavity: No free fluid. Bones: No suspicious bony lesion. MR/MR prostate wo/w con IMPRESSION: No MRI evidence of clinically significant prostate cancer. BPH. Impression dictated by: Ravinder Byrnes Jr., D.OMisha08/27/2024 12:29 PM Dictation Location: [place] [address] Transcribed By: [facility] 08/27/24 1229 Dictated By: Ravinder Byrnes Jr, DO 08/27/24 1226 Signed By: 08/27/24 1229[facility] Physician GroupMagnetic resonance imaging reportOrdered By: Ravinder Byrnes on 36-38-5062Wmwkd reportEAST L[facility]POOL [facility] [address] [place] [address] [place] [address] MRI Report Signed Patient: Davis Johnson MR#: [id number] : 1955 Acct:[id number] Age/Sex: 69 / M ADM Date: 5 Loc: MR Room: Type: [facility] Attending Dr: Cem Mendenhall MD Copies to: Cem Mendenhall MD~ Ordering Provider: Cem Mendenhall MD Date of Service: 08/27/24 MR/MR prostate wo/w con: R97.20 EXAMINATION: MR prostate wo/w con HISTORY: Elevated PSA COMPARISON: NONE TECHNIQUE: Multiparametric imaging of the prostate gland was performed with IV contrast. FINDINGS: Prostate Dimensions: 5.3 x 3.6 x 5.3 cm Prostate Volume: 53 mL. Peripheral Zone: Heterogenous inT2 signal suggestive of prior prostatitis. Nosuspicious T2 or ADC map abnormality is identified to suggest prostate malignancy. Central/Transitional Zone: BPH changes. Seminal Vesicles: Unremarkable Neurovascular bundles: Unremarkable. Lymphadenopathy: No evidence of lymphadenopathy. Bladder: No focal lesion. Bowel: The visualized bowel is without acute abnormality. Peritoneal Cavity: No free fluid. Bones: No suspicious bony lesion. MR/MR prostate wo/w con IMPRESSION: No MRI evidence of clinically significant prostate cancer. BPH. Impression dictated by: Ravinder Byrnes Jr., D.O.08/27/2024 12:29 PM Dictation Location: [facility]- Transcribed By: [facility] 08/27/24 1229 Dictated By: Ravinder Byrnes Jr, DO 08/27/24 1226 Signed By: 08/27/24 1229 [facility] HospitalNo Panel InformationOrdered By: Cem Mendenhall on 84-79-3972Lapsmlh Estimated GFR (eGFR)> 60.0[facility] HospitalXR SHOULDER RIGHT 2+ VIEWSon 96-96-6953BI SHOULDER RIGHT 2+ VIEWSInterpreted By: Jossy Patel, STUDY: XR SHOULDER RIGHT 2+ VIEWS 08/26/2024 1:29 pm INDICATION: Signs/Symptoms:pain and hemiarthroplasty COMPARISON: 07/15/2024 ACCESSION NUMBER(S): [id number] ORDERING CLINICIAN: DAMIÁN BLACKWOOD TECHNIQUE: Two views of right shoulder FINDINGS: There is postoperative change from resurfacing shoulder arthroplasty. Osteopenia is demonstrated. There is no evidence for hardware failure. No periprosthetic lucency is identified. The acromioclavicular joint space is narrowed. IMPRESSION: Satisfactory appearance of the resurfacing shoulder arthroplasty with no acute abnormality of the shoulder identified. Signed by: Jossy Patel 08/28/2024 9:29 PM Dictation workstation: [id number] Health Akron CampusOCT MACULA CIRRUS OU (BOTH EYES)on 47-82-1689Qlguljsda ClinicRadiology Study observation (narrative)[facility] Informationon 07-24-2024 Levetiracetam (Keppra) Level14.0 ug/mL12.0-46.0[facility] Comment on above:This test is not suitable for patients receiving treatment with the drug brivaracetam (Briviact). The drug causes an interference that may lead to falsely elevated levetiracetam results.Reference ranges and high/low indicator flags are provided as general guidelines only. The treating physician must determine appropriate target levels/dosing based on the specific clinical situation.This test was developed, and its performance characteristics determined by the [facility] Department of Pathology and Laboratory Medicine. It has not been cleared or approved by the FDA. The [facility] is regulated under CLIA as qualified to perform high-complexity testing. This test is used for clinical purposes. It should not be regarded as investigational or for research. levETIRAcetam [facility] Hospitall-ncon 93-14-7866quwGKQISzcxam [Mass/Vol]14.0 ug/mLNormal 12.0-46.0[facility] on above:Order Comment: Specimen Type: BLOOD SPECIMENOrdering Facility: [facility] Address:[address] [place], [place] [address]Pccnna Comment: This test is not suitable for patients receiving treatment with the drug brivaracetam (Briviact). The drug causes an interference that may lead to falsely elevated levetiracetam results. Reference ranges and high/low indicator flags are provided as general guidelines only. The treatingphysician must determine appropriate target levels/dosing based on the specific clinical situation. This test was developed, and its performance characteristics determined by the [facility] Department of Pathology and Laboratory Medicine. It has not been cleared or approved by the FDA. The [facility] Department of Pathology and Laboratory Medicine is regulated under CLIA as qualified to perform high-complexity testing. This test is used for clinical purposes. It should not be regarded as investigational or for research.Performed By: #### [id number] ####[facility] LABCLIA [id number] [address]ETCNPNon [id number] Telephone (NE50MN) DAVIS JOHNSON ([id number]) 1955 M Date Time Provider Department 07/21/24 AMI WHITTAKER NE50MN During your visit today, we recorded the following information about you: Johnathan Montes RN 07/22/2024 1:42 PM Signed Open in error Allergies As of Date: 07/21/2024 (No Known Allergies) Date Reviewed: 07/17/2024 Reviewed by: Marie Felder OCCA - Fully Assessed Prescriptions as of 07/22/2024 - levETIRAcetam (KEPPRA) 750 mg tablet Take 1 tablet by mouth two times a day. - midazolam (NAYZILAM) 5 mg/spray (0.1 mL) nasal spray Use 1 [place] in the nose as needed for up to 90 days. May repeat dose in alternate nostril after 10 minutes based on response and tolerability with seizures longer than 5 minutes - levETIRAcetam (KEPPRA) 750 mg tablet Take 1 tablet by mouth two times a day. - diclofenac, EC, (VOLTAREN) 75 mg EC tablet Take one tablet by mouth twice a day as needed PRN for pain, with food - Olmesartan-hydroCHLOROthiazide 20-12.5 mg per tablet 1 tablet. - carvedilol (COREG) 6.25 mg tablet once daily. - amLODIPine (NORVASC) 5 mg tablet once daily. - aspirin 81 mg cap 1 tablet. Problem List As Of Date 07/21/2024 Noted Resolved Seizure (HCC) [R56.9] 04/29/2024 Hypertension [I10] 04/29/2024 Hyperlipidemia [E78.5] 04/29/2024 Encounter Status:Closed by JOHNATHAN LIN on 07/22/24[facility] 27-41-4325SHVNOkgxgz Visit (NE50MN) DAVIS JOHNSON ([id number]) 1955 M Date Time Provider Department 07/17/24 1:00 PM ELENI MAIER NE50MN During your visit today, we recorded the following information about you: Pulse Blood pressure Weight Height 73/minute 142/80 70.8 kg 1.702 m Eleni Maier MD 07/17/2024 2:09 PM Signed Thank you for choosing the [facility] and allowing me to serve as your physician. It was a pleasure to see you today. Please do not hesitate to call the clinic with any questions/concerns and/or message on [employer] whichever is most convenient for you. As discussed during the visit, we will increase Keppra to 750 mg BID Office hours: Saturday through Saturday 8am to 5pm. Call the office to report: Call OR send a [employer] message: Concerns about breakthrough seizures Change in seizure frequency New medication side effect or concern Missed medication dose Worsening or severe depression Urgent medication refill requests - needing new supply within 72 hours Non-urgent or routine medication refill requests Requesting a letter Requesting paperwork completion Report a breakthrough seizure Non-urgent clinical updates Non-urgent clinical questions (e.g. concern regarding lab or test results) Note: MyChart messages are not monitored after 5 PM on weekdays, weekends or holidays. MyChart messages will be addressed within 3 business days. If you have an urgent medical concern that needs to be addressed before 3 business days, please call the office. Please call 911 or proceed to nearest Emergency Room if you are experiencing any of the following issues: Status epilepticus (continuous seizure or multiple seizures without enough time to recover between them) Severe medication reaction (hives, itching or rash) Sudden onset of mental status changes Suicidal thoughts or plan to harm yourself or others Sudden onset of chest pain or shortness of breath Sudden onset of possible stroke symptoms (loss of balance, eye or face drooping, arm weakness, speech difficulty) General Seizure safety precautions: No bathing or swimming unsupervised, no use of heavy machinery, no heavy lifting (over 50lbs), no use of sharp moving objects (power tools) or open flames, avoid heights or ladders. Driving: If you are having seizure or episodes with loss of awareness, driving will need to be cleared by an Epileptologist. Driving laws vary from state to state, so please refer to your state driving laws for restrictions. [facility] You can contact the office to request or discuss a referral to the following teams within our department: Epilepsy Pharmacy Epilepsy Psychiatry Epilepsy Psychology Epilepsy Social Work Epilepsy Neurosurgery Epilepsy research opportunities Please refer below to review some information on seizures. Eleni Maier MD [place] [address] Office Fax number: [phone] Eleni Maier MD 07/20/2024 10:54 AM Signed [facility] Patient Name: Davis Johnson Date of : 1955 ESTABLISHED EPILEPSY CLINIC NOTE 07/17/2024 1:00 PM Reason for Visit: Established Patient and Follow Up Clinical Summary: Mr. Johnson is a 69 year old right-handed male seen in [facility]. Classification Summary HISTORY OF PRESENT ILLNESS Handedness: right-handed Age of onset: Seizure History and Evolution Apr 03, 2024 was sleeping, recalls that he woke up, turned the alarm off, then set down and arms stuck straight in a tonic position, yelling, no clonic movements. Eyes wide open, After the event he had labored breathing, Duration was about 1 minutes. Patient amentic of the event. Confused for about 2 hours. Had tongue biting, no urine incontinence. 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 CT head was normal. Patient reports that he was not aware of the dislocation on 04/09, patient states that there are arthritic changes. Reports that he has bene working for 3 weeks on a [employer] job, hot weather, sleep deprived Interval Seizure History Mr. Johnson came today for 3 months follow up after starting Keppra 500 mg BID for first onset seizure in last visit. His reported another seizure occurred in 04/07/2024. With similar description of the previous seizure, he woke up his arms were stuck in front of him and was yelling and screaming, whole body was stiff, there was no shaking or clonic component. He bit his tongue. No urine incontinence. He reported poor and interrupted sleep since his first seizure and shoulder issue started and he wasn't sure if to (more content not included)...Normal [facility] HospitalXR SHOULDER 2+ VIEWS BILATERALon 56-73-8635WR SHOULDER 2+ VIEWS BILATERALInterpreted By: Damon Pete, STUDY: XR SHOULDER 2+ VIEWS BILATERAL; ; 07/15/2024 1:58 pm INDICATION: Signs/Symptoms:pain. ,M25.511 Pain in right shoulder COMPARISON: None. ACCESSION NUMBER(S): [id number] ORDERING CLINICIAN: DAMIÁN BLACKWOOD FINDINGS: Bilateral shoulders, three views of each Left shoulder: There is no fracture. There is no dislocation. There are no degenerative changes. There is no lytic or sclerotic lesion. There is no soft tissue abnormality seen. Right shoulder: Right shoulder hip he hemiarthroplasty placed. No periprosthetic fracture or lucency. There is no dislocation IMPRESSION: No hardware failure of the right shoulder hemiarthroplasty Normal radiographs of the left shoulder MACRO: None Signed by: Damon Pete 07/16/2024 8:00 PM Dictation workstation: [id number] Health Akron CampusCNon [id number] (NE50MN) DAVIS JOHNSON ([id number]) 1955 M Date Time Provider Department 07/06/24 AMI WHITTAKER NE50MN During your visit today, we recorded the following information about you: Idalia Adm AlfordVannessa la 07/06/2024 8:53 AM Signed Seizure activity: Name of Caller : Davis Johnson Relationship to patient: Self Contact phone number: [phone] (home) Date of seizure: 07/04/24 Duration: unknown Back to Baseline (Yes/No): yes Emergency treatment needed (Yes/No): Yes, Went to [facility] Patient of Johnathan Valentin RN 07/06/2024 12:06 PM Addendum Last Visit: 04/27/2024 Next Visit: 07/17/24 Date and Time of seizure: 07/04 in the morning Witnessed: yes Aura: no Type of seizure: patient woke up in the hospital. Patient does not remember anything. stated his arms stiffened and he was screaming. Last Seizure: 04/09/24 Duration: unknown LOC: yes INGE: yes TB: esme UI: no Injury: no Rescue Medication used: no ASM: LEV 500/500 Triggers (recent illness, medication missed/changes, sleep issues, substance use): stated the heat form the water bed. Postictal Symptoms and Duration: confusion Back to [place]: yes Dasha Munoz APRN.CNP 07/06/2024 11:20 AM Signed I would recommend that we increase LEV to 750 mg BID. Glad he has follow up next week to discuss further. No driving. Dasha Munoz APRN.CNP The following approved medication requests have been transmitted electronically. Requested Prescriptions Signed Prescriptions Disp Refills levETIRAcetam (KEPPRA) 750 mg tablet 180 tablet 0 Sig: Take 1 tablet by mouth two times a day. Authorizing Provider: DASHA MUNOZ APRN.Johnathan Finley RN 07/06/2024 12:07 PM Signed Patient agreed with recommendations. Johnathan Montes RN Allergies As of Date: 07/06/2024 (No Known Allergies) Date Reviewed: 04/30/2024 Reviewed by: Stephanie Zuleta APRN.CJ - Fully Assessed Reason for Visit: Seizures [97] Order(s):levETIRAcetam (KEPPRA) 750 mg tabletTake 1 tablet by mouth two times a day.Disp: 180 tabletRfl: 0 Prescriptions as of 07/06/2024 - levETIRAcetam (KEPPRA) 750 mg tablet Take 1 tablet by mouth two times a day. - diclofenac, EC, (VOLTAREN) 75 mg EC tablet Take one tablet by mouth twice a day as needed PRN for pain, with food - Olmesartan-hydroCHLOROthiazide 20-12.5 mg per tablet 1 tablet. - carvedilol (COREG) 6.25 mg tablet once daily. - amLODIPine (NORVASC) 5 mg tablet once daily. - aspirin 81 mg cap 1 tablet. Problem List As Of Date 07/06/2024 Noted Resolved Seizure (HCC) [R56.9] 04/29/2024 Hypertension [I10] 04/29/2024 Hyperlipidemia [E78.5] 04/29/2024 Prescriptions ordered this encounter Disp Refills Start End LEVETIRACETAM 750 MG TABLET 180 * 0 07/06/2024 10/04/2024 Route: ORAL Sig: Take 1 tablet by mouth two times a day. Medications Discontinued During This Encounter Prescriptions - levETIRAcetam (KEPPRA) 500 mg tablet (Discontinued) Take 1 tablet by mouth two times a day. Patient should start on May 27, 2024. - levETIRAcetam (KEPPRA) 500 mg tablet (Discontinued) Take 1 tablet by mouth two times a day. Encounter Status:Closed by JOHNATHAN LIN on 07/06/24NoAvita Health System Galion HospitalBasophils Auto (Bld) [#/Vol]on 24-19-9655Nwizvgylf (Bld) [#/Vol] Automated basophil count0.0-0.1FSouthwest General Health CenterBasophils/100 WBC Auto (Bld)on 34-80-8753Enhspjjng/100 WBC (Bld)Automated basophil %0.2-2.0 [facility] HospitalEosinophils/100 WBC Auto (Bld)on 07-04-2024 Eosinophils/100 WBC (Bld)Automated eosinophil %0.9-7.0[facility] HospitalErythrocyte distribution width Auto (RBC) [Ratio]on 79-06-4556Srvsrgdrgsh distribution width (RBC) [Ratio]Erythrocyte distribution width [Ratio] by Automated count11.0-15.0[facility] HospitalEstimated glomerular filtration rate (GFR) non- Americanon 07-07-5412FXF/1.73 sq M.predicted among non-blacks MDRD (S/P/Bld) [Vol rate/Area]Estimated glomerular filtration rate (GFR) non- AmericanLow>=60 mL/min/1.73m 2FSouthwest General Health CenterGlobulin Calc (S) [Mass/Vol]on 55-41-4073Qhsrixqr (S) [Mass/Vol]Serum globulin measurement by calculation (mass/volume)[facility] HospitalHematocrit Auto (Bld) [Volume fraction]on 02-01-9649Nehiirugso (Bld) [Volume fraction]Hematocrit [Volume Fraction] of Blood by Automated count 42.0-54.0[facility] HospitalHemoglobin [Mass/volume] in Bloodon 28-98-0665Jyzgkanspi (Bld) [Mass/Vol]Hemoglobin [Mass/volume] in Blood14.0-18.0 [facility] HospitalLaboratory - Chemistry and Chemistry - challengeon 67-23-3314Twrhhsp [Mass/Vol]3.3 g/dLLow3.4-5.0[facility] HospitalALP [Catalytic activity/Vol]115 U/C41-959BkfuqytimDetwiler Memorial HospitalALT [Catalytic activity/Vol]19 U/G92-44GzgbhklgjDetwiler Memorial HospitalAST [Catalytic activity/Vol]13 U/YUan71-57TjvasoakwDetwiler Memorial HospitalBilirubin [Mass/Vol]0.2 mg/dL0.2-1.0[facility] Calcium [Mass/Vol]8.9 mg/dL8.5-10.1FSouthwest General Health CenterChloride [Moles/Vol]105 mmol/O53-107XiipfpjjhDetwiler Memorial HospitalCO2 [Moles/Vol]23.4 mmol/L21.0-32.0[facility] HospitalCreatinine [Mass/Vol]1.30 mg/dL 0.70-1.30Det[facility] HospitalGFR/1.73 sq M.predicted MDRD (S/P/Bld) [Vol rate/Area]mL/min/{1.73_m2}>=60 mL/min/1.73m 2FSouthwest General Health CenterGlucose [Mass/Vol]117 mg/qWDzji81-823ZvmtjrbxpDetwiler Memorial Hospital Potassium [Moles/Vol]3.7 mmol/L3.5-5.1FSouthwest General Health CenterProtein [Mass/Vol]6.3 g/dLLow6.4-8.2FMercer County Community Hospitalodium [Moles/Vol] 140 mmol/L509-518LblptcyukDetwiler Memorial HospitalUrea nitrogen [Mass/Vol]13.0 mg/dL7.0-18.0[facility] HospitalUrea nitrogen/Creatinine [Mass ratio]10.0 mg/mgDetwiler Memorial HospitalLaboratory - Hematology and Cell countson 79-43-5753Yzzwhdrx granulocytes/100 WBC (Bld)0.5 %0.0-0.5FSouthwest General Health CenterLeukocytes [#/volume] corrected for nucleated erythrocytes in Blood by Automated counon 86-86-5030MKG corrected for nucl RBC Auto (Bld) [#/Vol]Leukocytes [#/volume] corrected for nucleated erythrocytes in Blood by Automated coun4.0-11.0[facility] HospitalLymphocytes Auto (Bld) [#/Vol]on 94-20-7176Bwulzxehjox (Bld) [#/Vol]Lymphocytes [#/volume] in Blood by Automated count1.2-3.8[facility] HospitalLymphocytes/100 WBC Auto (Bld)on 49-21-7491Jymbrxzjcio/100 WBC (Bld)Lymphocytes/100 leukocytes in Blood by Automated count20.5-60.0[facility]H Auto (RBC) [Entitic mass]on 18-47-9457AOB (RBC) [Entitic mass]MCH [Entitic mass] by Automated count25.9-34.0[facility] HospitalMCHC Auto (RBC) [Mass/Vol]on 64-13-7157OUVW (RBC) [Mass/Vol]MCHC [Mass/volume] by Automated count29.9-35.2FSamaritan North Health CenterV Auto (RBC) [Entitic vol]on 79-43-4883FHW (RBC) [Entitic vol]MCV [Entitic volume] by Automated countHigh 80.0-94.0[facility] HospitalMonocytes Auto (Bld) [#/Vol]on 16-00-9845Glqvzdxsc (Bld) [#/Vol]Automated blood monocyte countHigh0.3-0.8 [facility] HospitalMonocytes/100 WBC Auto (Bld)on 07-04-2024 Monocytes/100 WBC (Bld)Automated monocyte %High1.7-12.0[facility] HospitalNeutrophils Auto (Bld) [#/Vol]on 17-13-5040Tewyauugunx (Bld) [#/Vol]Neutrophils [#/volume] in Blood by Automated count1.4-6.5FSouthwest General Health CenterNeutrophils/100 WBC Auto (Bld)on 07-04-2024 Neutrophils/100 WBC (Bld)Automated neutrophil %43.0-75.0[facility] HospitalNo Panel Informationon 92-96-6105Itvwjxwfjrh # (Auto)0.3 10 3/uL 0.0-0.7FSouthwest General Health CenterImmature Granulocyte # (Auto)0.03 10 3/uL0.00-0.03Det[facility] HospitalLevetiracetam (Keppra) LevelTNP ug/mL.[facility] HospitalComment on above:Test not performed. Gel tube type submitted interferes withthe assay.CONTACTED GREGORIA AT YOUR FACILITY ON 69-41-0092Uwjtphgp mean volume Auto (Bld) [Entitic vol]on 70-27-2836Kqnfvhfq mean volume (Bld) [Entitic vol]Platelet mean volume [Entitic volume] in Blood by Automated count9.5-13.5FSouthwest General Health CenterPlatelets Auto (Bld) [#/Vol]on 01-62-1442Usxduqjov (Bld) [#/Vol]Platelets [#/volume] in Blood by Automated ugsky446-349PfparxrdjDetwiler Memorial HospitalRBC Auto (Bld) [#/Vol]on 38-43-3197DUK (Bld) [#/Vol]Erythrocytes [#/volume] in Blood by Automated count Low4.70-6.10[facility] Westerum or plasma albumin/globulin mass ratioon 13-14-1669Kmvjaqs/Globulin [Mass ratio]Serum or plasma albumin/globulin mass ratioRegency Hospital Cleveland Westerum or plasma anion gap determinationon 15-93-1786Btypk gap [Moles/Vol]Serum or plasma anion gap determinationKettering Health Preble HEALTHon 07-01-2024 [facility]: [id number] Author: SHELLIE GILLIAM Tech Service: Radiology Author Type: Photogrammetric Stereo Compiler Type: Allied Health Filed: 07/01/2024 17:07 Note Text: Radiology Service Progress Note PATIENT [...] PATIENT PRESENTS WITH AN IMPLANTABLE OR ATTACHED LENS GENERATING MACHINE TENDER: No RADIOLOGY DEPARTMENT: MR; Exam(s) Completed: Head: Seizure PERIPHERAL IV DATA: Not applicable SIGNED BY: Melquiades Alanis July 01, 2024 5:07 [facility] Brain WO contraston 07-01-2024 IMPRESSION: No acute intracranial abnormality. No focal structural abnormality to account for seizures. Symmetric size, signal, and maintained morphology of the bilateral hippocampi. Mild presumed chronic microvascular ischemic changes in the white matter, and generalized volume loss, as detailed. Service Operations Manager: BRITTNEE Transcribe Date/Time: Jul 01 2024 10:25P Dictated by : JT MUNOZ MD This examination was interpreted and the report reviewed and electronically signed by: JT MUNOZ MD on Jul 01 2024 10:33PM [facility] RADIOLOGY* * *Final Report* * * DATE OF EXAM: Jul 01 2024 5:32PM [facility] 0294 - MRI BRAIN WO IVCON [...] orbits and extracranial soft tissues are unremarkable. SHIRA RADIOLOGYProvider, [facility] [place] - 07/01/2024 * * *Final Report* * * DATE OF EXAM: Jul 01 2024 5:32PM [facility] 0294 - MRI BRAIN WO IVCON [...] matter, and generalized volume loss, as detailed. Service Operations Manager: BRITTNEE Transcribe Date/Time: Jul 01 2024 10:25P Dictated by : JT MUNOZ MD This examination was interpreted and the report reviewed and electronically signed by: JT MUNOZ MD on Jul 01 2024 10:33PM EST [facility] CampusRadiology Study observation (narrative)[facility] Brain WO contrastOrdered By: Ccf Provider on 66-20-2258Menxnbmel ClinicMRI BRAIN WO IVCONon 47-13-0689KNF BRAIN WO IVCON* * *Final Report* * * DATE OF EXAM: Jul 01 2024 5:32PM [facility] 0294 - MRI BRAIN WO IVCON [...] orbits and extracranial soft tissues are unremarkable. IMPRESSION: No acute intracranial abnormality. No focal structural abnormality to account for seizures. Symmetric size, signal, and maintained morphology of the bilateral hippocampi. Mild presumed chronic microvascular ischemic changes in the white matter, and generalized volume loss, as detailed. Service Operations Manager: [facility] Transcribe Date/Time: Jul 01 2024 10:25P Dictated by : JT MUNOZ MD This examination was interpreted and the report reviewed and electronically signed by: JT MUNOZ MD on Jul 01 2024 10:33PM EST [id number] Hospital [id number] (NE50MN) DAVIS JOHNSON ([id number]) 1955 M Date Time Provider Department 06/22/24 [facility] [place]50[place] During your visit today, we recorded the following information about you: Mel Estelita Poly 06/22/2024 8:27 AM Signed Medication Concern Person Calling Davis Johnson Name of medication Keppra Concern with medication Patient wants to reduce Keppra due to bad taste and bad smell. Please advise. He plans to see a new doctor in [place] in two weeks due to closer to home. Patient of rPomise Hernandez RN 06/22/2024 12:01 PM Signed 04/27/2024 [...] 06/22/2024 1:59 PM Signed Spoke with Randall reviewed the recommends appointment line given to arrange MRI/will call is needs order to do locally. will continue with the LEV at this time Promise Griffith RN Allergies As of Date: 06/22/2024 (No Known Allergies) Date Reviewed: 04/30/2024 Reviewed by: Stephanie Zuleta APRN.[employer] - Fully Assessed Reason for Visit: Medication Problem [65] Cmt: Patient wants to reduce Keppra Primary Visit Diagnosis:Convulsions, unspecified convulsion type (HCC) [R56.9] Order(s):MRI BRAIN WO IVCON [[id number]] Order #: [id number] FUTURE Prescriptions as of 06/22/2024 - diclofenac, [...] by mouth two times a day. - Olmesartan-hydroCHLOROthiazide 20-12.5 mg per tablet 1 tablet. - carvedilol (COREG) 6.25 mg tablet once daily. - amLODIPine (NORVASC) 5 mg tablet once daily. - aspirin 81 mg cap 1 tablet. Problem List As Of Date 06/22/2024 Noted Resolved Seizure (HCC) [R56.9] 04/29/2024 Hypertension [I10] 04/29/2024 Hyperlipidemia [E78.5] 04/29/2024 Encounter Status:Closed by PROMISE GRIFFITH on 06/22/24NoAvita Health System Galion HospitalBasophils Auto (Bld) [#/Vol]on 87-94-8360Jibmoeqwz (Bld) [#/Vol] Automated basophil count0.0-0.1FSouthwest General Health CenterBasophils/100 WBC Auto (Bld)on 15-09-7873Ncmedsemm/100 WBC (Bld)Automated basophil %0.2-2.0 [facility] HospitalCentriole Ab [Titer] in Serum by Immunofluorescenceon 56-58-4684Jemyyogpr Ab IF (S) [Titer]Centriole Ab [Titer] in Serum by Immunofluorescence.[facility] HospitalCentromere Ab [Titer] in Serum by Immunofluorescenceon 92-48-6066Zpvmnpcjjl Ab IF (S) [Titer] Centromere Ab [Titer] in Serum by Immunofluorescence.[facility] HospitalEosinophils/100 WBC Auto (Bld)on 37-56-9881Ctvkzbaejnx/100 WBC (Bld) Automated eosinophil %0.9-7.0[facility] HospitalErythrocyte distribution width Auto (RBC) [Ratio]on 04-86-5622Yxgmqhqjhum distribution width (RBC) [Ratio]Erythrocyte distribution width [Ratio] by Automated count11.0-15.0 [facility] HospitalEstimated glomerular filtration rate (GFR) non- Americanon 28-92-5255GPK/1.73 sq M.predicted among non-blacks MDRD (S/P/Bld) [Vol rate/Area]Estimated glomerular filtration rate (GFR) non->=60 mL/min/1.73m 2FSouthwest General Health CenterGlobulin Calc (S) [Mass/Vol]on 51-90-7603Rdhqszei (S) [Mass/Vol]Serum globulin measurement by calculation (mass/volume)[facility] HospitalHematocrit Auto (Bld) [Volume fraction]on 67-23-7348Ijoabxkfoj (Bld) [Volume fraction]Hematocrit [Volume Fraction] of Blood by Automated count42.0-54.0[facility] HospitalHemoglobin [Mass/volume] in Bloodon 64-08-9054Lqbkfdtcqn (Bld) [Mass/Vol] Hemoglobin [Mass/volume] in Blood14.0-18.0[facility] Laboratory - Chemistry and Chemistry - challengeon 94-49-8691Xqtlces [Mass/Vol] 3.6 g/dL3.4-5.0[facility] HospitalALP [Catalytic activity/Vol]116 U/P05-482OzpxefsjqDetwiler Memorial HospitalALT [Catalytic activity/Vol]16 U/L 16-63Det[facility] HospitalAST [Catalytic activity/Vol]12 U/ORyr99-84 [facility] HospitalBilirubin [Mass/Vol]0.4 mg/dL0.2-1.0[facility] HospitalCalcium [Mass/Vol]9.6 mg/dL8.5-10.1FSouthwest General Health CenterChloride [Moles/Vol]104 mmol/R47-156RezpjqcaoDetwiler Memorial HospitalCO2 [Moles/Vol]30.3 mmol/L21.0-32.0[facility] Creatinine [Mass/Vol]1.06 mg/dL0.70-1.30[facility] GFR/1.73 sq M.predicted MDRD (S/P/Bld) [Vol rate/Area]mL/min/{1.73_m2}>=60 mL/min/1.73m 2FSouthwest General Health CenterGlucose [Mass/Vol]96 mg/tL65-647 [facility] HospitalPotassium [Moles/Vol]4.3 mmol/L3.5-5.1FSouthwest General Health CenterProtein [Mass/Vol]7.0 g/dL6.4-8.2FMercer County Community Hospitalodium [Moles/Vol]143 mmol/I643-670DjhzodkalDetwiler Memorial HospitalUrate [Mass/Vol]5.5 mg/dL3.5-7.2FSouthwest General Health CenterUrea nitrogen [Mass/Vol]12.0 mg/dL7.0-18.0[facility] HospitalUrea nitrogen/Creatinine [Mass ratio]11.3 mg/mgDetwiler Memorial Hospital Laboratory - Hematology and Cell countson 35-82-5401DIQ (Bld) [Velocity]6 mm/h <=20Det[facility] HospitalImmature granulocytes/100 WBC (Bld)0.2 % 0.0-0.5FSouthwest General Health CenterLeukocytes [#/volume] corrected for nucleated erythrocytes in Blood by Automated counon 49-42-2476GLP corrected for nucl RBC Auto (Bld) [#/Vol]Leukocytes [#/volume] corrected for nucleated erythrocytes in Blood by Automated coun4.0-11.0[facility] Lymphocytes Auto (Bld) [#/Vol]on 64-42-7699Wxamgzlmrgn (Bld) [#/Vol]Lymphocytes [#/volume] in Blood by Automated count1.2-3.8[facility] Lymphocytes/100 WBC Auto (Bld)on 59-82-3877Hqwdaqhhnnq/100 WBC (Bld) Lymphocytes/100 leukocytes in Blood by Automated xbjwfLyw61.5-60.0[facility] JacksonH Auto (RBC) [Entitic mass]on 89-98-8398FZN (RBC) [Entitic mass]MCH [Entitic mass] by Automated count25.9-34.0[facility] – JacksonHC Auto (RBC) [Mass/Vol]on 52-83-6394KLRZ (RBC) [Mass/Vol]MCHC [Mass/volume] by Automated count29.9-35.2FSamaritan North Health CenterV Auto (RBC) [Entitic vol]on 17-17-7938RQI (RBC) [Entitic vol]MCV [Entitic volume] by Automated halxdOxtf84.0-94.0[facility] HospitalMidbody Ab [Titer] in Serum by Immunofluorescenceon 30-74-6408Uaqazvo Ab IF (S) [Titer] Midbody Ab [Titer] in Serum by Immunofluorescence.[facility] HospitalMitotic spindle apparatus Ab [Titer] in Serum or Plasma by Immunofluorescenceon 01-86-9804Evyqzju spindle apparatus Ab IF [Titer]Mitotic spindle apparatus Ab [Titer] in Serum or Plasma by Immunofluorescence.[facility] HospitalMonocytes Auto (Bld) [#/Vol]on 32-60-2028Ooersqklo (Bld) [#/Vol]Automated blood monocyte countHigh0.3-0.8[facility] HospitalMonocytes/100 WBC Auto (Bld)on 79-40-1542Hvecsqwsm/100 WBC (Bld)Automated monocyte %1.7-12.0[facility] HospitalNeutrophils Auto (Bld) [#/Vol]on 13-49-9274Wyhnipqakje (Bld) [#/Vol]Neutrophils [#/volume] in Blood by Automated count1.4-6.5FSouthwest General Health CenterNeutrophils/100 WBC Auto (Bld)on 64-26-7854Dhinwvgqzav/100 WBC (Bld)Automated neutrophil %43.0-75.0 [facility] HospitalNo Panel Informationon 31-96-0976Xdlc-Nuclear Antibody Comment 2Comment.[facility] HospitalComment on above: Pattern Potential Disease Association Homogeneous Systemic Lupus Erythematosus, Drug Induced Systemic Lupus Erythematosus, Chronic Autoimmune hepatitis, Juvenile Idiopathic Arthritis Speckled Sjogren Syndrome, Systemic Lupus Erythematosus, Subacute Cutaneous Lupus, Lupus, Congenital Heart Block, Mixed Connective Tissue Disease, Scleroderma-diffuse, Scleroderma- Autoimmune Myositis Overlap Syndrome, Systemic Lupus Mqsgbrtpfzoqd-Fqgvxmztpeq-Rizpcjsqze Myositis Overlap Syndrome, Systemic Autoimmune Rheumatic Disease, Undifferentiated Connective Tissue Disease Nucleolar Systemic Sclerosis, Scleroderma-Autoimmune Myositis Overlap Syndrome, Sjogren Syndrome, Raynaud phenomenon, Pulmonary Arterial Hypertension, Systemic Autoimmune Rheumatic Disease, Cancer Centromere Scleroderma-CREST, Limited Cutaneous SSc, Raynaud's Phenomenon, Primary Biliary Cholangit is Nuclear Dot Primary Biliary Cholangitis Nuclear Primary Biliary Cholangitis, AutoimmuneMembrane Hepatitis/Liver disease, Systemic Autoimmune Rheumatic Disease, Autoimmune Cytopenias, Linear Scleroderma, Antiphospholipid Syndrome Performed at: - [facility] [id number] Director: Moises Barkley PhD, Phone: [phone]-Nuaumavs Protein, Quantitative<0.50 mg/dL <=0.50Det[facility] HospitalEosinophils # (Auto)0.2 10 3/uL0.0-0.7 [facility] HospitalImmature Granulocyte # (Auto)0.02 10 3/uL 0.00-0.03Det[facility] HospitalNuclear dots nuclear Ab pattern [Titer] in Serum by Immunofluorescenceon 37-57-6079Gvhbtor dots nuclear Ab pattern IF (S) [Titer]Nuclear dots nuclear Ab pattern [Titer] in Serum by Immunofluorescence.[facility] HospitalNuclear membrane pores nuclear Ab pattern [Titer] in Serum by Immunofluorescenceon 17-91-2032Hzgybmb membrane pores nuclear Ab pattern IF (S) [Titer]Nuclear membrane pores nuclear Ab pattern [Titer] in Serum by Immunofluorescence.[facility] HospitalPCNA extractable nuclear Ab [Titer] in Serum by Immunofluorescenceon 73-49-1758PVQJ extractable nuclear Ab IF (S) [Titer]PCNA extractable nuclear Ab [Titer] in Serum by Immunofluorescence.[facility] HospitalPlatelet mean volume Auto (Bld) [Entitic vol]on 96-30-0131Zbryojwh mean volume (Bld) [Entitic vol]Platelet mean volume [Entitic volume] in Blood by Automated count 9.5-13.5FSouthwest General Health CenterPlatelets Auto (Bld) [#/Vol]on 26-66-6497Gfhxyccyi (Bld) [#/Vol]Platelets [#/volume] in Blood by Automated -886BlphnxiaxDetwiler Memorial HospitalRBC Auto (Bld) [#/Vol]on 06-19-2024 RBC (Bld) [#/Vol]Erythrocytes [#/volume] in Blood by Automated count4.70-6.10 [facility] Westerum homogeneous pattern antinuclear antibody (JAYLIN) titeron 46-99-9417Zydlqbkuli nuclear Ab pattern (S) [Titer]Serum homogeneous pattern antinuclear antibody (JAYLIN) titer.[facility] nuclear antibody titeron 95-28-2086Dnecbvk Ab (S) [Titer]Serum nuclear antibody titerAbnormal.[facility] HospitalComment on above:Negative <1:80 Borderline 1:80 Positive >1:80Serum nucleolar pattern antinuclear antibody (JAYLIN) titeron 38-42-6635Zbvahmqxn nuclear Ab pattern (S) [Titer]Serum nucleolar pattern antinuclear antibody (JAYLIN) titer.[facility] Westerum or plasma albumin/globulin mass ratioon 06-19-2024 Albumin/Globulin [Mass ratio]Serum or plasma albumin/globulin mass ratio [facility] or plasma anion gap determinationon 50-40-8782Jcavm gap [Moles/Vol]Serum or plasma anion gap determinationRegency Hospital Cleveland Westerum or plasma rheumatoid factor measurement (units/volume)on 64-12-8814Seuvutdodj factor QnSerum or plasma rheumatoid factor measurement (units/volume)<14.0[facility] HospitalComment on above:Performed at: [employer] [facility] [id number] Director: Moises Barkley PhD, Phone: [phone] speckled pattern antinuclear antibody (JAYLIN) titeron 44-50-6017Lbqxexys nuclear Ab pattern (S) [Titer]Serum speckled pattern antinuclear antibody (JAYLIN) titer.[facility] HospitalComment on above:ICAP nomenclature: AC-2,4,5,29XR SHOULDER RIGHT 2+ VIEWSon 51-79-3760QQ SHOULDER RIGHT 2+ VIEWSInterpreted By: Damon Pete, STUDY: XR SHOULDER RIGHT 2+ VIEWS; ; 06/17/2024 2:08 pm INDICATION: Signs/Symptoms:pain. ,S43.004A Unspecified dislocation of right shoulder joint, initial encounter COMPARISON: 05/18/2024 ACCESSION NUMBER(S): [id number] ORDERING CLINICIAN: DAMIÁN BLACKWOOD FINDINGS: Right shoulder, two views Total shoulder arthroplasty in place. There is no periprosthetic fracture or lucency. There is no dislocation. There is mild AC degenerative changes IMPRESSION: No hardware failure about the right total shoulder arthroplasty MACRO: None Signed by: Damon Pete 06/20/2024 6:16 AM Dictation workstation: [id number] Health Akron CampusXR SHOULDER RIGHT 2+ VIEWSon 68-16-8060SA SHOULDER RIGHT 2+ VIEWS Interpreted By: Damián Blackwood, STUDY: XR SHOULDER RIGHT 2+ VIEWS; 05/18/2024 2:13 pm INDICATION: Signs/Symptoms:pain. ACCESSION NUMBER(S): [id number] ORDERING CLINICIAN: DAMIÁN BLACKWOOD FINDINGS: AP lateral oblique views of the right shoulder show stable alignment of the humeral hemiarthroplasty. Component appears stable and well-positioned without evidence of loosening or other obvious abnormality. Signed by: Damián Blackwood 05/18/2024 5:28 PM Dictation workstation: [id number] Health Akron CampusXR Shoulder - right 2 Viewson 73-30-2413Dhhqgbnkngh By: Damián Blackwood, STUDY: XR SHOULDER RIGHT 2+ VIEWS; 05/18/2024 2:13 pm INDICATION: Signs/Symptoms:pain. ACCESSION NUMBER(S): [id number] ORDERING CLINICIAN: DAMIÁN BLACKWOOD FINDINGS: AP lateral oblique views of the right shoulder show stable alignment of the humeral hemiarthroplasty. Component appears stable and well-positioned without evidence of loosening or other obvious abnormality. Signed by: Damián Blackwood 05/18/2024 5:28 PM Dictation workstation: [id number] Damián Granados MD - 05/18/2024 Interpreted By: Damián Blackwood, STUDY: XR SHOULDER RIGHT 2+ VIEWS; 05/18/2024 2:13 pm INDICATION: Signs/Symptoms:pain. ACCESSION NUMBER(S): [id number] ORDERING CLINICIAN: DAMIÁN BLACKWOOD FINDINGS: AP lateral oblique views of the right shoulder show stable alignment of the humeral hemiarthroplasty. Component appears stable and well-positioned without evidence of loosening or other obvious abnormality. Signed by: Damián Blackwood 05/18/2024 5:28 PM Dictation workstation: [id number] [facility] Work Phone: Radiology Study observation (narrative)[facility] Work Phone: XR Shoulder - right 2 ViewsOrdered By: Damián Blackwood on 74-85-3703DzyzhtpfyyKindred Hospital [facility] Work Phone: Prostate Specific Ag Free [Mass/volume] in Serum or PlasmaOrdered By: Herve Steele on 15-89-6982Jbek PSA [Mass/Vol]1.120 ng/mL [facility] HospitalFr PSA [Mass/Vol]Prostate Specific Ag Free [Mass/volume] in Serum or PlasmaDetwiler Memorial HospitalProstate specific Ag [Mass/volume] in Serum or PlasmaOrdered By: Herve Steele on 05-15-2024 Prostate specific Ag [Mass/Vol]6.590 ng/mLHigh0.000-4.000[facility] HospitalComment on above:Serial tumor marker results determined by assays using different manufacturers or methods may not be comparable.[facility] utility person and method:[employer] (Inspect Manager) DXI, CHEMILUMINESCENT IMMUNO ASSAY.Prostate specific Ag [Mass/Vol]Prostate specific Ag [Mass/volume] in Serum or PlasmaHigh0.000-4.000[facility] HospitalComment on above: Serial tumor marker results determined by assays using different manufacturers or methods may not be comparable.[facility] utility person and method:[employer] (Inspect Manager) DXI, CHEMILUMINESCENT IMMUNOASSAY.Serum or plasma free prostate specific antigen (PSA)/total PSA ratioOrdered By: Herve Steele on 90-74-3594Rckr PSA/Total PSA [Mass fraction]16.9 %[facility] HospitalComment on above:Based on the work of Pieter et al.ALEX. [...] 24% 35% 15 - 20 17% 23% 20- 25 10% 20% >25 5% 9%Free PSA/Total PSA [Mass fraction]Serum or plasma free prostate specific antigen (PSA)/total PSA ratioDetwiler Memorial HospitalComment on above:Based on the work of Pieter et al.ALEX. 27919):1542:47.1998 the percent free PSA may be used to d etermine the relative risk of prostate cancer in individual men.The percent probability of prostatecancer by patient age for men with non-suspicious ALFONSO results and total PSa between 4 and 10 ng/ml is as follows:% Free PSA 50 - 64 yrs. 65 - 75 yrs. 0 - 10 56% 55% 10 - 15 24% 35% 15 - 20 17% 23% 20- 25 10% 20% >25 5% 9%Partial Thromboplastin Timeon 34-83-9141vDEF Coag (Bld) [Time]32.0 s Pdqewx88.4-36.8[facility] HospitalComment on above:Result Comment: Effective 06/08/2020: Heparin Therapeutic Range: 64.0 ? 98.0 seconds.Performed By: #### PTT #### [facility] [address] [place] [address] Hgxnkbmagqm Timeon 30-93-5199HLY Coag (PPP) [Relative time]1.1 {INR} NormalMelissa Memorial HospitalComment on above:Performed By: #### PT #### [facility] [address] [place] [address] AB Coag (PPP) [Time]14.1 nMdehfo99.3-14.9[facility] HospitalComment on above:Performed By: #### PT #### [facility] [address] [place] [address] Ulxm and Screen Capture 3 scrn cellon 73-91-2651Xxos and Screen Capture 3 scrn cellPATIENT: GENESIS Garcia LOC: LCOPS,ORPOOL,NON BILL# : [id number] : 1955 SEX: M ORDERED BY: JAISON Ramos ORDERED : 05/05/2024 09:11 COLLECTED: 05/05/2024 09:06 ORDER : [id number] RECEIVED : 05/05/2024 09:11 TEST NAME RESULT UNITS RANGES ABN FL ST ABORH Capture O POS F Antibody 3 Cell Scrn Captu NEG F [facility] HospitalComment on above:Performed By: #### TS3C #### [facility] [address] [place] [address] Kdio and Screen Capture 3 scrn cellPATIENT: GENESIS Garcia LOC: SHASHI PIKE NON BILL# : [id number] : 1955 SEX: M ORDERED BY: JAISON Ramos ORDERED : 05/05/2024 08:13 COLLECTED: 05/05/2024 08:13 ORDER : [id number] RECEIVED : 05/05/2024 08:16 TEST NAME RESULT UNITS RANGES ABN FL ST ABORH Capture O POS F Antibody 3 Cell Scrn Captu X @05/05/24 09:13 by SONYA: SAMPLE HEMOLYZED. [facility] HospitalComment on above:Performed By: #### TS3C #### [facility] [address] [place] [address] XN SHOULDER RIGHT (MIN 2 VIEWS)on 86-95-3114OL SHOULDER RIGHT (MIN 2 VIEWS)EXAMINATION: THREE XRAY VIEWS OF THE RIGHT SHOULDER [...] Signed by: Rodríguez Herrera MD 05/05/24 Final resultNoVibra Long Term Acute Care HospitalXR SHOULDER RIGHT 2+ VIEWSon 53-70-3968GR SHOULDER RIGHT 2+ VIEWSInterpreted By: Damián Blackwood, STUDY: XR SHOULDER RIGHT 2+ VIEWS; 05/04/2024 11:42 am INDICATION: Signs/Symptoms:pain. ACCESSION NUMBER(S): [id number] ORDERING CLINICIAN: DAMIÁN BLACKWOOD FINDINGS: AP lateral oblique views of the right shoulder show a recurrent posterior shoulder dislocation with impaction of the anterior humeral head consistent with a reverse Hill-Sachs lesion. Slight fragmentation around the posterior glenoid again present. Signed by: Damián Blackwood 05/04/2024 1:16 PM Dictation workstation: [id number] Health Akron CampusComment on above:Order Comment: 4 viewsXR Shoulder - right 2 Viewson 02-32-5005Tfaiawgbbdg By: Damián Blackwood, STUDY: XR SHOULDER RIGHT 2+ VIEWS; 05/04/2024 11:42 am INDICATION: Signs/Symptoms:pain. ACCESSION NUMBER(S): [id number] ORDERING CLINICIAN: DAMIÁN BLACKWOOD FINDINGS: AP lateral oblique views of the right shoulder show a recurrent posterior shoulder dislocation with impaction of the anterior humeral head consistent with a reverse Hill-Sachs lesion. Slight fragmentation around the posterior glenoid again present. Signed by: Damián Blackwood 05/04/2024 1:16 PM Dictation workstation: [id number] Damián Granados MD - 05/04/2024 Interpreted By: Damián Blackwood, STUDY: XR SHOULDER RIGHT 2+ VIEWS; 05/04/2024 11:42 am INDICATION: Signs/Symptoms:pain. ACCESSION NUMBER(S): [id number] ORDERING CLINICIAN: DAMIÁN BLACKWOOD FINDINGS: AP lateral oblique views of the right shoulder show a recurrent posterior shoulder dislocation with impaction of the anterior humeral head consistent with a reverse Hill-Sachs lesion. Slight fragmentation around the posterior glenoid again present. Signed by: Damián Blackwood 05/04/2024 1:16 PM Dictation workstation: [id number] [facility] Work Phone: Radiology Study observation (narrative)[facility] Work Phone: XR Shoulder - right 2 ViewsOrdered By: Damián Blackwood on 42-38-0956KsxkexhtyxKindred Hospital [facility] Work Phone: Basophils Auto (Bld) [#/Vol]on 02-71-9275Abdpwbdix (Bld) [#/Vol]0.04 10*3/uL<0.11[facility] HospitalBasophils/100 WBC Auto (Bld)on 14-08-6916Qnrrwamox/100 WBC (Bld)0.5 %[facility] HospitalBlood manual differential comment interpretation narrativeon 04-30-2024 Manual differential comment Herve (Bld) [Interp]AutoDetwiler Memorial HospitalEosinophils/100 WBC Auto (Bld)on 93-71-9785Bpdqqwgpgzn/100 WBC (Bld)2.8 % [facility] HospitalErythrocyte distribution width Auto (RBC) [Ratio]on 60-14-4715Tapvuvyhlgt distribution width (RBC) [Ratio]13.4 %11.5-15.0 [facility] HospitalHematocrit Auto (Bld) [Volume fraction]on 62-56-3233Wnqvxpiqdl (Bld) [Volume fraction]43.7 %39.0-51.0[facility] HospitalHemoglobin [Mass/volume] in Bloodon 74-42-8917Nxezpykzwt (Bld) [Mass/Vol]14.3 g/dL13.0-17.0[facility] HospitalLaboratory - Chemistry and Chemistry - challengeon 01-78-7597Hvcxpud [Mass/Vol]4.1 g/dL 3.9-4.9[facility] HospitalALP [Catalytic activity/Vol]110 U/L 38-113[facility] HospitalALT [Catalytic activity/Vol]16 U/L10-54 [facility] HospitalAST [Catalytic activity/Vol]18 U/L14-40 [facility] HospitalBilirubin [Mass/Vol]0.3 mg/dL0.2-1.3FSouthwest General Health CenterCalcium [Mass/Vol]9.5 mg/dL8.5-10.2FSouthwest General Health CenterChloride [Moles/Vol]101 mmol/Y44-413VcwwrcgbiDetwiler Memorial HospitalCO2 [Moles/Vol]28 mmol/I91-39IzwqytsigDetwiler Memorial HospitalCreatinine [Mass/Vol]1.01 mg/dL0.73-1.22[facility] HospitalGlucose [Mass/Vol] 99 mg/wT12-74HxmcosokiDetwiler Memorial HospitalComment on above:The [place] Diabetes Association (ADA) provides guidance for cutoff [...] hyperglycemia or hyperglycemic crisis, random plasma glucose resultsgreater than or equal to 200 mg/dL meet the criteria for diagnosis of diabetes.Reference: [employer] in Diabetes 2016, [place] [employer]. Diabetes Care. 2016.39(Suppl 1). Potassium [Moles/Vol]4.1 mmol/L3.7-5.1FMercer County Community Hospitalodium [Moles/Vol]139 mmol/X918-677IczqezxrjDetwiler Memorial HospitalUrea nitrogen [Mass/Vol]12 mg/dL9[facility] HospitalLaboratory - Hematology and Cell countson 20-51-6437Jzgtewfzelw (Bld) [#/Vol]0.23 10*3/uL<0.46[facility] HospitalImmature granulocytes/100 WBC (Bld)0.1 %[facility] HospitalLeukocytes [#/volume] corrected for nucleated erythrocytes in Blood by Automated counon 86-04-0757WHH corrected for nucl RBC Auto (Bld) [#/Vol]8.35 k/uL3.70-11.00[facility] Lymphocytes Auto (Bld) [#/Vol]on 10-47-0424Jhagezvmcdq (Bld) [#/Vol]1.26 10*3/uL 1.00-4.00[facility] HospitalLymphocytes/100 WBC Auto (Bld)on 52-95-0257Svorbqednvv/100 WBC (Bld)15.1 %[facility]H Auto (RBC) [Entitic mass]on 80-48-0121SQY (RBC) [Entitic mass]31.8 pg26.0-34.0 [facility] HospitalMCHC Auto (RBC) [Mass/Vol]on 70-54-0910ZJWL (RBC) [Mass/Vol]32.7 g/dL30.5-36.0[facility] HospitalMCV Auto (RBC) [Entitic vol]on 84-84-7939YXO (RBC) [Entitic vol]97.3 fL80.0-100.0 [facility] HospitalMonocytes Auto (Bld) [#/Vol]on 04-30-2024 Monocytes (Bld) [#/Vol]1.24 10*3/uLHigh<0.87[facility] Monocytes/100 WBC Auto (Bld)on 92-08-8840Vwfvshntb/100 WBC (Bld)14.9 %[facility] HospitalNeutrophils Auto (Bld) [#/Vol]on 75-35-4199Fudtyswgsjd (Bld) [#/Vol]5.57 10*3/uL1.45-7.50[facility] Neutrophils/100 WBC Auto (Bld)on 23-10-2558Vqwhjnvkhny/100 WBC (Bld)66.6 % [facility] HospitalNo Panel Informationon 88-48-8521Qqcenbjhu GFR (CKD-EPI)81 mL/min/1.73m???>=60[facility] HospitalComment on above:Estimated Glomerular Filtration Rate (eGFR) is calculated using the 2020 CKD-EPI creatinine equation. This equation utilizes serum creatinine, sex, and age as parameters. The creatinine assay has traceable calibration to isotope dilution-mass spectrometry. Refer to KDIGO guidelines for clinical inte rpretation. In patients with unstable renal function, e.g. those with acute kidney injury, the eGFRmay not accurately reflect actual GFR.Immature Granulocyte # (Auto)<0.03 k/uL<0.10[facility] Staphylococcus aureus (PCR)(LAB)Not detectedNot DetectedDetwiler Memorial HospitalNucleated RBC Auto (Bld) [#/Vol]on 87-18-0927Siqpvhavz RBC (Bld) [#/Vol]10*3/uL<0.01[facility] HospitalNucleated erythrocytes [Presence] in Blood by Automated counton 16-09-9709Lhdhwbbqa RBC Auto Ql (Bld) 0.0 /100{WBC}[facility] HospitalPlatelet mean volume Auto (Bld) [Entitic vol]on 32-19-3105Pbxlycnu mean volume (Bld) [Entitic vol]10.5 fL 9.0-12.7FSouthwest General Health CenterPlatelets Auto (Bld) [#/Vol]on 25-67-9350Ovujahugr (Bld) [#/Vol]253 10*3/mT836-286XhphataakDetwiler Memorial HospitalProtein [Mass/volume] in Serum or Plasmaon 53-25-9442Oetlbig [Mass/Vol]6.8 g/dL6.3-8.0[facility] HospitalRBC Auto (Bld) [#/Vol]on 04-30-2024 RBC (Bld) [#/Vol]4.49 10*6/uL4.20-6.00[facility] Westerum or plasma anion gap determinationon 96-64-6305Wanxm gap [Moles/Vol]10 mmol/L8-15 [facility] HospitalXR Chest PA and Lateralon 23-43-1386MORHPOQPGP: No acute radiographic abnormality. Service Operations Manager: BRITTNEE Transcribe Date/Time: Apr 30 2024 1:11P Dictated by : GOPAL VALDEZ MD This examination was interpreted and the report reviewed and electronically signed by: GOPAL VALDEZ MD on Apr 30 2024 1:20PM [facility] [[email or web address] DIVISION OF RADIOLOGY* * *Final Report* * * DATE OF [...] present within the thoracic spine. DIVISION OF RADIOLOGYProvider, [facility] [place] - 04/30/[facility]24 * * *Final Report* * [...] spine. IMPRESSION IMPRESSION: No acute radiographic abnormality. Service Operations Manager: BRITTNEE Transcribe Date/Time: Apr 30 2024 1:11P Dictated by : GOPAL VALDEZ MD This examination was interpreted and the report reviewed and electronically signed by: GOPAL VALDEZ MD on Apr 30 2024 1:20PM EST [facility] CampusRadiology Study observation (narrative)[facility] CampusXR Chest PA and LateralOrdered By: [facility] Provider on 70-50-7835Wgrenimyt ClinicXR Shoulder - right 3 Viewson 04-24-2024* * *Final Report* * * DATE OF [...] glenoid fracture identified. No other significant abnormality. Service Operations Manager: [facility] Transcribe Date/Time: Apr 24 2024 9:10A Dictated by : ALYSSIA FELIZ MD This examination was interpreted and the report reviewed and electronically signed by: ALYSSIA FELIZ MD on Apr 24 2024 9:13AM EST DIVISION OF RADIOLOGYProvider, [facility] [place] - 04/24/2024 * * *Final Report* * [...] glenoid fracture identified. No other significant abnormality. Service Operations Manager: [facility] Transcribe Date/Time: Apr 24 2024 9:10A Dictated by : ALYSSIA FELIZ MD This examination was interpreted and the report reviewed and electronically signed by: ALYSSIA FELIZ MD on Apr 24 2024 9:13AM EST [facility] CampusRadiology Study observation (narrative)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 Mild acromioclavicular osteoarthritis. Service Operations Manager: [facility] Transcribe Date/Time: Apr 09 2024 1:10P Dictated by : SIVAN FERMIN MD This examination was interpreted and the report reviewed and electronically signed by: SIVAN FERMIN MD on Apr 09 2024 1:12PM EST DIVISION OF RADIOLOGY* * *Final Report* * * DATE OF [...] COMPARISON: None. RESULT: See impression DIVISION OF RADIOLOGYProvider, [facility] [place] - 04/09/2024 * * *Final Report* * [...] reverse bony Bankart lesion. Mild acromioclavicular osteoarthritis. Service Operations Manager: [facility] Transcribe Date/Time: Apr 09 2024 1:10P Dictated by : SIVAN FERMIN MD This examination was interpreted and the report reviewed and electronically signed by: SIVAN FERMIN MD on Apr 09 2024 1:12PM EST [facility] CampusRadiology Study observation (narrative)[facility] CampusXR Shoulder - right 4 ViewsOrdered By: [facility] Provider on 12-10-8755Gsgnjaium Clinic Activated partial thromboplastin time (aPTT) in platelet poor plasma by coagulation aOrdered By: Sly Lanrdy on 50-03-8451mGKU Coag (PPP) [Time] 23.6 sLow25.1-36.5FSouthwest General Health CenterComment on above:A hematocrit value greater than 55% may lead to inaccurate results in coagulation testing. Patientshaving hematocrit values >55% require a special collection tube for coagulation studies. Please contact the laboratory at [phone] for redraw instructions.Alanine aminotransferase [Enzymatic activity/volume] in Serum or PlasmaOrdered By: Sly Landry on 96-95-9242DAP [Catalytic activity/Vol]18 U/L7-52[facility] HospitalAlbumin [Mass/volume] in Serum or Plasma by Bromocresol green (BCG) dye binding methoOrdered By: Sly Landry on 38-80-6691Jwncxas BCG dye [Mass/Vol]3.7 g/dL3.5-5.7FSouthwest General Health CenterAlkaline phosphatase [Enzymatic activity/volume] in Serum or PlasmaOrdered By: Sly Landry on 79-96-6908LZW [Catalytic activity/Vol]79 U/L34-104 [facility] CenterAmphetamine Screen Ql (U)Ordered By: Sly Landry on 41-43-7114Gyfpwmzpdobw Ql (U)NegativeNegGood Samaritan HospitalAspartate aminotransferase [Enzymatic activity/volume] in Serum or PlasmaOrdered By: Sly Landry on 18-90-2005PVQ [Catalytic activity/Vol]20 U/B76-76YchrebffyDetwiler Memorial HospitalBarbiturates [Presence] in Urine by Screen methodOrdered By: Sly Landry on 82-00-5444Zwowqmvsskld Screen Ql (U)NegativeNegGood Samaritan HospitalBasophils Auto (Bld) [#/Vol] Ordered By: Sly Landry on 15-60-6960Qbsvlmvhq (Bld) [#/Vol]0.0 10*3/uL 0.0-0.2FSouthwest General Health CenterBasophils/100 WBC Auto (Bld)Ordered By: Sly Landry on 73-46-6138Yjujqvkcg/100 WBC (Bld)0.6 %.[facility] HospitalBenzodiazepines Screen Ql (U)Ordered By: Sly Landry on 61-06-0872Yqkbrnxstenvjhd Ql (U)NegativeNegGood Samaritan HospitalBenzoylecgonine [Presence] in Urine by Screen methodOrdered By: Sly Landry on 13-84-0283Lfqwlscrfkyrsxs Screen Ql (U)NegativeNegGood Samaritan HospitalBilirubin Test strip Ql (U)Ordered By: Sly Landry on 91-75-2426Xmivddiud Ql (U)NegativeNegGood Samaritan Hospital Bilirubin.total [Mass/volume] in Serum or PlasmaOrdered By: Sly Landry on 44-19-0927Eatjpzzfq [Mass/Vol]0.3 mg/dL0.3-1.0[facility] Calcium [Mass/volume] in Serum or PlasmaOrdered By: Sly Landry on 91-70-9914Zqgoowt [Mass/Vol]8.5 mg/dLLow8.6-10.3FSouthwest General Health CenterCannabinoids [Presence] in Urine by Screen methodOrdered By: Sly Landry on 15-04-7560Tqrtgykqcdvp Screen Ql (U)NegativeNegativeDetwiler Memorial HospitalComment on above:These are unconfirmed results and should not be used for legal purposes. Drug Cut-Off Concentration: AMPH 1000 ng/mL ROMAN 200 ng/mL BOZENA 200 ng/mL COCM 300 ng/mL OP 300 ng/mL PCP 25 ng/mL THC 20 ng/mLCarbon dioxide, total [Moles/volume] in Serum or PlasmaOrdered By: Sly Landry on 57-38-6553GG5 [Moles/Vol]22.2 mmol/L21.0-31.0[facility] HospitalChloride [Moles/volume] in Serum or PlasmaOrdered By: Sly Landry on 94-59-0160Qekbpoge [Moles/Vol]108 mmol/YCjwv62-840WrtkefegwDetwiler Memorial HospitalColor Auto (U)Ordered By: Sly Landry on 68-57-4664Suflw (U)Light-yellowYellowDetwiler Memorial HospitalCreatine kinase [Enzymatic activity/volume] in Serum or PlasmaOrdered By: Sly Landry on 96-30-8177ND [Catalytic activity/Vol]248 U/TClkg48-189YwucbtatuDetwiler Memorial HospitalCreatinine [Mass/volume] in Serum or PlasmaOrdered By: Sly Landry on 19-69-4642Syxbmarpit [Mass/Vol]0.99 mg/dL0.70-1.30[facility] HospitalEosinophils Auto (Bld) [#/Vol]Ordered By: Sly Landry on 69-30-7778Ixqcqwaanum (Bld) [#/Vol]0.3 10*3/uL0.0-0.45[facility] HospitalEosinophils/100 WBC Auto (Bld)Ordered By: Sly Landry on 36-68-2483Hebdxuuygzg/100 WBC (Bld)5.5 %.[facility] HospitalErythrocyte distribution width Auto (RBC) [Ratio]Ordered By: Sly Landry on 42-34-6015Dokvtbmakyo distribution width (RBC) [Ratio]14.0 %12.0-14.8 [facility] HospitalGlobulin Calc (S) [Mass/Vol]Ordered By: Sly Landry on 32-45-3066Pkinloag (S) [Mass/Vol]2.4 g/dLDetwiler Memorial HospitalGlucose Glucometer (BldC) [Mass/Vol]Ordered By: Sly Landry on 15-30-1398Zsxyzkw [Mass/Vol]79 mg/dLDetwiler Memorial HospitalComment on above:Random Glucose Reference Range is dependent on time and content of last meal. Glucose of more than 200 mg/dL in a nonstressed, ambulatory subject supports the diagnosis of Diabetes Mellitus.Glucose [Mass/volume] in Serum or PlasmaOrdered By: Sly Landry on 70-69-5613Bjyatft [Mass/Vol]179 mg/dLHigh 70-100[facility] HospitalComment on above:ADA recommended reference rangeRandom Glucose Reference Range is dependent on time and content of last meal. Glucose of more than 200 mg/dL in a nonstressed, ambulatory subject supports the diagnosisof Diabetes Mellitus.Glucose [Mass/volume] in Urine by Test stripOrdered By: Sly Landry on 65-56-0412Gewqfzq Test strip (U) [Mass/Vol]Normal mg/dLNormalDetwiler Memorial HospitalHematocrit Auto (Bld) [Volume fraction]Ordered By: Sly Landry on 04-03-2024 Hematocrit (Bld) [Volume fraction]43.7 %38.8-50.0[facility] HospitalHemoglobin Test strip Ql (U)Ordered By: Sly Landry on 04-03-2024 Hemoglobin Ql (U)NegativeNegativeDetwiler Memorial HospitalHemoglobin [Mass/volume] in BloodOrdered By: Sly Landry on 43-55-9036Dukyjnhtnh (Bld) [Mass/Vol]14.8 g/dL13.0-17.0[facility] HospitalINR in Platelet poor plasma by Coagulation assayOrdered By: Sly Landry on 56-62-3824YHH Coag (PPP) [Relative time]1.0 {INR}[facility] HospitalComment on above:INR Therapeutic Range A) Pre- and Peroperative OAT started two weeks before surgery. NOT HIP SURGERY: 1.5 - 2.5 HIP SURGERY: 2 - 3B) Primary and secondary prevention of venous THROMBOSIS: 2 - 3C) Active venous thrombosis, pulmonary embolismand prevention of recurrent venous thrombosis: 2 - 3D) Prevention of arterial thromboembolismincluding patients with mechanical heart valves: 3 - 4.5Ketones Test strip Ql (U)Ordered By: Sly Landry on 04-68-0056Dviadsb Ql (U)NegativeNegativeDetwiler Memorial Hospital Leukocyte esterase [Presence] in Urine by Test stripOrdered By: Sly Landry on 37-53-1264Wshhhmpga esterase Test strip Ql (U)NegativeNegative [facility] HospitalLeukocytes [#/volume] corrected for nucleated erythrocytes in Blood by Automated counOrdered By: Sly Landry on 02-96-3785CAV corrected for nucl RBC Auto (Bld) [#/Vol]5.4 10*3/uL4.1-10.5 [facility] HospitalLymphocytes Auto (Bld) [#/Vol]Ordered By: Sly Landry on 30-88-8647Csukebhsihu (Bld) [#/Vol]1.6 10*3/uL1.00-4.8 [facility] HospitalLymphocytes/100 WBC Auto (Bld)Ordered By: Sly Landry on 74-22-4343Kgebyglxznw/100 WBC (Bld)29.8 %.[facility] JacksonH Auto (RBC) [Entitic mass]Ordered By: Sly Landry on 69-42-2673QSH (RBC) [Entitic mass]32.4 pg27.5-35.2FSamaritan North Health CenterHC Auto (RBC) [Mass/Vol]Ordered By: Sly Landry on 70-55-4577REUF (RBC) [Mass/Vol]33.9 g/dL32.5-35.6FSouthwest General Health CenterMCV Auto (RBC) [Entitic vol]Ordered By: Sly Landry on 95-33-4364GDS (RBC) [Entitic vol]95.7 fL83.5-101[facility] HospitalMonocyte distribution width [Entitic volume] in Blood by AutomatedOrdered By: Sly Landry on 26-01-2434Kdkjeznu distribution width Auto (Bld) [Entitic vol]16.48 % 0.00-20.00[facility] HospitalMonocytes Auto (Bld) [#/Vol]Ordered By: Sly Landry on 67-03-8154Qhfnosckd (Bld) [#/Vol]0.7 10*3/uL0.0-0.8 [facility] HospitalMonocytes/100 WBC Auto (Bld)Ordered By: Sly Landry on 76-32-8580Oqorshrlb/100 WBC (Bld)12.4 %.[facility] HospitalNeutrophils Auto (Bld) [#/Vol]Ordered By: Sly Landry on 93-95-8317Iywitzrwroj (Bld) [#/Vol]2.8 10*3/uL1.8-7.7FSouthwest General Health CenterNeutrophils/100 WBC Auto (Bld)Ordered By: Sly Landry on 04-03-2024 Neutrophils/100 WBC (Bld)51.7 %.[facility] HospitalNitrite Test strip Ql (U)Ordered By: Sly Landry on 87-05-5770Bktwfbg Ql (U)Negative NegativeDetwiler Memorial HospitalNo Panel InformationOrdered By: Sly Landry on 70-51-1435Nonejcy Glucose CommentGlu2: cleaned meter [facility] HospitalEstimated GFR (CKD-EPI)> 60.0 mL/MinDetwiler Memorial HospitalPharmacy Creatinine Clearance (Chem66.77[facility] HospitalNucleated erythrocytes [Presence] in Blood by Automated countOrdered By: Sly Landry on 17-88-0938Mxbsbgukz RBC Auto Ql (Bld)0.1 /100{WBC}0-0.5FSouthwest General Health CenterOpiates [Presence] in Urine by Screen methodOrdered By: Sly Landry on 92-79-2672Aljwyzc Screen Ql (U) PositiveHighNegativeDetwiler Memorial HospitalPhencyclidine Screen Ql (U) Ordered By: Sly Landry on 02-92-4719Nufixtsgtkwed Ql (U)NegativeNegative [facility] HospitalPlatelet mean volume Auto (Bld) [Entitic vol] Ordered By: Sly Landry on 88-42-9258Dmvrskmi mean volume (Bld) [Entitic vol]8.6 fL6.6-10.1FSouthwest General Health CenterPlatelets Auto (Bld) [#/Vol] Ordered By: Sly Landry on 66-18-8633Ttaolubhg (Bld) [#/Vol]207 10*3/uL 150-450[facility] HospitalPotassium [Moles/volume] in Serum or PlasmaOrdered By: Sly Landry on 17-94-7448Weurwzrvb [Moles/Vol]3.9 mmol/L 3.5-5.1FSouthwest General Health CenterProlactin [Mass/volume] in Serum or PlasmaOrdered By: Sly Landry on 17-10-2185Xerxidwtb [Mass/Vol]15.01 ng/mL High2.64-13.13[facility] HospitalProtein Test strip (U) [Mass/Vol] Ordered By: Sly Landry on 61-73-3856Yzxpken (U) [Mass/Vol]Negative NegativeDetwiler Memorial HospitalProtein [Mass/volume] in Serum or PlasmaOrdered By: Sly Landry on 51-18-6593Hhiourh [Mass/Vol]6.1 g/dLLow 6.4-8.9[facility] HospitalProthrombin time (PT)Ordered By: Sly Landry on 63-56-5726AD Coag (PPP) [Time]11.3 s9.0-12.9[facility] HospitalComment on above:A hematocrit value greater than 55% may lead to inaccurate results in coagulation testing. Patientshaving hematocrit values >55% require a special collection tube for coagulation studies. Please c ontact the laboratory at [phone] for redraw instructions.RBC Auto (Bld) [#/Vol]Ordered By: Sly Landry on 08-72-5001NXL (Bld) [#/Vol]4.57 10*6/uL 3.90-5.60[facility] Westerum or plasma albumin/globulin mass ratioOrdered By: Sly Landry on 79-47-9009Buvzrej/Globulin [Mass ratio]1.5 {ratio}[facility] Westerum or plasma anion gap determination Ordered By: Sly Landry on 67-83-8890Eyjji gap [Moles/Vol]12.7 mmol/L 6.0-15.0[facility] Westodium [Moles/volume] in Serum or PlasmaOrdered By: Sly Landry on 76-60-8099Mfahtw [Moles/Vol]139 mmol/L 136-145[facility] Westpecific gravity Test strip (U) [Rel density]Ordered By: Sly Landry on 18-63-4512Shhkadwz gravity (U) [Rel density]1.0181.001-1.030[facility] HospitalThyrotropin [Units/volume] in Serum or PlasmaOrdered By: Sly Landry on 41-95-9436ZHH Qn1.93 m[IU]/L0.45-5.33[facility] HospitalTroponin I.cardiac [Mass/volume] in Serum or Plasma by Detection limit <= 0.01 ng/Ordered By: Sly Landry on 61-10-5973Exaqwvmp I.cardiac DL <= 0.01 ng/mL [Mass/Vol]5.7 pg/mL0.0-20.0[facility] HospitalUrea nitrogen [Mass/volume] in Serum or PlasmaOrdered By: Sly Landry on 03-63-4077Alod nitrogen [Mass/Vol]14 mg/dL7-25[facility] HospitalUrine appearanceOrdered By: Sly Landry on 65-95-9118Hpofcsbarf (U)ClearClearFSouthwest General Health CenterUrobilinogen Test strip (U) [Mass/Vol]Ordered By: Sly Landry on 90-86-9422Odnotfngzflk (U) [Mass/Vol]Normal mg/dLNormalDetwiler Memorial HospitalWBC Auto (Bld) [#/Vol]Ordered By: Sly Landry on 41-34-2208ROO (Bld) [#/Vol]5.4 10*3/uL4.1-10.5FSouthwest General Health Center pH Test strip (U)Ordered By: Sly Landry on 26-06-5154hQ (U)7.0 [pH] 5.0-9.0[facility] HospitalHbA1c HPLC (Bld) [Mass fraction]on 69-58-3023TdG4y (Bld) [Mass fraction]5.6 %[facility] Prostate Specific Ag Free [Mass/volume] in Serum or PlasmaOrdered By: Herve Steele on 06-84-6178Qszm PSA [Mass/Vol]1.290 ng/mLDetwiler Memorial Hospital Prostate specific Ag [Mass/volume] in Serum or PlasmaOrdered By: Herve Steele on 76-98-6582Rtaofcgf specific Ag [Mass/Vol]4.310 ng/mLHigh0.000-4.000[facility] HospitalComment on above:Serial tumor marker results determined by assays using different manufacturers or methods may not be comparable.[facility] Laboratory utility person and method:ROD HashplexEL DXI, CHEMILUMINESCENT IMMUNOASSAY.Serum or plasma free prostate specific antigen (PSA)/total PSA ratioOrdered By: Herve Steele on 74-33-9964Ohcw PSA/Total PSA [Mass fraction]29.9 %[facility] HospitalComment on above:Based on the work of Pieter et al.ALEX. 279(19):1542:47.1998 the percent free PSA may be used to determine the relative risk of prostate cancer in individual men.The percent probability of prostatecancer by patient age for men with non-suspicious ALFONSO results and total PSa between 4 and 10 ng/ml is as follows:% Free PSA 50 - 64 yrs. 65 - 75 yrs. 0 - 10 56% 55% 10 - 15 24% 35% 15 - 20 17% 23% 20- 25 10% 20% >25 5% 9%Alanine aminotransferase [Enzymatic activity/volume] in Serum or PlasmaOrdered By: Herve Steele on 18-35-2018WOF [Catalytic activity/Vol]14 U/L7-52 [facility] HospitalAlbumin [Mass/volume] in Serum or Plasma by Bromocresol green (BCG) dye binding methoOrdered By: Herve Steele on 12-09-2023 Albumin BCG dye [Mass/Vol]4.1 g/dL3.5-5.7FSouthwest General Health Center Alkaline phosphatase [Enzymatic activity/volume] in Serum or PlasmaOrdered By: Herve Steele on 88-31-5064VXR [Catalytic activity/Vol]72 U/Q29-959TykmayznyDetwiler Memorial HospitalAspartate aminotransferase [Enzymatic activity/volume] in Serum or PlasmaOrdered By: Herve Steele on 94-16-1271AID [Catalytic activity/Vol] 16 U/H99-21YybjulwguDetwiler Memorial HospitalBasophils Auto (Bld) [#/Vol]Ordered By: Herve Steele on 13-04-6308Ckycpyxty (Bld) [#/Vol]0.0 10*3/uL0.0-0.2FSouthwest General Health CenterBasophils/100 WBC Auto (Bld)Ordered By: Herve Steele on 45-88-9726Tbslehpxl/100 WBC (Bld)0.7 %.[facility] Bilirubin.total [Mass/volume] in Serum or PlasmaOrdered By: Herve Steele on 44-73-3241Iwjjpioqb [Mass/Vol]0.6 mg/dL0.3-1.0[facility] Calcium [Mass/volume] in Serum or PlasmaOrdered By: Herve Steele on 12-09-2023 Calcium [Mass/Vol]9.3 mg/dL8.6-10.3FSouthwest General Health CenterCarbon dioxide, total [Moles/volume] in Serum or PlasmaOrdered By: Herve Steele on 96-77-8710GD2 [Moles/Vol]31.5 mmol/LHigh21.0-31.0[facility] HospitalChloride [Moles/volume] in Serum or PlasmaOrdered By: Herve Steele on 06-19-3077Wobzbhzn [Moles/Vol]105 mmol/D66-804MqzzcwryxDetwiler Memorial Hospital Cholesterol [Mass/volume] in Serum or PlasmaOrdered By: Herve Steele on 12-09-2023 Cholesterol [Mass/Vol]156 mg/zL506-511VekrfxguxDetwiler Memorial HospitalComment on above:Chol less than 200 mg/dl low riskChol 201-239 mg/dl borderline riskChol 240 mg/dl and greater high riskCholesterol in LDL Calc [Mass/Vol]Ordered By: Herve Steele on 44-77-1776Grpicbmrzko in LDL [Mass/Vol]98 mg/dL0-100[facility] HospitalComment on above:LDL ATP III CLASSIFICATIONLDL less than 100 mg/dL OptimalLDL 100-129 mg/dL Near or above krgixdnPWB567-504 mg/dL Borderline highLDL 160-189 mg/dL HighLDL greater than 189 mg/dL Very high Cholesterol in VLDL Calc [Mass/Vol]Ordered By: Herve Steele on 12-09-2023 Cholesterol in VLDL [Mass/Vol]22 mg/dLDetwiler Memorial Hospital Creatinine [Mass/volume] in Serum or PlasmaOrdered By: Herve Steele on 12-09-2023 Creatinine [Mass/Vol]1.07 mg/dL0.70-1.30[facility] Eosinophils Auto (Bld) [#/Vol]Ordered By: Herve Steele on 17-27-5983Rfkypyiuyvv (Bld) [#/Vol]0.2 10*3/uL0.0-0.45[facility] HospitalEosinophils/100 WBC Auto (Bld)Ordered By: Herve Steele on 97-80-1877Iugcnypigbr/100 WBC (Bld)3.7 %.[facility] HospitalErythrocyte distribution width Auto (RBC) [Ratio]Ordered By: Herve Steele on 68-03-3921Slrmfufzftr distribution width (RBC) [Ratio]13.3 %12.0-14.8[facility] HospitalGlobulin Calc (S) [Mass/Vol]Ordered By: Herve Steele on 48-55-1702Iepclroi (S) [Mass/Vol]2.1 g/dL [facility] HospitalGlucose [Mass/volume] in Serum or PlasmaOrdered By: Herve Steele on 08-03-6145Ihzvuts [Mass/Vol]109 mg/oMUcuf27-106GgnezdocsDetwiler Memorial HospitalComment on above:ADA recommended reference rangeRandom Glucose Reference Range is dependent on time and content of last meal. Glucose of more than 200 mg/dL in a nonstressed, ambulatory subject supports the diagnosisof Diabetes Mellitus.Hematocrit Auto (Bld) [Volume fraction]Ordered By: Herve Steele on 55-08-4897Vrqqayoxib (Bld) [Volume fraction]46.2 %38.8-50.0 [facility] HospitalHemoglobin [Mass/volume] in BloodOrdered By: Herve Steele on 56-17-8641Jaydjglljt (Bld) [Mass/Vol]15.4 g/dL13.0-17.0[facility] HospitalLeukocytes [#/volume] corrected for nucleated erythrocytes in Blood by Automated counOrdered By: Herve Steele on 85-79-9690VYR corrected for nucl RBC Auto (Bld) [#/Vol]6.1 10*3/uL4.1-10.5FSouthwest General Health CenterLymphocytes Auto (Bld) [#/Vol]Ordered By: Herve Steele on 12-09-2023 Lymphocytes (Bld) [#/Vol]1.5 10*3/uL1.00-4.8[facility] Lymphocytes/100 WBC Auto (Bld)Ordered By: Herve Steele on 12-09-2023 Lymphocytes/100 WBC (Bld)23.9 %.[facility] Auto (RBC) [Entitic mass]Ordered By: Herve Steele on 88-80-2962DHG (RBC) [Entitic mass]32.0 pg27.5-35.2FSouthwest General Health CenterMCHC Auto (RBC) [Mass/Vol]Ordered By: Herve Steele on 26-60-3305ONHA (RBC) [Mass/Vol]33.4 g/dL32.5-35.6FSouthwest General Health CenterMCV Auto (RBC) [Entitic vol]Ordered By: Herve Steele on 56-63-4992NMA (RBC) [Entitic vol]95.9 fL83.5-101[facility] HospitalMonocytes Auto (Bld) [#/Vol]Ordered By: Herve Steele on 61-05-1932Qnfmdflsa (Bld) [#/Vol]0.8 10*3/uL0.0-0.8[facility] HospitalMonocytes/100 WBC Auto (Bld)Ordered By: Herve Steele on 46-17-0932Iusmgsdlp/100 WBC (Bld)13.6 %. [facility] HospitalNeutrophils Auto (Bld) [#/Vol]Ordered By: Herve Steele on 18-25-8847Femfbmetxwo (Bld) [#/Vol]3.6 10*3/uL1.8-7.7FSouthwest General Health CenterNeutrophils/100 WBC Auto (Bld)Ordered By: Herve Steele on 24-76-9247Ugkpkzgrqaf/100 WBC (Bld)58.1 %.[facility] HospitalNo Panel InformationOrdered By: Herve Steele on 34-86-0754Usyhvtoxg GFR (CKD-EPI)> 60.0 mL/MinDetwiler Memorial HospitalPharmacy Creatinine Clearance (Chem N/AFSouthwest General Health CenterNucleated erythrocytes [Presence] in Blood by Automated countOrdered By: Herve Steele on 32-89-3989Owtutwzdv RBC Auto Ql (Bld)0.2 /100{WBC}0-0.5FSouthwest General Health CenterPlatelet mean volume Auto (Bld) [Entitic vol]Ordered By: Herve Steele on 46-47-7504Yqqpbuhu mean volume (Bld) [Entitic vol]8.5 fL6.6-10.1FSouthwest General Health CenterPlatelets Auto (Bld) [#/Vol]Ordered By: Herve Steele on 44-80-9181Zwakxpmvl (Bld) [#/Vol]210 10*3/vI225-226UxubjivevDetwiler Memorial HospitalPotassium [Moles/volume] in Serum or PlasmaOrdered By: Herve Steele on 46-94-8176Jgfqxxktp [Moles/Vol]4.2 mmol/L 3.5-5.1FSouthwest General Health CenterProstate specific Ag [Mass/volume] in Serum or PlasmaOrdered By: Herve Steele on 87-60-0283Cazetadq specific Ag [Mass/Vol]4.440 ng/mLHigh0.000-4.000[facility] HospitalComment on above:Serial tumor marker results determined by assays using different manufacturers or methods may not be comparable.[facility] Laboratory utility person and method:[employer] (Inspect Manager) DXI, CHEMILUMINESCENT IMMUNOASSAY.Protein [Mass/volume] in Serum or PlasmaOrdered By: Herve Steele on 20-33-8829Kniqglh [Mass/Vol]6.2 g/dLLow6.4-8.9[facility] HospitalRBC Auto (Bld) [#/Vol]Ordered By: Herve Steele on 64-53-8468QSO (Bld) [#/Vol]4.82 10*6/uL 3.90-5.60[facility] Westerum or plasma albumin/globulin mass ratioOrdered By: Herve Steele on 01-39-4220Fyjoejq/Globulin [Mass ratio]2.0 {ratio}[facility] Westerum or plasma anion gap determination Ordered By: Herve Steele on 79-07-8932Xadrc gap [Moles/Vol]6.7 mmol/L6.0-15.0 [facility] Westerum or plasma high density lipoprotein (HDL) cholesterol measurementOrdered By: Herve Steele on 15-29-5591Reuprjnxthg in HDL [Mass/Vol]36 mg/vH55-54PvdjqsukmDetwiler Memorial HospitalComment on above:HDL CHOL ATP-III CLASSIFICATION Cardiovascular RiskHDL > or equal to 60 mg/dL LOWHDL < 40 mg/dL HIGHSerum or plasma total cholesterol/high density lipoprotein (HDL) cholesterol mass ratOrdered By: Herve Steele on 12-09-2023 Cholesterol.total/Cholesterol in HDL [Mass ratio]4.3 {ratio}<5.0[facility] Westodium [Moles/volume] in Serum or PlasmaOrdered By: Herve Steele on 86-93-3133Ijygeo [Moles/Vol]139 mmol/H631-669DpmgbmpfgDetwiler Memorial HospitalThyrotropin [Units/volume] in Serum or PlasmaOrdered By: Herve Steele on 43-41-7821SIQ Qn3.56 m[IU]/L0.45-5.33[facility] Triglyceride [Mass/volume] in Serum or PlasmaOrdered By: Herve Steele on 41-49-2692Spvpnonfdboz [Mass/Vol]112 mg/dL0-149[facility] Comment on above:TRIG ATP III CLASSIFICATIONTRIG less than 150 mg/dL NormalTRIG 150-199 mg/dL Borderline highTRIG 200-500 mg/dL High TRIG greater than 500 mg/dL Very highStandard traceable to the Center for Disease Conrtrol and Prevention (CDC) test method.Urea nitrogen [Mass/volume] in Serum or PlasmaOrdered By: Herve Steele on 81-43-9931Qevh nitrogen [Mass/Vol]12 mg/dL7-25[facility] HospitalWBC Auto (Bld) [#/Vol]Ordered By: Herve Steele on 57-01-6683OUU (Bld) [#/Vol]6.1 10*3/uL4.1-10.5FSouthwest General Health CenterAlanine aminotransferase [Enzymatic activity/volume] in Serum or PlasmaOrdered By: Herve Steele on 58-41-1466MRY [Catalytic activity/Vol]17 U/L7-52[facility] HospitalAlbumin [Mass/volume] in Serum or Plasma by Bromocresol green (BCG) dye binding methoOrdered By: Herve Steele on 05-65-1083Uomnviw BCG dye [Mass/Vol]4.2 g/dL3.5-5.7FSouthwest General Health CenterAlkaline phosphatase [Enzymatic activity/volume] in Serum or PlasmaOrdered By: Herve Steele on 03-92-7392CVK [Catalytic activity/Vol]82 U/Z88-260JbypvrxejDetwiler Memorial HospitalAspartate aminotransferase [Enzymatic activity/volume] in Serum or Plasma Ordered By: Herve Steele on 87-60-7607LXO [Catalytic activity/Vol]19 U/L13-39 [facility] HospitalBasophils Auto (Bld) [#/Vol]Ordered By: Herve Steele on 51-37-6578Fhyahokeu (Bld) [#/Vol]0.0 10*3/uL0.0-0.2FSouthwest General Health CenterBasophils/100 WBC Auto (Bld)Ordered By: Herve Steele on 12-07-2022 Basophils/100 WBC (Bld)0.7 %.[facility] HospitalBilirubin.total [Mass/volume] in Serum or PlasmaOrdered By: Herve Steele on 04-50-2330Gerdljggp [Mass/Vol]0.7 mg/dL0.3-1.0[facility] HospitalCalcium [Mass/volume] in Serum or PlasmaOrdered By: Herve Steele on 56-03-5679Icmgqlp [Mass/Vol]9.1 mg/dL8.6-10.3FSouthwest General Health CenterCarbon dioxide, total [Moles/volume] in Serum or PlasmaOrdered By: Herve Steele on 98-15-2768PZ0 [Moles/Vol]28.8 mmol/L21.0-31.0[facility] HospitalChloride [Moles/volume] in Serum or PlasmaOrdered By: Herve Steele on 53-13-1950Fjfimyhv [Moles/Vol]105 mmol/H10-051RuhkpfgupDetwiler Memorial HospitalCholesterol [Mass/volume] in Serum or PlasmaOrdered By: Herve Steele on 66-49-8768Splgbgwsyur [Mass/Vol]177 mg/xI915-378VnzhiekysDetwiler Memorial HospitalComment on above:Chol less than 200 mg/dl low riskChol 201-239 mg/dl borderline riskChol 240 mg/dl and greater high riskCholesterol in LDL Calc [Mass/Vol]Ordered By: Herve Steele on 72-77-5414Xrceusgxexl in LDL [Mass/Vol]119 mg/dL0-100[facility] HospitalComment on above:LDL ATP III CLASSIFICATIONLDL less than 100 mg/dL OptimalLDL 100-129 mg/dL Near or above bzhtoxgNZK183-701 mg/dL Borderline highLDL 160-189 mg/dL HighLDL greater than 189 mg/dL Very highCholesterol in VLDL Calc [Mass/Vol]Ordered By: Herve Steele on 02-44-7331Udoswczmsxd in VLDL [Mass/Vol]17 mg/dLDetwiler Memorial HospitalCreatinine [Mass/volume] in Serum or PlasmaOrdered By: Herve Steele on 63-91-2188Afgjbxxlbb [Mass/Vol]1.03 mg/dL0.70-1.30[facility] HospitalEosinophils Auto (Bld) [#/Vol] Ordered By: Herve Steele on 72-67-6582Ligsncafjue (Bld) [#/Vol]0.3 10*3/uL0.0-0.45 [facility] HospitalEosinophils/100 WBC Auto (Bld)Ordered By: Herve Steele on 28-65-9103Ulevvmulehm/100 WBC (Bld)4.4 %.[facility] HospitalErythrocyte distribution width Auto (RBC) [Ratio]Ordered By: Herve Steele on 20-51-2598Aofvjrbyqdc distribution width (RBC) [Ratio]13.6 %12.0-14.8[facility] HospitalGlobulin Calc (S) [Mass/Vol]Ordered By: Herve Steele on 84-89-9967Vwczgvwx (S) [Mass/Vol]2.2 g/dLDetwiler Memorial Hospital Glucose [Mass/volume] in Serum or PlasmaOrdered By: Herve Steele on 12-07-2022 Glucose [Mass/Vol]106 mg/vX32-639AtdzrmntwDetwiler Memorial HospitalComment on above:ADA recommended reference rangeRandom Glucose Reference Range is dependent on time and content of last meal. Glucose of more than 200 mg/dL in a nonstressed, ambulatory subject supports the diagnosisof Diabetes Mellitus. Hematocrit Auto (Bld) [Volume fraction]Ordered By: Herve Steele on 12-07-2022 Hematocrit (Bld) [Volume fraction]45.7 %38.8-50.0[facility] HospitalHemoglobin [Mass/volume] in BloodOrdered By: Herve Steele on 12-07-2022 Hemoglobin (Bld) [Mass/Vol]15.3 g/dL13.0-17.0[facility] Leukocytes [#/volume] corrected for nucleated erythrocytes in Blood by Automated counOrdered By: Herve Steele on 82-89-0154JCJ corrected for nucl RBC Auto (Bld) [#/Vol]6.7 10*3/uL4.1-10.5FSouthwest General Health CenterLymphocytes Auto (Bld) [#/Vol]Ordered By: Herve Steele on 61-85-9117Jhupdlcrluu (Bld) [#/Vol]1.4 10*3/uL1.00-4.8[facility] HospitalLymphocytes/100 WBC Auto (Bld) Ordered By: Herve Steele on 55-33-5526Wkgnrrfenrf/100 WBC (Bld)21.5 %.[facility] JacksonH Auto (RBC) [Entitic mass]Ordered By: Herve Steele on 59-75-3892ROE (RBC) [Entitic mass]31.8 pg27.5-35.2FSamaritan North Health CenterHC Auto (RBC) [Mass/Vol]Ordered By: Herve Steele on 17-00-3470CHBH (RBC) [Mass/Vol]33.6 g/dL32.5-35.6FSouthwest General Health CenterMCV Auto (RBC) [Entitic vol]Ordered By: Herve Steele on 69-48-9537NKU (RBC) [Entitic vol]94.8 fL 83.5-101[facility] HospitalMonocytes Auto (Bld) [#/Vol]Ordered By: Herve Steele on 17-76-3669Bnwbdoocq (Bld) [#/Vol]1.0 10*3/uL0.0-0.8[facility] HospitalMonocytes/100 WBC Auto (Bld)Ordered By: Herve Steele on 56-92-3595Utlvfbveo/100 WBC (Bld)14.3 %.[facility] Neutrophils Auto (Bld) [#/Vol]Ordered By: Herve Steele on 19-07-9520Ebdrgrbijvj (Bld) [#/Vol]3.9 10*3/uL1.8-7.7FSouthwest General Health CenterNeutrophils/100 WBC Auto (Bld)Ordered By: Herve Steele on 90-59-0010Uibxazvgzff/100 WBC (Bld)59.1 %.[facility] HospitalNo Panel InformationOrdered By: Herve Steele on 58-69-1321Jjsjjikwa GFR (CKD-EPI)> 60.0 mL/MinDetwiler Memorial Hospital Pharmacy Creatinine Clearance (ChemN/[facility] HospitalNucleated erythrocytes [Presence] in Blood by Automated countOrdered By: Hreve Steele on 34-38-0850Hubnhaipv RBC Auto Ql (Bld)0.1 /100{WBC}0-0.5FSouthwest General Health CenterPlatelet mean volume Auto (Bld) [Entitic vol]Ordered By: Herve Steele on 84-65-8166Sabkczxc mean volume (Bld) [Entitic vol]8.4 fL6.6-10.1 [facility] HospitalPlatelets Auto (Bld) [#/Vol]Ordered By: Herve Steele on 44-55-7345Nqxllbzsg (Bld) [#/Vol]218 10*3/rY939-540PcsfqkhatDetwiler Memorial HospitalPotassium [Moles/volume] in Serum or PlasmaOrdered By: Herve Steele on 18-52-5388Jtvbnubij [Moles/Vol]4.3 mmol/L3.5-5.1FSouthwest General Health CenterProstate specific Ag [Mass/volume] in Serum or PlasmaOrdered By: eHrve Steele on 90-48-5586Azqxxalq specific Ag [Mass/Vol]2.900 ng/mL0.000-4.000[facility] HospitalProtein [Mass/volume] in Serum or PlasmaOrdered By: Herve Steele on 58-70-7524Ktubbiz [Mass/Vol]6.4 g/dL6.4-8.9[facility] HospitalRBC Auto (Bld) [#/Vol]Ordered By: Herve Steele on 88-91-5273TOO (Bld) [#/Vol]4.82 10*6/uL3.90-5.60[facility] Westerum or plasma albumin/globulin mass ratioOrdered By: Herve Steele on 12-07-2022 Albumin/Globulin [Mass ratio]1.9 {ratio}[facility] Westerum or plasma anion gap determinationOrdered By: Herve Steele on 15-80-9846Qmckb gap [Moles/Vol]10.5 mmol/L6.0-15.0[facility] Westerum or plasma high density lipoprotein (HDL) cholesterol measurementOrdered By: Herve Steele on 69-60-9421Nsvasrfqdhs in HDL [Mass/Vol]40 mg/cE81-60WxopyybdcDetwiler Memorial HospitalComment on above:HDL CHOL ATP-III CLASSIFICATION Cardiovascular RiskHDL > or equal to 60 mg/dL LOWHDL < 40 mg/dL HIGHSerum or plasma total cholesterol/high density lipoprotein (HDL) cholesterol mass ratOrdered By: Herve Steele on 99-99-4145Ffhvenkdpgt.total/Cholesterol in HDL [Mass ratio]4.4 {ratio} <5.0[facility] Westodium [Moles/volume] in Serum or Plasma Ordered By: Herve Steele on 93-93-1134Lzegxi [Moles/Vol]140 mmol/D558-391EsrnkvmduDetwiler Memorial HospitalThyrotropin [Units/volume] in Serum or PlasmaOrdered By: Herve Steele on 20-50-3324EWE Qn2.05 m[IU]/L0.45-5.33[facility] HospitalTriglyceride [Mass/volume] in Serum or PlasmaOrdered By: Herve Steele on 27-36-1864Uvikxftlwsqw [Mass/Vol]88 mg/dL0-149[facility] Comment on above:TRIG ATP III CLASSIFICATIONTRIG less than 150 mg/dL NormalTRIG 150-199 mg/dL Borderline highTRIG 200-500 mg/dL High TRIG greater than 500 mg/dL Very highStandard traceable to the Center for Disease Conrtrol and Prevention (CDC) test method.Urea nitrogen [Mass/volume] in Serum or PlasmaOrdered By: Herve Steele on 66-83-3954Creo nitrogen [Mass/Vol]18 mg/dL7-25[facility] HospitalWBC Auto (Bld) [#/Vol]Ordered By: Herve Steele on 51-03-8532AQR (Bld) [#/Vol]6.7 10*3/uL4.1-10.5FSouthwest General Health CenterCreatinine (Bld) [Mass/Vol]Ordered By: Herve Steele on 93-18-9414Ttvxwqppbq [Mass/Vol]1.1 mg/dL0.6-1.3FSouthwest General Health CenterComment on above:ER/ESD physician is notified/shown all ISTAT results.Critical values may be confirmed by laboratorytesting ifdeemed necessary by ER attending doctor.No Panel Information Ordered By: Herve Steele on 66-61-6355NDV Estimated GFR > 60 [facility] HospitalComment on above:GFR estimated reference range: According to KDOQI guidelines, <60 ml/min/1.73m2 is sufficient todiagnose a patient with chronic kidney disease.POC Estimated GFR Non- Amer> 60 [facility] HospitalCovid-19 PCR (CVDTBH)on 23-52-5228BLOI-CoV-2 (COVID-19) RNA MEL+probe Ql (Unsp spec)Not detectedNormalNOT DETECTEDThe [facility] Clermont HospitalComment on above:Result Comment: This test is not yet approved or cleared by the [place] FDA. When there are no FDA-approved or cleared tests available, and other criteria are met, FDA can make tests available under an emergency access mechanism called an Emergency Use Authorization (EUA). The EUA for this test is supported by the [place] of Health and Human Service's (HHS's) declaration [...] of clinical signs and symptoms consistent with SARS-CoV-2.Performed By: #### CVDTBH #### [facility] [address] [place] [address] Kamla Sterling Vital Signs Date TimeVital SignValuePerforming BvqhwfvknMlkfvbih81-05-0357 08:20-0400Body .18 cmBreSemblee_ DO Work Phone: [facility]10-30-2025 08:20-0400 Body mass index (BMI) [Ratio]26.9 kg/i7MyjwgVionic Work Phone: [facility]10-30-2025 08:20-0400 Body iytrzx59.01 kgBrett VocalIQ DO Work Phone: [facility]10-30-2025 08:20-0400 Diastolic blood itleeigq61 mm[Hg]Herve Taggifys DO Work Phone: [facility]10-30-2025 08:20-0400 Heart rate71 /minBrett Taggifys DO Work Phone: [facility]10-30-2025 08:20-0400 Respiratory rate16 /minBrett Taggifys DO Work Phone: [facility]10-30-2025 08:20-0400 SaO2% (BldA) [Mass fraction]94 %Herve Kuns DO Work Phone: [facility]10-30-2025 08:20-0400 Systolic blood gmcpszwi839 mm[Hg]Herve Kuns DO Work Phone: [facility]04-28-2025 09:19-0400 Body xmuoam894.18 cmBrett Kuns DO Work Phone: [facility]04-28-2025 09:19-0400 Body mass index (BMI) [Ratio]26.7 kg/e2Gacqe Kuns DO Work Phone: [facility]04-28-2025 09:19-0400 Body enrefa17.56 kgBrett Kuns DO Work Phone: [phone]04-28-2025 09:19-0400 Diastolic blood ictsjvag41 mm[Hg]Herve Kuns DO Work Phone: [phone]04-28-2025 09:19-0400 Heart rate63 /minBrett Kuns DO Work Phone: [phone]04-28-2025 09:19-0400 Respiratory rate18 /minBrett Kuns DO Work Phone: [phone]04-28-2025 09:19-0400 SaO2% (BldA) [Mass fraction]93 %Herve Kuns DO Work Phone: [facility]04-28-2025 09:19-0400 Systolic blood fxjozsen839 mm[Hg]Herve Kuns DO Work Phone: [facility]03-27-2025 09:43-0400 Body osjbkb675.2 Jorge Alberto Champion MD Work Phone: [facility]03-27-2025 09:43-0400Body mass index (BMI) [Ratio]25.37 kg/o0MxfmbwAmi Champion MD Work Phone: [facility]03-27-2025 09:43-0400Body .48 kgAmi Champion MD Work Phone: [facility]03-27-2025 09:43-0400Diastolic blood mm[Hg]Ami Champion MD Work Phone: [facility]03-27-2025 09:43-0400Heart rate75 /min Ami Champion MD Work Phone: [phone]03-27-2025 09:43-0400Respiratory rate 18 /minStana Champion MD Work Phone: [facility]03-27-2025 09:43-3890EmN4% (BldA) [Mass fraction]98 %Ami Champion MD Work Phone: [facility]03-27-2025 09:43-0400Systolic blood znumzkfz862 mm[Hg]Ami Champion MD Work Phone: [facility]01-23-2025 11:15-0500Body puiynb208.18 cmBrett Kuns DO Work Phone: [phone]01-23-2025 11:15-0500 Body urnazj98.57 kgBrett Kuns DO Work Phone: [phone]01-07-2025 10:59-0500 Body .18 cmBrett Kuns DO Work Phone: [phone]01-07-2025 10:59-0500 Body mass index (BMI) [Ratio]25.7 kg/p2Bpnpu Kuns DO Work Phone: [phone] [place], [place] 0307001-07-2025 10:59-0500 Body .38 kgBrett Kuns DO Work Phone: [phone]01-07-2025 10:59-0500 Diastolic blood yciizrye21 mm[Hg]Herve Kuns DO Work Phone: [phone]01-07-2025 10:59-0500 Heart rate71 /minBrett Kuns DO Work Phone: [facility]01-07-2025 10:59-0500 Inhaled oxygen flow rate93 L/minBrett Kuns DO Work Phone: [facility]01-07-2025 10:59-0500 Respiratory rate18 /minBrett Kuns DO Work Phone: [facility]01-07-2025 10:59-0500 SaO2% (BldA) [Mass fraction]71 %Herve Kuns DO Work Phone: [facility]01-07-2025 10:59-0500 Systolic blood xduvrlsh965 mm[Hg]Herve Kuns DO Work Phone: [facility]12-13-2024 12:51-0500 Body .2 cmE[facility] Divisioncornelius [facility]12-13-2024 12:51-0500Body mass index (BMI) [Ratio]24.43 kg/y3Mzmkzefxbayron Maier [facility]12-13-2024 12:51-0500Body hcuugh70.76 kgCanyon Ridge Hospitalcat [facility]12-13-2024 12:51-0500Diastolic blood jfifcsqs36 mm[Hg]Eleni Maier [facility] 07-17-2024 12:51-0500Heart rate73 /minCam[facility]St[facility] 07-17-2024 12:51-9018OeQ1% (BldA) [Mass fraction]96 %Eleni Maier [facility]12-13-2024 12:51-0500Systolic blood klmezfzn977 mm[Hg]Eleni Maier MD [facility]12-12-2024 10:19-0500Body hljuge379.2 cmMichael Siddiqui DO Work Phone: [employer] [phone] 10:19-0500Body mass index (BMI) [Ratio]25.06 kg/f4Coyiqrn Siddiqui DO Work Phone: [facility] [phone] 10:19-0500Body xurddh65.58 kgMichael Siddiqui DO Work Phone: [facility] CenterYgwiecdzkk75-82-9533 11:00-0400Diastolic blood wjpsnuae67 mm[Hg]DO Herve Wesleys Work Phone: [facility]10-22-2024 11:00-0400 Heart rate61 /minDO Herve Kuns Work Phone: [facility]10-22-2024 11:00-0400 Respiratory rate18 /minDO Herve Kuns Work Phone: [facility]10-22-2024 11:00-0400 SaO2% (BldA) [Mass fraction]96 %DO Herve Wesleys Work Phone: [facility]10-22-2024 11:00-0400 Systolic blood ohpnktkn568 mm[Hg]DO Herve Kuns Work Phone: [facility]09-26-2024 06:47-0400 Body .2 cmPacc 1 Work Phone: [facility]09-26-2024 06:47-0400Body mass index (BMI) [Ratio]24.52 kg/m2Pacc 1 Work Phone: [facility]09-26-2024 06:47-0400Body temperature 98.1 [degF]Pacc 1 Work Phone: [facility]09-26-2024 06:47-0400Body taimpx62 kg Pacc 1 Work Phone: [facility]09-26-2024 06:47-0400Diastolic blood zmzauahq70 mm[Hg]Pacc 1 Work Phone: [facility]09-26-2024 06:47-0400Heart rate69 /min Pacc 1 Work Phone: [facility]09-26-2024 06:47-0400Respiratory rate 16 /minPacc 1 Work Phone: [place] [address]-26-2024 06:47-1493EbC0% (BldA) [Mass fraction]98 %Pacc 1 Work Phone: [place] [address]-26-2024 06:47-0400Systolic blood iwoyhuzy567 mm[Hg]Pacc 1 Work Phone: [place] [address]-23-2024 07:45-0400Body diwewe531.2 Jorge Alberto Champion MD Work Phone: [place] [address]-23-2024 07:45-0400Body mass index (BMI) [Ratio]25.06 kg/o9RbjdoqAmi Champion MD Work Phone: [place] [address]-23-2024 07:45-0400Body zoyzqb93.58 kgAmi Champion MD Work Phone: [phone] [address]-23-2024 07:45-0400Diastolic blood xiggwmhs31 mm[Hg]Ami Champion MD Work Phone: [phone]09-23-2024 07:45-0400Heart rate69 /min Ami Champion MD Work Phone: [place] [address]-23-2024 07:45-0400Respiratory rate 22 /minStana Champion MD Work Phone: [phone] [address]-23-2024 07:45-2057SsA1% (BldA) [Mass fraction]100 %Ami Champion MD Work Phone: [phone] [address]-23-2024 07:45-0400Systolic blood pyagasob204 mm[Hg]Ami Champion MD Work Phone: [phone] [address]-18-2024 08:58-0400Body lfqaaf99.58 kgChristopher Abdelrahman CHAVEZ Work Phone: [facility] CenterUvmuetqaac29-30-0484 08:58-0400Diastolic blood jdxdazqy61 mm[Hg]Indy Quick DO Work Phone: [facility] CenterCmyigyrquq34-35-2586 08:58-0400Heart rate65 /min Indy Quick DO Work Phone: [facility] CenterNtochjgbmn00-62-0961 08:58-7298LxW9% (BldA) [Mass fraction]93 %Indy Quick DO Work Phone: [facility] CenterOjwobqknem75-47-6366 08:58-0400Systolic blood xrgizdyb367 mm[Hg]Indy Quick DO Work Phone: [facility] CenterQjfrvkkeqd94-13-7867 12:53-0400Body wxqlym404.2 cmAdamjaqui Holland PA-C Work Phone: [facility]09-05-2024 12:53-0400Body mass index (BMI) [Ratio]25.06 kg/w7Eajsbtnic Holland PA-C Work Phone: [facility]09-05-2024 12:53-0400Body .58 kgNatkallieiel Holland PA-C Work Phone: [facility]08-30-2024 12:52-0400Body temperature 97.5 [degF]DO Herve Kuns Work Phone: [facility]08-30-2024 12:52-0400 Diastolic blood apvbdaud47 mm[Hg]DO Herve Kuns Work Phone: [facility]08-30-2024 12:52-0400 Heart rate59 /minDO Herve Kuns Work Phone: [facility]08-30-2024 12:52-0400 Respiratory rate14 /minDO Herve Kuns Work Phone: [facility]08-30-2024 12:52-0400 SaO2% (BldA) [Mass fraction]94 %DO Herve Kuns Work Phone: [facility]08-30-2024 12:52-0400 Systolic blood rqjltujw674 mm[Hg]DO Herve Kuns Work Phone: [facility]08-30-2024 11:02-0400 Inhaled oxygen flow rate3 L/minDO Herve Kuns Work Phone: [facility]08-30-2024 08:06-0400 Body bqecqz302.18 cmDO Herve Kuns Work Phone: [facility]08-30-2024 08:06-0400 Body ucfwev28.9 kgDO Herve Kuns Work Phone: [facility]07-24-2024 09:44-0400 Diastolic blood ehqkabzo63 mm[Hg]DO Herve Kuns Work Phone: [facility]07-24-2024 09:44-0400 Heart rate68 /minDO Herve Kuns Work Phone: [facility]07-24-2024 09:44-0400 Respiratory rate16 /minDO Herve Kuns Work Phone: [facility]07-24-2024 09:44-0400 SaO2% (BldA) [Mass fraction]97 %DO Herve Kuns Work Phone: [facility]07-24-2024 09:44-0400 Systolic blood ozvxwcrf017 mm[Hg]DO Herve Kuns Work Phone: [facility]07-24-2024 07:36-0400 Body nhrwta183.18 cmDO Herve Kuns Work Phone: [facility]07-24-2024 07:36-0400 Body ufsnjn55.38 kgDO Herve Kuns Work Phone: [facility]06-24-2024 09:46-0400 Body jcqiug519.72 cmDO Herve Kuns Work Phone: [facility]06-24-2024 09:46-0400 Body mass index (BMI) [Ratio]25.2 kg/m2DO Herve Kuns Work Phone: [facility]06-24-2024 09:46-0400 Body bsaoiz50.29 kgDO Herve Kuns Work Phone: [facility]06-24-2024 09:46-0400 Diastolic blood citwpaoq18 mm[Hg]DO Herve Kuns Work Phone: [facility]06-24-2024 09:46-0400 Heart rate61 /minDO Herve Kuns Work Phone: [phone]06-24-2024 09:46-0400 Respiratory rate16 /minDO Herve Kuns Work Phone: [phone]06-24-2024 09:46-0400 SaO2% (BldA) [Mass fraction]94 %DO Herve Kuns Work Phone: [facility]06-24-2024 09:46-0400 Systolic blood cmulcsfj091 mm[Hg]DO Herve Kuns Work Phone: [facility]05-23-2024 08:16-0400 Body woavwe488.72 cmDO Herve Kuns Work Phone: [facility]05-23-2024 08:16-0400 Body mass index (BMI) [Ratio]25.2 kg/m2DO Herve Kuns Work Phone: [facility]05-23-2024 08:16-0400 Body .29 kgDO Herve Kuns Work Phone: [facility]05-23-2024 08:16-0400 Diastolic blood mm[Hg]DO Herve Kuns Work Phone: [facility]05-23-2024 08:16-0400 Heart rate61 /minDO Herve Kuns Work Phone: [facility]05-23-2024 08:16-0400 Respiratory rate16 /minDO Herve Kuns Work Phone: [facility]05-23-2024 08:16-0400 SaO2% (BldA) [Mass fraction]97 %DO Hervecamilo Olsons Work Phone: [facility]05-23-2024 08:16-0400 Systolic blood yxkshlyn957 mm[Hg]DO Herve Olsons Work Phone: [facility]11-21-2023 07:45-0500 Body ygbbcq037.72 cmDestineecamilo Wesleydeangelo Other [employer] Other 11-21-2023 07:45-0500Body mass index (BMI) [Ratio] 25.54 kg/e5LcisbHerve Steele Other [employer] Other 11-21-2023 07:45-0500Body kdoavq78.2 kgHerve Wesleydeangelo Other [employer] Other 11-21-2023 07:45-0500Diastolic blood zxcghyeo93 mm[Hg] Herve Steele Other [employer] Other 11-21-2023 07:45-0500Respiratory rate16 /minBrecamilo Steele Other [employer] Other 11-21-2023 07:45-2283MeA6% (BldA) [Mass fraction]92 % Hervecamilo Steele Other [employer] Other 11-21-2023 07:45-0500Systolic blood rdfosgxo022 mm[Hg] Hervecamilo Steele Other [employer] Other 10-23-2023 07:30-0400Body kwiicg390.72 cmBrett Kuns Other [employer] Other 10-23-2023 07:30-0400Body mass index (BMI) [Ratio] 25.94 kg/l8Qnnzs Kuns Other [employer] Other 10-23-2023 07:30-0400Body rpeknb85.38 kgBrett Kuns Other [employer] Other 10-23-2023 07:30-0400Diastolic blood mm[Hg] Herve Kuns Other [employer] Other 10-23-2023 07:30-0400Respiratory rate16 /minBrett Kuns Other [employer] Other 10-23-2023 07:30-2830XcH9% (BldA) [Mass fraction]95 % Herve Kuns Other [employer] Other 10-23-2023 07:30-0400Systolic blood gfsoskrn830 mm[Hg] Herve Kuns Other [employer] Other 02-27-2023 08:30-0500Body goqcpb325.72 cmDeSiva Powers Other [employer] Other 02-27-2023 08:30-0500Body mass index (BMI) [Ratio] 24.63 kg/b1Ckfnaqj Blades Other [employer] Other 02-27-2023 08:30-0500Body .48 kgDeborah Blades Other [email or web address] Other 02-27-2023 08:30-0500Respiratory rate18 /minDeborah Blades Other [email or web address] Other 11-10-2022 09:00-0500Body .72 cmDestineecamilo Olsondeangelo Other [employer] Other 11-10-2022 09:00-0500Body mass index (BMI) [Ratio]25.3 kg/d9ReypyHerve Steele Other [employer] Other 11-10-2022 09:00-0500Body mmozdy27.48 kgBrecamilo Wesleydeangelo Other [employer] Other 11-10-2022 09:00-0500Diastolic blood awobjvvv59 mm[Hg] Hervecamilo Steele Other [employer] Other 11-10-2022 09:00-0500Respiratory rate18 /minBrecamilo Steele Other [employer] Other 11-10-2022 09:00-5738JyC0% (BldA) [Mass fraction]97 % Hervecamilo Steele Other [employer] Other 11-10-2022 09:00-0500Systolic blood mm[Hg] Hervecamilo Steele Other [employer] Other Encounters Encounter DateEncounter TypeCare ProviderFacilityStart: 06-03-2025 End: 07-53-6339cbgxdprzeyGvbhk Kuns DO Work Phone: -[facility] Medicine [place]Start: 06-03-2025 End: 89-09-1972Drfcxrf encounter procedureBrecamilo Radha Wesleydeangelo DO-[facility] [place] Work Phone: Start: 05-31-2025 End: 00-01-0167Jmilmev encounter procedureBrecamilo Steele DO-Lab [place] Work Phone: Start: 05-31-2025 End: 27-99-0460jheafcixchTozfl Kuns DO Work Phone: -Lab [place]Start: 04-30-2025 End: 84-89-5483csaxonqsftQNNVY ROGER KUNSFacility:[facility] Start: 02-26-2025 End: 64-46-3572Qbhudft encounter procedureCharlette Lyons MD Work Phone: OphthalmologyComment on above: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 eyes with active choroidal neovascularization (HCC) (Primary Dx)Start: 02-26-2025 End: 49-37-3934uwkfidmpuwNMKBR ROGER KUNSSkagit Valley Hospitality:[facility] Start: 01-15-2025 End: 42-60-5992ytzcoqtminOwdhb KunsFatransylvania regional hospitality:[facility] Start: 01-01-2025 End: 42-42-0887Mpmmsch encounter procedureCharlette Lyons MD Work Phone: OphthalmologyComment on above: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 eyes with active choroidal neovascularization (HCC) (Primary Dx); Nuclear sclerotic cataract of both eyesStart: 01-01-2025 End: 01-36-9799qqlmwhiulmRSGHIShay Ahntransylvania regional hospitality:[facility] Start: 12-04-2024 End: 69-55-4439Yjfebfd encounter procedureCharlette Lyons MD Work Phone: OphthalmologyComment on above: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 eyes with active choroidal neovascularization (HCC) (Primary Dx)Start: 12-04-2024 End: 04-59-4789fdelciwnndVVO BABIUCHFacility:[facility]: 11-30-2024 End: 21-81-7217Eeginns encounter procedureDestineecamilo Olsondeangelo DO Work Phone: [facility] [place] Work Phone: Start: 11-30-2024 End: 87-42-2819ndglawobddEcreo Kuns DO Work Phone: [facility] Work Phone: Start: 11-30-2024 End: 18-53-6048xxfbsagoytDabnf Kuns DO Work Phone: [facility] Work Phone: Start: 11-30-2024 End: 71-70-5616Wxeegyl encounter procedureBrecamilo Steele DO Work Phone: [facility] Work Phone: Start: 10-29-2024 End: 45-01-7745Rzbxkzc encounter procedureStana Champion MD Work Phone: NeurologyComment on above:Recurrent seizures (HCC) (Primary Dx)Start: 10-29-2024 End: 03-50-5672vegsgdqgrzNIPINSDuyen CHAMPIONFacility:[facility] Start: 10-20-2024 End: 89-67-6240jlkdnznckcNSL BABIUCHFacility:[facility]art: 10-20-2024 End: 91-93-0835Kcztdic encounter procedureCharlette Lyons MD Work Phone: OphthalmologyComment on above: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 eyes with active choroidal neovascularization (HCC) (Primary Dx)Start: 10-14-2024 End: 20-19-7615Nqajlu outpatient visit 15 minutesDamián Blackwood MD Work Phone: [facility] Office BuildingComment on above: Right shoulder pain, unspecified chronicity; S/P shoulder hemiarthroplasty, rightStart: 10-14-2024 End: 71-35-6548Ebybgvfhrz hospital visit by Fifi Singleton X-Ray [address] [place] [address] Medical Office [facility] HealthComment on above:Right shoulder pain, unspecified chronicity; S/P shoulder hemiarthroplasty, rightStart: 10-14-2024 End: 71-03-7437dspvugmonhBUWYRD J [facility]tart: 09-04-2024 End: 38-34-6065odclgjdmavXGX BABIUCHFacility:[facility]art: 09-04-2024 End: 59-25-1921Llpbxxq encounter procedureCharlette Lyons MD Work Phone: OphthalmologyComment on above: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 eyes with active choroidal neovascularization (HCC) (Primary Dx)Start: 08-27-2024 End: 97-22-3452Lgvgmbv encounter procedureHerve Steele DO Work Phone: [facility] Work Phone: Start: 08-27-2024 End: 26-57-5536qjhgroqsdhXhfnq Kuns DO Work Phone: [facility] Work Phone: Start: 08-26-2024 End: 22-53-4249Nslttm outpatient visit 15 minutesDamián Blackwood MD Work Phone: [facility] Medical Office BuildingComment on above: Right shoulder pain, unspecified chronicity; S/P shoulder hemiarthroplasty, rightStart: 08-26-2024 End: 80-80-1845Alztjwmacs hospital visit by Fifi Singleton X-Ray [address] [place] [address] Medical Office BuildingComment on above:Right shoulder pain, unspecified chronicity; S/P shoulder hemiarthroplasty, rightStart: 08-26-2024 End: 58-49-0582eiwuafiafpWDIODK J [facility] Hospitaltart: 08-21-2024 End: 30-79-1144lpxeblcxdsZYZJVxjqxayz:[facility]art: 08-21-2024 End: 73-29-0735Ubcznbo encounter procedureCharlette Lyons MD Work Phone: OphthalmologyComment on above: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 eyes with active choroidal neovascularization (HCC) (Primary Dx); Nuclear sclerotic cataract of both eyesStart: 08-11-2024 End: 83-74-3055sbsgxtemzjYqmmu Kuns DO Work Phone: [facility] Work Phone: Start: 08-11-2024 End: 01-88-4478Osjzeyi encounter procedureBrecamilo Steele DO Work Phone: [facility] Work Phone: Start: 52-29-2559Nop-patient / Non-visitBrett Kuns DO Work Phone: [facility] Work Phone: Start: 38-32-7667Cfd-patient / Non-visitBrett Kuns DO Work Phone: [facility] Work Phone: Start: 07-24-2024 End: 93-24-0006ahwqpbkdswPDAVT ROGER KUNSFacility:[facility] Start: 07-21-2024 End: 40-81-9468Fhmpqpgsh encounterStana Champion MD Work Phone: NeurologyStart: 07-17-2024 End: 99-75-8428Ykzlfid encounter procedureMobayron Maier MDNeurologyComment on above:Nonintractable epilepsy without status epilepticus, unspecified epilepsy type (HCC) (Primary Dx)Start: 07-17-2024 End: 26-31-3659zodotuixpcFBXVM ROGER KUNSFacility:[facility] Start: 07-16-2024 End: 63-44-0977Vhqllv flowsheetMichael T Siddiqui DO Work Phone: [facility] ORTHOStart: 07-16-2024 End: 96-65-6698Fonwox flowsheetMichael T Siddiqui DO Work Phone: [facility] ORTHOStart: 07-16-2024 End: 65-22-4763Frkmjeb encounter procedureMichael T Siddiqui DO Work Phone: [facility] NB ORTHOComment on above:Lymphedema of right arm (Primary Dx); Right hand painStart: 07-16-2024 End: 50-32-8366mzicroqmgyEKXXZXT T POWERSNot AvailableStart: 07-15-2024 End: 85-14-6993Adyevf follow up visit related to original Ozzie Blackwood MD Work Phone: [facility] Medical Office BuildingComment on above: Right shoulder pain, unspecified chronicity; Left shoulder pain, unspecified chronicity; Dislocation of right shoulder joint, initial encounterStart: 07-15-2024 End: 35-87-6268jnfpcikrqiNSKXJW J [facility] Hospitaltart: 07-15-2024 End: 95-18-5907uzismwfzdzDLKXLV J [facility] Hospitaltart: 07-06-2024 End: 22-69-5028Bnlqgmunf encounterStana Champion MD Work Phone: NeurologyComment on above:SeizuresStart: 07-05-2024 Non-patient / Non-visitBrett Kuns DO Work Phone: [facility] Work Phone: Start: 43-76-3371Fhu-patient / Non-visitBrett Kuns DO Work Phone: [facility] Work Phone: Start: 40-43-7346kbcxfpauozFPJMB HILLFacility:[facility] HospitalStart: 07-01-2024 End: 53-29-3795Umcpznliao hospital visit by [facility] (Istat/3t) Work Phone: [facility] Radiology MRIComment on above: Convulsions, unspecified convulsion type (HCC) [R56.9]Start: 06-22-2024 End: 39-13-6470Lhonhyyeo encounterStana Champion MD Work Phone: NeurologyComment on above:Medication Problem (Patient wants to reduce Keppra)Start: 13-22-2193Xwe-patient / Non-visitHerve Steele DO Work Phone: [facility] Work Phone: Start: 06-17-2024 End: 26-72-8486Zzskweldqp hospital visit by Fifi Neal110 X-Ray [address] [place] [address] Medical Office BuildingComment on above:Dislocation of right shoulder joint, initial encounterStart: 06-17-2024 End: 41-89-9973Rjrkrj follow up visit related to original Ozzie Blackwood MD Work Phone: [facility] Office BuildingComment on above: Dislocation of right shoulder joint, initial encounterStart: 06-17-2024 End: 00-23-2856xokxijojcfPTHTCZ J [facility]OTLima Memorial Hospitaltart: 05-26-2024 End: 76-78-3455gatadcemouKF Brett Kuns Work Phone: [facility] Work Phone: Start: 05-26-2024 End: 48-61-5682Lwoxzbf encounter procedureDO Herve Steele Work Phone: [facility] Work Phone: Start: 46-35-9618gjfdpfgcdxTB Brett Kuns Work Phone: [facility] Work Phone: Start: 06-22-1324Ccy-patient / Non-visitDO Herve Steele Work Phone: [facility] Professional Co Work Phone: Start: 05-18-2024 End: 29-28-3419Pddvezjxmo hospital visit by Fifi Knight X-Ray 3[facility] SystemsComment on above:Right shoulder pain, unspecified chronicityStart: 05-18-2024 End: 14-68-9352Lsnptz follow up visit related to original [facility] PA-C Work Phone: [facility] SystemsComment on above: Dislocation of right shoulder joint, initial encounter (Primary Dx); Right shoulder pain, unspecified chronicityStart: 05-18-2024 End: 61-94-8985tyhkpbleolVZIUGQNThe Jewish Hospitaltart: 05-15-2024 End: 91-29-6075efhxdpddwdQN Herve Steele Work Phone: [facility] Work Phone: Start: 05-15-2024 End: 78-20-9904Cdzboko encounter procedureDO Herve Steele Work Phone: [facility] [place] Work Phone: Start: 05-05-2024 End: 75-79-6654yetqpjopttNECHXXEthan Atkinson [facility] Hospitaltart: 05-04-2024 End: 38-68-8077Jwhpieinbe hospital visit by Fifi Knight X-Ray 2[facility] Health SystemsComment on above:Right shoulder pain, unspecified chronicityStart: 05-04-2024 End: 19-81-1171Bmxzmh outpatient new 30 minutesDaadriana Blackwood MD Work Phone: [facility] SystemsComment on above: Right shoulder pain, unspecified chronicity; Dislocation of right shoulder joint, initial encounterStart: 05-04-2024 End: 60-17-0018haoptueexuQOPZQH J [facility] Hospitaltart: 04-30-2024 End: 34-79-8535pwaylxdifdUcpbwva Bartlome RT(R)RadiologyComment on above: Radiology XRStart: 04-30-2024 End: 93-20-1196Gfkdgpb encounter procedureTifholland Dhillon RT(R)RadiologyStart: 81-21-6645Hrx-patient / Non-visitDO Herve Ivette Work Phone: [facility] GroupP[facility] Work Phone: Start: 04-30-2024 End: 79-46-6330Fknkrcsoj to [facility] Work Phone: pre AnesthesiaStart: 04-30-2024 End: 24-29-4572Wqhoxhsznc consultationBeraja [facility] Institute 1 Work Phone: pre AnesthesiaComment on above:Pre-op evaluation (Primary Dx); Posterior dislocation of right shoulder joint, initial encounter; Pre-op testing; Preoperative examination; Seizure (HCC); Primary hypertension; Hyperlipidemia, unspecified hyperlipidemia typeStart: 04-30-2024 End: 65-32-1735Vepfcycyhrunq examination [facility] 1 Work Phone: [facility] Work Phone: Start: 04-30-2024 End: 12-81-4584Iriienr encounter statusSt. Joseph'S Children'S Hospitalain 1 Work Phone: [facility]: 04-30-2024 End: 97-11-7929Cztmotqzls hospital visit by [facility]Saint [facility] LorainRadiology Comment on above:Posterior dislocation of right shoulder joint, initial encounter [S43.021A]Start: 04-28-2024 End: 35-34-1787oandkxqynjZypgznz Davis RN Work Phone: OrthopaedicsStart: 04-28-2024 End: 41-44-2240Qbzrqlj encounter Traci Wooten MD Work Phone: [facility] Hospitaltart: 04-28-2024 End: 12-49-3204Qpamgduao encounterCourtneyiman Warrenbessie LANDA Work Phone: OrthopaedicsComment on above:Pain (Primary Dx); Posterior dislocation of right shoulder joint, initial encounter; Pre-op testingStart: 04-27-2024 End: 33-30-1391Rmjanxo encounter procedureStana Champion MD Work Phone: NeurologyComment on above:Posterior dislocation of right shoulder joint, initial encounter; Seizure (HCC)Start: 04-24-2024 End: 29-29-9027Avojraa encounter procedureHi Wooten MD Work Phone: OrthopaedicsComment on above:Seizure (HCC) (Primary Dx); Posterior dislocation of right shoulder joint, initial encounterStart: 04-24-2024 End: 35-45-2033Flwtcoehel hospital visit by physicianXr Main O48ByvyrmnydSpdbwxu on above:Pain [R52]Start: 04-22-2024 End: 48-26-3844Wfyqqt flowsheetChristopher Abdelrahman DO Work Phone: [facility] R[facility]TEStart: 04-22-2024 End: 47-91-2993Yfmlzs flowsheetChristopher Abdelrahman DO Work Phone: [facility]TEStart: 04-22-2024 End: 57-51-2699Zwdvuz outpatient new 45 minutesChristopher Abdelrahman DO Work Phone: [facility] STATE ROUTEComment on above:Seizures (CMS/HCC) (Primary Dx); Posterior dislocation of left shoulder joint, sequelaStart: 04-22-2024 End: 07-62-3479Cjajcp Daniela Wooten MD Work Phone: OrthopaedicsComment on above:Pain (Primary Dx)Start: 04-15-2024 End: 39-97-0346Ynjavznma encounterFantasma Lino PA-C Work Phone: OrthopaedicsComment on above:AppointmentStart: 04-09-2024 End: 45-62-7489Azukzdxnl encounterCasssamir Jam RNOrthopaedicsComment on above: Patient Update (Orthopedic Verbal Instructions to go to ED Main [place])Start: 04-09-2024 End: 61-69-6489Bfpqkax encounter procedureNatcarlota Lino PA-C Work Phone: OrthopaedicsComment on above:Posterior dislocation of right shoulder joint, initial encounter (Primary Dx); Right shoulder pain, unspecified chronicity; Closed [place]-S[place]s fracture of right humerus, initial encounterStart: 04-09-2024 End: 99-06-1175Qjbgnneplp hospital visit by physicianXr Ortho [facility] Rej Work Phone: RadiologyComment on above:Right shoulder pain, unspecified chronicity [M25.511]Start: 04-03-2024 End: 03-58-2113Rxgijbblj department patient visitDO Herve Steele Work Phone: [facility]-Emergency Room Work Phone: Start: 11-57-4480Lyn-patient / Non-visitDO Herve Steele Work Phone: [facility] Work Phone: Start: 45-44-5045Duv-patient / Non-visitDO Herve Steele Work Phone: [facility] Work Phone: Start: 02-26-2024 End: 31-99-3775Cwmtnkrlj to same day surgery centerDO Herve Steele Work Phone: [facility]-Digestive Health Work Phone: Start: 02-26-2024 End: 77-93-4302gvporekcclID Herve Steele Work Phone: [facility] Work Phone: Start: 01-27-2024 End: 03-76-7111dopmiqkuyvFL Herve Steele Work Phone: [facility] Work Phone: Start: 01-27-2024 End: 43-46-8144Uzcpkal encounter procedureDO Herve Steele Work Phone: [facility] Work Phone: Start: 01-02-2024 End: 86-02-3795lwtybnhnugIZ Herve Steele Work Phone: [facility] Work Phone: Start: 01-02-2024 End: 29-23-5452Tbtjazt encounter procedureDO Herve Steele Work Phone: [facility]-Ultrasound Main [place] Work Phone: Start: 12-26-2023 End: 05-05-9789ctxysuhasyTR Herve Steele Work Phone: [facility] Work Phone: Start: 12-26-2023 End: 82-03-3337Otlyken encounter procedureDO Herve Steele Work Phone: [facility] Work Phone: Start: 12-09-2023 End: 72-15-9567cscmihnqfgRX Herve Steele Work Phone: [facility] Work Phone: Start: 12-09-2023 End: 63-52-0420Ywkprdv encounter procedureDO Herve Steele Work Phone: [facility] [place] Work Phone: Start: 06-25-2023 End: 71-89-1112tedfobiayiYhudn Kuns Other [place] [employer] Other Start: 98-03-2935Rlswui outpatient visit 15 minutes Herve YorkG Family Medicine [place]Start: 05-27-2023 End: 15-14-0925mstypidfivVymlt Kuns Other [place] [employer] Other Start: 33-29-9274Jciahj outpatient visit 25 minutes Hervecamilo OlsonAlexander Family Medicine [place]Start: 03-21-2023 End: 26-46-8657txqgfoucguMayxn Kuns Other [facility] [employer] Other Start: 03-13-9717Ffgaojxuw encounterBrecamilo OlsondeangeloCOBALT RE[facility] Family Medicine [place]Start: 12-07-2022 End: 82-06-8304ieswmqbwshKQ Herve Kuns Work Phone: [facility] Work Phone: Start: 12-07-2022 End: 64-02-3517Icglztm encounter procedureDO Herve Kuns Work Phone: [facility] [place] Work Phone: Start: 11-17-2022 End: 32-66-2835jifvfwdwvcCN Herve Kuns Work Phone: [facility] Work Phone: Start: 11-17-2022 End: 57-30-3006Vfmphukl ReferredDO Herve Kuns Work Phone: [facility] Out[facility] Work Phone: Start: 10-01-2022 End: 73-56-4421oksupjhkcwYgtqubi [employer] Other [facility] [employer] Other start: 74-25-2050Ijsxvt outpatient visit 15 minutes Elvia French [facility]Start: 09-27-2022 End: 33-52-5708srlvcabnqoNH Herve Kuns Work Phone: [facility] Work Phone: Start: 09-27-2022 End: 98-25-3579Sgsykcp encounter procedureDO Herve Olsons Work Phone: [facility]trStart: 09-19-2022 End: 08-48-5479Uysjvep encounter procedureDO Herve Olsons Work Phone: [facility] Work Phone: Start: 08-21-2022 End: 78-76-4939qzcxktqrifUmpakpx [employer] Other [employer] Other start: 65-49-0494Hoydziock encounterElvia French Referral CoordinatorStart: 07-31-2022 End: 14-25-2295kfhlncqbipZbkpb Kuns Other [place] [employer] Other Start: 05-96-2621Slciidvrj encounterBrecamilo Judge Family Medicine CastaliaStart: 07-13-2022 End: 93-41-4983wgdsfgbiqbZhgdo Kuns Other [employer] Other Start: 38-28-6295Fbulbpcfz encounterBrecamilo OlsonsEULALIOG Family Medicine CastaliaStart: 07-11-2022 End: 27-22-7734sngvsiamhlNQ Herve Kuns Work Phone: [facility] Work Phone: Start: 07-11-2022 End: 14-43-4141Wbyghqm encounter procedureDO Herve Kuns Work Phone: [facility] CampusStart: 07-06-2022 End: 73-79-0689grmobdvozcRqeva Kuns Other [employer] Other Start: 13-03-8965Pcfcqcwtj encounterBrecamilo Judge Family Medicine CastaliaStart: 06-19-2022 End: 84-76-9171kqvwplsamtAojkd Kuns Other [employer] Other Start: 17-66-5613Wgkwxcxjv encounterBrecamilo Judge Family Medicine CastaliaStart: 60-89-6317Qstbph outpatient visit 25 minutesBrett Alfie Family Medicine CastaliaStart: 06-14-2022 End: 93-96-1390gnsmsqqlwuNE Herve Kuns Work Phone: [facility] Work Phone: Start: 06-14-2022 End: 97-23-8535Corqvnl encounter procedureDO Herve Kuns Work Phone: [facility] CtrStart: 04-05-2022 End: 09-49-8054ufpxjncscwNkjts [place] Other [facility] [employer] Other Start: 17-51-8505Khsznsffg encounterBrecamilo Judge Family Medicine CastaliaStart: 01-19-2022 End: 59-45-3240ruriiadkeyPaibr Kuns Other [employer] [place] Other Start: 90-68-9110Okghxbhgz encounterBrett Alfie Family Medicine CastaliaStart: 01-25-2021 End: 10-96-4652rincprjuveZXMQMLS NOYESFacility:N9Gwhww: 26-77-2409Bleowitrl for other preprocedural examinationMATTCleveland Clinic Foundationtart: 57-65-8353Ripzroroo for preprocedural cardiovascular examinationMATTCleveland Clinic Foundationtart: 21-71-9696Tkgvxssxo for preprocedural laboratory examinationMATTCleveland Clinic Foundationtart: 01-13-2021 End: 48-18-4269svyaurwottISJUBAO NOYESFacility:L2Eozif: 01-09-2021 End: 03-68-0673iucauicbvyXKGGYVF NOYESFacility:R2Lcfpy: 01-09-2021 End: 87-24-3510Zlxwfqmht for preprocedural laboratory examinationMONTEFIORE HEALTH SYSTEM Facility:Q4Ebiox: 12-28-2020 End: 36-50-2665axudtrpahlVG MARCELLUS HAYFacility:C8Rgdqy: 37-82-6588Vpdbra wellness visitHonorhealth [facility] Other [place] [employer] Other Procedures DateProcedureProcedure DetailPerforming ClinicianStart: 32-26-9886Mliudnveapdk ophthalmic imaging Lenora Lyons MD Work Phone: Start: 02-26-2025 End: 79-20-1336Bgioblxvpluc njx pharmacologic agt Júnior Lyons MD Work Phone: Start: 30-50-0311Ocqchwxsmbyn njx pharmacologic agt Júnior Lyons MD Work Phone: Start: 95-47-8116Wojmpnnknmdr ophthalmic imaging retinaCharlette Lyons MD Work Phone: Start: 78-96-3839Jkksonxgdwbd njx pharmacologic agt Júnior Lyons MD Work Phone: Start: 28-55-1099Qrsynnadvvng ophthalmic imaging retinaCharlette Lyons MD Work Phone: Start: 19-00-3903Tztcndbkdlrn njx pharmacologic agt Júnior Lyons MD Work Phone: Start: 69-23-6382Fyynpojtvazx ophthalmic imaging retinaCharlette Lyons MD Work Phone: Start: 10-20-2024 End: 92-30-3493Uienfzfjvnxc njx pharmacologic agt Júnior Lyons MD Work Phone: Start: 00-78-9948Avzzoflzvzrz ophthalmic imaging retinaCharlette Lyons MD Work Phone: Start: 23-35-0832Fubqzqlwlxee njx pharmacologic agt Júnior Lyons MD Work Phone: Start: 85-91-8384RP prostate wo/w conBrecamilo Steele DO Work Phone: Start: 43-97-9859Bgmmpfimrpae ophthalmic imaging retinaCharlette Lyons MD Work Phone: Start: 85-00-8501Psw brain brain stem w/o contrast Pascual Kinsey PA-C Work Phone: Start: 05-58-6390Mntbw shoulder complete minimum 2 viewsDamián Blackwood MD Work Phone: Start: 69-89-3723Osqyu shoulder complete minimum 2 viewsDamián Blackwood MD Work Phone: Start: 91-96-5911Rtdugmpkgt exam chest 2 viewsHi Wooten MD Work Phone: Start: 52-03-9192Ksepa shoulder complete minimum 2 viewsHi Wooten MD Work Phone: Start: 71-60-1887Ozmhr shoulder complete minimum 2 viewsNatcarlota Lino PA-C Work Phone: Start: 01-92-5633AZ of head without contrastDO Herve Steele Work Phone: Start: 09-11-2303Gbmdx chest X-rayDO Herve Steele Work Phone: Start: 18-46-0975Aapde X-ray of right shoulderDO Herve Steele Work Phone: Start: 86-10-5915Xwhyadefx colonoscopyDO Herve Steele Work Phone: Start: 24-62-8875YkwqjcklaspCfnkip Zanotti MD Work Phone: Start: 25-10-8445Baicabd ultrasonography of bilateral carotid arteriesDO Herve Steele Work Phone: Start: 21-11-1385Eadyqcfawyx of thoracic spineDO Herve Steele Work Phone: Start: 21-13-6071Jbgd energy X-ray absorptiometryDO Herve Steele Work Phone: Start: 45-11-9449KBJ of thoracic spine with contrastDO Herve Steele Work Phone: Start: 44-63-5089Z-ray of lumbar spine, six views including bending viewsDO Herve Steele Work Phone: Screening for malignant neoplasm of colonHerve Steele Other Screening for malignant neoplasm of prostateHerve Steele Other Plan of Treatment DateCare ActivityDetailAuthorStart: 11-52-9627Fvmidgsib for malignant neoplasm of colonPremier Health Miami Valley Hospital NorthStart: 83-02-7733IOaB/Tdap/Td Vaccines (2 - Tdap)DTaP/Tdap/Td Vaccines (2 - Tdap)[facility] Start: 49-21-0180Ivjqe microalbumin profileDTaP,Tdap,Td Vaccine (2 - Tdap) [facility]: 19-64-4197VNP High Risk: (Elderly (60+) or Population) (1 - 1-dose 75+ series)RSV High Risk: (Elderly (60+) or Population) (1 - 1-dose 75+ series)[facility] NorthStart: 66-21-3733Axpmqtix ScreeningDiabetes ScreeningWadsworth-Rittman Hospitaltart: 04-09-2027 Diabetes ScreeningDiabetes ScreeningWadsworth-Rittman Hospitaltart: 07-12-2025 End: 52-68-1735Ggtfasu encounter procedureNeurologyComment on above:Recurrent seizures (HCC) [G40.909]8mo f/uStart: 04-30-2025 End: 38-30-9166Tekmkqc encounter ntmfjukkn56/26/2025 8:15 AM EDT Office Visit [facility] Ophthalmology [address] [place] [address] [place] [address] [place] [address] Diagnostics, [facility] [address] [address] Return for 8-10 weeks , Injection. OphthalmologyComment on above:Return for 8-10 weeks , Injection.Start: 53-99-4661Qfthdygux vaccinationWadsworth-Rittman Hospitaltart: 02-26-2025 End: 01-84-1533Gnkkfky encounter rgjxquydg47/25/2025 8:15 AM EDT Office Visit [facility] Ophthal[facility] [address] [place] [address] [place] [address] [place] [address] *8 W, DTI EYLEA HD OU auth pendingOphthalmologyComment on above:*8 W, DTI EYLEA HD OU auth pendingStart: 01-01-2025 End: 03-33-7772Zlqcyjl encounter procedureOphthalmologyComment on above:Return for 4-5 weeks, Injection & Dilated Fundus Exam.*4-5 W, DFE/OCT, EYLEA OS VS OU Start: 12-04-2024 End: 98-43-2895Gaowffo encounter oqjkgawjj71/02/2025 8:30 AM EDT Office Visit [facility] Op[facility] [address] [place] [address] [place] [address] [place] [address] *5-6 W DTI EYLEA ODOphthalmologyComment on above:*5-6 W DTI EYLEA ODStart: 10-29-2024 End: 42-39-3276Ptwsqzy encounter aicnlfqpl08/27/2025 10:00 AM EDT Office Visit Neurology [address] [place] [address] Ami Whittaker MD [address] [place], [place] [phone] 3 monthsNeurologyComment on above:3 monthsStart: 10-22-2024 End: 67-61-7335Qlmlbsv encounter yloamgsvt49/20/2025 10:30 AM EDT Office Visit Neurology [address] [place] [address] Ami Whittaker MD [address] [place] [address] 3 monthsNeurologyComment on above:3 monthsStart: 10-20-2024 End: 31-09-3957Bigtagv encounter esemfrlxu11/18/2025 8:15 AM EDT Office Visit [facility] Ophthalmology [address] [place] [address] [place] [address] [place] [address] *6-7 W, DTI EYLEA OD, POSS OSOphthalmologyComment on above: *6-7 W, DTI EYLEA OD, POSS OSStart: 10-14-2024 End: 22-90-5010Ksupnfx encounter /12/2025 11:30 AM EDT Office Visit [facility] [address] [phone] Damián Blackwood MD [address] [facility], [address] [place] [address] [facility] BuildingStart: 09-04-2024 End: 51-17-6536Lkfnwnv encounter tpzguxzei70/31/2025 9:45 AM EST Office Visit [facility] Ophthalmology [address] [place] [address] [place] [address] [place] [address] *2 W, DTI EYLEA OD, POSS OSOphthalmologyComment on above:*2 W, DTI EYLEA OD, POSS OSStart: 08-26-2024 End: 88-85-9249YK Shoulder - right 2 [facility] Work Phone: Comment on above:Expected: 08/26/2024, Expires: 08/26/2025Once for 1 Occurrences starting 08/26/2024 until 08/26/2024Start: 99-63-6148Htwyntortb hospital visit by /22/2025 1:21 PM EST Hospital Encounter [facility] Building [address] [facility] [address] [place] [address] Right shoulder pain, unspecified chronicity; S/P shoulderhemiarthroplasty, rightUH [facility] Comment on above:Right shoulder pain, unspecified chronicity; S/P shoulder hemiarthroplasty, rightStart: 08-21-2024 End: 05-65-3069Jctfvvv encounter /17/2025 9:00 AM EST Office Visit [facility] Ophthalmology [address] [place] [address] [place] [address] [place] [address] Wet Macular DegenerationOphthalmologyComment on above:Wet Macular DegenerationStart: 08-20-2024 End: 79-68-2133Mjkulml encounter raryihvdq61/16/2025 9:00 AM EST Office Visit [facility] [address] [facility] [address] [place] [address] Antelmo West MD [address] [facility] [address] [id number] [facility] S[facility] NEURStart: 14-77-6180Muwhqtb Directive DiscussionAdvance Directive DiscussionWadsworth-Rittman Hospitaltart: 01-01-2025Medicare Advantage Annual Wellness VisitMedicare Advantage Annual Wellness VisitWadsworth-Rittman Hospitaltart: 07-27-2024 End: 91-32-4302Nfoxzmz encounter zhqqqrovc73/23/2024 11:30 AM EST Office Visit [facility] [address] [place] [phone] Damián Blackwood MD [address] [facility], [address] [place] [phone] [facility]: 07-27-2024 End: 79-43-4838Vwferri encounter rdeiehxni25/23/2024 9:30 AM EST Office Visit [facility] [address] [place] [phone] Damián Blackwood MD [address] [facility], [address] [place] [phone] [facility]: 07-23-2024 End: 68-65-5737Ymjxdhg encounter procedureNOMS SWS NEURStart: 07-17-2024 End: 45-97-8930xnwFMQVFxwlar [Mass/volume] in Serum or PlasmaLEVETIRACETAM Lab Routine Nonintractable epilepsy without status epilepticus, unspecified epilepsy type (HCC) Expected: 07/17/2024, Expires: 10/16/2024[facility] Comment on above:Expected: 07/17/2024, Expires: 10/16/2024Start: 07-17-2024 End: 26-78-9446Gtrlxct encounter qlfngcscu65/13/2024 1:00 PM EST Office Visit Neurology [address] [place] [address] Eleni Maier MD [address] [place] [address] 3 mo f/uNeurologyComment on above:3 mo f/uStart: 07-16-2024 End: 29-23-4435Qdusyxr encounter qawvplwgm48/12/2024 10:15 AM EST Office Visit [facility] [address] [place] [phone] Ruba Siddiqui, [address] [place] [address] Right hand pain (Primary Dx)[facility] NB ORTHOComment on above: Right hand pain (Primary Dx)Start: 07-01-2024 End: 67-93-1232Jmwymgp encounter omnnkgqpg15/27/2024 4:40 PM EST Appointment [facility] Radiology MRI [address] [facility] 3T[facility] Radiology MRIComment on above:3TStart: 06-26-2024 End: 35-89-1509Bquuzwt encounter suaousnvs98/22/2024 3:30 PM EST Office Visit Orthopaedics [address] [address] Hi Wooten MD [address] [place] [address] Hi Wooten on June 26, 2024 at 3:30 with Xray Prior OrthopaedicsComment on above:POST OP with Dr. Hi Wooten on June 26, 2024 at 3:30 with Xray PriorStart: 06-17-2024 End: 74-64-4985PR Shoulder - right 2 [facility] Work Phone: Comment on above:Expected: 06/17/2024, Expires: 06/17/2025Once for 1 Occurrences starting 06/17/2024 until 06/17/2024Start: 53-09-2715Oyyyywohic hospital visit by /13/2024 1:54 PM EST Hospital Encounter [facility] Office [address] [phone] Dislocation of right shoulder joint, initial encounterAcuteCare Health SystemComment on above:Dislocation of right shoulder joint, initial encounterStart: 06-17-2024 End: 23-71-2583Iwhwjdz encounter lygirmtcp51/13/2024 1:45 PM EST Office Visit [facility] [address] [place] [phone] Damián Blackwood MD [address] [facility], [address] [place] [address] [facility] BuildingStart: 05-29-2024 End: 14-00-0115Uuztlzl encounter procedureRadiologyComment on above:XR SHOULDER GENERAL 3V OR MORE AP/TRUE AP/OTHER RIGHTPOST OP with Yumiko Edmonds CNP on May 29, 2024 at 1230 with Xray PriorStart: 35-39-2237Skrebhv referralUniversity Hospitals Geneva Medical Center Work Phone: Start: 01-97-6539Pekrvhv referralUniversity Hospitals Geneva Medical Center Work Phone: Start: 05-18-2024 End: 25-71-7795UW Shoulder - right 2 [facility] Work Phone: Comment on above:Expected: 05/18/2024, Expires: 05/18/2025Start: 05-18-2024 End: 92-55-3151Vmbylsj encounter procedureNOTRINITY HEALTH SYSTEM ROUTEStart: 05-13-2024 End: 80-91-5289Nmjabjdmy to same day surgery gglwsw1005/13/2024 12:08 PM EDT - 05/13/2024 3:58 PM EDT Surgery Admitting [address] [place] [address] Hi Wooten MD [address] [place] [address] HEMIARTHROPLASTY REPLACE JOINT PARTIAL SHOULDERAdmittingComment on above: HEMIARTHROPLASTY REPLACE JOINT PARTIAL SHOULDERStart: 05-13-2024 End: 34-10-7821Pvglkohmlyli glenohumrl jt hemiarthroplastyHEMIARTHROPLASTY REPLACE JOINT PARTIAL SHOULDER Posterior dislocation of right shoulder joint, initial encounter 05/13/2024 12:08 PM EDTMC MAIN PAVILIONStart: 05-13-2024 Subsequent hospital visit by physicianAdmittingComment on above:Posterior dislocation of right shoulder joint, initial encounter [S43.021A]Start: 05-05-2024 End: 30-19-0124Cfmbuhp encounter bzqybvuee66/01/2024 1:00 PM EDT Office Visit Orthopaedics [address] [place] [address] Hi Wooten MD [address] [place] [address] Rightshoulder painOrthopaedicsComment on above:Right shoulder painStart: 05-04-2024 End: 95-88-1807FT Shoulder - right 2 [facility] Work Phone: Comment on above:Expected: 05/04/2024, Expires: 05/04/2025Start: 04-30-2024 End: 63-43-3578VKVKPBZKBJOCXX AUREUS & MRSA SCREEN, PCR, NASALSt. [facility] Comment on above:Expected: 04/30/2024, Expires: 07/30/2024Start: 04-29-2024 End: 63-75-3542SJMYHKY BLOOD TYPECONFIRM BLOOD TYPE Blood Bank Routine Pre-op evaluation Expected: 04/29/2024, Expires: 07/29/2024[facility] Work Phone: comment on above:Expected: 04/29/2024, Expires: 07/29/2024Start: 04-28-2024 End: 42-20-8687KST W Auto Differential panel - BloodCOMPLETE BLOOD COUNT AND DIFFERENTIAL Lab Routine Posterior dislocation of right shoulder joint, initial encounter Pre-op testing Expected: 04/28/2024 (Approximate), Expires: 07/28/2024 [facility] CampusComment on above:Expected: 04/28/2024 (Approximate), Expires: 07/28/2024Start: 04-28-2024 End: 22-36-1370Sxjynxqrxizsh metabolic 2000 panel - Serum or PlasmaCOMPREHENSIVE METABOLIC PANEL Lab Routine Posterior dislocation of right shoulder joint, initial encounter Pre-op testing Expected: 04/28/2024 (Approximate), Expires: 07/28/2024leveland ClinicComment on above:Expected: 04/28/2024 (Approximate), Expires: 07/28/2024Start: 04-28-2024 End: 57-63-0204IEZD AND SCREEN,30 DAYTYPE AND SCREEN,30 DAY Blood Bank Routine Posterior dislocation of right shoulder joint, initial encounter Pre-op testing Expected: 04/28/2024, Expires: 07/28/2024leveland ClinicComment on above: Expected: 04/28/2024, Expires: 07/28/2024Start: 04-27-2024 End: 38-09-8050Wawwhcx encounter rbqmeifet48/23/2024 8:00 AM EDT Office Visit Neurology [address] [place] [address] Ami Whittaker MD [address] [place] [address] new consultNeurologyComment on above:new consultStart: 04-24-2024 End: 67-81-4271Nwohsxi encounter procedureOrthopaedicsComment on above:Right Shoulder Posterior Dislocation on 04/03/2024, reduced on 4right shoulder Start: 04-22-2024 End: 14-86-1501CKI, Including Recording Awake or AsleepEEG, Including Recording Awake or Asleep Neurology Routine Seizures (CMS/HCC) Expected: 04/22/2024 ( Approximate), Expires: 04/22/2025[facility] [employer] Work Phone: comment on above:Expected: 04/22/2024 (Approximate), Expires: 04/22/2025Start: 04-22-2024 End: 48-73-0123WF Brain WO and W contrast IVMR brain w and wo contrast routine Imaging Routine Seizures (CMS/HCC) Expected: 04/22/2024, Expires: 04/22/2025[facility] HealthcareComment on above:Expected: 04/22/2024, Expires: 04/22/2025Start: 04-22-2024 End: 95-89-7998Fyfqqho encounter /18/2024 9:00 AM EDT Office Visit [facility] [place] [address] [place] [phone] Indy Quick DO [address] [place] [address] ArrivedNOMS [facility] STATE ROUTEComment on above:ArrivedStart: 83-07-2458Iqmsk-19 Vaccine ( season)Covid-19 Vaccine ( season)[facility]: 06-86-0860Eyqky-19 Vaccine ()Covid-19 Vaccine ()[facility]: 51-28-8122Yvsinvzeg vaccinationInfluenza Vaccine (#1)[facility]: 94-44-7742KftlhtcvmRegency Hospital Cleveland Westtart: 57-35-6766Wokfufm ultrasonography of bilateral carotid arteriesUS carotid doppler [facility]: 90-54-4993NR.doppler Carotid arteries - bilateral [facility]: 55-01-7562Ekdfzlq referralUniversity Hospitals Geneva Medical Center Work Phone: Start: 96-88-2611ZtytcwxkuDetwiler Memorial Hospital Start: 69-35-0522Bzqbwbx Directive DiscussionAdvance Directive Discussion [facility]: 96-71-5277PXM of thoracic spine with contrastRegency Hospital Cleveland Westtart: 96-37-8069Mockkujgfqvi Vaccine: 65+ (1 of 1 - PCV) Pneumococcal Vaccine: 65+ (1 of 1 - PCV)[facility]: 2020 Pneumococcal Vaccine: 65+ Years (1 of 1 - PCV)Pneumococcal Vaccine: 65+ Years (1 of 1 - PCV)[facility]: 54-48-6408TVF patients and/or patients aged 60+ years (1 - 1-dose 60+ series)RSV patients and/or patients aged 60+ years (1 - 1-dose 60+ series)[facility]: 35-49-3146JXC Vaccine (1 - 1-dose 60+ series)RSV Vaccine (1 - 1-dose 60+ series)[facility]: 21-77-4379YZK Vaccine (1 - Risk 60-74 years 1-dose series)RSV Vaccine (1 - Risk 60-74 years 1-dose series) [facility]: 03-65-0264Picrydsf specific antigen measurementProstate Cancer Screening DiscussionWadsworth-Rittman Hospitaltart: 34-25-6636Eetrlmrmaysg vaccinationPneumococcal Vaccine (1 of 1 - PCV)[facility] Start: 67-98-3645Lnfjiaelvrau Vaccine: 50+ (1 of 1 - PCV)Pneumococcal Vaccine: 50+ (1 of 1 - PCV)[facility]: 32-70-4956Muzelqmn Vaccine (1 of 2) Shingrix Vaccine (1 of 2)[facility]: 52-71-0083Vtnoud Vaccines (1 of 2)Zoster Vaccines (1 of 2)[facility]: 2000 Screening for malignant neoplasm of colonWadsworth-Rittman Hospitaltart: 24-76-1843Owhqj panelLipid ScreeningACMC Healthcare System Glenbeighrt: 86-02-4317Vkjtkl PCP Team Chronic Disease VisitAnnual PCP Team Chronic Disease VisitWadsworth-Rittman Hospitaltart: 17-61-0668Enypuow ScreeningAnxiety ScreeningACMC Healthcare System Glenbeighrt: 55-44-0183DI Controlled (<130/80)BP Controlled (<130/80)[facility]ighrt: 1973 Depression ScreeningDepression ScreeningWadsworth-Rittman Hospitaltart: 1973 Hepatitis C screeningHepatitis C ScreeningACMC Healthcare System Glenbeighrt: 1955 Annual wellness visitBlanchard Valley Health System: 41-53-2159Xjjrb panelLipid PanelUnSouthview Medical Center: 1955Medicare Annual Wellness VisitMedicare Annual Wellness Visit (AWV)[facility]: 63-57-9351Toadjxioe for malignant neoplasm of colonBlanchard Valley Health System: 29-71-8106Oxbujp Adult PhysicalYearly Adult PhysicalUnKindred Hospital DaytonArthroplasty glenohumrl jt hemiarthroplastyHEMIARTHROPLASTY REPLACE JOINT PARTIAL SHOULDER Posterior dislocation of right shoulder joint, initial encounterMC MAIN PAVILION Comprehensive metabolic 1999 panel - Serum or PlasmaDetwiler Memorial HospitalComprehensive metabolic 1999 panel - Serum or [facility]lower HospitalCONFIRM BLOOD TYPECONFIRM BLOOD TYPE Blood Bank Routine Pre-op evaluation 04/30/2024 7:40 AM EDTCMercy Health [facility]sburg [facility] End: 42-70-6054AKL COMPLETEECG COMPLETE ECG Routine Posterior dislocation of right shoulder joint, initial encounter Pre-op testing 1 Occurrences starting 04/28/2024 until 04/28/2025levelAultman Alliance Community HospitalComment on above:1 Occurrences starting 04/28/2024 until 04/28/2025 End: 71-11-7026XSCK EEG LONGEPIL EEG LONG NEUROLOGY Routine Recurrent seizures (HCC) 1 Occurrences starting 10/29/2024 until [facility] Work Phone: Comment on above:1 Occurrences starting 10/29/2024 until 10/29/2025EPIL EEG ROUTINEEPIL EEG ROUTINE NEUROLOGY Routine Seizure (HCC) 4CTol[facility] Work Phone: Glucose measurement estimated from glycated hemoglobin [facility] Memorial HospitalHemoglobin A1c/Hemoglobin.total in Blood [facility] End: 50-62-9456WR Brain WO contrastMRI BRAIN WO IVCON Radiology Routine Convulsions, unspecified convulsion type (HCC) 1 Occurrences starting 06/22/2024 until 07/22/2025[facility] Work Phone: Comment on above:1 Occurrences starting 06/22/2024 until 07/22/2025Patient EducationMetrohealth Parma Medical Center Work Phone: Patient referralUniversity Hospitals Geneva Medical Center Work Phone: US.doppler Carotid arteries - [facility] HospitalUS.doppler Carotid arteries - [facility] End: 43-27-8827GA Chest PA and LateralXR CHEST 2V FRONTAL/LAT Radiology Routine Posterior dislocation of right shoulder joint, initial encounter Pre-op testing 1 Occurrences starting 04/28/2024 until 5Clevelperson memorial hospital ClinicComment on above:1 Occurrences starting 04/28/2024 until 05/28/2025 End: 11-51-5073OO Shoulder - right 2 [facility] Work Phone: Comment on above:Once for 1 Occurrences starting 10/14/2024 until 10/14/2024 End: 88-82-5201LK Shoulder - right 3 ViewsXR SHOULDER GENERAL 3V OR MORE AP/TRUE AP/OTHER RIGHT Radiology Routine Pain 1 Occurrences bgrrtiwd24/18/2024 until 05/22/2025[facility] Work Phone: Comment on above:1 Occurrences starting 04/22/2024 until 05/22/2025 End: 55-66-4181LD Shoulder - right 3 ViewsXR SHOULDER GENERAL 3V OR MORE AP/TRUE AP/OTHER RIGHT Radiology Routine Posterior dislocation of right shoulder joint, initial encounter 1 Occurrences starting 04/28/2024 until 05/28/2025[facility] Work Phone: Comment on above:1 Occurrences starting 04/28/2024 until 05/28/2025[facility] Immunizations Immunization DateImmunizationNotesCare QymcjpzhDwdpdnyr25-72-8974cqgguujrsk, tetanus toxoids and pertussis vaccineHerve Steele Other [facility]iler Memorial HospitalNEGATED: Highlighted row has not occurred!04-62-3633nevtcloso, seasonal, injectablePatient Objection Herve Steele Other [facility] Payers DatePayer CategoryPayerPolicy [id number] Eligibility Medicare/Medicaid [id number] 2024Medicare [id number] 2024Medicare (Managed Care) [id number] Health InsuranceUNITED HEALTHCARE DUAL COMPLETE [facility] DUAL COMPLETE [id number] 2023-Present [address] [address] [place] [address] [id number] Health Insurance [id number] [id number] 2.840.1.236971.3.57[id number] 2.840.1.549600.3.57[id number] 2.840.1.093853.3.57[id number] 2.840.1.046636.3.57[id number] 2.16840.1.102280.3.57[id number] 2.16840.1.488768.3.57[id number] 2.16840.1.859660.3.579.[id number] 2.16840.1.034481.3.579.2.588[id number] 2.16840.1.285965.3.579.[id number] 2.16.840.1.768745.3.57[id number] 2.16840.1.352452.3.579.[id number] 2.16840.1.445041.3.579.[id number] 2.160.1.927084.3.57[id number] 2.0.1.260927.3.57[id number] 2.0.1.378222.3.57[id number] 2.0.1.507192.3.57[id number] 2.0.1.241202.3.57[id number] 2.0.1.747484.3.57[id number] 2.0.1.150157.3.57[id number] 2.0.1.501[id number] 2.0.1.642137.19Medicare [id number] [id number] 2.16.840.1.3[id number] 2.16.840.1.067875.3.579.2.531 [id number] 2.16.840.1.0[id number] 2.16.840.1.704467.3.579.2.531 Social History DateTypeDetailFacilityUnknown if ever smokedNorth [place] Other Start: 04-10-2024 End: 10-87-2159U[facility] 34-08-2556[facility] 07-[facility]2018 End: 15-81-6628Fiuwnui smoking status NHISNever smoked tobacco (finding) [facility] HospitalT[facility]acco smoking status NHISTobacco smoking consumption unknownWadsworth-Rittman Hospitaltart: 05-70-6815Hox assigned at birthNot on fileWadsworth-Rittman Hospitaltart: 04-10-2024 End: 52-96-4937Iapmomj of Social functionSt. Mary'S Medical [facility], [facility] CampusNational Score (1-100), lower number is lower knty95GtpsrwonzWadsworth-Rittman Hospitaltart: 04-27-2024 End: 22-46-7674Qdpmopm use and exposureSmokeless tobacco non-userWadsworth-Rittman Hospitaltart: 04-27-2024 End: 35-48-7639Wjoafcsvw beverage intakeLifetime non-drinker (finding)[facility]: 45-00-4106Pkzzjk identityIdentifies as male gender (finding) [facility]: 04-24-2024 End: 28-88-7793Tgabfnue to SARS-CoV-2 (event)[facility]: 08-[facility]2024 End: 66-81-2785EpmFzkj (finding)[facility] HospitalNEGATED: Highlighted rowStart: NINFHistory of tobacco usePassive smokerSt. Mary'S [facility] [facility] Goals DatePatient GoalDesired Activity/State Clinical Notes 08-01-2009 to 04-30-2025 Note Date & YtfhGbroMgaleebl32-27-7184 NoteHNO ID: [id number] Author: CHARLETTE LYONS MD Service: ? 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 and had a syncopal episode - July 04 same thing happened upon awakening - patient is concerned that these episodes are related to his injections - has had a work-up and 'nothing was found' per patient - 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 Medical Hx: seizures; HTN; HLD ASSESSMENT/PLAN Last dilated fundus exam: 01/01/2025 H35.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) (primary encounter diagnosis) Comment: RIGHT EYE: s/p EYLEA HD with [facility] - last was (07/21/2024) AND s/p Eylea x 4 (12/04/2024) AND s/p Eylea HD x 1 (02/26/2025) - 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 - no heme on exam - baseline - visual acuity was 20/70 AND declined to 20/500 with onset of nvAMD - subretinal fibrosis and stable IRF on OCT again today - Discussed with patient that VA is unlikely to improve OD given fibrosis and scaring - Patient notices subjective improvement in VA and would like to continue injections for now - intervals in keeping with left eye - wished to SWITCH back to EYLEA HD - EYLEA HD today right eye LEFT EYE: s/p EYLEA HD with [facility] - last was (07/21/2024) AND s/p Eylea x 2 (01/01/2025) AND s/p Eylea HD x 1 (02/26/2025) - previously with recurrence of intraretinal fluid and subretinal fluid on OCT with Eylea at 10 weeks - baseline visual acuity is 20/20 AND remains stable - wished to SWITCH back to EYLEA HD - repeat today left eye - EYLEA HD - follow up 8 weeks for EYLEA HD both eyes WITH dilated fundus exam both eyes H25.13 Nuclear sclerotic cataract of both eyes Comment: stable/obs I have confirmed and edited as necessary the relevant HPI, ophthalmic history, ROS, and the neuro exam findings as obtained by others. I have seen and examined Davis Johnson. I have discussed the case and the management of this patient's care with the Resident/Fellow, if applicable. I also have reviewed and agree with the assessment and plan as stated above and agree with all of its relevant components.[facility]07-25-2025 NoteDate of Procedure 02/26/2025. Photogrammetric Stereo Compiler Information Credit Verification Clerk: . OCT Macula Interpretation Right Eye Findings include Intraretinal fluid, RPE Irregularity. Left Eye Findings include RPE Irregularity; Negative for Intraretinal fluid, Subretinal fluid. Interval Change Right Eye Stable. Left Eye Stable.[id number] NoteDate of Procedure 02/26/2025 [place] Protocol Safety Checklist A moment of CARE [...] mg aflibercept ophthalmic intravitreal 8 mg/0.07 mL Route: INTRAVITREAL, Site: Right Balance Wasted Residual medication less than 1 unit was discarded. Anterior Chamber Paracentesis Yes. Post Injection Evaluation Patient has at least hand motion vision. Post Procedure Medications 5% Betadine. Home Going Prescription None.[facility]07-[facility]25 NoteDate of Procedure 02/26/2025 [place] Protocol Safety Checklist A moment of CARE [...] mg aflibercept ophthalmic intravitreal 8 mg/0.07 mL Route: INTRAVITREAL, Site: Left Balance Wasted Residual medication less than 1 unit was discarded. Anterior Chamber Paracentesis No. Post Injection Evaluation Patient has at least hand motion vision. Post Procedure Medications 5% Betadine. Home Going Prescription None.[facility]07-25-2025 NoteHNO ID: [id number] Author: CHARLETTE LYONS MD Service: ? 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 and had a syncopal episode - July 04, 2024 same thing happened upon awakening - patient is concerned that these episodes are related to his injections - has had a work-up and 'nothing was found' per patient - 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 Medical Hx: seizures; HTN; HLD ASSESSMENT/PLAN Last dilated fundus exam: 01/01/2025 H35.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) (primary encounter diagnosis) Comment: RIGHT EYE: s/p EYLEA HD with [facility] - last was (07/21/2024) AND s/p Eylea x 4 (12/04/2024 - 8 weeks) - 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 - no heme on exam - baseline visual acuity was 20/70 AND declined to 20/500 with onset of nvAMD - subretinal fibrosis and slightly better IRF on OCT again today - - Discussed with patient that VA is unlikely to improve OD given fibrosis and scaring - Patient notices subjective improvement in VA and would like to continue injections for now - will keep at q8week intervals for now - wishes to SWITCH back to EYLEA HD - EYLEA HD today right eye LEFT EYE: s/p EYLEA HD with [facility] - last was (07/21/2024) AND s/p Eylea x 2 (01/01/2025- 8 weeks) - today he has recurrence of intraretinal fluid and subretinal fluid on OCT - stable out to 12 weeks by hx but with worse fluid today at 10 weeks - baseline visual acuity is 20/20 AND remains stable - wishes to SWITCH back to EYLEA HD - EYLEA HD - follow up 8 weeks for EYLEA HD H25.13 Nuclear sclerotic cataract of both eyes Comment: stable/obs I have confirmed and edited as necessary the relevant HPI, ophthalmic history, ROS, and the neuro exam findings as obtained by others. I have seen and examined Davis Garcia Johnson. I have discussed the case and the management of this patient's care with the Resident/Fellow, if applicable. 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 and had a syncopal episode - July 04, 2024 same thing happened upon awakening - patient is concerned that these episodes are related to his injections - has had a work-up and 'nothing was found' per patient - 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 Medical Hx: seizures; HTN; HLD ASSESSMENT/PLAN Last dilated fundus exam: 01/01/2025 H35.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) (primary encounter diagnosis) Comment: RIGHT EYE: s/p EYLEA HD with [facility] - last was (07/21/2024) & s/p Eylea x 4 (12/04/2024 -8 weeks) - 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 - no heme on exam - baseline visual acuity was 20/70 & declined to 20/500 with onset of nvAMD - subretinal fibrosis and slightly better IRF on OCT again today - - Discussed with patient that VA is unlikely to improve OD given fibrosis and scaring - Patient notices subjective improvement in VA and would like to continue injections for now - will keep at q8week intervals for now - wishes to SWITCH back to EYLEA HD - EYLEA HD today right eye LEFT EYE: s/p EYLEA HD with [facility] - last was (07/21/2024) & s/p Eylea x 2 (01/01/2025- 8weeks) - today he has recurrence of intraretinal fluid and subretinal fluid on OCT - stable out to 12 weeks by hx but with worse fluid today at 10 weeks - baseline visual acuity is 20/20 & remains stable - wishes to SWITCH back to EYLEA HD - EYLEA HD - follow up 8 weeks for EYLEA HD H25.13 Nuclear sclerotic cataract of both eyes Comment: stable/obs I have confirmed and edited as necessary the relevant HPI, ophthalmic history, ROS, and the neuro exam findings as obtained by others. I have seen and examined Davis Johnson. I have discussed the case and the management of this patient's care with the Resident/Fellow, if applicable. I also have reviewed and agree with the assessment and plan as stated above and agree with all of its relevant components. documented in this encounterSt. Mary'[facility]05[facility] NoteDate of Procedure 01/01/2025 [place] Protocol Safety Checklist A moment of CARE [...] Lidocaine. Prep 5% Betadine. Injection Administration Medication: 2 mg aflibercept prefilled syringe 2 mg/0.05 mL Route: INTRAVITREAL, Site: Left Balance Wasted Residual medication less than 1 unit was discarded. Anterior Chamber Paracentesis No. Post Injection Evaluation Patient has at least hand motion vision. Post Procedure Medications 5% Betadine. Home Going Prescription None.[facility]05-30-2025 NoteDate of Procedure 01/01/2025 [place] Protocol Safety Checklist A moment of CARE was completed Sign In Personnel directly involved with the procedure wore [...] team. Anesthesia 1-2 drops Topical 0.5% Proparacaine, Topical 4% Lidocaine on cotton swabs. Prep 5% Betadine. Injection Administration Medication: 2 mg aflibercept prefilled syringe 2 mg/0.05 mL Route: INTRAVITREAL, Site: Right Balance Wasted Residual medication less than 1 unit was discarded. Anterior Chamber Paracentesis No. Post Injection Evaluation Patient has at least hand motion vision. Post Procedure Medications 5% Betadine. Home Going Prescription None.[facility]05-30-2025 NoteDate of Procedure 01/01/2025. OCT Macula Interpretation Right Eye Findings include Intraretinal fluid, RPE Irregularity. Left Eye Findings include Intraretinal fluid, Subretinal fluid. Interval Change Right Eye Stable. Left Eye Worse.[id number] NoteHNO ID: [id number] Author: CHARLETTE LYONS MD Service: ? 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 awoke one morning and had a syncopal episode - July 04, 2024 same thing happened upon awakening - patient is concerned that these episodes are related to his injections - has had a work-up and 'nothing was found' per patient - 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 Medical Hx: seizures; HTN; HLD ASSESSMENT/PLAN Last dilated fundus exam: 01/01/2025 H35.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) (primary encounter diagnosis) Comment: RIGHT EYE: s/p EYLEA HD with [facility] - last was (07/21/2024) AND s/p Eylea x 3 (12/04/2024 - 4 weeks) - 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 - no heme on exam - baseline visual acuity was 20/70 AND declined to 20/500 with onset of nvAMD - subretinal fibrosis and slightly better IRF on OCT again today - - Discussed with patient that VA is unlikely to improve OD given fibrosis and scaring - Patient notices subjective improvement in VA and would like to continue injections for now - will keep at q8week intervals for now - Eylea right eye today LEFT EYE: s/p EYLEA HD with [facility] - last was (07/21/2024) AND s/p Eylea x 1 (10/20/2024-10.3 weeks) - today he has recurrence of intraretinal fluid and subretinal fluid on OCT - stable out to 12 weeks by hx but with worse fluid today at 10 weeks - baseline visual acuity is 20/20 AND remains stable - Eylea left eye today, shorten interval to 8 weeks AND HOLD - Eylea both eyes today - follow up 8 weeks for Eylea both eyes - PA for EYLEA HD - patient would like to switch back as he was on this at [facility] H25.13 Nuclear sclerotic cataract of both eyes Comment: stable/obs I have confirmed and edited as necessary the relevant HPI, ophthalmic history, ROS, and the neuro exam findings as obtained by others. I have seen and examined Davis Johnson. I have discussed the case and the management of this patient's care with the Resident/Fellow, if applicable. 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 one morning and had a syncopal episode - July 04, 2024 same thing happened upon awakening - patient is concerned that these episodes are related to his injections - has had a work-up and 'nothing was found' per patient - 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 Medical Hx: seizures; HTN; HLD ASSESSMENT/PLAN Last dilated fundus exam: 01/01/2025 H35.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) (primary encounter diagnosis) Comment: RIGHT EYE: s/p EYLEA HD with [facility] - last was (07/21/2024) & s/p Eylea x 3 (12/04/2024 -4 weeks) - 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 - no heme on exam - baseline visual acuity was 20/70 & declined to 20/500 with onset of nvAMD - subretinal fibrosis and slightly better IRF on OCT again today - - Discussed with patient that VA is unlikely to improve OD given fibrosis and scaring - Patient notices subjective improvement in VA and would like to continue injections for now - will keep at q8week intervals for now - Eylea right eye today LEFT EYE: s/p EYLEA HD with [facility] - last was (07/21/2024) & s/p Eylea x 1 (10/20/2024-10.3 weeks) - today he has recurrence of intraretinal fluid and subretinal fluid on OCT - stable out to 12 weeks by hx but with worse fluid today at 10 weeks - baseline visual acuity is 20/20 & remains stable - Eylea left eye today, shorten interval to 8 weeks & HOLD - Eylea both eyes today - follow up 8 weeks for Eylea both eyes - PA for EYLEA HD - patient would like to switch back as he was on this at [facility] H25.13 Nuclear sclerotic cataract of both eyes Comment: stable/obs I have confirmed and edited as necessary the relevant HPI, ophthalmic history, ROS, and the neuro exam findings as obtained by others. I have seen and examined Davis Johnson. I have discussed the case and the management of this patient's care with the Resident/Fellow, if applicable. I also have reviewed and agree with the assessment and plan as stated above and agree with all of its relevant components. documented in this encounterSt. [facility]05-[facility]25 NoteHNO ID: [id number] Author: AMI WHITTAKER MD Service: ? Author Type: Physician Type: Progress Notes Filed: 12/15/2024 13:04 Note Text: [facility] Patient Name: Davis Johnson Date of : 1955 ESTABLISHED EPILEPSY CLINIC NOTE 10/29/2024 10:00 AM Reason for Visit: Seizures Clinical Summary: Mr. Johnson is a 69 year old right-handed male seen in [facility]. At today's visit, the patient is accompanied by: HISTORY OF PRESENT ILLNESS Handedness: right-handed Seizure History and Evolution Apr 03, 2024 was sleeping, recalls that he woke up, turned the alarm off, then set down and arms stuck straight in a tonic position, yelling, no clonic movements. Eyes wide open, After the event he had labored breathing, Duration was about 1 minutes. Patient amentic of the event. Confused for about 2 hours. Had tongue biting, no urine incontinence. 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 CT head was normal. Patient reports that he was not aware of the dislocation on 04/09, patient states that there are arthritic changes. Reports that he has been working for 3 weeks on a [employer] job, hot weather, sleep deprived Interval Seizure History Patient is seizure free on Keppra 750 mg bid No side effects Last seizure was in Jul 04, 2024, broke shoulder with first seizure Patient received avantin intravitreal on 03/20 and sz happened on 04/03 Patient received Eylea on and sz happened on 07/04. Unclear if szs were due to these drugs. Total # of Current Anti-seizure Medications: 1 Side Effects to Current Anti-seizure Medications: none Number of seizure types: 1 Hx of generalized tonic-clonic seizures: Yes Tongue bite: Yes Urine or Bowel Incontinence: No Seizure-related driving accidents: No Driving: Yes Lives Alone: No ED Visits in Last 3 Months: No Hospitalizations in Last 3 Months: No CURRENT OUTPATIENT ANTISEIZURE MEDICATIONS (as of the start of the encounter) midazolam (NAYZILAM) 5 mg/spray (0.1 mL) nasal spray Use 1 [place] in the nose as needed for up to 90 days. May repeat dose in alternate nostril after 10 minutes based on response and tolerability with seizures longer than 5 minutes levETIRAcetam (KEPPRA) 750 mg tablet Take 1 tablet by mouth two times a day. levETIRAcetam (KEPPRA) 750 mg tablet Take 1 tablet by mouth two times a day. Prior Anti-seizure Therapies: Trial Adequacy: Max Daily Dose Achieved: Side Effects: Effectiveness: Comments: Levetiracetam Comorbidities: None Episode Description: SEIZURE TYPE 1: Type1 Onset: 04/03/2024 Aura: no Description: He doesn't have any warning, his describe that he screams and his arms will be stuck in front of him and he becomes stiff. It also involves his legs as well. He doesn't respond during this time and his eyes are wide open. No clonic movement or shaking. Loss of awareness: Duration: Frequency: Last occurred: yes 1 to 5 minutes Patient Entered Data: EPILEPSY SCORE 10/23/2024 12:10 AM 10/23/2024 12:10 AM 10/23/2024 12:09 AM First answer obtained - 07/11/2024 4:18 PM PHQ-9 SCORE - - 2 [None-Minimal Depression] - NAOMY 2 SCORE 0 [Negative Anxiety Screen] - - - NAOMY 7 SCORE - - - - QOLIE-10 SCORE (0=worst; 100=best QoL - higher scores represent better function) - - - - LSSS SCORE (0- no seizures 100- most severe possible seizures) - - - - C-SSRS SCREEN - - - - On average, how many hours of sleep do you get in a 24-hour period? - - - - PROMIS Sleep Disturbance T-SCORE - - - 54 [within normal limits] Have you been diagnosed with Sleep Apnea? 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 No focal structural abnormality to account for seizures. Symmetric size, signal, and maintained morphology of the bilateral hippocampi. Mild presumed chronic microvascular ischemic changes in the white matter, and generalized volume loss, as detailed. EEG [facility] - 04/27/2024 Normal Other caregivers: Primary Care Provider: Herve Steele, DO Current Outpatient Medications Medication Sig Olmesartan-hydroCHLOROthiazide 20-12.5 mg per tablet 1 tablet. carvedilol (COREG) 6.25 mg tablet once daily. amLODIPine (NORVASC) 5 mg tablet once daily. aspirin 81 mg cap 1 tablet. levETIRAcetam (KEPPRA) 750 mg tablet Take 1 tablet by mouth two times a day. midazolam (NAYZILAM) 5 mg/spray (0.1 mL) nasal spray Use 1 [place] in the nose as needed for up to 90 days. May repeat dose in alternate nostril after 10 minutes based on response and tolerability with seizu (more content not included)... [facility]05-13-2025 History of Present illness Narrative* Ami Whittkaer MD - 12/15/2024 1:00 PM EDT [facility] Patient Name: Davis Johnson Date of : 1955 ESTABLISHED EPILEPSY CLINIC NOTE 10/29/2024 10:00 AM Reason for Visit: Seizures Clinical Summary: Mr. Johnson is a 69 year old right-handed male seen in [facility]. At today's visit, the patient is accompanied by: HISTORY OF PRESENT ILLNESS Handedness: right-handed Seizure History and Evolution Apr 03, 2024 was sleeping, recalls that he woke up, turned the alarm off, then set down and arms stuck straight in a tonic position, yelling, no clonic movements. Eyes wide open, After the event he had labored breathing, Duration was about 1 minutes. Patient amentic of the event. Confused for about 2 hours. Had tongue biting, no urine incontinence. Patient complained of shoulder pain, X-ray showed large reverse Hill-Sachs deformity of the humerusimpacted on the posterior glenoid margin. CT head was normal. Patient reports that he was not aware of the dislocation on 04/09, patient states that there are arthritic changes. Reports that he has been working for 3 weeks on a [employer] job, hot weather, sleep deprived Interval Seizure History Patient is seizure free on Keppra 750 mg bid No side effects Last seizure was in Jul 04, 2024, broke shoulder with first seizure Patient received avantin intravitreal on 03/20 and sz happened on 04/03 Patient received Eylea on and sz happened on 07/04. Unclear if szs were due to these drugs. Total # of Current Anti-seizure Medications: 1 Side Effects to Current Anti-seizure Medications: none Number of seizure types: 1 Hx of generalized tonic-clonic seizures: Yes Tongue bite: Yes Urine or Bowel Incontinence: No Seizure-related driving accidents: No Driving: Yes Lives Alone: No ED Visits in Last 3 Months: No Hospitalizations in Last 3 Months: No CURRENT OUTPATIENT ANTISEIZURE MEDICATIONS (as of the start of the encounter) midazolam (NAYZILAM) 5 mg/spray (0.1 mL) nasal spray Use 1 [place] in the nose as needed for up to 90days. May repeat dose in alternate nostril after 10 minutes based on response and tolerability withseizures longer than 5 minutes levETIRAcetam (KEPPRA) 750 mg tablet Take 1 tablet by mouth two times a day. levETIRAcetam (KEPPRA) 750 mg tablet Take 1 tablet by mouth two times a day. Prior Anti-seizure Therapies: Trial Adequacy: Max Daily Dose Achieved: Side Effects: Effectiveness: Comments: Levetiracetam Comorbidities: None Episode Description: SEIZURE TYPE 1: Type1 Onset: 04/03/2024 Aura: no Description: He doesn't have any warning, his describe that he screams and his arms will be stuck in front of him and he becomes stiff. It also involves his legs as well. He doesn't respond during this time and his eyes are wide open. No clonic movement or shaking. Loss of awareness: Duration: Frequency: Last occurred: yes 1 to 5 minutes Patient Entered Data: EPILEPSY SCORE 10/23/2024 12:10 AM 10/23/2024 12:10 AM 10/23/2024 12:09 AM First answer obtained - 07/11/2024 4:18 PM PHQ-9 SCORE - - 2 [None-Minimal Depression] - NAOMY 2 SCORE 0 [Negative Anxiety Screen] - - - NAOMY 7 SCORE - - - - QOLIE-10 SCORE (0=worst; 100=best QoL - higher scores represent better function) - - - - LSSS SCORE (0- no seizures 100- most severe possible seizures) - - - - C-SSRS SCREEN - - - - On average, how many hours of sleep do you get in a 24-hour period? - - - - PROMIS Sleep Disturbance T-SCORE - - - 54 [within normal limits] Have you been diagnosed with Sleep Apnea? 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 No focal structural abnormality to account for seizures. Symmetric size, signal, and maintained morphology of the bilateral hippocampi. Mild presumed chronic microvascular ischemic changes in the white matter, and generalized volume loss, as detailed. EEG [facility] - 04/27/2024 Normal Other caregivers: Primary Care Provider: Herve Steele, DO Current Outpatient Medications Medication Sig Olmesartan-hydroCHLOROthiazide 20-12.5 mg per tablet 1 tablet. carvedilol (COREG) 6.25 mg tablet once daily. amLODIPine (NORVASC) 5 mg tablet once daily. aspirin 81 mg cap 1 tablet. levETIRAcetam (KEPPRA) 750 mg tablet Take 1 tablet by mouth two times a day. midazolam (NAYZILAM) 5 mg/spray (0.1 mL) nasal spray Use 1 [place] in the nose as needed for up to 90days. May repeat dose in alternate nostril after 10 minutes based on response and tolerability withseizures longer than 5 minutes levETIRAcetam (KEPPRA) 750 mg tablet Take 1 tablet by mouth two times a day. diclofenac, EC, (VOLTAREN) 75 mg EC tablet Take one tablet by mouth twice a day as needed PRN for pain, with food No current facility-administered medications for this visit. ALLERGIES Allergen Reactions Avastin [Bevacizuma* Other: See Comments berhane PAST MEDICAL HISTORY Diagnosis Date Dislocated shoulder Macular degeneration PAST SURGICAL HISTORY Procedure Laterality Date INGUINAL HERNIA REPAIR HX PAST SURGICAL HISTORY OF left hand tendon surgery FAMILY HISTORY Problem Relation Age of Onset No Ocular Disease Other Anesthesia Problems No Family History SOCIAL HISTORY: -Lives in [place], [place] -Patient lives alone? No -Patient driving? Yes Review of Systems negative VITAL SIGNS: BP 150/76 (BP Site: Left Arm, BP Position: Sitting, BP Cuff Size: Regular Adult) Pulse 75 Resp 18 Ht 170.2 cm (5' 7 ) Wt 73.5 kg (162 lb) SpO2 98% BMI 25.37 kg/m General Examination: General Exam deferred IMPRESSION: Patient presents with a single generalized tonic seizure upon awakening on 04/03/2024 No risk factors for epilepsy. Seizure resulted [...] will be started , side effects discussed Interval Impression: Patient seizure free since Jul 04 2024 I recommend to continue same therapy, pt dislocated shoulder with seiuzre Patient concerned that seizure occurred around the time when he received treatment before eye surgery PLAN: Keppra 750 mg bid EEG I discussed the risks, benefits and alternatives of the medical plan with the patient. Questions were answered. The patient agreed with the plan as discussed. I spent a total of 30 minutes on the date of the service which included preparing to see the patient, [id number] patient care, completing clinical documentation, and counseling and educating the patient/family/caregiver. Ami Boston M.D documented in this encounterSt. [facility] Instructions* Patient Instructions* Charlette Lyons MD - 12/04/2024 9:12 AM EDT You will be dilated at your next visit with Charlette Lyons MD documented in this encounterSt. Mary'[facility]25 NoteDate of Procedure 12/04/2024 [place] Protocol Safety Checklist A moment of CARE [...] Lidocaine. Prep 5% Betadine. Injection Administration Medication: 2 mg aflibercept prefilled syringe 2 mg/0.05 mL Route: INTRAVITREAL, Site: Right Balance Wasted Residual medication less than 1 unit was discarded. Anterior Chamber Paracentesis No. Post Injection Evaluation Patient has at least hand motion vision. Post Procedure Medications 5% Betadine. Home Going Prescription None.[facility]05-02-2025 NoteDate of Procedure 12/04/2024. Photogrammetric Stereo Compiler Information Credit Verification Clerk: KITTY. OCT Macula Interpretation Right Eye Findings include Intraretinal fluid, RPE Irregularity. Left Eye Findings include Intraretinal fluid, PED, Drusen, RPE Irregularity; Negative for Subretinal fluid. Interval Change Right Eye Stable. Left Eye Better.[id number] NoteHNO ID: [id number] Author: CHARLETTE LYONS MD Service: ? 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 awoke one morning and had a syncopal episode - July 04, 2024 same thing happened upon awakening - patient is concerned that these episodes are related to his injections - has had a work-up and 'nothing was found' per patient - 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 Medical Hx: seizures; HTN; HLD ASSESSMENT/PLAN Last dilated fundus exam: August 21, 2024 H35.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) (primary encounter diagnosis) Comment: RIGHT EYE: s/p EYLEA HD with [facility] - last was (07/21/2024) AND s/p Eylea x 2 (10/20/2024 -6.3 weeks) - 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 - no heme on exam - baseline visual acuity was 20/70 AND declined to 20/500 with onset of nvAMD - subretinal fibrosis and trace OCT again today - will treat with Eylea again today and if no improvement may consider PRN treat at next visit - Eylea right eye today LEFT EYE: s/p EYLEA HD with [facility] - last was (07/21/2024) AND s/p Eylea x 1 (10/20/2024-6.3 weeks) - today he has recurrence of intraretinal fluid and subretinal fluid on OCT - stable out to 12 weeks by hx - baseline visual acuity is 20/20 AND remains stable - observe today and treat at next visit in 4-6 weeks - Eylea right eye today and plan Eylea both eyes vs left eye only at next visit - dilated fundus exam at next visit H25.13 Nuclear sclerotic cataract of both eyes Comment: stable/obs I have confirmed and edited as necessary the relevant HPI, ophthalmic history, ROS, and the neuro exam findings as obtained by others. I have seen and examined Davis Johnson. I have discussed the case and the management of this patient's care with the Resident/Fellow, if applicable. 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3 weeks) - 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 - no heme on exam - baseline visual acuity was 20/70 & declined to 20/500 with onset of nvAMD - subretinal fibrosis and trace OCT again today - will treat with Eylea again today and if no improvement may consider PRN treat at next visit - Eylea right eye today LEFT EYE: s/p EYLEA HD with [facility] - last was (07/21/2024) & s/p Eylea x 1 (10/20/2024-6.3 weeks) - today he has recurrence of intraretinal fluid and subretinal fluid on OCT - stable out to 12 weeks by hx - baseline visual acuity is 20/20 & remains stable - observe today and treat at next visit in 4-6 weeks - Eylea right eye today and plan Eylea both eyes vs left eye only at next visit - dilated fundus exam at next visit H25.13 Nuclear sclerotic cataract of both eyes Comment: stable/obs I have confirmed and edited as necessary the relevant HPI, ophthalmic history, ROS, and the neuro exam findings as obtained by others. I have seen and examined Davis Johnson. I have discussed the case and the management of this patient's care with the Resident/Fellow, if applicable. I also have reviewed and agree with the assessment and plan as stated above and agree with all of its relevant components. documented in this encounterSt. [facility]04[facility] Evaluation note* Author Vy Ohara [facility] Memorial HospitalAuthoredApril 2024 9:19amThe above note written by Vy Ohara LPN, acting as human recorder, note dictated by Dr. Herve Steele. [facility] Work Phone: [phone]) 961-779703-31-2025 NoteHNO ID: [id number] Author: NAIDA VU, Research Coordinator Service: ? Author Type: Research Type: Progress Notes Filed: 11/02/2024 14:39 Note Text: DATE:October 29, 2024 PT. NAME: Davis Johnson [facility]#: [id number] IRB #: [id number] PROTOCOL: Epilepsy mechanisms and outcomes biospecimen bank: data registry. Lye Machine Operator: Iman Mcginnis, PhD. [facility] nascar pit crew person for study related questions: Nahed Bullock Subject continues to give consent for participation and for procedures related to study YES. Were there changes made to the informed consent since the last visit? NO. If yes, were changes reviewed and explained to subject? N/A Was a new copy of the informed consent signed, placed in the chart, placed in the study file and was a copy given to the patient? N/A Patient Identification was verified by asking the patients Name and Date Of : YES Time: 1110 Blood drawn with vacutainer and labs drawn per protocol. Butterfly removed after blood draw and secured with sterile gauze. Patient tolerated procedure well. Naida Vu, Research CoordinatorC[facility]03-18-[facility] Note Date of Procedure 10/20/2024 [place] Protocol Safety Checklist Sign In: A moment to CARE completed, Special equipment verified, Appropriate PPE verified, Patient name, date of , allergies and intended procedure verified. Provider Confirms: Intended patient and procedure match the source document, Consent documented and matches the intended procedure, Correct side/site marked visible. Relevant labs, photos, and/or imaging studies have been reviewed. Medications required for procedure verified. Fire risk assessed and interventions discussed. No implants. Anesthesia Topical 4% Lidocaine on cotton swabs, 1-2 drops Topical 0.5% Proparacaine. Prep 5% Betadine. Injection Administration Medication: 2 mg aflibercept prefilled syringe 2 mg/0.05 mL Route: INTRAVITREAL, Site: Left Balance Wasted Residual medication less than 1 unit was discarded. Anterior Chamber Paracentesis No. Post Injection Evaluation Patient has at least hand motion vision. Post Procedure Medications 5% Betadine. Home Going Prescription None. Sign Out Sign out discussion completed, All instruments, equipment, and/or possible retained foreign bodies accounted for, Post-procedure follow up management communicated. No specimens.[facility]03-18-2025 NoteDate of Procedure 10/20/2024 [place] Protocol Safety Checklist Sign In: A moment to CARE completed, Special equipment verified, Appropriate PPE verified, Patient name, date of , allergies and intended procedure verified. Provider Confirms: Intended patient and procedure match the source document, Consent documented and matches the intended procedure, Correct side/site marked visible. Relevant labs, photos, and/or imaging studies have been reviewed. Medications required for procedure verified. Fire risk assessed and interventions discussed. Correct implant confirmed and expiration reviewed. Anesthesia 2-4 drops Tetracaine 0.5%, 0.5 mL subconjunctival injection of 2% Lidocaine. Prep 5% Betadine. Injection Administration Medication: 2 mg aflibercept prefilled syringe 2 mg/0.05 mL Route: INTRAVITREAL, Site: Right Balance Wasted Residual medication less than 1 unit was discarded. Anterior Chamber Paracentesis No. Post Injection Evaluation Patient has at least hand motion vision. Post Procedure Medications 5% Betadine. Home Going Prescription None. Sign Out Sign out discussion completed, All instruments, equipment, and/or possible retained foreign bodies accounted for, Post-procedure follow up management communicated. Specimen containers correctly labeled.[facility]03-18-2025 NoteDate of Procedure 10/20/2024. Photogrammetric Stereo Compiler Information Credit Verification Clerk: . OCT Macula Interpretation Right Eye Findings include Intraretinal fluid, RPE Irregularity. Left Eye Findings include Intraretinal fluid, Subretinal fluid, Drusen. Interval Change Right Eye Stable. Left Eye Worse.[id number] NoteHNO ID: [id number] Author: CHARLETTE LYONS MD Service: ? 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 Medical Hx: seizures; HTN; HLD ASSESSMENT/PLAN Last dilated fundus exam: August 21, 2024 H35.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) (primary encounter diagnosis) Comment: RIGHT EYE: s/p EYLEA HD with [facility] - last was (07/21/2024) AND s/p Eylea x 1 (09/04/2024 -6.4 weeks) - 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 - no heme on exam - baseline visual acuity is 20/70 - Eylea right eye today LEFT EYE: s/p EYLEA HD with [facility] - last was (07/21/2024) - today he has recurrence of intraretinal fluid and subretinal fluid on OCT - stable out to 12 weeks - baseline visual acuity is 20/20 AND remains stable - OK to monitor now and move to PRN treat - recommend to restart anti-VEGF injections today - Eylea today left eye - follow up 5-6 weeks plan Eylea right eye and every other plan for left eye and modified PRN H25.13 Nuclear sclerotic cataract of both eyes Comment: stable/obs I have confirmed and edited as necessary the relevant HPI, ophthalmic history, ROS, and the neuro exam findings as obtained by others. I have seen and examined Davis Johnson. I have discussed the case and the management of this patient's care with the Resident/Fellow, if applicable. 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4 weeks) - 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 - no heme on exam - baseline visual acuity is 20/70 - Eylea right eye today LEFT EYE: s/p EYLEA HD with [facility] - last was (07/21/2024) - today he has recurrence of intraretinal fluid and subretinal fluid on OCT - stable out to 12 weeks - baseline visual acuity is 20/20 & remains stable - OK to monitor now and move to PRN treat - recommend to restart anti-VEGF injections today - Eylea today left eye - follow up 5-6 weeks plan Eylea right eye and every other plan for left eye and modified PRN H25.13 Nuclear sclerotic cataract of both eyes Comment: stable/obs I have confirmed and edited as necessary the relevant HPI, ophthalmic history, ROS, and the neuro exam findings as obtained by others. I have seen and examined Davis Johnson. I have discussed the case and the management of this patient's care with the Resident/Fellow, if applicable. I also have reviewed and agree with the assessment and plan as stated above and agree with all of its relevant components. documented in this encounterSt. [facility] History of Present illness Narrative* Damián Blackwood MD - 10/14/2024 11:30 AM EDT Images from the original note were not included. History: Davis is here for his right shoulder. He is over 5 months out from right shoulder sue arthroplasty for a locked posterior shoulder dislocation and large reverse Hill-Sachs lesion. He was doing therapy out in [place] and they released him to a home program. He had an MRI done for his kidneys and noted increased pain after laying in the machine. He does feel like over the past week it is improving. Past medical history: Multiple Medications: Multiple Allergies: No known drug allergies Please refer to the intake H&P regarding the patient's review of systems, family history and social history as was done today HEENT: Normal Lungs: Clear to auscultation Heart: RRR Abdomen: Soft, nontender Skin: clear Extremity: He has 120 degrees of flexion and abduction with scapular elevation. External rotation is to 40 degrees. Internal rotation is to the sacrum. Wound is healing nicely. No numbness or tingling. Contralateral exam is normal for strength, motion, stability and neurovascular assessment. Radiographs: AP lateral view show stable alignment of his right shoulder hemiarthroplasty in all planes. Assessment: Stable right shoulder hemiarthroplasty for locked posterior dislocation, 5 months out. Plan: He had a bit of pain after his kidney MRI but it is improving. He is going to continue to work with his [employer] home PT program. We discussed the importance of light weight and high reps. Heshould continue to avoid any heavy lifting. We would be happy to see him back with any issues, but if continuing to do well he can follow-up as needed All questions were answered today with the patient. In a [id number] encounter today, I Damián Blackwood MD performed a history and physical examination, discussed pertinent diagnostic studies if indicated, and discussed diagnosis and management strategies with both the patient and the midlevel provider. I reviewed the midlevel's note and agree withthe documented findings and plan of care. Greater than 50% of the evaluation and treatment decisionwas performed by the physician myself during today's visit. Overall Davis is doing well. He notes some pain with overhead activities and I avoid him to avoidheavy lifting such as bench or presses. He will likely develop some glenoid wear over timebut given his significant humeral bone loss from his last dislocation he is actually doing extremely well. He can focus on Thera-bands and light exercises as much as possible. I will see him back if jami martin has any recurrent issues. Scribe Attestation By signing my name below, INorma Scribe attest that this documentation has been prepared under the direction and in the presence of Damián Blackwood MD. documented in this encounterPremier Health [facility] Work Phone: [phone]) 717-700801-31-2025 NoteDate of Procedure 09/04/2024 [place] Protocol Safety Checklist Sign In: A moment to CARE completed, Special equipment verified, Appropriate PPE verified, Patient name, date of , allergies and intended procedure verified. Provider Confirms: Intended patient and procedure match the source document, Consent documented and matches the intended procedure, Correct side/site marked visible. Relevant labs, photos, and/or imaging studies have been reviewed. Medications required for procedure verified. Fire risk assessed and interventions discussed. Correct implant confirmed and expiration reviewed. Anesthesia Topical 4% Lidocaine on cotton swabs, 2-4 drops Tetracaine 0.5%. Prep 5% Betadine. Injection Administration Medication: 2 mg aflibercept prefilled syringe 2 mg/0.05 mL Route: INTRAVITREAL, Site: Right Balance Wasted Residual medication less than 1 unit was discarded. Anterior Chamber Paracentesis No. Post Injection Evaluation Patient has at least hand motion vision. Post Procedure Medications 5% Betadine. Home Going Prescription None. Sign Out Sign out discussion completed, All instruments, equipment, and/or possible retained foreign bodies accounted for, Post-procedure follow up management communicated. Specimen containers correctly labeled.[facility]01-31-2025 NoteDate of Procedure 09/04/2024. Photogrammetric Stereo Compiler Information Credit Verification Clerk: . OCT Macula Interpretation Right Eye Findings include Intraretinal fluid, CNV. Left Eye Findings include Drusen, RPE Irregularity; Negative for Intraretinal fluid, Subretinal fluid. Interval Change Right Eye Stable. Left Eye Stable.[id number] NoteHNO ID: [id number] Author: CHARLETTE LYONS MD Service: ? 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 Medical Hx: seizures; HTN; HLD ASSESSMENT/PLAN Last dilated fundus exam: August 21, 2024 H35.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) (primary encounter diagnosis) Comment: RIGHT EYE: s/p EYLEA HD with [facility] - last was (07/21/2024 - 6.5 weeks) - 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 I have seen and examined Davis Johnson. I have discussed the case and the management of this patient's care with the Resident/Fellow, if applicable. 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 and had a syncopal episode - July 04, 2024 same thing happened upon awakening - patient is concerned that these episodes are related to his injections - has had a work-up and 'nothing was found' per patient - 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 Medical Hx: seizures; HTN; HLD ASSESSMENT/PLAN Last dilated fundus exam: August 21, 2024 H35.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) (primary encounter diagnosis) Comment: RIGHT EYE: s/p EYLEA HD with [facility] - last was (07/21/2024 - 6.5 weeks) - 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 I have seen and examined Davis Johnson. I have discussed the case and the management of this patient's care with the Resident/Fellow, if applicable. I also have reviewed and agree with the assessment and plan as stated above and agree with all of its relevant components. documented in this encounterSt. [facility] History of Present illness Narrative* Damián Blackwood MD - 08/26/2024 1:30 PM EST Images from the original note were not included. History: Davis is here for his right shoulder. He is 4 months out from right shoulder sue arthroplasty for a locked posterior shoulder dislocation and large reverse Hill-Sachs lesion. His shoulderis doing well. He has been working with therapy and making progress. Past medical history: Multiple Medications: Multiple Allergies: No known drug allergies Please refer to the intake H&P regarding the patient's review of systems, family history and social history as was done today HEENT: Normal Lungs: Clear to auscultation Heart: RRR Abdomen: Soft, nontender Skin: clear Extremity: On exam he can get the arm past the 110 degrees of abduction however there is scapular elevation. External rotation is to 40 degrees. Internal rotation is to the side. No numbness or tingling. Wound is clear. Contralateral exam is normal for strength, motion, stability and neurovascular assessment. Radiographs: AP lateral view show stable alignment of his right shoulder hemiarthroplasty in all planes. Assessment: Stable right shoulder hemiarthroplasty for locked posterior dislocation, 4 months out. Plan: His shoulder has improved since his last visit. His therapy order was updated today. We will have him continue to work on full active and passive motion, increase strengthening as tolerated, and focus on scapular stabilization. I recommended he continue his icing regimen several times throughout the day. He can follow-up in 6-8 weeks to assess progress. If doing well at that time we will begin to release him to normal activities. All questions were answered today with the patient. Scribe Attestation By signing my name below, I Norma Maravilla, Keegan attest that this documentation has been prepared under the direction and in the presence of Damián Blackwood MD. documented in this encounterPrem[facility] Work Phone: 1(951) 835-742401-17-2025 NoteHNO ID: [id number] Author: CHARLETTE LYONS MD Service: ? 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 awoke one morning and had a syncopal episode - July 04, 2024 same thing happened upon awakening - patient is concerned that these episodes are related to his injections - has had a work-up and 'nothing was found' per patient - 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 Medical Hx: seizures; HTN; HLD ASSESSMENT/PLAN Last dilated fundus exam: August 21, 2024 H35.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) (primary encounter diagnosis) Comment: RIGHT EYE: s/p EYLEA HD with [facility] - last was (07/21/2024) - 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 - no heme on exam - baseline visual acuity is 20/70 - recommend to repeat anti-VEGF - needs PA - obtain PA for Eylea 2mg for right eye - follow up 2 weeks for Eylea LEFT EYE: s/p EYLEA HD with [facility] - last was (07/21/2024) - no signs of exudation on OCT or exam today - baseline visual acuity is 20/20 - OK to monitor now and move to PRN treat - observe today H25.13 Nuclear sclerotic cataract of both eyes Comment: stable/obs I have confirmed and edited as necessary the relevant HPI, ophthalmic history, ROS, and the neuro exam findings as obtained by others. I have seen and examined Davis Johnson. I have discussed the case and the management of this patient's care with the Resident/Fellow, if applicable. I also have reviewed and agree with the assessment and plan as stated above and agree with all of its relevant components.[facility]01-17-2025 NoteDate of Procedure 08/21/2024. OCT Macula Interpretation Right Eye Findings include Intraretinal fluid, RPE Irregularity. Left Eye Findings include Drusen; Negative for Intraretinal fluid, Subretinal fluid. Interval Change Right Eye Initial. 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 awoke one morning and had a syncopal episode - July 04, 2024 same thing happened upon awakening - patient is concerned that these episodes are related to his injections - has had a work-up and 'nothing was found' per patient - 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 Medical Hx: seizures; HTN; HLD ASSESSMENT/PLAN Last dilated fundus exam: August 21, 2024 H35.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) (primary encounter diagnosis) Comment: RIGHT EYE: s/p EYLEA HD with [facility] - last was (07/21/2024) - 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 - no heme on exam - baseline visual acuity is 20/70 - recommend to repeat anti-VEGF - needs PA - obtain PA and follow up in 1-2 weeks for anti-VEGF injection right eye LEFT EYE: s/p EYLEA HD with [facility] - last was (07/21/2024) - no signs of exudation on OCT or exam today - baseline visual acuity is 20/20 - OK to monitor now and move to PRN treat - observe today H25.13 Nuclear sclerotic cataract of both eyes Comment: stable/obs I have confirmed and edited as necessary the relevant HPI, ophthalmic history, ROS, and the neuro exam findings as obtained by others. I have seen and examined Davis Johnson. I have discussed the case and the management of this patient's care with the Resident/Fellow, if applicable. I also have reviewed and agree with the assessment and plan as stated above and agree with all of its relevant components. documented in this encounterSt. [facility]* Diagnosis Onset Date Resolution Status Admit Date Elevated PSA acuteJanuary 2024 10:12amHypertensionacuteJanuary 2024 10:12amInjury of right handacuteJanuary 2024 10:12amMacular degenerationacuteJanuary 2024 10:12amSeizure disorderacuteJanuary 2024 10:12amShoulder fracture, rightacuteJanuary 2024 10:12am [facility] Work Phone: [phone]) 672-939212-18-2024 Telephone encounter Note* Telephone Encounter - Johnathan Montes RN - 07/22/2024 1:41 PM EST Open in error [facility]12-18-2024 Miscellaneous Notes* Telephone Encounter - Johnathan Copeland RN - 07/22/2024 1:41 PM EST Open in error documented in this encounterSt. [facility] NoteHNO ID: [id number] Author: AMI WHITTAKER MD Service: ? Author Type: Fellow Type: Progress Notes Filed: 07/20/2024 14:18 Note Text: [facility] Patient Name: Davis Johnson Date of : 1955 ESTABLISHED EPILEPSY CLINIC NOTE 07/17/2024 1:00 PM Reason for Visit: Established Patient and Follow Up Clinical Summary: Mr. Johnson is a 69 year old right-handed male seen in [facility]. Classification Summary HISTORY OF PRESENT ILLNESS Handedness: right-handed Age of onset: Seizure History and Evolution Apr 03, 2024 was sleeping, recalls that he woke up, turned the alarm off, then set down and arms stuck straight in a tonic position, yelling, no clonic movements. Eyes wide open, After the event he had labored breathing, Duration was about 1 minutes. Patient amentic of the event. Confused for about 2 hours. Had tongue biting, no urine incontinence. 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 CT head was normal. Patient reports that he was not aware of the dislocation on 04/09, patient states that there are arthritic changes. Reports that he has bene working for 3 weeks on a [employer] job, hot weather, sleep deprived Interval Seizure History Mr. Johnson came today for 3 months follow up after starting Keppra 500 mg BID for first onset seizure in last visit. His reported another seizure occurred in 04/07/2024. With similar description of the previous seizure, he woke up his arms were stuck in front of him and was yelling and screaming, whole body was stiff, there was no shaking or clonic component. He bit his tongue. No urine incontinence. He reported poor and interrupted sleep since his first seizure and shoulder issue started and he wasn't sure if took his medication that night or not. No other provoking factors. He is taking Keppra 500 mg BID since last visit, he reported change in taste of all of his food after using Keppra, he is not sure if it only Keppra, he was using also pain medications for his shoulder. He stated that it is getting better. EEG was done on and was normal MRI brain was done in and it was unremarkable He had shoulder surgery, went well, he is doing physical therapy, still having pain but improving with time. Number of seizure types: 1 Hx of generalized tonic-clonic seizures: Yes Tongue bite: Yes Urine or Bowel Incontinence: No Seizure-related driving accidents: No Driving: Yes Lives Alone: No CURRENT OUTPATIENT ANTISEIZURE MEDICATIONS (as of the start of the encounter) levETIRAcetam (KEPPRA) 750 mg tablet (Taking) Take 1 tablet by mouth two times a day. Prior Anti-seizure Therapies: Trial Adequacy: Max Daily Dose Achieved: Side Effects: Effectiveness: Comments: Levetiracetam Comorbidities: None Episode Description: SEIZURE TYPE 1: Type1 Onset: 04/03/2024 Aura: no Description: He doesn't have any warning, his describe that he screams and his arms will be stuck in front of him and he becomes stiff. It also involves his legs as well. He doesn't respond during this time and his eyes are wide open. No clonic movement or shaking. 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 No focal structural abnormality to account for seizures. Symmetric size, signal, and maintained morphology of the bilateral hippocampi. Mild presumed chronic microvascular ischemic changes in the white matter, and generalized volume loss, as detailed. EEG [facility] - 04/27/2024 Normal Other caregivers: Primary Care Provider: Herve Steele, DO Current Outpatient Medications Medication Sig levETIRAcetam (KEPPRA) 750 mg tablet Take 1 tablet by mouth two times a day. Olmesartan-hydroCHLOROthiazide 20-12.5 mg per tablet 1 tablet. carvedilol (COREG) 6.25 mg tablet once daily. amLODIPine (NORVASC) 5 mg tablet once daily. aspirin 81 mg cap 1 tablet. levETIRAcetam (KEPPRA) 750 mg tablet Take 1 tablet by mouth two times a day. midazolam (NAYZILAM) 5 mg/spray (0.1 mL) nasal spray Use 1 [place] in the nose as needed for up to 90 days. May repeat dose in alternate nostril after 10 minutes based on response and tolerability with seizures longer than 5 minutes diclofenac, EC, (VOLTAREN) 75 mg EC tablet Take one tablet by mouth twice a day as needed PRN for pain, with food No current facility-administered medications for this visit. ALLERGIES No Known Allergies No past medical history on file. PAST SURGICAL H (more content not included)...[facility] 07-20-2024 History of Present illness Narrative* Eleni Maier MD - 07/20/2024 10:50 AM EST [facility] Patient Name: Davis Johnson Date of : 1955 ESTABLISHED EPILEPSY CLINIC NOTE 07/17/2024 1:00 PM Reason for Visit: Established Patient and Follow Up Clinical Summary: Mr. Johnson is a 69 year old right-handed male seen in [facility]. Classification Summary HISTORY OF PRESENT ILLNESS Handedness: right-handed Age of onset: Seizure History and Evolution Apr 03, 2024 was sleeping, recalls that he woke up, turned the alarm off, then set down and arms stuck straight in a tonic position, yelling, no clonic movements. Eyes wide open, After the event he had labored breathing, Duration was about 1 minutes. Patient amentic of the event. Confused for about 2 hours. Had tongue biting, no urine incontinence. Patient complained of shoulder pain, X-ray showed large reverse Hill-Sachs deformity of the humerusimpacted on the posterior glenoid margin. CT head was normal. Patient reports that he was not aware of the dislocation on 04/09, patient states that there are arthritic changes. Reports that he has bene working for 3 weeks on a [employer] job, hot weather, sleep deprived Interval Seizure History Mr. Johnson came today for 3 months follow up after starting Keppra 500 mg BID for first onset seizure in last visit. His reported another seizure occurred in 04/07/2024. With similar description of the previous seizure, he woke up his arms were stuck in front of him and was yelling and screaming, whole body was stiff, there was no shaking or clonic component. He bit his tongue. No urine incontinence. He reported poor and interrupted sleep since his first seizure and shoulder issue started and he wasn't sure if took his medication that night or not. No other provoking factors. He is taking Keppra 500 mg BID since last visit, he reported change in taste of all of his food after using Keppra, he is not sure if it only Keppra, he was using also pain medications for his shoulder. He stated that it is getting better. EEG was done on and was normal MRI brain was done in and it was unremarkable He had shoulder surgery, went well, he is doing physical therapy, still having pain but improving with time. Number of seizure types: 1 Hx of generalized tonic-clonic seizures: Yes Tongue bite: Yes Urine or Bowel Incontinence: No Seizure-related driving accidents: No Driving: Yes Lives Alone: No CURRENT OUTPATIENT ANTISEIZURE MEDICATIONS (as of the start of the encounter) levETIRAcetam (KEPPRA) 750 mg tablet (Taking) Take 1 tablet by mouth two times a day. Prior Anti-seizure Therapies: Trial Adequacy: Max Daily Dose Achieved: Side Effects: Effectiveness: Comments: Levetiracetam Comorbidities: None Episode Description: SEIZURE TYPE 1: Type1 Onset: 04/03/2024 Aura: no Description: He doesn't have any warning, his describe that he screams and his arms will be stuck in front of him and he becomes stiff. It also involves his legs as well. He doesn't respond during this time and his eyes are wide open. No clonic movement or shaking. 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 No focal structural abnormality to account for seizures. Symmetric size, signal, and maintained morphology of the bilateral hippocampi. Mild presumed chronic microvascular ischemic changes in the white matter, and generalized volume loss, as detailed. EEG [facility] - 04/27/2024 Normal Other caregivers: Primary Care Provider: Herve Steele, DO Current Outpatient Medications Medication Sig levETIRAcetam (KEPPRA) 750 mg tablet Take 1 tablet by mouth two times a day. Olmesartan-hydroCHLOROthiazide 20-12.5 mg per tablet 1 tablet. carvedilol (COREG) 6.25 mg tablet once daily. amLODIPine (NORVASC) 5 mg tablet once daily. aspirin 81 mg cap 1 tablet. levETIRAcetam (KEPPRA) 750 mg tablet Take 1 tablet by mouth two times a day. midazolam (NAYZILAM) 5 mg/spray (0.1 mL) nasal spray Use 1 [place] in the nose as needed for up to 90days. May repeat dose in alternate nostril after 10 minutes based on response and tolerability withseizures longer than 5 minutes diclofenac, EC, (VOLTAREN) 75 mg EC tablet Take one tablet by mouth twice a day as needed PRN for pain, with food No current facility-administered medications for this visit. ALLERGIES No Known Allergies No past medical history on file. PAST SURGICAL HISTORY Procedure Laterality Date INGUINAL HERNIA REPAIR HX PAST SURGICAL HISTORY OF left hand tendon surgery FAMILY HISTORY Problem Relation Age of Onset Anesthesia Problems No Family History SOCIAL HISTORY: -Lives in [place], [place] -Patient lives alone? No -Patient driving? Yes Review of Systems negative VITAL SIGNS: BP 142/80 (BP Site: Left Arm, BP Position: Sitting, BP Cuff Size: Regular Adult) Pulse 73 Ht 170.2 cm (5' 7 ) Wt 70.8 kg (156 lb) SpO2 96% BMI 24.43 kg/m General Examination: General Exam deferred IMPRESSION: Patient presents with a single generalized tonic seizure upon awakening on 04/03/2024 No risk factors for epilepsy. Seizure resulted [...] will be started , side effects discussed Interval Impression: Mr. Davis Johnson is a 69 year old right handed male with two seizures with similar description with no clear provoking factor. He is already on Keppra 500 mg BID. His MRI and EEG were unremarkable. We advised to increase Keppra to 750 mg BID. We re-discussed the side effects with him. We prescribed Nasal midazolam as a rescue medication and we explained to his how and when to you use it and she verbalized understanding. The patient's compliance with therapy has been: Excellent PLAN: Increase Keppra to 750 mg BID. Keppra Level after 1 week. Follow up in 3 months. Education The following issues were discussed with the patient on this visit and written instructions provided as below- Seizure precautions and safety, seizure first aide, when to seek emergency care. Counseling was provided to the patient that missed medications, addition of some new medications, use of alcohol or other substances, and sleep deprivation can lower the seizure threshold. Patient was advised to not drive until released by a physician. Medical Management The possibility of serious and adverse reactions were discussed in detail as well as proper use of medication. I discussed that not taking this medication as directed could worsen seizures and can bedangerous. I discussed the risks, benefits and alternatives of the medical plan with the patient. Questions were answered. The patient agreed with the plan as discussed. Eleni Maier MD [facility] [place]: TEACHING PHYSICIAN NOTE OF PERSONAL INVOLVEMENT IN CARE I have personally reviewed all aspects of the history and physical examination obtained and documented by the Fellow. [place] components of the physical exam confirmed. I have discussed the case and management of the patient's care with the Fellow and I agree with theassessment and plan as documented. I have made revisions to the above note as needed. Two more seizures. Advised to increase Keppra to 750 mg bid Ami Boston M.D documented in this encounterSt. [facility] Instructions* Patient Instructions* Eleni Maier MD - 07/17/2024 2:09 PM EST Thank you for choosing the [facility] and allowing me to serve as your physician. It was a pleasure to see you today. Please do not hesitate to call the clinic with any questions/concerns and/or message on [employer] whichever is most convenient for you. As discussed during the visit, we will increase Keppra to 750 mg BID Office hours: Saturday through Saturday 8am to 5pm. Call the office to report: Call OR send a [employer] message: Concerns about breakthrough seizures Change in seizure frequency New medication side effect or concern Missed medication dose Worsening or severe depression Urgent medication refill requests - needing new supply within 72 hours Non-urgent or routine medication refill requests Requesting a letter Requesting paperwork completion Report a breakthrough seizure Non-urgent clinical updates Non-urgent clinical questions (e.g. concern regarding lab or test results) Note: MyChart messages are not monitored after 5 PM on weekdays, weekends or holidays. MyChart messages will be addressed within 3 business days. If you have an urgent medical concern that needs to be addressed before 3 business days, please call the office. Please call 911 or proceed to nearest Emergency Room if you are experiencing any of the following issues: Status epilepticus (continuous seizure or multiple seizures without enough time to recover between them) Severe medication reaction (hives, itching or rash) Sudden onset of mental status changes Suicidal thoughts or plan to harm yourself or others Sudden onset of chest pain or shortness of breath Sudden onset of possible stroke symptoms (loss of balance, eye or face drooping, arm weakness, speech difficulty) General Seizure safety precautions: No bathing or swimming unsupervised, no use of heavy machinery, no heavy lifting (over 50lbs), no use of sharp moving objects (power tools) or open flames, avoid heights or ladders. Driving: If you are having seizure or episodes with loss of awareness, driving will need to be cleared by an Epileptologist. Driving laws vary from state to state, so please refer to your state driving laws for restrictions. [facility] You can contact the office to request or discuss a referral to the following teams within our department: Epilepsy Pharmacy Epilepsy Psychiatry Epilepsy Psychology Epilepsy Social Work Epilepsy Neurosurgery Epilepsy research opportunities Please refer below to review some information on seizures. Eleni Maier MD [facility] [place] [address] [place] [address] Office Fax number: [phone] documented in this encounterSt. [facility]12[facility] History of Present illness Narrative* Linda Phan - 07/16/2024 10:15 AM EST Images from the original note were not included. Davis Johnson is a 69 y.o. male presents with chief complaint of right wrist, forearm and hand painwith stiffness. HPI: Randall is here of which he has been struggling with his hand and wrist. This March, he started to have shoulder pain. He was diagnosed with avascular necrosis of his humerus. Dr. Blackwood did a reverse shoulder arthroplasty approximately two months ago. Since the surgery, he has been having stiffness and pain of his wrist, forearm and hand. He has been doing physical therapy to the shoulder. He has no fever, chills or constitutional symptoms. Spouse is present. No drainage. There is no clicking,catching or locking or numbness to the hand itself. SUBJECTIVE: MEDICATIONS: Current Outpatient Medications Medication Instructions acetaminophen (Tylenol) 500 MG tablet TAKE 2 TABLETS BY MOUTH EVERY 6 HOURS NEEDED FOR PAIN FOR UP TO 5 DAYS. amLODIPine (NORVASC) 5 mg, Oral, Daily carvedilol (COREG) 6.25 mg, Oral, 2 times daily with meals levETIRAcetam (KEPPRA) 500 mg, Daily RT olmesartan-hydroCHLOROthiazide (BENIcar HCT) 20-12.5 MG tablet 1 tablet, Oral, Daily ALLERGIES: No Known Allergies SURGICAL HISTORY: History reviewed. No pertinent surgical history. FAMILY HISTORY: No family history on file. SOCIAL HISTORY: Social History Tobacco Use Smoking status: Never Smokeless tobacco: Never Depression: Not at risk (07/11/2024) Received from [facility] PHQ-2 PHQ-2 score: 2 REVIEW OF SYMPTOMS: The review of systems, history and current medications list are all reviewed today. OBJECTIVE: Visit Vitals Ht 5' 7 Wt 160 lb BMI 25.06 kg/m Smoking Status Never BSA 1.85 m Physical Exam On physical exam, he has hypertrophic MCP joints of both hands that are moderate. There is no ulnar drift. There is no swan neck, boutonniere or mallet deformity. There is just a moderate amount of stiffness of the hand, right worse than left with some swelling that is mild to the hand, middle finger and wrist area. It extends into the forearm. It appears to be more dependent edema from his sling. There is no sign of tumor or infection seen. Trigger exam is negative. Carpal, cubital and Guyon's testing is negative. X-rays and imaging permanently saved to the patient's record were reviewed shows mild to moderate degenerative changes. No fracture, dislocation, tumor or infection seen. ASSESSMENT AND PLAN: Assessment/Plan Right upper extremity lymphedema, secondary to recent shoulder procedure. Hand osteoarthritis with stiffness. The nature of the findings were discussed at length. There is no sign of carpal, cubital or triggerinvolvement. There is no surgery for this. Occupational therapy script was provided which he will add to his current physical therapy at [facility] of which he is doing for his reverse shoulder. We discussed warm soaks, massage and private duty aide exercises. Once again, there is no surgery for his current situation. He will keep a close watchful eye and they will call or return as needed. They voicesverbal understanding. He is discharged in stable condition. Numerous questions were answered. Follow up letter sent to Dr. Herve Steele. The patient was seen and examined. From the time of check in, nurse triage, vital signs, x-ray, x-ray interpretation, review of systems, comprehensive history and physical exam as well as setting up treatment plan and further management took 50 minutes. Cosigned by Ruba Siddiqui DO at 07/20/2024 4:45 PM EST documented in this encounterParkland Health [id number] History of Present illness Narrative* Damián Blackwood MD - 07/15/2024 2:00 PM EST Images from the original note were not included. History: Davis Johnson is here today for a post-op visit. He is 10 weeks out from a right shoulder sue arthroplasty for a locked posterior shoulder dislocation and large reverse Hill-Sachs lesion.He had a seizure and fall on 07/03/24. He is being treated by Dr. Ramirez for his seizures. He now hasleft shoulder since the second seizure. He has also had right wrist pain since the first seizure. He has been working with therapy. Physical Exam: Wound is clear. He has some tightness with external rotation past 20 degrees. He canget the arm to 80 degrees of abduction with scapular elevation. He has some mild swelling remainingin the wrist which has been chronic. No numbness or tingling. Radiographs: AP lateral view show stable alignment of his right shoulder hemiarthroplasty in all planes. Right hand x-rays are essentially negative. Left shoulder x-rays are also negative. Assessment: Stable right shoulder hemiarthroplasty for locked posterior dislocation, 10 weeks out. Recurrent seizure episode. Plan: He had a seizure and a fall about two weeks ago. He's had right wrist pain since the initial seizure and left shoulder pain since the second seizure. I recommended he continue to ice, heat, anduse anti-inflammatories as needed. We gave him a new order for physical therapy today. I also strongly encouraged him to continue to follow up with neurology. We also discussed what to do if he has another seizure. He can follow up in 6 weeks for recheck with two-view shoulder x-rays. We also discussed the risk of soft tissue injury with recurrent seizures and can consider imaging of the left side if he is having recurrent left shoulder issues as well. All questions were answered with the patient. Scribe Attestation By signing my name below, INorma, Scrcaridad attest that this documentation has been prepared under the direction and in the presence of Damián Blackwood MD. documented in this encounterPremier [facility] Work Phone: 1(985) 248-182212-02-2024 Telephone encounter Note* Telephone Encounter - Johnathan Montes RN - 07/06/2024 12:06 PM EST Patient agreed with recommendations. Jhonathan Montes RN [facility]12-02-2024 Miscellaneous Notes* Telephone Encounter - Johnathan Copeland RN - 07/06/2024 12:06 PM EST Patient agreed with recommendations. Johnathan Montes RN * Telephone Encounter - Dasha Munoz APRN.CNP - 07/06/2024 11:19 AM EST I would recommend that we increase LEV to 750 mg BID. Glad he has follow up next week to discuss further. No driving. Dasha Munoz APRN.CNP The following approved medication requests have been transmitted electronically. Requested Prescriptions Signed Prescriptions Disp Refills levETIRAcetam (KEPPRA) 750 mg tablet 180 tablet 0 Sig: Take 1 tablet by mouth two times a day. Authorizing Provider: DASHA MUNOZ APRN.CNP * Telephone Encounter - Johnathan Montes RN - 07/06/2024 9:09 AM EST Last Visit: 04/27/2024 Next Visit: 07/17/24 Date and Time of seizure: 07/04 in the morning Witnessed: yes Aura: no Type of seizure: patient woke up in the hospital. Patient does not remember anything. stated his arms stiffened and he was screaming. Last Seizure: 04/09/24 Duration: unknown LOC: yes INGE: yes TB: esme UI: no Injury: no Rescue Medication used: no ASM: LEV 500/500 Triggers (recent illness, medication missed/changes, sleep issues, substance use): stated the heat form the water bed. Postictal Symptoms and Duration: confusion Back to Base Line: yes * Telephone Encounter - Vannessa Yadav - 07/06/2024 8:47 AM EST Seizure activity: Name of Caller : Davis Johnson Relationship to patient: Self Contact phone number: [phone] (home) Date of seizure: 07/04/24 Duration: unknown Back to Baseline (Yes/No): yes Emergency treatment needed (Yes/No): Yes, Went to [facility] Patient of Dr. Ramirez documented in this encounterSt. [facility] Telephone encounter Note * Telephone Encounter - Dasha Munoz APRN.CNP - 07/06/2024 11:19 AM EST I would recommend that we increase LEV to 750 mg BID. Glad he has follow up next week to discuss further. No driving. Dasha Munoz APRN.CNP The following approved medication requests have been transmitted electronically. Requested Prescriptions Signed Prescriptions Disp Refills levETIRAcetam (KEPPRA) 750 mg tablet 180 tablet 0 Sig: Take 1 tablet by mouth two times a day. Authorizing Provider: DASHA MUNOZ APRN.CNP [facility]12-02-2024 Telephone encounter Note* Telephone Encounter - Johnathan Montes RN - 07/06/2024 9:09 AM EST Last Visit: 04/27/2024 Next Visit: 07/17/24 Date and Time of seizure: 07/04 in the morning Witnessed: yes Aura: no Type of seizure: patient woke up in the hospital. Patient does not remember anything. stated his arms stiffened and he was screaming. Last Seizure: 04/09/24 Duration: unknown LOC: yes INGE: yes TB: esme UI: no Injury: no Rescue Medication used: no ASM: LEV 500/500 Triggers (recent illness, medication missed/changes, sleep issues, substance use): stated the heat form the water bed. Postictal Symptoms and Duration: confusion Back to Base Line: yes [facility]12-02-2024 Telephone encounter Note* Telephone Encounter - Vannessa Yadav - 07/06/2024 8:47 AM EST Seizure activity: Name of Caller : Davis Johnson Relationship to patient: Self Contact phone number: [phone] (home) Date of seizure: 07/04/24 Duration: unknown Back to Baseline (Yes/No): yes Emergency treatment needed (Yes/No): Yes, Went to [facility] Patient of Dr. Ramirez [facility]11-27-2024 Miscellaneous Notes* [facility] - Shellie Gilliam Tech - 07/01/2024 4:40 PM EST Radiology Service Progress Note PATIENT NAME: Davis Johnson DATE OF SERVICE: July 01, 2024 TIME: 5:07 PM PATIENT IDENTITY VERIFICATION COMPLETED USING TWO (2) IDENTIFIERS: Name and Date of confirmedby patient verbally and Name and Date of confirmed by identification band. FALL SCREENING: Has the patient had 2 falls in the last year or 1 fall with injury or currently using an Ambulatory Assistive Device (Walker, Cane, Wheelchair, Crutches, etc.)? Yes, Patient High Riskfor Falls What interventions were put in place to prevent falls during this visit? [place] Falls Risk Wristband Applied PATIENT GENDER DATA: Male PATIENT RELEVANT IMPLANT DATA REVIEWED: Not Applicable PATIENT PRESENTS WITH AN IMPLANTABLE OR ATTACHED LENS GENERATING MACHINE TENDER: No RADIOLOGY DEPARTMENT: MR; Exam(s) Completed: Head: Seizure PERIPHERAL IV DATA: Not applicable SIGNED BY: Melquiades Alanis July 01, 2024 5:07 PM documented in this encounterSt. [facility]11-27-2024 Progress note* [facility] - Shellie Gilliam Tech - 07/01/2024 4:40 PM EST Radiology Service Progress Note PATIENT NAME: Davis Johnson DATE OF SERVICE: July 01, 2024 TIME: 5:07 PM PATIENT IDENTITY VERIFICATION COMPLETED USING TWO (2) IDENTIFIERS: Name and Date of confirmedby patient verbally and Name and Date of confirmed by identification band. FALL SCREENING: Has the patient had 2 falls in the last year or 1 fall with injury or currently using an Ambulatory Assistive Device (Walker, Cane, Wheelchair, Crutches, etc.)? Yes, Patient High Riskfor Falls What interventions were put in place to prevent falls during this visit? [place] Risk Wristband Applied PATIENT GENDER DATA: Male PATIENT RELEVANT IMPLANT DATA REVIEWED: Not Applicable PATIENT PRESENTS WITH AN IMPLANTABLE OR ATTACHED LENS GENERATING MACHINE TENDER: No RADIOLOGY DEPARTMENT: MR; Exam(s) Completed: Head: Seizure PERIPHERAL IV DATA: Not applicable SIGNED BY: Melquiades Alanis July 01, 2024 5:[address] [facility]11-18-2024 Telephone encounter Note* Telephone Encounter - Promise Griffith RN - 06/22/2024 1:57 PM EST Spoke with Randall reviewed the recommends appointment line given to arrange MRI/will call is needs order to do locally. will continue with the LEV at this time Promise Griffith RN [facility]11-18-2024 Miscellaneous Notes* Telephone Encounter - Promise Griffith RN - 06/22/2024 1:57 PM EST Spoke with Randall reviewed the recommends appointment line given to arrange MRI/will call is needs order to do locally. will continue with the LEV at this time Promise Griffith RN * Telephone Encounter - Arnaldo Kinsey PA-C - 06/22/2024 12:23 PM EST MRI Brain order placed. Would not recommend [...] recommend stopping Keppra immediately. Arnaldo Kinsey PA-C * Telephone Encounter - Promise Griffith RN - 06/22/2024 11:43 AM EST 04/27/[address] Ramirez IMPRESSION: Patient presents [...] time. routed for review Promise Griffith RN * Telephone Encounter - Poly Schmidt - 06/22/2024 8:25 AM EST Medication Concern Person Calling Davis Johnson Name of medication Keppra Concern with medication Patient wants to reduce Keppra due to bad taste and bad smell. Please advise. He plans to see a new doctor in [place] in two weeks due to closer to home. Patient of Dr. Ramirez documented in this encounterSt. [facility]11-[facility] Telephone encounter Note * Telephone Encounter - Arnaldo Kinsey PA-C - 06/22/2024 12:23 PM EST MRI Brain order placed. Would not recommend [...] recommend stopping Keppra immediately. Arnaldo Kinsey PA-C [facility]11-18-2024 Telephone encounter Note* Telephone Encounter - Promise Griffith RN - 06/22/2024 11:43 AM EST 04/27/[address] Ramirez IMPRESSION: Patient presents [...] time. routed for review Promise Griffith RN [facility]11-18-2024 Telephone encounter Note* Telephone Encounter - Poly Schmidt - 06/22/2024 8:25 AM EST Medication Concern Person Calling Davis Johnson Name of medication Keppra Concern with medication Patient wants to reduce Keppra due to bad taste and bad smell. Please advise. He plans to see a new doctor in [place] in two weeks due to closer to home. Patient of Dr. Ramirez [facility]11-13-2024 History of Present illness Narrative* Damián Blackwood MD - 06/17/2024 1:45 PM EST Images from the original note were not included. History: Davis Johnson is here today for a post-op visit. He is 6 weeks out from a right shoulderhemi arthroplasty for a locked posterior shoulder dislocation [...] We discussed the importance of avoiding any liftingmore than 1 pound. He will follow-up in 6 weeks for two-view x-rays. All questions were answered with the patient. Scribe Attestation By signing my name below, INorma, Keegan attest that this documentation has been prepared under the direction and in the presence of Damián Blackwood MD. documented in this [facility] Work Phone: 1(740) 861-557410-22-2024 Evaluation note* Diagnosis Onset Date Resolution Status Admit Date Elevated PSA acuteOctober 2023 10:58amShoulder fracture, rightacuteOctober 2023 10:58amSeizureinactiveOctober 2023 10:58amElevated PSAacuteJanuary 2024 10:12amHypertensionacuteJanuary 2024 10:12amInjury of right handacute August 11, 2024 10:12amMacular degenerationacuteJanuary 2024 10:12am Seizure disorderacuteJanuary 2024 10:12amShoulder fracture, rightacute August 11, 2024 10:12am [facility] Work Phone: 1(774) 185-703610-15-2024 Hospital Discharge instructionsAmbulatory Orders* Referral to Neurology Time Frame: 05/19/24, Location: None Selected [facility] Work Phone: 1(710) 861-578010-14-2024 History of Present illness Narrative* Brian Newsome PA-C - 05/18/2024 1:45 PM EDT Images from the original note were not included. History: Davis Johnson is here today for his first post-op visit. He is two weeks out from a right shoulder Sue arthroplasty. He is having normal post- operative pain. He comes in today not wearinghis pillow. Physical Exam: The wound is healing [...] answered with the patient. documented in this [facility] Work Phone: 1(872) 835-395209-30-2024 History of Present illness Narrative* Damián Blackwood MD - 05/04/2024 11:00 AM EDT Images from the original note were not included. History: Davis is here for his right shoulder. He had a seizure about a month ago and sustained aposterior shoulder dislocation. [facility] to [facility] where the shoulder was reduced and discussion was had regarding surgical options. He is having persistent pain and wanted to get another opinion regarding his shoulder options. Past medical history: Multiple Medications: Multiple Allergies: No known drug allergies Please refer to the intake H&P regarding the patient's review of systems, family history and social history as was done today HEENT: Normal Lungs: Clear to auscultation Heart: RRR Abdomen: Soft, nontender Skin: clear Extremity: He has limited motion of the shoulder today due to pain. He can move the elbow wrist andhand well. 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 No numbness or tingling. Arm is held in an internally rotatedposition and he has significant difficulty with any external rotation past 0. Contralateral exam is normal for strength, motion, stability and neurovascular assessment. Radiographs: X-rays today show a posterior shoulder dislocation similar to his prior imaging. CT scan also shows a locked posterior shoulder dislocation with significant humeral head impaction and reverse Hill-Sachs lesion. 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 I did review the notes from Dr. Wooten and agree that several surgical options could be pursued including arthroplasty, muscle transfer or humeral head allograft augmentation. He wants to continue working and doing heavy activity and as such a reverse shoulder replacement may not be the best option for him. A HemiCap procedure may allow coverage of the defect and avoid the necessity for fresh frozen allograft. This will also allow conversion to reverse arthroplasty in the future if needed. Risk benefits of surgery were discussed and if he would like to proceed we could do so accordingly. He can also follow-up with Dr. Wooten if desired. If he does pursue surgery with us I would see him back 2 weeks postoperatively for recheck with x- rays. He has seen his neurologist who cleared him for surgery and he is now on antiseizure medication. All questions were answered today with the patient. This note was generated with voice recognition software and may contain grammatical errors. documented in this encounterPremier Health [facility] Work Phone: 1(105) 428-122609-26-2024 History of Present illness Narrative* Nadia Dhillon RT(R) - 04/30/2024 7:56 AM EDT Radiology Service Progress Note PATIENT NAME: Davis Johnson DATE OF SERVICE: April 30, 2024 TIME: 7:56 AM PATIENT IDENTITY VERIFICATION COMPLETED USING TWO (2) IDENTIFIERS: Name and Date of confirmedby patient verbally. FALL SCREENING: Has the patient had 2 falls in the last year or 1 fall with injury or currently using an Ambulatory Assistive Device (Walker, Cane, Wheelchair, Crutches, etc.)? No PATIENT GENDER DATA: Male PATIENT RELEVANT IMPLANT DATA REVIEWED: Not Applicable PATIENT PRESENTS WITH AN IMPLANTABLE OR ATTACHED LENS GENERATING MACHINE TENDER: No RADIOLOGY DEPARTMENT: General X-ray: Exam(s) Completed: Chest X-Ray PERIPHERAL IV DATA: Not applicable SIGNED BY: RT Delicia(R) April 30, 2024 7:56 AM documented in this encounterSt. Mary[facility] Instructions* Patient Instructions* Galo Zuletavijaya OPERATOR SUPPLY.VAT HOUSE LABORER - 04/30/2024 7:10 AM EDT Images from the original note were not included. [facility] PATIENT PREOPERATIVE INSTRUCTIONS Hi Wooten MD has scheduled you for your procedure at this surgery center: [facility] [place] Scheduling Office: [phone] --[address] [place] [address]. -Use mupirocin nasal ointment ( swab in each nostril) twice daily starting 5 days prior to surgery. Arrival Time for Surgery: - To obtain your arrival time for surgery, call your physician's office the day before your surgery. - If your surgery is scheduled for Saturday, call the Saturday before. Your surgeon s it support specialist will tell you what time to call the office. - If you have not reached the departmental it support specialist by 5 P.M., call [phone] after 5 P.M. the day before your [...] Procedures: - YOU MUST HAVE A RESPONSIBLE STRING CUTTER TAKE YOU HOME. A OPERATING ROOM SURGICAL TECHNICIAN OR ENRICHMENT TEACHER CANNOT BE MADE A RESPONSIBLE STRING CUTTER. - We recommend that a responsible person stays with you overnight to take care of you. - You cannot stay in a hotel alone after outpatient surgery. You will not be permitted to have yoursurgery, if you do not have someone to take care of you. If you already have an Advance Directive, please fax a copy to [phone] or email to for it to be added to your chart. If you do not have an Advance Directive, you can find the appropriate form and more information at [email or web address]. We recommend that youcomplete the Advance Directive form found on the website and bring it with you the day of your surgery. It can be witnessed and scanned into your chart that day. Stephanie Zuleta APRN.CNP documented in this encounterSt. Mary'[facility]09-[facility] History and physical note * Stephanie Zuleta APRN.CNP - 04/30/2024 7:00 AM EDT HISTORY AND PHYSICAL EXAMINATION SERVICE DATE: 04/30/2024 [...] Nunn present: no Lip Bite Test: II Microretrognathia/Micronagthia/Recessed Chin: No DENTAL Dental findings: teeth intact. [...] Covid Immunization Dates Overdue - Covid-19 Vaccine ( season) Never done No completion, postpone, frequency change, or communication history exists for this topic. REVIEW OF SYSTEMS: PAIN ASSESSMENT: Pain Pain Level: 7 Pain Location: Shoulder-Right Description: Aching Duration Units: Months Frequency: Continuous General: No weight loss, malaise or fevers. 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 No history of respiratory/pulmonary symptoms or problems. Cardiovascular: Negative for Recent SC, Angina, Arrhythmia, CAD, Chest Pain, CHF, PVD, [...] instructions and voices comprehension and compliance. SIGNATURE: Stephanie Zuleta APRN.CNP PATIENT NAME: Davis Johnson DATE: 04/30/2024 TIME: 7:[address] [facility]09-26-2024 History and physical note* Stephanie Zuleta APRN.CNP - 04/30/2024 7:00 AM EDT HISTORY AND PHYSICAL EXAMINATION SERVICE DATE: 04/30/2024 [...] Nunn present: no Lip Bite Test: II Microretrognathia/Micronagthia/Recessed Chin: No DENTAL Dental findings: teeth intact. 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 No history of respiratory/pulmonary symptoms or problems. Cardiovascular: Negative for Recent SC, Angina, Arrhythmia, CAD, Chest Pain, CHF, PVD, [...] instructions and voices comprehension and compliance. SIGNATURE: Stephanie Zuleta APRN.CNP PATIENT NAME: Davis Johnson DATE: 04/30/2024 TIME: 7:04 AM documented in this encounterSt. [facility] Telephone encounter Note * Telephone Encounter - Yumiko Interiano APRN.CNP - 04/28/2024 1:08 PM EDT Spoke to patient and , concerned about OR date and timing, discussed need to obtain donor bone,along with preparations for surgery, agreed we will continue to look for OR cancellations and if possible move patient forward, in the meantime have instructed patient to discontinue ibuprofen, oral Voltaren has been ordered instructed to take with food for better pain control [facility]09-24-2024 Miscellaneous Notes* Telephone Encounter - Yumiko Interiano APRN.CJ - 04/28/2024 1:08 PM EDT Spoke to patient and , concerned about OR date and timing, discussed need to obtain donor bone,along with preparations for surgery, agreed we will continue to look for OR cancellations and if possible move patient forward, in the meantime have instructed patient to discontinue ibuprofen, oral Voltaren has been ordered instructed to take with food for better pain control documented in this encounterSt. Mary'[facility] History of Present illness Narrative* Ami Whittaker MD - 04/27/2024 9:[address] [facility] Patient Name: Davis CHAPPELL Date of : 1955 Referring Provider: Hi Frausto0 Gisel King [facility] [id number] INITIAL EPILEPSY CLINIC NOTE 04/27/2024 8:00 AM CHIEF COMPLAINT: New Patient HISTORY OF PRESENT ILLNESS Mr. Johnson is a 68 year old right-handed male seen in [facility] for initial consultation. [...] - Seizure risk factors: Brain Tumor Unanswered HANDBAG OPERATOR Infections Unanswered Developmental Delay Unanswered Family history [...] DAY FOR 4 DAYS TAKE 1 TABLET FOR3 DAYS Olmesartan-hydroCHLOROthiazide 20-12.5 mg per tablet 1 [...] history on file. SOCIAL HISTORY: -Lives in [place], [place] -Patient lives alone? No -Vocation: works [...] notified Ami Boston M.D documented in this encounterSt. Mary'[facility] Instructions* Patient Instructions* Ami Whittaker MD - 04/27/2024 9:07 AM EDT Keppra 500 mg , 1 tablet twice a day Call office if you have any question at [phone] MRI brain Follow up in 3-4 month Ami Boston M.D documented in this encounterSt. Mary'[facility] History of Present illness Narrative* Hi Wooten MD - 04/24/2024 9:00 AM EDT SHOULDER/ELBOW INITIAL CONSULT SERVICE DATE: 04/23/2024 PCP: Herve Steele DO REFERRING PROVIDER: Fantasma Lino [address] [place] [address] Consult requested for an opinion regarding the evaluation and treatment of the above. My final impression and recommendations will be communicated back to the requesting physician by way of the shared medical record or letter via US mail. CHIEF COMPLAINT: Right shoulder dislocation SUBJECTIVE HISTORY OF PRESENT ILLNESS: 68 year old male, who presents for the above CC. He can't recall a timewhen his shoulder would've dislocated, most likely due to seizure he had. The pt thought his seizure was due to low sodium from being out in the sun for too long. Denies history of seizures previously. He endorses bruising on his right shoulder. Was in a sling for 48 hours after his appointment with [facility]. He can't take any pain medications due [...] DAY FOR 4 DAYS TAKE 1 TABLET FOR3 DAYS Olmesartan-hydroCHLOROthiazide 20-12.5 mg per tablet 1 [...] not hesitate to call the office with anyissues. Medical Decision Making: Medical Decision Making Level: 1 - N/A Hi Wooten MD By signing my name below, I, Rafal Thapa, attest that this documentation has been prepared underthe direction and in the presence of Dr. Wooten. Electronically signed, Keegan Soto April 24, 2024 9:12 AM I agree with the Chief Complaint, ROS, and Past Histories independently gathered by the clinical application support and the remaining scribed note accurately describes my personal service to the patient.Hi Wooten MD documented in this encounterSt. Mary'[facility] History of Present illness Narrative* Myesha Bajwa RT(R) - 04/24/2024 8:00 AM EDT Radiology Service Progress Note PATIENT NAME: Davis Johnson DATE OF SERVICE: April 24, 2024 TIME: 8:25 AM PATIENT IDENTITY VERIFICATION COMPLETED USING TWO (2) IDENTIFIERS: Name and Date of confirmedby patient verbally. FALL SCREENING: Has the patient had 2 falls in the last year or 1 fall with injury or currently using an Ambulatory Assistive Device (Walker, Cane, Wheelchair, Crutches, etc.)? No PATIENT GENDER DATA: Male PATIENT RELEVANT IMPLANT DATA REVIEWED: Not Applicable PATIENT PRESENTS WITH AN IMPLANTABLE OR ATTACHED LENS GENERATING MACHINE TENDER: No RADIOLOGY DEPARTMENT: General X-ray: Exam(s) Completed: Upper Extremity X- Ray(s): Shoulder, AP / TRUE AP / AXILLARY right PERIPHERAL IV DATA: Not applicable SIGNED BY: RT Hao(Radha) April 24, 2024 8:25 AM documented in this encounterSt. Mary'[facility]09-[facility]-2024 History of Present illness Narrative* Indy Quick, DO - 04/22/2024 9:00 AM EDT Images from the original note were not included. Chief complaint: Seizures Subjective Davis Johnson, 68 y.o., male Davis is here today for a neurologic consult after being seen in [facility] for seizures. He is accompanied by his . She states two week ago his states he got up and yelled with his arms stuck straight out. He then laid down and just was staring at the ceiling but was non responsive. She states she could see foam in his mouth and blood from him biting his tongue. She called EMS. When he got to [facility] he does not recall having any imaging or blood work. His states she thinks this was about an hour he was unaware of what was going on. This was the only event anything like this has ever happened to him. He believes this was heat related from working in the 92 degree weather for days. Review of Systems Constitutional: Negative for appetite change, fatigue and fever. Respiratory: Negative for cough, shortness of breath and wheezing. Cardiovascular: Negative for chest pain, palpitations and leg swelling. Gastrointestinal: Negative for abdominal pain, constipation, diarrhea and nausea. Musculoskeletal: Negative for arthralgias, gait problem and myalgias. Neurological: Positive for seizures. Negative for dizziness, tremors, numbness and headaches. No past medical history on file. No past surgical history on file. No family history on file. Social History Tobacco Use Smoking status: Not on file Smokeless tobacco: Not on file Substance Use Topics Alcohol use: Not on file Allergies: Patient has no known allergies. Vitals: 04/22/24 0858 BP: 136/84 Pulse: 65 SpO2: 93% There is no height or weight on file to calculate BMI. weight: 160 lb Neurologic exam: Mental status: Awake, alert to person, place and time. Recent and remote memory are intact. Language is fluent without aphasia. Attention and concentration are normal. Fund of knowledge is appropriate for level of education. Cranial nerves: CN II: Visual acuity is normal. Visual virgen full to confrontation. CN III, IV, : pupils equal round and reactive to light. Extraocular movements intact. No ptosis present. CN V: Facial sensation is normal. CN VII: Full and symmetric facial movement. CN VIII: Hearing is normal to finger rub bilaterally: CN IX and X: Palate elevates symmetrically. CN XI: Shoulder shrug is normal bilaterally. CN XII: Tongue is midline without atrophy or fasciculation. Motor: Strength is 5/5 throughout. Bulk is normal. Sensory: Sensation is intact to light touch throughout Four extremities. Reflexes: Deep tendon reflexes are 2+ and symmetric throughout. Coordination: Tuphuy-fz-owyv testing and rapid alternating movements are normal Gait: Normal Review and summary of old records: CT of the brain without contrast on 04/09/2024: Unremarkable Assessment/Plan Diagnoses and all orders for this visit: Seizures (CMS/HCC) Posterior dislocation of left shoulder joint, sequela It is my impression that this patient has suffered a seizure-like episode where he stood up and outstretched his arms. He had a period of confusion was seen at the hospital for this. CT of the brain was unremarkable for acute pathology. Examination today is unremarkable other than the patient's right shoulder pain and he is in a sling in the right arm. Given the patient's tongue bite and right posterior shoulder dislocation this is a extremely compelling story for seizure. Patient does not really have any psychological risk factors and I do NOT suspect psychogenic episodes. Plan: MRI of the brain with and without contrast Routine EEG to assess for any epileptiform abnormalities that may account for the patient's symptoms I did offer to place the patient on Keppra. The patient has refused medication at this time understanding that recurrent risk of seizure would be higher without the medication. This could lead to life-threatening injuries, status epilepticus which be life-threatening and other neurological concerns. Patient and understand this and did not want to pursue medication but are willing to pursue the workup. All questions answered. Pt has been fully educated on their diagnosis, lab results, treatment options, follow up plan, and return instructions documented in this encounterParkland Health [id number] Telephone encounter Note* Telephone Encounter - Fantasma Lino PA-C - 04/15/2024 3:46 PM EDT Called the patient and spoke with him regarding his shoulder. Recommended he maintain the sling until he sees Dr. Wooten, then likely will be able to wean out of it. Advised him on some gentle passive shoulder motions and elbow/wrist motions. Discussed analgesia with him. All questions answered. Fantasma Lino PA-C [facility]09-11-2024 Miscellaneous Notes* Telephone Encounter - Fantasma Lino PA-C - 04/15/2024 3:46 PM EDT Called the patient and spoke with him regarding his shoulder. Recommended he maintain the sling until he sees Dr. Wooten, then likely will be able to wean out of it. Advised him on some gentle passive shoulder motions and elbow/wrist motions. Discussed analgesia with him. All questions answered. Fantasma Lino PA-C * Telephone Encounter - Eugenia Grayson RN - 04/15/2024 2:56 PM EDT Patient's calling. The patient is unable to be seen by Dr Hi Wooten this week. They have an appointment for next Sat04/24/24. Also on the wait list He continues to be in pain, reluctant to use pain medication because it was causing constipation. Only small amount of meds ordered from anesthesia Asking for any recommendations? CALL [phone] documented in this encounterSt. [facility] Telephone encounter Note * Telephone Encounter - Eugenia Grayson RN - 04/15/2024 2:56 PM EDT Patient's calling. The patient is unable to be seen by Dr Hi Wooten this week. They have an appointment for next Sat04/24/24. Also on the wait list He continues to be in pain, reluctant to use pain medication because it was causing constipation. Only small amount of meds ordered from anesthesia Asking for any recommendations? CALL [phone] [facility]09-05-2024 Miscellaneous Notes* Telephone Encounter - Marquise Polk RN - 04/09/2024 2:13 PM EDT Anjel Lino called patient and notified him to report to [facility] ED. Answered all patient questions on [...] there was normal function of the shoulder beforeMonday. [place] of the shoulder demonstrated posterior dislocation (Initial radiographs missed it). There was no attempted reduction. He was somehow set up with me for followup. I placed him in a sling and [...] and FU w/ neurology for seizure workup. [place] or [facility] is probably best in our system for this unless he wants to get it done locally. That is what I recommend. Pls reach out to him and get him to [facility] documented in this encounterSt. Mary'[facility]-20[facility] Telephone encounter Note * Telephone Encounter - Marquise Polk RN - 04/09/2024 2:13 PM EDT Anjel Lino called patient and notified him to report to [facility] ED. Answered all patient questions on [...] there was normal function of the shoulder beforeMonday. [place] and CT of the shoulder demonstrated posterior dislocation (Initial radiographs missed it). There was no attempted reduction. He was somehow set up with me for followup. I placed him in a sling and [...] and FU w/ neurology for seizure workup. [facility] is probably best in our system for this unless he wants to get it done locally. That is what I recommend. Pls reach out to him and get him to [facility]09-05-2024 History of Present illness Narrative* Fantasma Lino PA-C - 04/09/2024 1:20 PM EDT This document has been created with the use of voice recognition technology. It may contain inaccuracies: misspellings, inaccurate syntax or word sense that escaped review. The patient is seen at the request of [facility] [facility] for evaluation and an opinion regarding treatment.A copy of this report will remain in the shared medical record CHIEF COMPLAINT: Davis Johnson is a 68 year old Right hand dominant male who presents today for new evaluation of right shoulder injury. HISTORY OF PRESENT ILLNESS: PAIN EVALUATION 04/09/2024 1252 Pain Level: 9 Pain Location: Shoulder-Right Description: Sharp Duration Amount of Time: 6 Duration Units: Days Frequency: Intermittent Intervention/Comfort measure: Medication;Reposition;Relaxation;Cold;Positioning HISTORY: Davis Johnson has complains of severe right shoulder pain and limited motion. He states 4 days ago there was suspicion that he had a seizure. His describes him waking up in the middlethe night and throwing his arms forward and screaming. The patient does not remember this event. [facility] [place] Images were obtained of the right shoulder just a 1 view x-ray. Subsequent CT scan of the shoulder was obtained and a CT of the brain as well. See below for these findings. 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 Denies history of seizures previously. CT scan of the brain was without intracranial pathology. Patient denies numbness ofthe arm. He reports extensive bruising of the [...] posterior shoulder dislocation possibly from a seizure event.Patient reports normal function before Saturday. Explained to them the findings on the CT scan and the x-ray. 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 I told him he will have to take some time off work and he will need to remain in a sling at all times except for hygiene purposes. There were no neurologicconcerns about the upper extremity today. Placed a consult with Hi Wooten for surgical consultation and will speak with him directly for expeditious treatment. Fantasma Lino PA-C documented in this encounterSt. [facility] History of Present illness Narrative* Bhavna Marroquin RT(R) - 04/09/2024 1:00 PM EDT Radiology Service Progress Note PATIENT NAME: Davis Johnson DATE OF SERVICE: April 09, 2024 TIME: 12:39 PM PATIENT IDENTITY VERIFICATION COMPLETED USING TWO (2) IDENTIFIERS: Name and Date of confirmedby patient verbally. FALL SCREENING: Has the patient had 2 falls in the last year or 1 fall with injury or currently using an Ambulatory Assistive Device (Walker, Cane, Wheelchair, Crutches, etc.)? No PATIENT GENDER DATA: Male PATIENT RELEVANT IMPLANT DATA REVIEWED: Not Applicable PATIENT PRESENTS WITH AN IMPLANTABLE OR ATTACHED LENS GENERATING MACHINE TENDER: No RADIOLOGY DEPARTMENT: General X-ray: Exam(s) Completed: Upper Extremity X- Ray(s): Shoulder, AP / TRUE AP / AXILLARY / SUPRA OUTLET right PERIPHERAL IV DATA: Not applicable SIGNED BY: RT Perico(R) April 09, 2024 12:39 PM documented in this encounterSt. Mary'[facility]07[facility] Procedure [facility]06-24-2024 Evaluation note* Author [facility]ugenia [facility] 2023 9:46amThe above note written by Vy Ohara LPN, acting as human recorder, note dictated by Dr. Herve Steele. Author Faye [facility] 2023 8:34amThe above note written by Faye BIGGS acting as human recorder, note dictated by Dr. Herve Steele. [facility] Work Phone: 1(566) 973-195506-24-2024 Evaluation note* Author Vy [facility] 2023 9:46amThe above note written by Vy Ohara LPN, acting as human recorder, note dictated by Dr. Herve Steele. [facility] Work Phone: 1(432) 303-423605-23-2024 Evaluation note* Author Faye [facility] 2023 8:34amThe above note written by Faye BIGGS acting as human recorder, note dictated by Dr. Herve Steele. [facility] Work Phone: 1(924) 456-381005-23-2024 Evaluation note* Author Vy Ohara [facility] HospitalAuthoredJune 2023 9:46amThe above note written by Vy Ohara LPN, acting as human recorder, note dictated by Dr. Herve Steele. Author Faye Najera [facility] HospitalAuthoredRandolph 2023 8:34amThe above note written by Faye BIGGS acting as human recorder, note dictated by Dr. Herve Steele. [facility] Work Phone: 1(462) 928-595811-21-2023 Evaluation note* Encounter Date Diagnosis Assessment Notes [...] occasion, and we will continue to monitor. Jun,Hyperlipidemia (ICD-10 - E78.5) Blood work ordered to be completed prior to his next office visit. Jun,Screening for prostate cancer (ICD-10 - Z12.5) [facility] Other 10-23-2023 Evaluation note* Encounter Date Diagnosis Assessment Notes Treatment Notes Treatment Clinical Notes May, Hypertension (ICD-10 - I10) Pt's blood pressure has been well controlled. He is to stop the Olmesartan-HCTZ, as I do feel it iscontributing to his cramping. He is to continue with his other medications, and continue monitoringhis blood pressure at home. May,Leg cramping (ICD-10 - R25.2) I did review pt's vascular studies from November, which were normal. Olmesartan- HCTZ was stopped, as this depletes potassium. I do feel this should help the pt. Pt states his cramps are worse when he had spent the day somewhere with a lot of steps. I did recommend he use a muscle relaxer as needed as well. He does have some at home. May,Neoplasm of uncertain behavior of skin (ICD-10 - D48.5) Pt c/o a lump on his left index finger that he cuts off with nail clippers, that keeps returning. He has seen [facility] in the past, therefore I did provide him with a referral for this thiago evaluated in their office. [facility] Other 02-27-2023 Evaluation note* Encounter Date Diagnosis Assessment Notes Treatment Notes Treatment Clinical Notes Sep, Compression fracture of T12 vertebra with routine healing, subsequent encounter (ICD-10 - S22.080D) [facility] Other 12-27-2022 Evaluation note* Encounter Date Diagnosis Assessment Notes Treatment Notes Treatment Clinical Notes Jul, Compression fracture of T12 vertebra, initial encounter (ICD-10 - S22.080A) [facility] Other 11-15-2022 Evaluation note* Encounter Date Diagnosis Assessment Notes Treatment Notes Treatment Clinical Notes Jun, Compression fracture of T12 vert ebra (ICD-10 - M48.54XA) Jun,Intractable pain (ICD-10 - R52) Jun,Lumbar pain (ICD-10 - M54.50) [facility] Other 11-10-2022 Evaluation note* Encounter Date Diagnosis Assessment Notes Treatment Notes Treatment Clinical Notes Jun, Hypertension (ICD-10 - I10) Blood pressure findings appear to be within normal range. Pt is to continue with the above medication and we will continue to monitor. Jun,Lumbar back pain (ICD-10 - M54.50) The patient states he bounces up and down on equipement all day at work, he states a MRI was performed at [facility] several years ago noting spinal stenosis. Upon examination the patient denies radiculopathy.Discussion was has stenosis is generally progressive due to arthrtis . I suggest x-ray imaging to update status , an order was provided. I recommend two tablets of OTC Aleve with one extra strength Tylenol with food up to twice a day. We will continue to monitor. Jun,History of COVID-19 (ICD-10 - Z86.16) Positive COVID-19 on 04/05/22, treated headache symptoms with two days of Paxlovid. Jun,Hyperlipidemia (ICD-10 - E78.5) Pt is to continue with the above medication and continue watching their diet and increase their exercise regimen. Jun,creening for prostate cancer (ICD-10 - Z12.5) [facility] Other 09-01-2022 Evaluation note* Encounter Date Diagnosis Assessment Notes Treatment Notes Treatment Clinical Notes Apr, COVID-19 (ICD-10 - U07.1) [facility] Other 06-17-2022 Evaluation note* Encounter Date Diagnosis Assessment Notes Treatment Notes Treatment Clinical Notes Jan, Lip lesion (ICD-10 - K13.0) [facility] Other 06-11-2021 NoteOPERATIVE NOTE OPERATION DATE: 01-13-21 [...] used a 4-0 Ethilon suture in a ktwhnn-zg-bitod fashion and placed a total of 4 hhosom-ax-aidnq sutures through the extensor tendon. It appeared [...] needle, sponge, and instrument counts are correct. [facility] Signed and Approved by: LALY TALBERT 01/19/2021 10:36:00[facility] [id number] NotePROCEDURE: XR HAND LT MIN 3V HISTORY: [...] Electronically authenticated by: AMAN KUMAR Date: 2020-12-28 17:17[facility] [id number] History general Narrative - Reported* Type Description Date Medical History HTN Medical HistoryCOLONOSCOPY 2005Medical HistorySTRESS TEST 2006 NOHCMedical HistoryNON-SMOKERMedical HistoryEYE EXAM MARCH 2009Medical HistoryLAB WORK [id number] HistoryLAST PSA 04-16-2008 1.490Medical HistoryFX LEFT ARM Medical HistoryBloodwork 08-08-10; lipid panel, cmp, cbc, t4, tsh, hgb a1c (5.5) Medical History08/29/2011 psa level 1.700, A1c 5.5Medical History10/09/13- colonoscopy by Dr. Mackay - negativeMedical Vllkzwr94/2016 Carotid USMedical HistoryPSA (2.67) 05/2016Medical Njobgxy54/2017 Carotid US- Community Outreach Medical HistoryPSA (3.07) 05/2017Medical Cugrwfo63/2018 carotid us-community outreachMedical Eveigjn05/20/21 community outreach vascular and blood work PSA 2.9Surgical HistoryHERNIA SURGERY DR Squires Historyextensor tendon repair left long finger01/13/21Hospitalization HistorySEE ABOVEHospitalization HistoryFX LEFT [id number] [employer] Other 08-01-2009 History general Narrative - Reported* Type Description Date Medical History HTN Medical HistoryCOLONOSCOPY 2004Medical HistorySTRESS TEST 2006 NOHCMedical HistoryNON-SMOKERMedical HistoryEYE EXAM MARCH 2009Medical HistoryLAB WORK [id number] HistoryLAST PSA 04-16-2008 1.490Medical HistoryFX LEFT ARM Medical HistoryBloodwork 08-08-10; lipid panel, cmp, cbc, t4, tsh, hgb a1c (5.5) Medical History08/29/2011 psa level 1.700, A1c 5.5Medical History10/09/13- colonoscopy by Dr. Mackay - negativeMedical Rwbbfvi81/2016 Carotid USMedical HistoryPSA (2.67) 05/2016Medical Snaqthy90/2017 Carotid US- Community Outreach Medical HistoryPSA (3.07) 05/2017Medical Uqncvik04/2018 carotid us-community outreachMedical Depqswu25/20/21 community outreach vascular and blood work PSA 2.9Medical HistoryDexa scan 09/2022-osteopeniaMedical Rcrwfav36/2023 Community outreach vascular screeningSurgical HistoryHERNIA SURGERY DR Squires Historyextensor tendon repair left long finger6/11/21Hospitalization HistorySEE ABOVEHospitalization HistoryFX LEFT [id number] [facility] [employer] Other Evaluation noteNo assessment information available [facility] Work Phone: Evaluation noteNo InformationNortFairmount Behavioral Health System [employer] Other Evaluation note* Author Faye Najera [facility] HospitalAuthoredMay 2023 8:34amThe above note written by Faye BIGGS acting as human recorder, note dictated by Dr. Herve Steele. [facility] Work Phone: Evaluation note* Diagnosis Posterior dislocation of right shoulder joint, initial encounter- Primary Right shoulder pain, unspecified chronicity Closed Hill-Sachs fracture of right humerus, initial encounter Right shoulder pain, unspecified chronicity [facility] Diagnosis Right shoulder pain, unspecified chronicity documented [facility]* Diagnosis Pain- Primary Generalized pain documented [facility] this [facility]* Diagnosis Seizure (HCC)- Primary Other convulsions Posterior dislocation of right shoulder joint, initial encounter documented [facility]* Diagnosis Pain Generalized pain documented [facility] this [facility]* Diagnosis Posterior dislocation of right shoulder joint, initial encounter Seizure (HCC) Other convulsions [facility]* Diagnosis Posterior dislocation of right shoulder joint, initial encounter- Primary documented [facility]* Diagnosis Pain- Primary Generalized pain Posterior dislocation of right shoulder joint, initial encounter Pre-op testing Preoperative examination, unspecified [facility]* Diagnosis Pre-op evaluation- Primary Preoperative examination, unspecified Posterior dislocation of right shoulder joint, initial encounter Pre-op testing Preoperative examination, unspecified Preoperative examination Preoperative examination, unspecified Seizure (HCC) Other convulsions Primary hypertension Unspecified essential hypertension Hyperlipidemia, unspecified hyperlipidemia type Posterior dislocation of right shoulder joint, initial encounter * Assessment & Plan Note - Stephanie Zuleta APRN.CNP - 04/30/2024 7:25 AM EDT Associated Problem(s): Hyperlipidemia Assessment: Controlled with statin. Monitored per PCP. * Assessment & Plan Note - Stephanie Zuleta APRN.CNP - 04/30/2024 7:25 AM EDT Associated Problem(s): Hypertension Assessment: Stable and compliant with medications Followed by PCP Last 5 Encounter BP Readings: Date: BP: 04/30/2024 134/83 04/27/2024 121/74 04/09/2024 134/62 * Assessment & Plan Note - Stephanei Zuleta APRN.CNP - 04/30/2024 7:25 AM EDT Associated Problem(s): Seizure (HCC) Assessment: Possible seizure episode, witnessed by . No previous seizure history. Evaluated perneurology, EEG normal and medical optimization received. Started on keppra documented [facility]* Diagnosis Pre-op evaluation- Primary Preoperative examination, [...] joint, initial encounter [facility]* Diagnosis Dislocation of right shoulder joint, initial encounter- Primary Right shoulder pain, unspecified chronicity documented in this encounter [facility] Work Phone: Evaluation note* Diagnosis Right shoulder pain, unspecified chronicity documented in this encounter [facility] Work Phone: Evaluation note* Diagnosis Onset Date Resolution Status Elevated PSA [facility]Shoulder fracture, [facility]* Diagnosis Dislocation of right shoulder joint, initial encounter Dislocation of right shoulder joint, initial encounter documented in this encounter [facility] Work Phone: Evaluation note* Diagnosis Dislocation of right shoulder joint, initial encounter documented in this encounter [facility] Work Phone: Evaluation note* Diagnosis Pre-op evaluation- Primary Preoperative examination, unspecified Posterior dislocation of right shoulder joint, initial encounter Pre-op testing Preoperative examination, unspecified Preoperative examination Preoperative examination, unspecified Seizure (HCC) Other convulsions Primary hypertension Unspecified essential hypertension Hyperlipidemia, unspecified hyperlipidemia type Convulsions, unspecified convulsion type (HCC)- Primary [facility]* Diagnosis Pre-op evaluation- Primary Preoperative examination, unspecified Posterior dislocation of right shoulder joint, initial encounter Pre-op testing Preoperative examination, unspecified Preoperative examination Preoperative examination, unspecified Seizure (HCC) Other convulsions Primary hypertension Unspecified essential hypertension Hyperlipidemia, unspecified hyperlipidemia type Convulsions, unspecified convulsion type (HCC) documented [facility]* Diagnosis Seizures (CMS/HCC)- Primary Other convulsions Posterior dislocation of left shoulder joint, sequela documented in this encounter [facility] Healthcare[facility]* Diagnosis Right shoulder pain, unspecified chronicity Left shoulder pain, unspecified chronicity Dislocation of right shoulder joint, initial encounter documented in this encounter [facility] Work Phone: Evaluation note* Diagnosis Lymphedema of right arm- Primary Right hand pain Pain in soft tissues of limb documented in this encounter [facility] HealthcareEvaluation note* Diagnosis Pre-op evaluation- Primary Preoperative examination, unspecified Posterior dislocation of right shoulder joint, initial encounter Pre-op testing Preoperative examination, unspecified Preoperative examination Preoperative examination, unspecified Seizure (HCC) Other convulsions Primary hypertension Unspecified essential hypertension Hyperlipidemia, unspecified hyperlipidemia type Nonintractable epilepsy without status epilepticus, unspecified epilepsy type (HCC)- Primary documented [facility]* Diagnosis Right shoulder pain, unspecified chronicity Dislocation of right shoulder joint, initial encounter documented in this encounter [facility] Work Phone: Evaluation note* Diagnosis Pre-op evaluation- Primary Preoperative examination, unspecified Posterior dislocation of right shoulder joint, initial encounter Pre-op testing Preoperative examination, unspecified Preoperative examination Preoperative examination, unspecified Seizure (HCC) Other convulsions Primary hypertension Unspecified essential hypertension Hyperlipidemia, unspecified hyperlipidemia type 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* Diagnosis Right shoulder pain, unspecified chronicity S/P shoulder hemiarthroplasty, right Right shoulder pain, unspecified chronicity S/P shoulder hemiarthroplasty, right documented in this encounter [facility] Work Phone: Evaluation note* Diagnosis Right shoulder pain, unspecified chronicity S/P shoulder hemiarthroplasty, right documented in this encounter [facility] Work Phone: Evaluation note* Diagnosis Pre-op evaluation- Primary Preoperative examination, unspecified Posterior dislocation of right shoulder joint, initial encounter Pre-op testing Preoperative examination, unspecified Preoperative examination Preoperative examination, unspecified Seizure (HCC) Other convulsions Primary hypertension Unspecified essential hypertension Hyperlipidemia, unspecified hyperlipidemia type 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 eyes with active choroidal neovascularization (HCC)- Primary [facility]* Diagnosis Right shoulder pain, unspecified chronicity S/P shoulder hemiarthroplasty, right documented in this encounter [facility] Work Phone: Evaluation note* Diagnosis Right shoulder pain, unspecified chronicity S/P shoulder hemiarthroplasty, right Right shoulder pain, unspecified chronicity S/P shoulder hemiarthroplasty, right documented in this encounter [facility] Work Phone: Evaluation note* Diagnosis Pre-op evaluation- Primary Preoperative examination, unspecified Posterior dislocation of right shoulder joint, initial encounter Pre-op testing Preoperative examination, unspecified Preoperative examination Preoperative examination, unspecified Seizure (HCC) Other convulsions Primary hypertension Unspecified essential hypertension Hyperlipidemia, unspecified hyperlipidemia type 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 Herve Steele. [facility] Work Phone: Evaluation note* Diagnosis Pre-op evaluation- Primary Preoperative examination, unspecified Posterior dislocation of right shoulder joint, initial encounter Pre-op testing Preoperative examination, unspecified Preoperative examination Preoperative examination, unspecified Seizure (HCC) Other convulsions Primary hypertension Unspecified essential hypertension Hyperlipidemia, unspecified hyperlipidemia type 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 eyes with active choroidal neovascularization (HCC)- Primary [facility]* Diagnosis Pre-op evaluation- Primary Preoperative examination, unspecified Posterior dislocation of right shoulder joint, initial encounter Pre-op testing Preoperative examination, unspecified Preoperative examination Preoperative examination, unspecified Seizure (HCC) Other convulsions Primary hypertension Unspecified essential hypertension Hyperlipidemia, unspecified hyperlipidemia type Recurrent seizures (HCC)- Primary Other forms of epilepsy and recurrent seizures without mention of intractable epilepsy documented in this encounter [facility] note* Diagnosis Pre-op evaluation- Primary Preoperative examination, unspecified Posterior dislocation of right shoulder joint, initial encounter Pre-op testing Preoperative examination, unspecified Preoperative examination Preoperative examination, unspecified Seizure (HCC) Other convulsions Primary hypertension Unspecified essential hypertension Hyperlipidemia, unspecified hyperlipidemia type 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 eyes with active choroidal neovascularization (HCC)- Primary Nuclear sclerotic cataract of both eyes Senile nuclear sclerosis documented [facility]* Diagnosis Onset Date Resolution Status Admit Date BPH with elevated PSA acuteOctober 2024 7:48amHyperglycemiaacuteOctober 2024 7:48am HyperlipidemiaacuteOctober 2024 7:48amHypertensionacuteOctober 2024 7:48amMedicare annual wellness visit, subsequentacuteOctober 2024 7:48am DizzinessnoneactiveOctober 2024 7:48am [facility] Work Phone: History and physical note Author Ludmila Merchant [facility] February 26, 2024 9:13amNote Date/TimeJuly 2023 9:13[place] [address] Gastroenterology H&P Signed Patient: Davis Johnson MR#: [id number] : 1955 Acct:[id number] Age/Sex: 68 / M Adm Date: 4 Loc: Room: Type: [facility] Attending Dr: Ludmila Merchant MD Copies to: Herve Steele,DO Ludmila Merchant MD~ Date of Service: 02/26/2024 HISTORY & PHYSICAL: Patient's history with special attention to the cardiovascular, pulmonary systems and the current problem was reviewed with the patient immediately prior to the procedure. Present medications and doses reviewed in the EMR. Allergies and pertinent laboratory tests were also re viewedat this time in the EMR. The physical [...] <Electronically signed by Ludmila Merchant MD> 02/26/24912 [facility] Work Phone: Hospital Discharge instructions Additional Instructions [...] NOT operate machinery such as power tools, [employer] mowers, snow blowers, sewing machines, etc. for [...] years. -Follow up with PCP. -Office number [phone]. [facility] Work Phone: Hospital Discharge instructions Additional Instructions If your symptoms return/worsen or you develop any further concerns or symptoms please see your doctor or return to the emergency department immediately.[facility] Work Phone: Hospital Discharge instructionsAmbulatory Orders* Referral to Urology Time Frame: 05/26/24, Location: None Selected [facility] Work Phone: Reason for referral (narrative)* Reason *FU 01/26 Patient is needing evaluation and treatment of non-healing lip lesion. Please call patient with appt date and time. Thanks Diagnosis 1 Lip lesion (K13.0) [facility] Ref[facility] Provider First Name Herve Referring Provider Last Name Ivette Referring Provider Specialty Family Prac valeria Referred Organization [facility] Referred Address [address],[place], [place],[address] Referred Provider Specialty Dermatology Referral Priority Routine General Notes Sara Olivares 022 11:07:03 AM >Received today. [facility] request us to fill out their form and fax to them. They will review the referral and call patient to schedule them. Referral was fax [employer] Other Reason for referral (narrative)* Diagnostic Procedure Only (Routine) - ClosedSpecialtyDiagnoses / ProceduresReferred By Contact Referred To ContactXR IMAGING Diagnoses Right shoulder pain, unspecified chronicity Procedures XR SHOULDER ORTHO 4V AP/TRUE AP/LAT/OUTLET RIGHT RADEX SHOULDER COMPLETE MINIMUM 2 VIEWS Fantasma Lino PA-C [address] [place] [address] [facility] [place] [address] Referral IDStatusReasonStart DateExpiration DateVisits RequestedVisits [id number] Auto-Generated Referral [facility] for referral (narrative)* Diagnostic Procedure Only (Routine) - AuthorizedSpecialtyDiagnoses / ProceduresReferred By Contact Referred To ContactXR IMAGING Diagnoses Pain Procedures XR SHOULDER GENERAL 3V OR MORE AP/TRUE AP/OTHER RIGHT RADEX SHOULDER COMPLETE MINIMUM 2 VIEWS Hi Wooten MD [address] [place] [id number] Xr Imaging [facility] Referral IDStatusReasonStsterling DateExpiration DateVisits RequestedVisits [id number] Auto-Generated Referral [facility] for referral (narrative)* Diagnostic Procedure Only (Routine) - ClosedSpecialtyDiagnoses / ProceduresReferred By ContactReferred To ContactXR IMAGING Diagnoses Pain Procedures XR SHOULDER GENERAL 3V OR MORE AP/TRUE AP/OTHER RIGHT RADEX SHOULDER COMPLETE MINIMUM 2 VIEWS Hi Wooten MD [address] [place] [address] X[facility] [place] [address] Referral IDStatusReasonStart DateExpiration DateVisits RequestedVisits [id number] Auto-Generated Referral [facility] for referral (narrative)* Outpatient Procedure (Routine) - ClosedSpecialtyDiagnoses / ProceduresReferred By ContactReferred To Contact [facility] Diagnoses Seizure (HCC) Procedures EPIL EEG ROUTINE ELECTROENCEPHALOGRAM REC COMA/SLEEP ONLY Ami Whittaker MD [address] [place] [address] [place] [address] Referral IDStatusReasonRichmond DateExpiration DateVisits RequestedVisits [id number] Auto-Generated Referral [facility] for referral (narrative)* Diagnostic Procedure Only (Routine) - New RequestSpecialtyDiagnoses / ProceduresReferred By Contact Referred To ContactXR IMAGING Diagnoses Posterior dislocation of right shoulder joint, initial encounter Procedures XR SHOULDER GENERAL 3V OR MORE AP/TRUE AP/OTHER RIGHT RADEX SHOULDER COMPLETE MINIMUM 2 VIEWS Hi Wooten MD [address] [place] [address] [facility] [place] [address] Referral IDStatusReasonStart DateExpiration DateVisits RequestedVisits [id number] Request Auto-Generated Referral * Consult, Test, Treat (Routine) - AuthorizedSpecialtyDiagnoses / Procedures Referred By ContactReferred To Contact Diagnoses Posterior dislocation of right shoulder joint, initial encounter Pre-op testing Procedures REFER TO [facility] - PREOPERATIVE OPTIMIZATION OFFICE/OUTPATIENT NEW HIGH MDM 60 MINUTES Hi Wooten MD [address] [facility] [place] [address] Referral IDStatusReasonStart DateExpiration DateVisits RequestedVisits [id number] PCP Requested Referral * Outpatient Procedure (Routine) - New RequestSpecialtyDiagnoses / Procedures Referred By ContactReferred To [facility] [place] Diagnoses Posterior dislocation of right shoulder joint, initial encounter Pre-op testing Procedures ECG COMPLETE ECG ROUTINE ECG W/LEAST 12 LDS W/I&R Hi Wooten MD [address] [place] [address] [place] [address] Referral IDStatusReasonRichmond DateExpiration DateVisits RequestedVisits [id number] Request Auto-Generated Referral * Diagnostic Procedure Only (Routine) - New RequestSpecialtyDiagnoses / ProceduresReferred By ContactReferred To ContactXR IMAGING Diagnoses Posterior dislocation of right shoulder joint, initial encounter Procedures XR SHOULDER GENERAL 3V OR MORE AP/TRUE AP/OTHER RIGHT RADEX SHOULDER COMPLETE MINIMUM 2 VIEWS Hi Wooten MD [address] [place] [address] X[facility] [place] [address] Referral IDStatusReasonStsterling DateExpiration DateVisits RequestedVisits [id number] Request Auto-Generated Referral [facility] for referral (narrative)* Consultation (Routine) - Pending ReviewSpecialtyDiagnoses / ProceduresReferred By ContactReferred To ContactPhysical Therapy Diagnoses Dislocation of right shoulder joint, initial encounter Brian Newsome PA-C [address] [facility], [address] [place] [address] Referral IDStatusReasonStart DateExpiration DateVisits RequestedVisits [id number] Review Specialty Services Required / * Imaging (Routine) - AuthorizedSpecialtyDiagnoses / ProceduresReferred By ContactReferred To ContactRadiology Diagnoses Right shoulder pain, unspecified chronicity Procedures XR shoulder right 2+ views Brian Newsome PA-C [address] [facility], [address] [place], [place] [id number] Referral IDStatusReasonStart DateExpiration DateVisits RequestedVisits [id number] Perform Procedure [facility] Work Phone: Recpeb for referral (narrative)No reason for referral information availableMet[facility]health [facility] Work Phone: Reason for visit Narrative* Imaging (Routine) - AuthorizedSpecialtyDiagnoses / ProceduresReferred By ContactReferred To ContactRadiology Diagnoses Dislocation of right shoulder joint, initial encounter Procedures XR shoulder right 2+ views Damián Blackwood MD [address] [facility], [address] [place] [address] Phone: tel: fax: Referral IDStatusReasonStart DateExpiration DateVisits RequestedVisits [id number] Perform Procedure [facility] Work Phone: Reason for visit Narrative* Imaging (Routine) - AuthorizedSpecialtyDiagnoses / ProceduresReferred By ContactReferred To ContactRadiology Diagnoses Right shoulder pain, unspecified chronicity S/P shoulder hemiarthroplasty, right Procedures XR shoulder right 2+ views Damián Blackwood MD [address] [facility], [address] [place] [address] Phone: tel: fax: Referral IDStatusReasonStart DateExpiration DateVisits RequestedVisits [id number] Perform Procedure [facility] Work Phone: Reason for visit Narrative* Imaging (Routine) - AuthorizedSpecialtyDiagnoses / ProceduresReferred By ContactReferred To ContactRadiology Diagnoses Right shoulder pain, unspecified chronicity S/P shoulder hemiarthroplasty, right Procedures XR shoulder right 2+ views Damián Blackwood MD [address] [facility], [address] [place] [address] Phone: tel: fax: Referral IDStatusReasonStart DateExpiration DateVisits RequestedVisits [id number] Perform Procedure [facility] Work Phone: Summary Purpose Family History No Family History Records Found Relationship Condition Age at Onset Recorded Date/T tommy father Unknown Relationship Condition Age at Onset Recorded Date/T tommy father Unknown motherHeart diseaseUnknownbrotherStatus post three vessel coronary artery bypass Unknown Advance Directives No Advanced Directives Records Found Advance Directive Response Recorded Date/ Time Advance [...] specific antigen [PSA] I65.21 1 month follow upReason for VisitMedicare annual wellness visit, subsequent Screening for colon cancer Hyperglycemia Hyperlipidemia HTN (hypertension) Abnormal PSA Elevated PSA Neoplasm of uncertain behavior of skin Chief Complaint e78.5 z12.5 SUBSEQUENT MEDICARE WELLNESS R97.20 - Elevated prostate specific antigen [PSA] I65.21 1 month follow up Screening ScreeningReason for VisitMedicare annual wellness visit, subsequent Screening for colon cancer Hyperglycemia Hyperlipidemia HTN (hypertension) Abnormal PSA Elevated PSA Neoplasm of uncertain behavior of skin Chief Complaint 1 month follow up Screening Screening Amb Documentation AMSReason for VisitElevated PSA Neoplasm of uncertain behavior of skin Chief Complaint Screening Screening Amb Documentation AMS r97.20 Chief Complaint Screening Screening Amb Documentation AMS r97.20 Amb Documentation Shave and Lab ReviewReason for VisitElevated PSA Shoulder fracture, right Chief Complaint Admit Date r97.20 May 15, 2024 7 :59am Amb Documentation May 19, 2024 5 :06pm Shave and Lab Review May 26, 2024 10:58am Amb Documentation June 19, 2024 11:37am Amb Documentation July 31, 2024 10:32am Follow up August 11, 2024 10 :12am Reason for Visit Admit Date Elevated PSA May 26, 2024 1 0:58am Shoulder fracture, right May 26, 2 024 10:58am Seizure May 26, 2024 1 0:58am Elevated PSA August 11, 2024 10 :12am Hypertension August 11, 2024 10 :12am Injury of right hand August 11, 2024 1 0:12am Macular degeneration August 11, 2024 1 0:12am Seizure disorder August 11, 2024 10 :12am Shoulder fracture, right August 11 10:12am Chief Complaint Admit Date Amb Documentation June 19, 2024 11:37am Amb Documentation July 31, 2024 10:32am Follow up August 11, 2024 10 :12am r97.20 August 27, 2024 1 0:54am Reason for Visit Admit Date Elevated PSA August 11, 2024 10 :12am Hypertension August 11, 2024 10 :12am Injury of right hand August 11, 2024 1 0:12am Macular degeneration August 11, 2024 1 0:12am Seizure disorder August 11, 2024 10 :12am Shoulder fracture, right August 11 10:12am Chief Complaint Admit Date r/s 3 month f/u November 30, 2024 8:3 6am Reason for Visit Admit Date BPH with elevated PSA November 30, 2024 8 :36am Hypertension November 30, 2024 8:3 6am Neoplasm of uncertain behavior of skin A pril 2024 8:36am Pain November 30, 2024 8:3 6am Chief Complaint Admit Date medicare wellness June 03, 2025 7 :48am Reason for Visit Admit Date BPH with elevated PSA June 03, 2025 7:48am Hyperglycemia June 03, 2025 7 :48am Hyperlipidemia June 03, 2025 7 :48am Hypertension June 03, 2025 7 :48am Medicare annual wellness visit, subseque nt June 03, 2025 7:48am Dizziness June 03, 2025 7 :48am Reason for Referral SpecialtyDiagnoses / ProceduresReferred By ContactReferred To Contact Diagnoses Nonintractable epilepsy without status epilepticus, unspecified epilepsy type (HCC) Ami Whittaker MD [address] [place] [address] Referral IDStatusReasonStart DateExpiration DateVisits RequestedVisits [id number] Qcgrez72/[id number] / ProceduresReferred By ContactReferred To Contact Diagnoses Seizures (CMS/HCC) Procedures MR brain w and wo contrast routine Indy Quikc DO [address] [place] [address] [facility] Sched[facility] [address] [place] [address] Referral IDStatusReasonStart DateExpiration DateVisits RequestedVisits [id number] Review/[id number] / ProceduresReferred By ContactReferred To Contact Diagnoses Seizures ([facility]/HCC) Procedures EEG, Including Recording Awake or Asleep Indy Quick DO [address] [place] [address] Referral IDStatusReasonStart DateExpiration DateVisits RequestedVisits [id number] Review/[id number] / ProceduresReferred By ContactReferred To ContactMR IMAGING Diagnoses Convulsions, unspecified convulsion type (HCC) Procedures MRI BRAIN WO IVCON MRI BRAIN BRAIN STEM W/O CONTRAST MATERIAL Arnaldo Kinsey PA-C [address] [place] [address] [place] [address] Referral IDStatusHernanStrocio DateExpiration DateVisits RequestedVisits [id number] Auto-Generated Referral [id number] / ProceduresReferred By ContactReferred To ContactRadiology Diagnoses Right shoulder pain, unspecified chronicity Procedures XR shoulder right 2+ views Brian Newsome PA-C [address] [facility], [address] [place] [address] Referral IDStatusHernanStrocio DateExpiration DateVisits RequestedVisits [id number] Perform Procedure [id number] / ProceduresReferred By ContactReferred To ContactNeurology Diagnoses Posterior dislocation of right shoulder joint, initial encounter Seizure (HCC) Procedures CONSULT TO NEUROLOGY OFFICE/OUTPATIENT [facility] 60 MINUTES Hi Wooten MD [address] [place] [address] Referral IDStatusReasonStart DateExpiration DateVisits RequestedVisits [id number] PCP Requested Referral [id number] / ProceduresReferred By ContactReferred To ContactOrthopedics Diagnoses Posterior dislocation of right shoulder joint, initial encounter Procedures CONSULT TO ORTHOPAEDICS OFFICE/OUTPATIENT [facility] 60 MINUTES Fantasma Lino PA-C [address] [place] [address] Referral IDStatusReasonStart DateExpiration DateVisits RequestedVisits [id number] PCP Requested Referral [id number] / ProceduresReferred By ContactReferred To ContactXR IMAGING Diagnoses Right shoulder pain, unspecified chronicity Procedures XR SHOULDER ORTHO 4V AP/TRUE AP/LAT/OUTLET RIGHT RADEX SHOULDER COMPLETE MINIMUM 2 VIEWS Fantasma Lino PA-C [address] [place] [address] [place] [address] Referral IDStatusReasonStsterling DateExpiration DateVisits RequestedVisits [id number] Auto-Generated Referral Reason *FU 06/03 [facility] Please- Evaluate and Treat Diagnosis 1 Neoplasm of uncertai n behavior of skin (D48.5) Referral Organization [facility] [place] Referring Provider First Name Herve Referring Provider Last Name Ivette Referring Provider Specialty Family Prac valeria Referred Organization [facility] Referred Address [address] [facility] Freya martin [facility],[place], [place],[address] Referred Provider Specialty Dermatology Referral Priority Routine General Notes Fore, Sara M 023 08:42:36 AM >Received today. [facility] request us to fill out their form and fax to them. They will review the referral and call patient to schedule them. Referral was fax Clinical Notes Office [phone] option 1 Reason 08/20/22 @ 1:40pm consult and treat Diagnosis 1 Compression fracture of T12 vertebra, initial encounter (S22.080A) Referral Organization [facility] [place] Referring Provider First Name Herve Referring Provider Last Name Ivette Referring Provider Specialty Family Prac valeria Referred Organization [facility] urosurgery Referred Provider Elvia Palacios Referred Address [address] [address] ,[place], [place],[address] Referred Provider Specialty Neurological Surgery Referral Priority Routine Referral Appointment Date 2022-08-20 General Notes Sara Olivares 022 09:10:06 AM >[facility] today and [facility] 11:31:17 AM >[facility] is [facility] 07:36:01 AM >Sent telephone encounter to referring physician to let themknow that the consult letter is ready for their review Additional Source Comments (unrecognized sect ion and content) No Status Records FoundNo Status Records FoundNo Status Records FoundNo Status Records FoundNo Status Records FoundNo Status Records FoundNo Status Records FoundNo Status Records FoundNo Status Records Found INFORMATION SOURCE (unrecogn ized section and content) DATE CREATED AUTHOR 03/11/2021 [facility] DATE CREATED AUTHOR AUTHOR'S ORGANIZ ATION 05/06/2024 [facility] DATE CREATED AUTHOR AUTHOR'S ORGANIZ ATION 07/04/2024 [facility] DATE CREATED AUTHOR AUTHOR'S ORGANIZ ATION 07/19/2024 [facility] EPIC DATE CREATED AUTHOR AUTHOR'S ORGANIZ ATION 10/17/[address] [facility] DATE CREATED AUTHOR AUTHOR'S ORGANIZ ATION 10/20/2024 [facility] DATE CREATED AUTHOR AUTHOR'S ORGANIZ ATION 01/05/2025 [facility] DATE CREATED AUTHOR AUTHOR'S ORGANIZ ATION 05/07/2025 [facility] DATE CREATED AUTHOR AUTHOR'S ORGANIZ ATION 06/06/2025 [facility] REASON FOR VISIT (unrecogniz ed section and content) ReasonComments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 eyes wit SpecialtyDiagnoses / ProceduresReferred By ContactReferred To Contact Ophthalmology / OPHTHALMOLOGY Diagnoses Exudative age-related macular degeneration, bilateral, with active choroidal neovascularization Return for 2 weeks, Injection. Procedures AFLIBERCEPT INJECTION Eylea 2mg both eyes every 4 wks for one year Charlette Lyons MD [address] [place] [address] Phone: [place]: [place] [address] [place] [address] Phone: tel: fax: Referral IDStatusReasonStart DateExpiration DateVisits RequestedVisits [id number]/17/20251/[id number] Exudative /WetReasonCommentsNewReasonCommentsPatient UpdateOrthopedic Verbal Instructions to [facility]ReasonCommentsRad[facility] XRSpecialtyDiagnoses / Procedures Referred By ContactReferred To ContactXR IMAGING Diagnoses Right shoulder pain, unspecified chronicity Procedures XR SHOULDER ORTHO 4V AP/TRUE AP/LAT/OUTLET RIGHT RADEX SHOULDER COMPLETE MINIMUM 2 VIEWS Fantasma Lino PA-C [address] [place] [address] [place] [address] Referral IDStatusReasonStart DateExpiration DateVisits RequestedVisits [id number] Auto-Generated Referral /[id number]aWsetvuQspydsgyMtiFvkclvdfgIkgmwhjmm / ProceduresReferred By ContactReferred To ContactOrthopedics Diagnoses Posterior dislocation of right shoulder joint, initial encounter Procedures CONSULT TO ORTHOPAEDICS OFFICE/OUTPATIENT [facility] 60 MINUTES Fantasma Lino PA-C [address] [place] [address] Referral IDStatusReasonStart DateExpiration DateVisits RequestedVisits [id number] PCP Requested Referral /[id number] Gen W37BvmkfoyalZhpxinlsw / Procedures Referred By ContactReferred To ContactXR IMAGING Diagnoses Pain Procedures XR SHOULDER GENERAL 3V OR MORE AP/TRUE AP/OTHER RIGHT RADEX SHOULDER COMPLETE MINIMUM 2 VIEWS Hi Wooten MD [address] [place] [address] X[address] [address] Referral IDStatusReasonStart DateExpiration DateVisits RequestedVisits [id number] Auto-Generated Referral [id number] PatientSpecialtyDiagnoses / Procedures Referred By ContactReferred To ContactNeurology Diagnoses Posterior dislocation of right shoulder joint, initial encounter Seizure (HCC) Procedures CONSULT TO NEUROLOGY OFFICE/OUTPATIENT [facility] 60 MINUTES Hi Wooten MD [address] [place] [address] Referral IDStatusReasonStart DateExpiration DateVisits RequestedVisits [id number] PCP Requested Referral [id number]-Ac VisitSpecialtyDiagnoses / Procedures Referred By ContactReferred To Contact Diagnoses Posterior dislocation of right shoulder joint, initial encounter Pre-op testing Procedures REFER TO [facility] - PREOPERATIVE OPTIMIZATION OFFICE/OUTPATIENT [facility] 60 MINUTES Hi Wooten MD [address] [place] [address] Referral IDStatusReasonStart DateExpiration DateVisits RequestedVisits [id number] PCP Requested Referral /[id number] XRReasonCommentsPost-op SUE/RCR/biceps tenodesis 05/05/24Xrays todaySpecialtyDiagnoses / Procedures Referred By ContactReferred To ContactRadiology Diagnoses Right shoulder pain, unspecified chronicity Procedures XR shoulder right 2+ views Brian Newsome PA-C [address] [facility], [address] [place] [address] Referral IDStatusReasonStart DateExpiration DateVisits RequestedVisits [id number] Perform Procedure [id number]-heCPHBKLY: 05/05/24Xrays todayReason CommentsMedication ProblemPatient wants to reduce KeppraSpecialtyDiagnoses / ProceduresReferred By ContactReferred To ContactMR IMAGING Diagnoses Convulsions, unspecified convulsion type (HCC) Procedures MRI BRAIN WO IVCON MRI BRAIN BRAIN STEM W/O CONTRAST MATERIAL Arnaldo Kinsey PA-C [address] [place] [address] Mr Imaging [address] [address] Referral IDStatusReasonRichmond DateExpiration DateVisits RequestedVisits [id number] Auto-Generated Referral [id number]nqzeQlwgjzmcCxfmic-vc Hemiarthroplasty from 05/05/24Patient says that he had a seizure and fell and is having pain10 weeks outX-rays todayNew Patient VisitPain after having a seizureX-rays todayNew Patient VisitPain and swellingX-[facility] ReasonCommentsPainReasonCommentsEstablished PatientFollow UpSpecialtyDiagnoses / ProceduresReferred By ContactReferred To ContactRadiology Diagnoses Right shoulder pain, unspecified chronicity Procedures XR shoulder right 2+ views Damián Blackwood MD [address] [facility], [address] [place] [address] Referral IDStatusReasonRichmond DateExpiration DateVisits RequestedVisits [id number] Perform Procedure [id number] Patient VisitReasonCommentsMacular Degeneration EvaluationReasonCommentsFollow-upHemiarthroplastyDOS: 05/05/24Xrays todayReasonComments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 eyes SpecialtyDiagnoses / ProceduresReferred By ContactReferred To Contact Ophthalmology / OPHTHALMOLOGY Diagnoses Exudative age-related macular degeneration, bilateral, with active choroidal neovascularization Return for 2 weeks, Injection. Procedures AFLIBERCEPT INJECTION Eylea 2mg both eyes every 4 wks for one year Charlette Lyons MD [address] [place] [address] [place] [address] [place] [address] ReasonCommentsFollow-upHemiarthroplastyDOS: 05/05/24ReasonCommentsExudative age- related macular degeneration of both eyesReasonCommentsSeizuresReasonComments Exudative age-related macular degenerationSpecialtyDiagnoses / Procedures Referred By ContactReferred To ContactOphthalmology / OPHTHALMOLOGY Diagnoses Exudative age-related macular degeneration, bilateral, with active choroidal neovascularization (HCC) *8 W, DTI EYLEA HD OU auth pending Procedures INJ, AFLIBERCEPT HD Eylea HD 8 mg both eyes every 4 wks for 3 doses then every 8-12 wks for one year Charlette Lyons MD [address] [place] [address] Phone: [place]: [place] [address] [place] [address] Phone: tel: fax: Referral IDStatusReasonStart DateExpiration DateVisits RequestedVisits [id number]/26/20256/[id number] Care Teams (unrecognized sec tion and content) Team Status: Active Member Role Status Cristo Steele DO Primary Care Provider Active Team Status: Inactive Member Role Status Cristo Steele DO Primary Care Provide r, Attending Provider Active Start: November 30, 2024 End: November 30, 2024 Team Status: Active Member Role Status Cristo Steele DO Primary Care Provide r, Attending Provider Active Start: November 30, 2024 Team Status: Active Member Role Status Cristo Steele DO Primary Care Provider Active Sta rt: June 19, 2024 Sonia Valencia ProviderActiveStart: June 19, 2024 Team Status: Active Member Role Status Dates Herve Kuns , DO Primary Care Provider Active Sta rt: July 04, 2024 Marcellus Mario Nasir , DOAttending ProviderActiveStart: July 04, 2024 Team Status: Active Member Role Status Dates Herve Steele , DO Primary Care Provider Active Sta rt: July 05, 2024 Rey Barnhart DOAttending ProviderActiveStart: July 05, 2024 Team Status: Active Member Role Status Dates Herve Steele , DO Primary Care Provide r, Attending Provider Active Start: July 24, 2024 Team Status: Active Member Role Status Dates Herve Steele , DO Primary Care Provider Active Sta rt: July 31, 2024 Jennifer Irving Betoederlynda ProviderActiveStart: July 31, 2024 Team Status: Inactive Member Role Status Cristo Steele DO Primary Care Provide r, Attending Provider Active Start: August 11, 2024 End: August 11, 2024 Team Status: Inactive Member Role Status Cristo Steele , DO Primary Care Provider Active Sta rt: August 27, 2024 End: August 27wendy Mendenhall , MDAttending ProviderActiveStart: August 27, 2024 End: August 27, 2024 Team Status: Inactive Member Role Status Cristo Steele , DO Primary Care Provider, Attending Provi conchita Active Team Status: Inactive Member Role Status Cristo Steele DO Primary Care Provider Active Elvia Palacios , MDAttending ProviderActive Team Status: Inactive Member Role Status Cristo Steele DO Primary Care Provider Active Outreach CommunityAttending ProviderActive Team Status: Inactive Member Role Status Cristo [...] Status Cristo Steele , DO Primary Care Provide r, Attending Provider Active Start: January 02, 2024 End: January 02, 2024 Team Status: Inactive Member Role Status Cristo Steele DO Primary Care Provide r, Attending Provider Active Start: January 27, 2024 End: January 27, 2024 Team Status: Inactive Member Role Status Dates Herve Steele DO Primary Care Provider Active Sta rt: February 26, 2024 End: February 26, 2024Lyndsey Del Rosario ProviderActiveStart: February 26, 2024 End: February 26, 2024 Team Status: Active Member Role Status Dates Herve Steele DO Primary Care Provider Active Sta rt: February 26, 2024 ImLyndsey Kaminski Provider, Other ProviderActiveStart: February 26, 2024 Team Status: Active Member Role Status Dates Herve Steele DO Primary Care Provider Active Sta rt: February 27, 2024 Miesha Soy ProviderActiveStart: February 27, 2024 Team Status: Inactive Member Role Status Dates Herve Steele DO Primary Care Provider Active Sta rt: April 03, 2024 End: April 03natali Landry DOEmegenesis ProviderActiveStart: April 03, 2024 End: April 03, 2024Team MemberRelationshipSpecialtyStart DateEnd Date Herve Steele [address] [phone] PCP - GeneralFamily Medicine04/09/24Team MemberRelationshipSpecialtyStart DateEnd Date Herve Steele [address] [place] [address] PCP - GeneralFamily Medicine04/09/24Team MemberRelationshipSpecialtyStart DateEnd Date Herve Steele [address] [place] [address] PCP - GeneralFamily Medicine04/09/24Team MemberRelationshipSpecialtyStart DateEnd Date Herve Steele [address] [place] [address] PCP - GeneralFamily Medicine04/09/24Team MemberRelationshipSpecialtyStart DateEnd Date Herve Steele [address] [place] [address] PCP - GeneralFamily Medicine04/09/24Team MemberRelationshipSpecialtyStart DateEnd Date Herve Steele [address] [place] [address] PCP - GeneralFamily Medicine04/09/24Team MemberRelationshipSpecialtyStart DateEnd Date Herve Steele [address] [phone] PCP - GeneralFamily Medicine04/09/24Team MemberRelationshipSpecialtyStart DateEnd Date Herve Steele [address] [phone] PCP - GeneralFamily Medicine04/09/24Team MemberRelationshipSpecialtyStart DateEnd Date Herve Steele [address] [phone] PCP - GeneralFamily Medicine04/09/24Team MemberRelationshipSpecialtyStart DateEnd Date Herve Steele [address] [phone] PCP - GeneralFamily Medicine04/09/24Team MemberRelationshipSpecialtyStart DateEnd Date Herve Steele [address] [phone] PCP - GeneralFamily Medicine04/09/24 Team Status: Active Member Role Status Dates Herve Steele DO Primary Care Provider Active Sta rt: April 30, 2024 Lyndsey Rey ProviderActiveStart: April 30, 2024 Team Status: Inactive Member Role Status Dates Herve Steele DO Primary Care Provide r, Attending Provider Active Start: May 15, 2024 End: May 15, 2024Team MemberRelationshipSpecialtyStart DateEnd Date Generic Provider, [place] [address] PCP - GeneralGeneral Practice05/04/24Team MemberRelationshipSpecialtyStart Date End Date Generic Provider, [place] [address] PCP - GeneralGeneral Practice05/04/24 Team Status: Active Member Role Status Dates Herve Steele DO Primary Care Provide r, Attending Provider Active Start: May 19, 2024 Team Status: Active Member Role Status Dates Herve Steele DO Primary Care Provider Active Sta rt: May 19, 2024 Sonia Valencia ProviderActiveStart: May 19, 2024 Team Status: Inactive Member Role Status Dates Herve Steele DO Primary Care Provide r, Attending Provider Active Start: May 26, 2024 End: May 26, 2024Team MemberRelationshipSpecialtyStart DateEnd Date Herve Steele DO [address] [place] [address] PCP - GeneralFamily Tdiplnms41/13/24Team MemberRelationshipSpecialtyStart Date End Date Herve Steele DO [address] [place] [address] PCP - GeneralFamily Fuvjqlut51/13/24Team MemberRelationshipSpecialtyStart Date End Date Herve Steele [address] [place] [address] PCP - GeneralFamily Medicine04/09/24Team MemberRelationshipSpecialtyStart DateEnd Date Herve Steele [address] [place] [address] PCP - GeneralFamily Medicine04/09/24Team MemberRelationshipSpecialtyStart DateEnd Date Herve Steele [address] [place] [address] PCP - GeneralFamily Medicine04/09/24Team MemberRelationshipSpecialtyStart DateEnd Date Herve Steele DO [address] [place] [address] PCP - GeneralFamily Medicine04/22/24Team MemberRelationshipSpecialtyStart DateEnd Date Herve Steele DO [address] [place] [address] PCP - GeneralFamily Medicine04/22/24Team MemberRelationshipSpecialtyStart DateEnd Date Herve Steele DO [address] [place] [address] PCP - GeneralFamily Medicine04/22/24Team MemberRelationshipSpecialtyStart DateEnd Date Generic Provider, [place] [address] PCP - GeneralGeneral Practice05/04/24Team MemberRelationshipSpecialtyStart Date End Date Herve Steele [address] [place] [address] PCP - GeneralFamily Medicine04/09/24Team MemberRelationshipSpecialtyStart DateEnd Date Herve Steele [address] [place] [address] PCP - GeneralFamily Medicine04/09/24Team MemberRelationshipSpecialtyStart DateEnd Date Herve Steele DO [address] [place] [address] PCP - GeneralFamily Sbrbsani41/13/24Team MemberRelationshipSpecialtyStart Date End Date Herve Steele [address] [phone] PCP - GeneralFamily Medicine04/09/24Team MemberRelationshipSpecialtyStart DateEnd Date Herve Steele DO [address] [place] [address] PCP - GeneralFamily Iocvqmju53/13/24Team MemberRelationshipSpecialtyStart Date End Date Herve Steele DO [address] [place] [address] PCP - GeneralFamily Dqausmgs94/13/24Team MemberRelationshipSpecialtyStart Date End Date Herve Steele [address] [place] [address] PCP - GeneralFamily Medicine04/09/24Team MemberRelationshipSpecialtyStart DateEnd Date Herve tSeele [address] [place] [address] PCP - [facility] Medicine04/09/24Team MemberRelationshipSpecialtyStart DateEnd Herve Steele [address] [place] [address] PCP - [facility]04/09/24 Team Status: Active Member Role/Relationship Status Cristo Steele DO Primary Care Provider Active Team Status: Inactive Member Role/Relationship Status Dates Herve Steele DO Primary Care Provider Active Sta rt: May 31, 2025 End: May 31kell Steele , DOAttending ProviderActiveStart: May 31, 2025 End: May 31, 2025 Team Status: Inactive Member Role/Relationship Status Cristo Steele DO Primary Care Provider Active Sta rt: June 03, 2025 End: June 03kell Steele , DOAttending ProviderActiveStart: June 03, 2025 End: June 03, 2025 Goals (unrecognized section and content) Goals may be documented in a n alternate section Source Comments (unrecognize d section and content) In the event this informatio n is protected by the Federal Confidentiality of Alcohol and Drug Abuse Patient Records regulations: The Federal rules restrict any use of the information to criminally investigate or prosecute any alcohol or drug abuse patient.[facility] CampusIn the event this information is protected by the Federal Confidentiality of Alcohol and Drug Abuse Patient Records regulations: The Federal rules restrict any use of the information to criminally investigate or prosecute any alcohol or drug abuse patient.[facility] CampusIn the event this information is protected by the Federal Confidentiality of Alcohol and Drug Abuse Patient Records regulations: The Federal rules restrict any use of the information to criminally investigate or prosecute any alcohol or drug abuse patient.[facility] CampusIn the event this information is protected by the Federal Confidentiality of Alcohol and Drug Abuse Patient Records regulations: The Federal rules restrict any use of the information to criminally investigate or prosecute any alcohol or drug abuse patient.[facility] CampusIn the event this information is protected by the Federal Confidentiality of Alcohol and Drug Abuse Patient Records regulations: The Federal rules restrict any use of the information to criminally investigate or prosecute any alcohol or drug abuse patient.[facility] CampusIn the event this information is protected by the Federal Confidentiality of Alcohol and Drug Abuse Patient Records regulations: The Federal rules restrict any use of the information to criminally investigate or prosecute any alcohol or drug abuse patient.[facility] [place] CampusIn the event this information is protected by the Federal Confidentiality of Alcohol and Drug Abuse Patient Records regulations: The Federal rules restrict any use of the information to criminally investigate or prosecute any alcohol or drug abuse patient.[facility] [place] CampusIn the event this information is protected by the Federal Confidentiality of Alcohol and Drug Abuse Patient Records regulations: The Federal rules restrict any use of the information to criminally investigate or prosecute any alcohol or drug abuse patient.[facility] [place] CampusIn the event this information is protected by the Federal Confidentiality of Alcohol and Drug Abuse Patient Records regulations: The Federal rules restrict any use of the information to criminally investigate or prosecute any alcohol or drug abuse patient.[facility] [place] CampusIn the event this information is protected by the Federal Confidentiality of Alcohol and Drug Abuse Patient Records regulations: The Federal rules restrict any use of the information to criminally investigate or prosecute any alcohol or drug abuse patient.[facility] [place] CampusIn the event this information is protected by the Federal Confidentiality of Alcohol and Drug Abuse Patient Records regulations: The Federal rules restrict any use of the information to criminally investigate or prosecute any alcohol or drug abuse patient.[facility] [place] CampusIn the event this information is protected by the Federal Confidentiality of Alcohol and Drug Abuse Patient Records regulations: The Federal rules restrict any use of the information to criminally investigate or prosecute any alcohol or drug abuse patient.[facility] [place] CampusIn the event this information is protected by the Federal Confidentiality of Alcohol and Drug Abuse Patient Records regulations: The Federal rules restrict any use of the information to criminally investigate or prosecute any alcohol or drug abuse patient.[facility] [place] CampusIn the event this information is protected by the Federal Confidentiality of Alcohol and Drug Abuse Patient Records regulations: The Federal rules restrict any use of the information to criminally investigate or prosecute any alcohol or drug abuse patient.[facility] [place] CampusIn the event this information is protected by the Federal Confidentiality of Alcohol and Drug Abuse Patient Records regulations: The Federal rules restrict any use of the information to criminally investigate or prosecute any alcohol or drug abuse patient.[facility] [place] CampusIn the event this information is protected by the Federal Confidentiality of Alcohol and Drug Abuse Patient Records regulations: The Federal rules restrict any use of the information to criminally investigate or prosecute any alcohol or drug abuse patient.[facility] [place] CampusIn the event this information is protected by the Federal Confidentiality of Alcohol and Drug Abuse Patient Records regulations: The Federal rules restrict any use of the information to criminally investigate or prosecute any alcohol or drug abuse patient.[facility] [place] CampusIn the event this information is protected by the Federal Confidentiality of Alcohol and Drug Abuse Patient Records regulations: The Federal rules restrict any use of the information to criminally investigate or prosecute any alcohol or drug abuse patient.[facility] [place] CampusIn the event this information is protected by the Federal Confidentiality of Alcohol and Drug Abuse Patient Records regulations: The Federal rules restrict any use of the information to criminally investigate or prosecute any alcohol or drug abuse patient.[facility] [place] CampusIn the event this information is protected by the Federal Confidentiality of Alcohol and Drug Abuse Patient Records regulations: The Federal rules restrict any use of the information to criminally investigate or prosecute any alcohol or drug abuse patient.[facility] [place] CampusIn the event this information is protected by the Federal Confidentiality of Alcohol and Drug Abuse Patient Records regulations: The Federal rules restrict any use of the information to criminally investigate or prosecute any alcohol or drug abuse patient.[facility] [place] CampusIn the event this information is protected by the Federal Confidentiality of Alcohol and Drug Abuse Patient Records regulations: The Federal rules restrict any use of the information to criminally investigate or prosecute any alcohol or drug abuse patient.[facility] [place] CampusIn the event this information is protected by the Federal Confidentiality of Alcohol and Drug Abuse Patient Records regulations: The Federal rules restrict any use of the information to criminally investigate or prosecute any alcohol or drug abuse patient.[facility] [place] CampusIn the event this information is protected by the Federal Confidentiality of Alcohol and Drug Abuse Patient Records regulations: The Federal rules restrict any use of the information to criminally investigate or prosecute any alcohol or drug abuse patient.[facility] [place] CampusIn the event this information is protected by the Federal Confidentiality of Alcohol and Drug Abuse Patient Records regulations: The Federal rules restrict any use of the information to criminally investigate or prosecute any alcohol or drug abuse patient.[facility] [place] CampusIn the event this information is protected by the Federal Confidentiality of Alcohol and Drug Abuse Patient Records regulations: The Federal rules restrict any use of the information to criminally investigate or prosecute any alcohol or drug abuse patient.[facility] [place] [facility] FOR RECORDS PERTAINING TO PATIENTS WHO ARE [...] BE BASED ON THE PRIMARY CLINICAL RECORDS. [facility]. provides no warranty or guarantee of the accuracy or completeness of information in this document.
--- NOTE | 2025-06-08 15:58 | XR_ITS ---
[facility] [place] [id number] Patient Name: FARHAN HURTADO MRN: [id number] date: 1955 Sex: M Assigned Patient Location: ER Current Patient Location: ED.MAIN Accession/Order Number: [id number] Exam Date: 06/08/2025 15:50 Report Date: 06/08/2025 16:12 At the request of: LORENZA BULLOCK Procedure: XR knee LT 3V 3 views left knee HISTORY: Popping sensation posterior lateral aspect of the left knee with resultant pain No joint effusion. Adequate alignment without acute displaced fracture. Chondrocalcinosis of menisci. Atherosclerosis. XR/XR knee LT 3V IMPRESSION: No acute findings. Chondrocalcinosis of menisci. Impression dictated by: Jack Bar M.D. 06/08/2025 4:12 PM Dictation Location: [place] [id number] Electronically authenticated by: [id number] Y Date: 06/08/2025 16:12
[2025-06-08] MEDS: HYDROCODONE/ACET 5-325 MG TABLET 1 TAB PO (16:53)
== END 2025-06-08 16:57 | disposition home or self-care (01) ==
PROVIDERS: Emergency Provider Emergency Medicine; PCP Family Medicine
DX: M25.562 Pain in left knee (principal)
CPT/HCPCS: 73562; 96372; 99284; J1885